=== PATIENT | female | born 1950 | race Caucasian/White ===

== ENCOUNTER 2020-02-09 16:15 | Emergency (ER) | payer MEDICARE, SELFPAY ==
[2020-02-09 16:19] VITALS: BP 150/73; PULSE 96; RESP 17; TEMP 36.5; O2SAT 96
--- NOTE | 2020-02-09 16:24 | ED.ABDPAIN ---
HPI - Abdominal Pain General Chief Complaint: Abdominal Pain Stated Complaint: lower abd pain Time Seen by Provider: 02/09/20 16:21 History of Present Illness HPI narrative: Suprapubic pain radiating into the vagina and down the front of her thighs for the pas 2 weeks. No nausea, vomiting, diarrhea, constipation, dysuria, hematuria, vaginal dyscharge/bleeding. She has had similar pain multiple times in the past without a cause identified. She gets some relief from ibuprofen. Related Data Allergies Allergy/AdvReac Type Severity Reaction Status Date / Time No Known Allergies Allergy Unverified 06/26/18 10:41 Review of Systems Review of Systems: All systems reviewed & are unremarkable except as noted in HPI and below Constitutional: Constitutional: Denies fever(s) and Denies weakness Cardiovascular: Cardiovascular: Denies chest pain Respiratory: Respiratory: Denies dyspnea Gastrointestinal: Gastrointestinal: Reports abdominal pain, Denies constipation, Denies diarrhea, Denies nausea and Denies vomiting Genitourinary: Genitourinary: Denies abnormal vaginal bleeding, Denies hematuria, Denies dysuria, Denies flank pain and Denies vaginal discharge Musculoskeletal: Musculoskeletal: Denies back pain Neurologic: Denies dizziness and Denies weakness PMFSH Social History Social History Gender identity (if verbalized by the patient): Female Exam Const: General: healthy appearing, no acute distress and alert Nutritional Appearance: well nourished Orientation/consciousness: patient oriented x3 HENMT: Head: normal to inspection Neck: Neck: normal visual inspection and no lymphadenopathy Chest: Chest palpation & inspection: no tenderness Resp: Effort & Inspection: normal respiratory effort Auscultation: clear to auscultation bilaterally, no rales, no rhonchi and no wheezes Cardio: Jugular venous distension: no JVD Rate: regular rate Rhythm: regular rhythm Heart sounds: no murmurs GI: Inspection: non-distended GI Palp: Yes Soft to palpation and No Tenderness to palpation present (GI) : Other: Grossly normal speculum exam. Mildy tender diffusely with expected atrophy. Skin: General skin exam: normal color Neuro: General: patient oriented x3, moves all extremities and CN's II-XI intact bilaterally Speech: normal speech Extrem: General: no edema Psych: Appearance: well kempt Affect: normal affect Course Vital Signs Vital signs: Vital Signs Temperature 36.5 C 02/09/20 16:19 Pulse Rate 96 02/09/20 16:19 Respiratory Rate 17 02/09/20 16:19 Blood Pressure 150/73 H 02/09/20 16:19 Pulse Oximetry 96 02/09/20 16:19 Temperature 36.5 C 02/09/20 16:19 Pulse Rate 96 02/09/20 16:19 Respiratory Rate 17 02/09/20 16:19 Blood Pressure 150/73 H 02/09/20 16:19 Pulse Oximetry 96 02/09/20 16:19 MDM - Abdominal Pain MDM Narrative Medical decision making narrative: She has a benign physical exam and reassuring labs. I suspect her pain is from age related changes. Given the chronicity and reccurent nature of it I do not feel she needs emergent imaging at this time. Case discussed with Dr. Christine. The patient can schedule outpatient follow-up. UA is indeterminant for infection. Given her nonspecific pelvic pain it is possible that these are just atypical UTI symptoms. I will provide short course of macrobid. Medical Records Attestation: I reviewed the patient's medical records. Lab Data Attestation: I reviewed the patient's lab results. Result diagrams: 02/09/20 16:35 02/09/20 16:35 Labs: Lab Results 02/09/20 02/09/20 02/09/20 Range/Units 16:35 16:35 16:35 WBC 6.2 (4.5-10.0) K/mm3 RBC 4.49 (4.2-5.4) M/mm3 Hgb 13.1 (12.0-15.0) g/dL Hct 38.5 (37.0-47.0) % MCV 85.7 (80-100) fl MCH 29.2 (26-34) pg MCHC 34.0 (32-36) g/dl RDW 12.7 (11.5-14.5) % Plt Count 222
[2020-02-09 16:41] LABS: Basophils Absolute Auto 0.1 K/mm3 (0.0-0.1); Basophils Percent Auto 0.8 % (0.2-1.2); Eosinophils Absolute Auto 0.3 K/mm3 (0-0.3); Eosinophils Percent Auto 4.4 % (0-4.4); Hematocrit 38.5 % (37.0-47.0); Hemoglobin 13.1 g/dL (12.0-15.0); Immature Granulocyte Absolute 0.02 K/mm3 (0.00-0.031); Immature Granulocyte Percent A 0.3 % (0-0.5); Lymphocytes Absolute Auto 2.21 K/mm3 (0.9-3.2); Lymphocytes Percent Auto 35.8 % (18.3-44.2); Mean Corpuscular Hemoglobin 29.2 pg (26-34); Mean Corpuscular Volume 85.7 fl (80-100); Mean Platelet Volume 10.5 fl (7.4-10.4); Monocytes Absolute Auto 0.5 K/mm3 (0.1-0.6); Monocytes Percent Auto 8.6 % (2.6-8.5); Neutrophils Absolute Auto 3.1 K/mm3 (1.3-6.7); Neutrophils Percent Auto 50.1 % (45.5-73.1); Platelet Count Result 222 k/mm3 (150-375); Red Blood Count 4.49 M/mm3 (4.2-5.4); Red Cell Distribution Width 12.7 % (11.5-14.5); White Blood Count 6.2 K/mm3 (4.5-10.0)
[2020-02-09 16:52] LABS: Alanine Aminotransferase 27 U/L (4-35); Albumin Level 4.6 g/dL (3.5-5.1); Alkaline Phosphatase 60 U/L (38-126); Aspartate Amino Transferase 28 U/L (14-36); Bilirubin,Total 0.3 mg/dL (0.2-1.3); Blood Urea Nitrogen 14 mg/dL (7-17); Calcium 9.5 mg/dL (8.4-10.2); Carbon Dioxide 24 mmol/L (22-30); Chloride 99 mmol/L (98-107); Estimated CRCL calculation 64 ml/min; Estimated Glomerular Filt Rate > 60; Glucose 157 mg/dL (65-105); Lipase 212 U/L (23-300); Potassium 3.6 mmol/L (3.4-5.0); Sodium 134 mmol/L (137-145)
[2020-02-09 16:57] LABS: Add Urine Microscopic? YES; Appearance Urine Clear (Clear); Bilirubin Urine Negative (Negative); Blood Urine Negative (Negative); Color Urine Yellow (Yellow); Glucose Urine UA Negative (Negative); Ketones Urine Negative (Negative); Leukocyte Esterase Ur Trace LEU/UL (Negative); Mucus Urine Few /lpf; Nitrate Urine Negative (Negative); Protein Urine Negative (Negative); RBC Urine 0-2 /hpf (0-2); Specific Grav Ur 1.014 (1.001-1.035); Squamous Epithelial Cell Urine Occasional /hpf (Few); Urobilinogen Urine Negative mg/dL (<2.0)
[2020-02-09] MEDS: KETOROLAC 30 MG/ML VIAL (*BKC) IV PUSH (17:34)
[2020-02-09] MEDS: NITROFURANTOIN MONOHYD MACROCR 100 MG CAP PO (18:12)
== END 2020-02-09 18:16 | disposition home or self-care (01) ==
PROVIDERS: Emergency Provider Emergency Medicine; PCP Emergency Medicine
DX: N39.0 Urinary tract infection, site not specified (principal)
CPT/HCPCS: 36415; 80053; 81001; 83690; 85025; 96374; 99284; A9270; J1885

== ENCOUNTER 2020-04-02 08:57 | Outpatient (CLI) | payer MEDICARE, SELFPAY ==
--- NOTE | ~2020-04-02 | MM_ITS ---
EXAMINATION: MM screening [facility] BI w beth HISTORY: Screening mammogram TECHNIQUE: Craniocaudal and mediolateral oblique 3-D tomosynthesis images were obtained and synthetic 2-D images were generated. CAD analysis was submitted and interpreted. COMPARISON: 02/21/2019 bilateral diagnostic digital mammogram 09/16/2016 bilateral digital screening mammogram BREAST PARENCHYMAL COMPOSITION: There are scattered areas of fibroglandular density. FINDINGS: Status post right partial mastectomy, with surgical clips and stable asymmetric density, ar chitectural distortion and overlying retraction in the upper outer quadrant of the left breast. Several biopsy markers are noted on the left; one is associated with a stable approximately 9 mm circ umscribed opacity in the lower outer quadrant of the left breast, with minimal benign appearing calci fication. Another biopsy marker is noted anteriorly in the outer mid left breast, near a stable small er opacity of approximately 4 mm dimension.. There is no evidence of any interval suspicious mass, calcification, or architectural distortion to suggest malignancy in either breast. There has been no suspicious interval change. IMPRESSION: 1. Status post right partial mastectomy for breast cancer. No mammographic evidence of malignancy. 2. Recommend routine screening mammography in one year. BI-RADS Category 2: Benign finding(s). Reviewed, dictated and finalized at location A. IMPRESSION: 1. Status post right partial mastectomy for breast cancer. No mammographic evid ence of malignancy. 2. Recommend routine screening mammography in one year. BI-RADS Category 2: Benign finding(s).
== END 2020-04-02 08:58 | disposition home or self-care (01) ==
LOC: ANHIMG 09:00
PROVIDERS: PCP Emergency Medicine; Visit Provider Emergency Medicine
DX: Z12.31 Encounter for screening mammogram for malignant neoplasm of breast (principal)
CPT/HCPCS: 77063; 77067

== ENCOUNTER 2021-04-04 09:00 | Outpatient (CLI) | payer MEDICARE, SELFPAY ==
--- NOTE | ~2021-04-04 | MM_ITS ---
EXAMINATION: MM screening [facility] BI w beth HISTORY: Screening mammogram TECHNIQUE: Craniocaudal and mediolateral oblique 3-D tomosynthesis images were obtained and synthetic 2-D images were generated. CAD analysis was submitted and interpreted. COMPARISON: 04/02/2020, 02/21/2019, 09/16/2016 bilateral digital screening mammogram examinations BREAST PARENCHYMAL COMPOSITION: There are scattered areas of fibroglandular density. FINDINGS: Status post right partial mastectomy in 2006 breast cancer. There is volume loss of the rig ht breast and surgical clips in the posterior upper outer quadrant, with adjacent stable scarring. There are 2 biopsy markers associated with circumscribed stable opacities in the outer mid left breas t. Another biopsy marker is noted posteriorly in the upper outer quadrant left breast. Scattered bilateral benign calcifications. An approximately 3.5 mm opacity is noted in the very posterior lower aspect of the left breast on MLO view, in the lateral most MLO Tomosynthesis lysis. Diagnostic left mammogram is recommended, with sk in markers or any possible skin lesion in this area. Recommend ultrasound if required. Development of a group of clustered microcalcifications in the mid inner left breast. Recommend diagn ostic mammogram with magnification views. There is no evidence of suspicious mass, calcification, or architectural distortion to suggest malign yesenia in the right breast. There has been no suspicious interval change on the right. IMPRESSION: 1. 3.5 mm mass in the posterior lower outer left breast; recommend diagnostic mammogram with attentio n this area, with skin marker over any lesions in this region; recommendation for left breast ultraso und if required. 2. Recommend magnification views of developing grouped microcalcifications in the inner mid left [address]. BI-RADS Category 0: Incomplete: Needs additional imaging evaluation. Reviewed, dictated and finalized at location A. IMPRESSION: 1. 3.5 mm mass in the posterior lower outer left breast; recommend diagnostic m ammogram with attention this area, with skin marker over any lesions in this re gion; recommendation for left breast ultrasound if required. 2. Recommend magnification views of developing grouped microcalcifications in t he inner mid left breast. BI-RADS Category 0: Incomplete: Needs additional imaging evaluation.
== END 2021-04-04 09:01 | disposition home or self-care (01) ==
PROVIDERS: PCP Emergency Medicine; Visit Provider Emergency Medicine
DX: Z12.31 Encounter for screening mammogram for malignant neoplasm of breast (principal); R92.8 Other abnormal and inconclusive findings on diagnostic imaging of breast
CPT/HCPCS: 77063; 77067

== ENCOUNTER 2021-05-10 11:44 | Outpatient (CLI) | payer MEDICARE, SELFPAY ==
--- NOTE | ~2021-05-10 | MM_ITS ---
EXAMINATION: MM diagnostic [facility] LT w beth HISTORY: Follow-up left breast mass and calcifications TECHNIQUE: Additional 3-D tomosynthesis images of the left breast were performed and synthetic 2-D im ages were generated. CAD analysis was submitted and interpreted. COMPARISON: Comparison to multiple prior studies sequentially, with oldest reviewed study dated 09/16. BREAST PARENCHYMAL COMPOSITION: Breast composed of scattered areas of fibroglandular density. FINDINGS: The 3 mm nodule in the lower aspect of the left breast corresponds to a mole visualized aleah ng the undersurface of the left breast with spot compression views. No suspicious masses or rfid systems architect ural distortion in the left breast. The calcifications in the upper inner quadrant of the left breast have a pleomorphic appearance. IMPRESSION: 1. Pleomorphic clustered left breast calcifications, upper inner quadrant, middle third. 2. Stereotactic left breast biopsy recommended. BI-RADS category 4, suspicious findings. Reviewed, dictated and finalized at location A. IMPRESSION: 1. Pleomorphic clustered left breast calcifications, upper inner quadrant, midd le third. 2. Stereotactic left breast biopsy recommended. BI-RADS category 4, suspicious findings.
== END 2021-05-10 11:45 | disposition home or self-care (01) ==
PROVIDERS: PCP Emergency Medicine; Visit Provider Emergency Medicine
DX: R92.1 Mammographic calcification found on diagnostic imaging of breast (principal)
CPT/HCPCS: 77061; 77065; G0279

== ENCOUNTER 2021-05-22 09:03 | Outpatient (CLI) | payer MEDICARE, SELFPAY ==
--- NOTE | ~2021-05-22 | DEXA_ITS ---
Bone Density Report Name: Melva Amezcua Age: 70 Sex: Female Ethnicity: White Date of : 1950 Indication: osteopenia; height loss; prior fracture; cancer; hysterectomy; Referring Provider: Todd Gasca Study: Bone densitometry was performed. Exam Date: May 22, 2021 Accession number: [id number] Bone Density: Region BMD T-score Z-score Classification AP Spine (L3, L4) 0.993 -1.0 1.2 Normal Femoral Neck (Left) 0.616 -2.1 -0.3 Osteopenia Total Hip (Left) 0.776 -1.4 0.1 Osteopenia Total Hip Bilateral Avg 0.743 -1.7 -0.2 Osteopenia Femoral Neck (Right) 0.641 -1.9 -0.1 Osteopenia Total Hip (Right) 0.709 -1.9 -0.4 Osteopenia World Health Organization criteria for BMD impression classify patients as: Normal (T-score at or above -1.0), Osteopenia (T-score between -1.0 and -2.5), or Osteoporosis (T-score at or below -2.5). 10-year Fracture Risk(1): Major Osteoporotic Fracture 18% Hip Fracture 3.3% Reported Risk Factors: [place] (), Neck BMD=0.616, BMI=32.1, previous fracture (1) FRAX(R) Version 3.08. Fracture probability calculated for an untreated patient. Fracture probability may be lower if the patient has received treatment. Previous Exams: Region Exam Age BMD T-score BMD Change BMD Change Date g/cm2 vs Baseline vs Previous AP Spine(L3, L4) 05/22/2021 70 0.993 -1.0 0.009(0.9%) 0.009(0.9%) 02/21/2019 68 0.983 -1.1 Total Hip(Left) 05/22/2021 70 0.776 -1.4 0.033(4.5%)* 0.033(4.5%)* 02/21/2019 68 0.743 -1.6 Total Hip(Right) 05/22/2021 70 0.709 -1.9 0.023(3.4%) 0.023(3.4%) 02/21/2019 68 0.686 -2.1 *Denotes significance at 95% confidence level, LSC for AP Spine = 0.022 g/cm2, LSC for Total Hip = 0.027 g/cm2 Clinical Information Provided by Patient: Has had a low trauma fracture Has used the following medications: Vitamin D, Calcium Has the following medical conditions: Cancer, Hysterectomy Patient maximum height was 65 Menopause Age: 51 Drinks caffeinated beverages Onset of menses at age 14 Number of children 3 Impression: The patient has low bone mass, based on the Left Femoral Neck T-score. The patient has an estimated ten-year risk of hip fracture of 3.3% and an estimated ten-year risk of major fracture of 18%, based on the WHO FRAX algorithm. The patient has risk factors, including: previous fracture. No significant bone loss was observed. Discussion: BONE DENSITY IS LOW AT ONE OR MORE
== END 2021-05-22 09:04 | disposition home or self-care (01) ==
PROVIDERS: PCP Emergency Medicine; Visit Provider Emergency Medicine
DX: M85.88 Other specified disorders of bone density and structure, other site (principal); M85.852 Other specified disorders of bone density and structure, left thigh; M85.851 Other specified disorders of bone density and structure, right thigh
CPT/HCPCS: 77080

== ENCOUNTER 2021-05-28 09:57 | Outpatient (CLI) | payer MEDICARE, SELFPAY ==
--- NOTE | ~2021-05-28 | MM_ITS ---
MM stereotactic bx LT, MM post biopsy diagnostic LT, MM stereotactic specimen LT EXAMINATION: MM ster eotactic bx LT, MM post biopsy diagnostic LT, MM stereotactic specimen LT DATE: Filipe Lanza M.D. INDICATION: Abnormal calcifications in the left breast. Stereotactic core biopsy is requested evalua te for malignancy.] TECHNIQUE AND FINDINGS: The risks and potential benefits of the procedure were discussed with the patient and written informe d consent was obtained. The patient was placed in the prone position clustered at the table with the left breast in mediolateral compression, and the area of interest was localized and targeted utilizi ng digital imaging with stereotaxis. After sterile preparation of the skin, 1% lidocaine was utilized for local anesthesia at the skin pun cture site and 1% lidocaine with epinephrine was utilized for deeper local anesthesia/is about the bi opsy site. A 9G [employer] vacuum assisted biopsy needle was advanced to the level of the calcification o f interest from a medial approach utilizing stereotactic guidance and a total of 6 tissue core biopsi es were obtained. A specimen radiograph demonstrates that the calcifications of interest are included within the tissue cores. A tissue marker clip was then placed at the biopsy site. The needle was removed and hemosta sis was achieved. The patient tolerated the procedure well and there is no evidence of significant i mmediate complication. The patient was given verbal as well as written postprocedural instructions p rior to discharge from the department. Tissue cores were submitted to surgical pathology for histolo gic analysis. A 2-view left unilateral digital mammogram was obtained post procedure and this demonstrates that the tissue marker clip is in expected position.] IMPRESSION: 1. Successful stereotactic biopsy of calcifications in the upper inner quadrant of the left breast, followed by tissue marker clip placement. Please refer to pathology report for histologic analysis. Reviewed, dictated and finalized at location A. IMPRESSION: 1. Successful stereotactic biopsy of calcifications in the upper inner quadran t of the left breast, followed by tissue marker clip placement. Please refer t o pathology report for histologic analysis. IMPRESSION: 1. Successful stereotactic biopsy of calcifications in the upper inner quadran t of the left breast, followed by tissue marker clip placement. Please refer t o pathology report for histologic analysis.
== END 2021-05-28 09:58 | disposition home or self-care (01) ==
PROVIDERS: PCP Emergency Medicine; Visit Provider Emergency Medicine
DX: R92.1 Mammographic calcification found on diagnostic imaging of breast (principal); D05.92 Unspecified type of carcinoma in situ of left breast
CPT/HCPCS: 19081; 77065; 88305; 88342; A4648

== ENCOUNTER → 2021-08-19 15:37 | Outpatient (CLI) | payer MEDICARE, SELFPAY ==
--- NOTE | ~2021-08-19 | XR_ITS ---
EXAMINATION: XR chest 2V 08/19/2021 15:54 INDICATION: Cough and congestion PROCEDURE: 2 view chest COMPARISON: Comparison to multiple prior studies sequentially, with oldest reviewed study dated 10/2016. FINDINGS: The lungs are clear. The cardiomediastinal silhouette is within normal limits. There are no pleural effusions. There is no pneumothorax suspected. IMPRESSION: 1: NO ACUTE CARDIOPULMONARY DISEASE. Reviewed, dictated and finalized at location A. 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
== END ==
PROVIDERS: PCP Emergency Medicine; Visit Provider Emergency Medicine
DX: R05.9 Cough, unspecified (principal)
CPT/HCPCS: 71046

== ENCOUNTER → 2021-08-20 01:08 | Outpatient (CLI) | payer MEDICARE, SELFPAY ==
[2021-08-21 14:30] LABS: SARS-CoV-2 RNA PCR Negative
== END ==
PROVIDERS: PCP Emergency Medicine; Visit Provider Emergency Medicine
DX: J06.9 Acute upper respiratory infection, unspecified (principal); Z20.822 Contact with and (suspected) exposure to COVID-19
CPT/HCPCS: C9803; U0003; U0005

== ENCOUNTER → 2021-08-30 00:32 | Outpatient (CLI) | payer MEDICARE, SELFPAY ==
[2021-08-30 19:19] LABS: SARS-CoV-2 RNA PCR Negative
== END ==
PROVIDERS: PCP Emergency Medicine; Visit Provider Emergency Medicine
DX: Z20.822 Contact with and (suspected) exposure to COVID-19 (principal)
CPT/HCPCS: C9803; U0003; U0005

== ENCOUNTER → 2021-11-04 02:05 | Outpatient (CLI) | payer MEDICARE, SELFPAY ==
[2021-11-04 12:55] LABS: SARS-CoV-2 RNA PCR Negative
== END ==
PROVIDERS: PCP Emergency Medicine; Visit Provider Surgery
DX: Z01.812 Encounter for preprocedural laboratory examination (principal); Z20.822 Contact with and (suspected) exposure to COVID-19
CPT/HCPCS: C9803; U0003; U0005

== ENCOUNTER 2021-11-04 08:59 | Outpatient (CLI) | payer MEDICARE, SELFPAY ==
[2021-11-04 09:44] LABS: Anion Gap 9 mmol/L (8-16); Blood Urea Nitrogen 17 mg/dL (7-17); Calcium 9.4 mg/dL (8.4-10.2); Carbon Dioxide 26 mmol/L (22-30); Chloride 104 mmol/L (98-107); Estimated Glomerular Filt Rate > 60; Glucose 161 mg/dL (65-110); Sodium 139 mmol/L (137-145)
== END 2021-11-04 09:00 | disposition home or self-care (01) ==
LOC: ANHSURGERY 09:03
PROVIDERS: Anesthesiology; PCP Emergency Medicine; Visit Provider Surgery
DX: E11.9 Type 2 diabetes mellitus without complications (principal); Z01.818 Encounter for other preprocedural examination
CPT/HCPCS: 36415; 80048

== ENCOUNTER 2021-11-07 01:35 | Day surgery (SDC) | payer MEDICARE, SELFPAY ==
--- NOTE | 2021-10-30 10:49 | PC.NURSE ---
Report to the Outpatient Waiting Room, entrance under the green pavilion located off [facility], at time __0830 on date _11/07/21 . OR Time: __1200 . NEEDLE LOC AT 0930 - You and your visitor will be asked a series of questions to screen for COVID 19 for your protection. - A mask is required within the hospital. Preoperative COVID Testing Requirements: No COVID Test needed if: (proof is required; if not received patient will have Rapid Test prior to entry) - Patient has received COVID Vaccine at least 14 days prior to procedure date or - Patient has positive COVID test result within last 90 days of surgery date. COVID TESTING 11/04/21 @0900 COVID Test needed if above criteria is not met If not COVID vaccinated a COVID test must be conducted within 72 hours of surgery and patient is asked to isolate self from time of testing until procedure. You will go to the [facility] for your COVID testing. The [facility] site is located at the corner of [address] [facility]. You will only be called if COVID results are positive and your surgeon may reschedule your elective surgery date. Patients may have clear liquids (water, carbonated beverages, clear teas, apple juice) until 3 hours prior to surgery with a maximum of 20 ounces. - No food from midnight until time of surgery - Infants may have breast milk until 4 hours before surgery, formula 6 hours prior to surgery. - Children will be allowed to drink immediately following surgery. If applicable, please bring a bottle or sippy cup to assist with drinking. Juice, water, soda, and popsicles are readily available. For infants on formula, please bring formula the day of surgery. Pacifiers are allowed. Take the following medications with a SIP of water the morning of surgery: ____NONE Medications to discontinue per physician ___ALL VITAMINS AND SUPPLEMENTS 3 DAYS PRE OP Date to take last dose__11/03/21 Please no make-up, nail albanian, hairspray, perfume, deodorant, or body powder the day of surgery. No jewelry (including any body piercings) or valuables the day of surgery, leave them at home. Please take a shower or bath the night before, or the morning of, surgery with an antibacterial soap. Wear comfortable, loose fitting clothing. Children are encouraged to wear pajamas. - Jewelry must be removed prior to entering the operating room. Rings and piercings that are not removed may be cut off. - The hospital will not accept responsibility for valuables. - Please leave all valuables, including medications, at home the day of surgery. HIBICLENS SHOWER MORNING OF SURGERY If you are going home after surgery, a licensed regional driver must drive you home. - NO public transportation without another adult. - We recommend that an adult stay with you for 24 hours following discharge. - We also recommend that you do not drive, make important decision, drink alcoholic beverages, or take any drugs that were not prescribed by your health care provider for at least 24 hours after your discharge time. One visitor will be allowed to accompany the patient into the hospital. Patients visitor will be instructed to remain with patient at all times or leave the building. We will allow the visitor to come back to the postoperative area when patient is ready. Follow any additional instructions given to you from your surgeon. Telephone instructions given to __PATIENT and asked if any additional questions and then verbalized understanding. Patient advised to call surgeon office or pre surgery nurse liaison [phone] if any additional questions.
[2021-10-30 10:53] VITALS: BMI 30.8
--- NOTE | 2021-11-05 17:29 | PM.SD2 ---
Same Day Admit/Disch: HPI History of Present Illness Chief complaint: dcis of left breast Narrative: Melva Amezcua is a 71 year old female Who has a remote history of right breast cancer. She was noted on mammography last fall to have pleomorphic calcifications in the upper inner quadrant of the left breast. 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 After discussion in the office, patient is now taken to surgery for wire localization left breast lumpectomy. [facility] Past Medical History Medical History Breast cancer RIGHT BREAST Diabetes Hypertension Thyroid condition Surgical History Surgical History H/O parathyroidectomy H/O: hysterectomy 1989 History of lumpectomy 2017 Hx of tonsillectomy Family History Family History Father Heart attack Mother ALS (amyotrophic lateral sclerosis) Other Cerebrovascular accident Hypertension Social History Social History Smoking status: Never smoker Alcohol intake: current Alcohol use details: RARELY Substance use: never Living arrangements: other Gender identity (if verbalized by the patient): Female Spiritual care concerns: No Same Day Admit/Disch: Med Pre-admit Medications Home Medications Medication Instructions Recorded Confirmed Type blood sugar diagnostic 08/28/21 11/07/21 History hydrochlorothiazide 12.5 mg tablet 12.5 mg PO DAILY 08/28/21 11/07/21 History lisinopril 40 mg tablet 40 mg PO DAILY 08/28/21 11/07/21 History metformin 500 mg tablet 500 mg PO DAILY 08/28/21 11/07/21 History simvastatin 10 mg tablet 10 mg PO DAILY 08/28/21 11/07/21 History simvastatin 20 mg tablet 20 mg PO DAILY 08/28/21 11/07/21 History cholecalciferol (vitamin D3) 1,250 mcg PO WEEKLY 10/30/21 11/07/21 History glucosamine-chondroitin 2 tablet PO DAILY 10/30/21 11/07/21 History multivitamin 1 tablet PO DAILY 10/30/21 11/07/21 History hydrocodone-acetaminophen 1 - 2 tablet PO Q6H PRN #7 tablet 11/07/21 Rx ibuprofen 600 mg PO Q6H PRN #14 tablet 11/07/21 Rx Exam Const: General: comfortable, no acute distress, alert and awake HENMT: Head: normocephalic and atraumatic Mouth: Yes Normal oral and palatal mucosa present Eyes: Conjunctivae: conjunctivae normal Pupils: Equal, round and reactive pupils present EOM: EOMs intact bilaterally Neck: Neck: normal visual inspection, no lymphadenopathy and nontender Chest: Breast/axilla inspection: normal inspection of the breasts ( Left inverted nipple, scars right breast from previous surgery) and normal inspection of the axillae Breast/axilla palpation: normal palpation of the breasts, normal palpation of the axillae and no axillary lymphadenopathy Resp: Effort & Inspection: normal respiratory effort Auscultation: clear to auscultation bilaterally Cardio: Rate: regular rate Rhythm: regular rhythm Heart sounds: no gallops, no murmurs and no rubs GI: Inspection: non-distended GI Palp: Yes Soft to palpation, No Tenderness to palpation present (GI), No Hepatomegaly present and No Splenomegaly present Skin: Lesions: no lesions Rashes: no rashes Neuro: General: no focal motor deficits and CN's II-XI intact bilaterally Cranial nerves: Yes Equal, round and reactive pupils present, Yes Bilaterally intact EOM present, Yes facial symmetry and Yes Midline tongue present Speech: normal speech Motor exam (neuro): 5/5 motor strength present throughout and Motor abnormalities not present Extrem: General: no clubbing, cyanosis or edema and edema Psych: Affect: normal affect Thought process: Normal thought process present Insight: Good insight present (Psych) DS: Summary Time Spe
--- NOTE | ~2021-11-07 | MM_ITS ---
EXAMINATION: MM needle loc LT, MM surgical specimen LT DATE: 11/07/2021 10:34 (accession [id number]), 11/07/2021 12:53 (accession [id number]) INDICATION: Ductal carcinoma in situ of the left breast TECHNIQUE: The procedure for a mammography-guided needle localization was discussed with the patient. Risks and benefits were detailed including risks of bleeding and infection. The patient verbalized u nderstanding and agreed to proceed. A time out was performed to verify the patient's name, date of , and site of procedure. The kayce ent was placed in craniocaudal compression, and the skin overlying the left breast was prepared in u sual fashion. The skin and subcutaneous soft tissues were infiltrated with 1% lidocaine for local ane sthesia. Utilizing mammography guidance, a needle was advanced into the left breast. Two confirmatory films were obtained. The patient tolerated procedure without immediate complication. A specimen radiograph was performed. FINDINGS: Two view confirmatory films of the left breast demonstrate a needle with tip adjacent to bi opsy marker. The wire and biopsy marker are contained within the surgical specimen. IMPRESSION: 1. Successful mammography-guided left breast needle localization. Reviewed, dictated and finalized at location A. PROTECTION SPECIALIST IMPRESSION: 1. Successful mammography-guided left breast needle localization.
[2021-11-07] MEDS: LACTATED RINGERS 1,000 ML 30 ML IV CONT (09:10)
[2021-11-07 09:48] LABS: Glucose Point of Care 132 mg/dl (65-105)
[2021-11-07 09:50] VITALS: BP 161/73; PULSE 59; RESP 16; TEMP 36.8; O2SAT 100
[2021-11-07] MEDS: ACETAMINOPHEN 500 MG TABLET 1000 MG PO (10:18)
[2021-11-07] MEDS: KETOROLAC 15 MG/ML VIAL (*BKC) IV PUSH (10:18)
--- NOTE | 2021-11-07 11:20 | WPDHPUPDATE1 ---
History and Physical Update Update Date/Time: 11/07/21 11:20 History and Physical has been reviewed, including an updated exam of the patient. There are NO changes in the patient's condition. Risks, benefits, and alternatives have been discussed and questions answered. Patient agrees to proceed with procedure.
--- NOTE | 2021-11-07 12:01 | WPDANESEPPF ---
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 Patient Data Age: 71 Gender: F Height: 1.65 m Weight: 83.6 kg Last Vital Signs Temp 36.8 C 11/07/21 09:50 Pulse 59 L 11/07/21 09:50 Resp 16 11/07/21 09:50 BP 161/73 H 11/07/21 09:50 Pulse Ox 100 11/07/21 09:50 Allergies Allergy/AdvReac Type Severity Reaction Status Date / Time No Known Allergies Allergy Verified 11/07/21 10:12 Home Medications Medication Instructions Recorded Confirmed Type blood sugar diagnostic 08/28/21 11/07/21 History hydrochlorothiazide 12.5 mg tablet 12.5 mg PO DAILY 08/28/21 11/07/21 History lisinopril 40 mg tablet 40 mg PO DAILY 08/28/21 11/07/21 History metformin 500 mg tablet 500 mg PO DAILY 08/28/21 11/07/21 History simvastatin 10 mg tablet 10 mg PO DAILY 08/28/21 11/07/21 History simvastatin 20 mg tablet 20 mg PO DAILY 08/28/21 11/07/21 History cholecalciferol (vitamin D3) 1,250 mcg PO WEEKLY 10/30/21 11/07/21 History glucosamine-chondroitin 2 tablet PO DAILY 10/30/21 11/07/21 History multivitamin 1 tablet PO DAILY 10/30/21 11/07/21 History hydrocodone-acetaminophen 1 - 2 tablet PO Q6H PRN #7 tablet 11/07/21 Rx ibuprofen 600 mg PO Q6H PRN #14 tablet 11/07/21 Rx Laboratory Tests 11/07/21 09:42 POC Capillary Glucose 132 mg/dl H mg/dl (65-105) Patient hx anesthesia problems: post op nausea/vomiting Family hx anesthesia problems: none Results Review: All pre-operative results and documents have been reviewed as part of the pre-operative evaluation. [facility] Past Medical History Medical History Breast cancer RIGHT BREAST Diabetes Hypertension Thyroid condition Surgical History Surgical History H/O parathyroidectomy H/O: hysterectomy 1989 History of lumpectomy 2018 Hx of tonsillectomy Family History Family History Father Heart attack Mother ALS (amyotrophic lateral sclerosis) Other Cerebrovascular accident Hypertension Social History Social History Smoking status: Never smoker Alcohol intake: current Alcohol use details: RARELY Substance use: never Living arrangements: other Gender identity (if verbalized by the patient): Female Spiritual care concerns: No Anes - Eval Final PreProcedure Day of Procedure 11/07/21 12:01 Patient weight: overweight Heart: regular rate and rhythm Lungs: clear to auscultation Airway: Mallampati scale class II Neurological: alert and oriented Last oral intake: >/= 8 hours ASA classification: III Emergent: no Anesthetic plan: proceed Anesthesia type and monitoring: general GIVS and standard monitoring Results Review: All pre-operative results and documents have been reviewed as part of the pre-operative evaluation. Informed Consent: The patient's anesthetic plan and its attendant risks and benefits were discussed with the patient/family/POA. Questions were solicited and answers provided to the satisfaction of the patient/family/POA.
[2021-11-07] MEDS: SCOPOLAMINE 1.5 MG PATCH TRANSDERM (12:07)
[2021-11-07] MEDS: ceFAZolin 2 GM/D5W 50 ML 2 GM/50 ML BAG IVPB (12:07)
[2021-11-07] MEDS: BUPIVACAINE/EPINEPHRINE 0.25% 10 ML VIAL 30 ML INFILTRATE (12:30)
[2021-11-07 13:20] VITALS: BP 121/69; PULSE 58; RESP 12; O2SAT 99
--- NOTE | 2021-11-07 13:21 | W.PM.PROC2 ---
Procedure Note - Detailed Date of Procedure 11/07/21 Pre-op Diagnosis dcis of left breast Post-op Diagnosis Same Procedure Performed Image guided wire localization, left breast lumpectomy Surgeon Andres Grubbs MD [employer] Stanislaw HORNE Anesthesia General (G IV SS) and Local (0.25% Marcaine with epinephrine) Indications Patient is a 71-year-old woman who 4 years ago had a right breast cancer treated with lumpectomy radiation therapy and chemotherapy. She was found to have pleomorphic calcifications in the upper inner quadrant of the left breast. 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 Grade was 2 and there was no comedonecrosis. She is taken to surgery now for wire localization left breast lumpectomy. Findings No gross evidence of malignancy. No palpable mass. Specimen mammogram confirmed the marker lesion to be in the center of the specimen. Description of Procedure The patient was checked in the preoperative holding area. The wire localization imaging was reviewed. Patient was taken to surgery and induced into anesthesia. The left breast was prepped and draped taking care not to disturb the localizing wire. The proposed incision was marked on the left breast in the upper midline. The incision was about half way between the exit site of the wire and the edge of the areola. Local was infiltrated and then incision was made. We deepened the incision 1-2 cm and then dissected over to the wire. Once the wire was found, it was pulled through the skin and out the wound. We were fairly close to the specimen at this point. I then excised the breast tissue including the wire down to and beyond the hook of the wire. A the breast tissue was taken to remove the lesion entirely. Once the lumpectomy specimen was removed, I used different colored suture to sunny the very reassess margins on the specimen for pathology. These were labeled appropriately so they would go with the specimen to pathology. The specimen was then placed on a grid and sent tomography he. Mammogram showed lesion marker to be in the center of the specimen. I then excised 6 different margins of the biopsy cavity. This included all the sides of the specimen. Each of these margin re-excision is a was labeled appropriately. Each was marked with a suture on its inner aspect. Each of these were sent to pathology as well. The wound was then made hemostatic with the cautery. The wound was closed in layers using 3-0 Monocryl. The skin was loosely approximated with interrupted 3-0 Monocryl subcuticular suture. The wound was finally closed with a running 4-0 Monocryl skin suture. The wound was dressed with Exofin surgical adhesive. The patient was awakened and taken to outpatient surgery in good condition. Sponge and needle counts were correct x2. Estimated Blood Loss -5 Drains No Packing No Pathology Yes (Lumpectomy specimen, 6 margin re-excision specimens.) Complications No immediate complications Condition Stable Disposition Same day
[2021-11-07 13:50] VITALS: BP 135/76; PULSE 55; RESP 12; O2SAT 98
[2021-11-07 14:00] LABS: Glucose Point of Care 93 mg/dl (65-105)
[2021-11-07 14:20] VITALS: BP 141/81; PULSE 53; RESP 12
== END 2021-11-07 14:40 | disposition home or self-care (01) ==
PROVIDERS: PCP Emergency Medicine; Visit Provider Surgery
PROC: (CPT 19303; principal; 2021-11-07 12:00)
DX: D05.12 Intraductal carcinoma in situ of left breast (principal); Z79.84 Long term (current) use of oral hypoglycemic drugs; E11.9 Type 2 diabetes mellitus without complications; I10 Essential (primary) hypertension; E07.9 Disorder of thyroid, unspecified
CPT/HCPCS: 19301; 19281; 36415; 76098; 80048; 82948; 88307; A9270; C1769; C9803; J0690; J1885; J2405; J2704; J3010; J7120; U0003; U0005

== ENCOUNTER 2021-11-21 12:40 | Emergency (ER) | payer MEDICARE, SELFPAY ==
--- NOTE | ~2021-11-21 | XR_ITS ---
EXAMINATION: XR lumbar spine 2-3V DATE: 11/21/2021 13:18 INDICATION: Chronic low back pain. TECHNIQUE: 3 views of lumbar spine were obtained. COMPARISON: Chest 2 views 08/19/2021, CT abdomen and pelvis 06/26/2018 FINDINGS: There is 14 degrees levoscoliosis of lumbar spine. There is a chronic compression fracture of L1 with 2/5 loss of height anteriorly. There is severe lower thoracic spondylosis. There is severe ly decreased disc height at T12-L1 and moderately decreased disc height from L2-L3 through L5-S1. The re are endplate osteophytes at all levels. There is severe facet joint osteoarthritis in lower lumbar spine. IMPRESSION: 1. Severe lumbar spondylosis. 2. Lumbar levoscoliosis. Reviewed, dictated and finalized at location A.
--- NOTE | ~2021-11-21 | US_ITS ---
EXAMINATION: US venous doppler [facility] DATE: 11/21/2021 13:27 INDICATION: Left calf pain. TECHNIQUE: Grayscale ultrasound images without and with compression and Doppler ultrasound images of the left lower extremity veins were obtained. COMPARISON: None. FINDINGS: The visualized portions of left common femoral vein, profunda (deep) femoral vein, femoral vein, popl iteal vein, peroneal veins, posterior tibial veins, and greater saphenous vein outflow are patent. IMPRESSION: 1. No deep venous thrombosis. Reviewed, dictated and finalized at location A.
--- NOTE | ~2021-11-21 | XR_ITS ---
EXAMINATION: XR hip LT min 3V w AP pelvis DATE: 11/21/2021 13:18 INDICATION: Low back pain radiating to the left hip and leg. TECHNIQUE: Anteroposterior view of the pelvis and anteroposterior, frog leg and cross-table lateral v iews of the left hip were obtained. COMPARISON: None. FINDINGS: 12 degrees lumbar levoscoliosis. Moderate to severe lower lumbar spondylosis. Normal alignment and julia int space at the bilateral hips. Mild bilateral sacroiliac osteoarthritis. No suspected avascular nec rosis. Soft tissues are unremarkable.. IMPRESSION: 1. Mild lumbar levoscoliosis with moderate to severe lower lumbar spondylosis. Reviewed, dictated and finalized at location A.
[2021-11-21 12:53] VITALS: BP 145/92; PULSE 81; RESP 18; TEMP 36.6; O2SAT 94
--- NOTE | 2021-11-21 12:57 | PC.NURSE ---
EDP at beside to assess pt.
--- NOTE | 2021-11-21 13:17 | PC.NURSE ---
Patient off unit to Radiology.
--- NOTE | 2021-11-21 13:26 | ED.EXTPRO ---
HPI - Extremity Problem General Chief complaint: Extremity Problem,Nontraumatic Stated complaint: left leg pain Time Seen by Provider: 11/21/21 12:54 Source: patient Mode of arrival: ambulatory Limitations: no limitations History of Present Illness HPI Narrative: This is a 71 year old male that presents to the ER for left leg pain present over the last couple of weeks. Reports the pain starts in her left hip/low back and radiates down the leg. Pain is worse with weight bearing and relieved with rest. Her PCP sent her in for evaluation to r/o DVT due to recent surgery. Denies fever, saddle anesthesia or bowel/bladder incontinence. Related Data Home Medications Medication Instructions Recorded Confirmed blood sugar diagnostic 08/28/21 11/18/21 hydrochlorothiazide 12.5 mg tablet 12.5 mg PO QAM 08/28/21 11/20/21 lisinopril 40 mg tablet 40 mg PO QAM 08/28/21 11/20/21 metformin 500 mg tablet 500 mg PO QAM 08/28/21 11/20/21 simvastatin 10 mg tablet 10 mg PO HS 08/28/21 11/20/21 cholecalciferol (vitamin D3) 1,250 mcg PO WEEKLY 10/30/21 11/20/21 glucosamine-chondroitin 2 tablet PO DAILY 10/30/21 11/20/21 multivitamin 1 tablet PO DAILY 10/30/21 11/20/21 kmoicyl-zuag-tylcv-oreg-capryl 1 cap PO DAILY 11/20/21 11/20/21 Allergies Allergy/AdvReac Type Severity Reaction Status Date / Time No Known Allergies Allergy Verified 11/20/21 10:17 Review of Systems Review of Systems: CONSTITUTIONAL: Denies fever CARDIOVASCULAR: Denies chest pain, or edema. RESPIRATORY: Denies dyspnea. SKIN: Denies rash MUSCULOSKELETAL: Reports back pain, joint pain, and myalgia. NEUROLOGIC: Denies numbness, or weakness. All systems reviewed & are unremarkable except as noted in HPI and below PMFSH Past Medical History Medical History (Updated 11/21/21 @ 14:21 by Eva Ortiz PA-C) Breast cancer RIGHT BREAST Diabetes Hypertension Thyroid condition Surgical History Surgical History (Updated 11/18/21 @ 13:03 by Therese Cartwright) H/O parathyroidectomy H/O: hysterectomy 1989 History of lumpectomy 2018 Hx of tonsillectomy S/P lumpectomy, left breast image guided wire localization; left breast lumpectomy 11/07/21 Family History Family History Father Heart attack Mother ALS (amyotrophic lateral sclerosis) Other Cerebrovascular accident Hypertension Social History Social History Smoking status: Never smoker Alcohol intake: current Alcohol use details: RARELY Substance use: never Additional living arrangements comments: SIGNIFICANT OTHER Gender identity (if verbalized by the patient): Female Spiritual care concerns: No Exam Narrative: GENERAL: Well-appearing, well-nourished, and in no acute distress. HEAD: Normocephalic, atraumatic. EYES: EOMI. CHEST: Clear to auscultation. No respiratory distress. No wheezes rales or rhonchi HEART: Regular rate and rhythm. No murmur heard. Normal peripheral pulses. BACK: No midline spinal tenderness EXTREMITIES: Normal range of motion. No edema. Normal DP pulses. Normal sensation SKIN: Warm, dry, no rash. NEURO: No focal deficits. Alert and oriented x3. Normal gait PSYCH: Normal mood and affect Course Vital Signs Vital signs: Vital Signs Temperature 98 F 11/21/21 12:53 Pulse Rate 81 11/21/21 12:53 Respiratory Rate 18 11/21/21 12:53 Blood Pressure 145/92 H 11/21/21 12:53 Pulse Oximetry 94 11/21/21 12:53 Temperature 98 F 11/21/21 12:53 Pulse Rate 81 11/21/21 12:53 Respiratory Rate 18 11/21/21 12:53 Blood Pressure 145/92 H 11/21/21 12:53 Pulse Oximetry 94 11/21/21 12:53 MDM - Extremity (Nontraumatic) MDM Narrative Medical decision making narrative: Patient presents to the emergency department for left-sided low back/hip pain radiating down the leg. She is afebrile and nontoxic-appearing. She is neurovasc
[2021-11-21] MEDS: ACETAMINOPHEN 500 MG TABLET 1000 MG PO (13:35)
[2021-11-21] MEDS: KETOROLAC 30 MG/ML VIAL (*BKC) IM (13:35)
[2021-11-21 13:56] LABS: Basophils Percent Auto 0.8 % (0.2-1.2); Eosinophils Absolute Auto 0.2 K/mm3 (0-0.3); Hematocrit 37.1 % (37.0-47.0); Hemoglobin 12.5 g/dL (12.0-15.0); Immature Granulocyte Absolute 0.02 K/mm3 (0.00-0.031); Immature Granulocyte Percent A 0.4 % (0-0.5); Lymphocytes Absolute Auto 1.49 K/mm3 (0.9-3.2); Lymphocytes Percent Auto 28.2 % (18.3-44.2); Mean Corpuscular HGB Conc 33.7 g/dl (32-36); Mean Corpuscular Hemoglobin 29.8 pg (26-34); Mean Corpuscular Volume 88.3 fl (80-100); Mean Platelet Volume 10.6 fl (7.4-10.4); Monocytes Absolute Auto 0.5 K/mm3 (0.1-0.6); Monocytes Percent Auto 9.3 % (2.6-8.5); Neutrophils Absolute Auto 3.1 K/mm3 (1.3-6.7); Neutrophils Percent Auto 58.3 % (45.5-73.1); Platelet Count Result 242 k/mm3 (150-375); Red Cell Distribution Width 12.6 % (11.5-14.5); White Blood Count 5.3 K/mm3 (4.5-10.0)
[2021-11-21 14:04] LABS: Prothrombin Time 12.7 Seconds (11.1-14.7)
[2021-11-21 14:05] LABS: Partial Thromboplastin Time 25.5 SECONDS (22.3-36.8)
[2021-11-21 14:06] LABS: Anion Gap 8 mmol/L (8-16); Blood Urea Nitrogen 19 mg/dL (7-17); Calcium 10.1 mg/dL (8.4-10.2); Carbon Dioxide 27 mmol/L (22-30); Chloride 103 mmol/L (98-107); Estimated CRCL calculation 69 ml/min; Estimated Glomerular Filt Rate > 60; Glucose 118 mg/dL (65-110); Potassium 3.6 mmol/L (3.4-5.0); Sodium 138 mmol/L (137-145)
== END 2021-11-21 14:35 | disposition home or self-care (01) ==
PROVIDERS: Physician Assistant; Emergency Provider Emergency Medicine; PCP Emergency Medicine
DX: M54.42 Lumbago with sciatica, left side (principal); E11.9 Type 2 diabetes mellitus without complications; I10 Essential (primary) hypertension; E89.2 Postprocedural hypoparathyroidism; Z85.3 Personal history of malignant neoplasm of breast; Z79.84 Long term (current) use of oral hypoglycemic drugs; M47.816 Spondylosis without myelopathy or radiculopathy, lumbar region
CPT/HCPCS: 36415; 72100; 73502; 80048; 85025; 85610; 85730; 93971; 96372; 99284; A9270; J1885

== ENCOUNTER → 2021-11-26 00:25 | Outpatient (CLI) | payer MEDICARE, SELFPAY ==
[2021-11-26 11:08] LABS: SARS-CoV-2 RNA PCR Negative
== END ==
PROVIDERS: PCP Emergency Medicine; Visit Provider Surgery
DX: Z01.812 Encounter for preprocedural laboratory examination (principal); Z20.822 Contact with and (suspected) exposure to COVID-19
CPT/HCPCS: C9803; U0003; U0005

== ENCOUNTER 2021-11-29 01:54 | Day surgery (SDC) | payer MEDICARE, SELFPAY ==
[2021-11-20 10:22] VITALS: BMI 30.4
--- NOTE | 2021-11-20 10:41 | PC.NURSE ---
Report to the Outpatient Waiting Room, entrance under the green pavilion located off [facility], at time _8:30AM on date __11/29/21 . OR Time: ___10:30 AM . - You and your visitor will be asked a series of questions to screen for COVID 19 for your protection. - A mask is required within the hospital. Preoperative COVID Testing Requirements: COVID TESTING 11/26/21 @ 8:45 AM No COVID Test needed if: (proof is required; if not received patient will have Rapid Test prior to entry) - Patient has received COVID Vaccine at least 14 days prior to procedure date or - Patient has positive COVID test result within last 90 days of surgery date. COVID Test needed if above criteria is not met If not COVID vaccinated a COVID test must be conducted within 72 hours of surgery and patient is asked to isolate self from time of testing until procedure. You will go to the [facility] for your COVID testing. The [facility] site is located at the corner of [address] [facility]. You will only be called if COVID results are positive and your surgeon may reschedule your elective surgery date. Patients may have clear liquids (water, carbonated beverages, clear teas, apple juice) until 3 hours prior to surgery with a maximum of 20 ounces. - No food from midnight until time of surgery - Infants may have breast milk until 4 hours before surgery, formula 6 hours prior to surgery. - Children will be allowed to drink immediately following surgery. If applicable, please bring a bottle or sippy cup to assist with drinking. Juice, water, soda, and popsicles are readily available. For infants on formula, please bring formula the day of surgery. Pacifiers are allowed. Take the following medications with a SIP of water the morning of surgery: __NONE Medications to discontinue per physician _ALL VITAMINS/SUPPLEMENTS 3 DAYS PRE-OP Date to take last dose 11/25/21 Please no make-up, nail yemeni, hairspray, perfume, deodorant, or body powder the day of surgery. No jewelry (including any body piercings) or valuables the day of surgery, leave them at home. Please take a shower or bath the night before, or the morning of, surgery with an antibacterial soap. Wear comfortable, loose fitting clothing. Children are encouraged to wear pajamas. - Jewelry must be removed prior to entering the operating room. Rings and piercings that are not removed may be cut off. - The hospital will not accept responsibility for valuables. - Please leave all valuables, including medications, at home the day of surgery. If you are going home after surgery, a licensed jinriksha driver must drive you home. - NO public transportation without another adult. - We recommend that an adult stay with you for 24 hours following discharge. - We also recommend that you do not drive, make important decision, drink alcoholic beverages, or take any drugs that were not prescribed by your health care provider for at least 24 hours after your discharge time. For Pediatric surgeries, we recommend two adults accompany the child home (only one inside the building at this time). One visitor will be allowed to accompany the patient into the hospital. Patients visitor will be instructed to remain with patient at all times or leave the building. We will allow the visitor to come back to the postoperative area when patient is ready. Follow any additional instructions given to you from your surgeon. Telephone instructions given to ___PATIENT and asked if any additional questions and then verbalized understanding. Patient advised to call surgeon office or pre surgery nurse liaison [phone] if any additional questions.
--- NOTE | 2021-11-29 08:07 | WPDHPUPDATE1 ---
History and Physical Update Update Date/Time: 11/29/21 08:07 History and Physical has been reviewed, including an updated exam of the patient. There are NO changes in the patient's condition. Risks, benefits, and alternatives have been discussed and questions answered. Patient agrees to proceed with procedure.
--- NOTE | 2021-11-29 08:58 | P.PNAN_ITS ---
Anes - Initial Pre Proc Eval Procedure: Operation Date: 11/29/21 10:30 Proposed Procedures p Margin Re-Excision Left Breast Lumpectomy - Andres Grubbs MD Date/Time: 11/29/21 08:58 Surgeon: Andres Grubbs MD Pre Op Diagnosis: DCIS left Patient Data Age: 71 Gender: F Height: 1.65 m Weight: 83 kg Allergies Allergy/AdvReac Type Severity Reaction Status Date / Time No Known Allergies Allergy Verified 11/20/21 10:17 Home Medications Medication Instructions Recorded Confirmed Type blood sugar diagnostic 08/28/21 11/18/21 History hydrochlorothiazide 12.5 mg tablet 12.5 mg PO QAM 08/28/21 11/20/21 History lisinopril 40 mg tablet 40 mg PO QAM 08/28/21 11/20/21 History metformin 500 mg tablet 500 mg PO QAM 08/28/21 11/20/21 History simvastatin 10 mg tablet 10 mg PO HS 08/28/21 11/20/21 History cholecalciferol (vitamin D3) 1,250 mcg PO WEEKLY 10/30/21 11/20/21 History glucosamine-chondroitin 2 tablet PO DAILY 10/30/21 11/20/21 History multivitamin 1 tablet PO DAILY 10/30/21 11/20/21 History ibuprofen 600 mg PO Q6H PRN #14 tablet 11/07/21 11/20/21 Rx tbyyjap-lslt-tuhbt-oreg-capryl 1 cap PO DAILY 11/20/21 11/20/21 History Patient hx anesthesia problems: post op nausea/vomiting Family hx anesthesia problems: none Results Review: All pre-operative results and documents have been reviewed as part of the pre-operative evaluation. [facility] Past Medical History Medical History Breast cancer RIGHT BREAST Diabetes Hypertension Thyroid condition Surgical History Surgical History H/O parathyroidectomy H/O: hysterectomy 1989 History of lumpectomy 2018 Hx of tonsillectomy S/P lumpectomy, left breast image guided wire localization; left breast lumpectomy 11/07/21 Family History Family History Father Heart attack Mother ALS (amyotrophic lateral sclerosis) Other Cerebrovascular accident Hypertension Social History Social History Smoking status: Never smoker Alcohol intake: current Alcohol use details: RARELY Substance use: never Living arrangements: other Additional living arrangements comments: SIGNIFICANT OTHER Gender identity (if verbalized by the patient): Female Spiritual care concerns: No Anes - Eval Final PreProcedure Day of Procedure 11/29/21 08:58 Patient weight: overweight Heart: regular rate and rhythm Lungs: clear to auscultation Airway: Mallampati scale class II Neurological: alert and oriented Last oral intake: >/= 8 hours ASA classification: III Emergent: no Anesthetic plan: proceed Anesthesia type and monitoring: general LMA and standard monitoring Results Review: All pre-operative results and documents have been reviewed as part of the pre-operative evaluation. Informed Consent: The patient's anesthetic plan and its attendant risks and benefits were discussed with the patient/family/POA. Questions were solicited and answers provided to the satisfaction of the patient/family/POA.
[2021-11-29 09:03] VITALS: BP 135/97; PULSE 78; RESP 18; TEMP 36.7; O2SAT 97
[2021-11-29] MEDS: LACTATED RINGERS 1,000 ML 30 ML IV CONT (09:11)
[2021-11-29] MEDS: SCOPOLAMINE 1.5 MG PATCH TRANSDERM (09:13)
[2021-11-29] MEDS: KETOROLAC 15 MG/ML VIAL (*BKC) IV PUSH (09:13)
[2021-11-29] MEDS: ACETAMINOPHEN 500 MG TABLET 1000 MG PO (09:13)
[2021-11-29 09:52] LABS: Glucose Point of Care 120 mg/dl (65-105)
[2021-11-29] MEDS: ceFAZolin 2 GM/D5W 50 ML 2 GM/50 ML BAG IVPB (10:43)
[2021-11-29 11:55] VITALS: BP 111/68; PULSE 67; RESP 14; O2SAT 97
--- NOTE | 2021-11-29 11:56 | W.PM.PROC2 ---
Procedure Note - Detailed Date of Procedure 11/29/21 Pre-op Diagnosis DCIS left breast Post-op Diagnosis Same Procedure Performed Margin re-excision lumpectomy DCIS left breast Surgeon Andres Grubbs MD [employer] Tod HORNE Anesthesia General (G IV S) and Local (0.25% Marcaine with epinephrine) Indications Patient underwent wire localization left breast lumpectomy for DCIS left breast on November 07, 2021. The deep margin was positive. The cephalad and caudad margins were both 0.1 cm. The superficial margin was 0.2 cm. Patient is taken back to surgery for margin re-excision left breast lumpectomy. Findings There was a well defined lumpectomy cavity noted. No gross evidence of malignancy. Description of Procedure The patient was taken to surgery and GI VS anesthesia was introduced. The left breast was prepped and draped. An ellipse was drawn around the previous lumpectomy incision scar. Local anesthetic was infiltrated into the anticipated incision. Incision was made excising the old scar and removing that skin entirely. This scar was discarded. We used the cautery for hemostasis. We dissected down about a cm and encountered the previous lumpectomy cavity. The associated tissue fluid was suctioned away. The lumpectomy cavity was inspected. I exposed 1st the deep margin. At least a 5 mm if not 10 mm section of the deep margin was reexcised. A suture was placed on the inner aspect of the specimen. It was sent to pathology labeled appropriately. In similar fashion, the cephalad margin was reexcised. Silk suture was again placed on the inner aspect. The caudal margin was reexcised as well. Suture was also placed on the inner aspect of the caudal margin. Cautery was used for hemostasis throughout. The superficial margin was exposed. A 5 mm re-excision of the superficial margin was then carried out, again marking the inner aspect with a silk suture. The lumpectomy cavity was inspected. It was made meticulously hemostatic with the cautery. The wound was closed with a deeper layer of interrupted 3-0 Monocryl suture. Interrupted subcuticular 3-0 Monocryl sutures were placed to loosely approximate the skin. Finally the skin was closed with a running 4-0 Monocryl skin suture. The wound was dressed with Exofin surgical adhesive. The patient was awakened and taken to recovery in good condition. Sponge and needle counts were correct x2. Estimated Blood Loss -5 Drains No Packing No Pathology Yes (Reexcised margins-deep, cephalad, caudad, superficial. Four specimens.) Complications None Condition Stable Disposition Same day
[2021-11-29 12:12] LABS: Glucose Point of Care 106 mg/dl (65-105)
[2021-11-29 12:25] VITALS: BP 114/65; PULSE 67; RESP 14
[2021-11-29 12:45] VITALS: BP 130/69; PULSE 59; RESP 14
== END 2021-11-29 12:55 | disposition home or self-care (01) ==
PROVIDERS: PCP Emergency Medicine; Visit Provider Surgery
PROC: (CPT 19303; principal; 2021-11-29 10:30)
DX: D05.12 Intraductal carcinoma in situ of left breast (principal); I10 Essential (primary) hypertension; E11.9 Type 2 diabetes mellitus without complications; E07.9 Disorder of thyroid, unspecified; Z79.84 Long term (current) use of oral hypoglycemic drugs
CPT/HCPCS: 19301; 82948; 88307; A9270; C9803; J0690; J1100; J1885; J2250; J2405; J2704; J3010; J7120; U0003; U0005

== ENCOUNTER 2021-12-26 11:01 | Outpatient (CLI) | payer MEDICARE, SELFPAY ==
--- NOTE | ~2021-12-26 | MMUS_ITS ---
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 CAD analysis was submitted and interpreted. High resolution complete left br east ultrasound including all 4 quadrants and subareolar areas was performed. COMPARISON: 06/06/2021 diagnostic left mammogram 03/26/2021, 04/02/2020 bilateral screening mammogram examinations BREAST PARENCHYMAL COMPOSITION: There are scattered areas of fibroglandular density. FINDINGS: MAMMOGRAPHIC FINDINGS: PA and up to 7.6 cm partially circumscribed oval fluid density is noted in the posterior aspect of th e inner aspect of the upper inner and lower inner quadrants primarily. This is likely a postoperative seroma. There is a very occasional punctate microcalcifications. 3. Biopsy markers are noted, one in the upper outer quadrant and 2 in the lower outer quadrant of the left breast. ULTRASOUND: Large complicated fluid collection is noted in the medial and mid central left breast. No suspicious mass or shadowing is evident. IMPRESSION: 1. Benign finding; postoperative seroma 2. Further management based upon clinical assessment. MR breast examination may be of additional bene fit as clinically appropriate. BI-RADS Category 6: Known DCIS Reviewed, dictated and finalized at location A. IMPRESSION: 1. Benign finding; postoperative seroma 2. Further management based upon clinical assessment. MR breast examination may be of additional benefit as clinically appropriate. BI-RADS Category 6: Known DCIS
== END 2021-12-26 11:02 | disposition home or self-care (01) ==
PROVIDERS: PCP Emergency Medicine; Visit Provider Radiology Radiation Oncology
DX: D05.12 Intraductal carcinoma in situ of left breast (principal); M96.843 Postprocedural seroma of a musculoskeletal structure following other procedure
CPT/HCPCS: 76641; 77061; 77065; G0279

== ENCOUNTER 2022-01-28 13:33 | Outpatient (CLI) | payer MEDICARE, SELFPAY ==
[2022-01-28 14:16] LABS: Anion Gap 0 mmol/L (8-16); Blood Urea Nitrogen 25 mg/dL (7-17); Calcium 9.7 mg/dL (8.4-10.2); Carbon Dioxide 36 mmol/L (22-30); Chloride 98 mmol/L (98-107); Estimated Glomerular Filt Rate > 60; Glucose 145 mg/dL (65-110); Sodium 134 mmol/L (137-145)
== END 2022-01-28 13:34 | disposition home or self-care (01) ==
LOC: ANHSURGERY 13:37
PROVIDERS: Anesthesiology; PCP Emergency Medicine; Visit Provider Surgery
DX: E11.9 Type 2 diabetes mellitus without complications (principal); Z01.818 Encounter for other preprocedural examination
CPT/HCPCS: 36415; 80048

== ENCOUNTER 2022-01-30 00:59 | Day surgery (SDC) | payer MEDICARE, SELFPAY ==
--- NOTE | 2022-01-27 09:05 | PC.NURSE ---
Report to the Outpatient Waiting Room, entrance under the green pavilion located off [facility], at [id number] on date _01/30/22 . OR Time: __1200 . - You and your visitor will be asked a series of questions to screen for COVID 19 for your protection. - Only one visitor is allowed at this time. - The patient visitor is requested to leave or wait in car when not with patient. - A mask is required within the hospital. Patients may have clear liquids (water, carbonated beverages, clear teas, apple juice) until 3 hours prior to surgery with a maximum of 20 ounces. - No food from midnight until time of surgery - Infants may have breast milk until 4 hours before surgery, formula 6 hours prior to surgery. - Children will be allowed to drink immediately following surgery. If applicable, please bring a bottle or sippy cup to assist with drinking. Juice, water, soda, and popsicles are readily available. For infants on formula, please bring formula the day of surgery. Pacifiers are allowed. Take the following medications with a SIP of water the morning of surgery: __NONE Medications to discontinue per physician ___ALL VITAMINS AND SUPPLEMENTS 3 DAYS PRE OP Date to take last dose___01/26/22 Please no make-up, nail divehi, hairspray, perfume, deodorant, or body powder the day of surgery. No jewelry (including any body piercings) or valuables the day of surgery, leave them at home. Please take a shower or bath the night before, or the morning of, surgery with an antibacterial soap. Wear comfortable, loose fitting clothing. Children are encouraged to wear pajamas. - Jewelry must be removed prior to entering the operating room. Rings and piercings that are not removed may be cut off. - The hospital will not accept responsibility for valuables. - Please leave all valuables, including medications, at home the day of surgery. HIBICLENS SHOWER MORNING OF SURGERY If you are going home after surgery, a licensed regional dedicated truck driver must drive you home. - NO public transportation without another adult. - We recommend that an adult stay with you for 24 hours following discharge. - We also recommend that you do not drive, make important decision, drink alcoholic beverages, or take any drugs that were not prescribed by your health care provider for at least 24 hours after your discharge time. For Pediatric surgeries, we recommend two adults accompany the child home (only one inside the building at this time). Follow any additional instructions given to you from your surgeon. If you or anyone in your household have experienced Covid symptoms in the past week, please notify your surgeon or the nurse liaison at the phone number below for possible testing. Telephone instructions given to ___PATIENT and asked if any additional questions and then verbalized understanding. Patient advised to call surgeon office or pre surgery nurse liaison [phone] if any additional questions.
[2022-01-27 09:12] VITALS: BMI 30.8
[2022-01-30 10:08] VITALS: BP 143/71; PULSE 64; RESP 18; TEMP 36.1; O2SAT 98
[2022-01-30] MEDS: ACETAMINOPHEN 500 MG TABLET 1000 MG PO (10:28)
[2022-01-30] MEDS: LACTATED RINGERS 1,000 ML 30 ML IV CONT (10:36)
[2022-01-30] MEDS: KETOROLAC 15 MG/ML VIAL (*BKC) IV PUSH (10:36)
[2022-01-30 10:43] LABS: Glucose Point of Care 124 mg/dl (65-105)
--- NOTE | 2022-01-30 10:51 | WPDANESEPPF ---
Anes - Initial Pre Proc Eval Procedure: Operation Date: 01/30/22 12:00 Proposed Procedures p Re-Excision of Lumpectomy Left Breast - Andres Grubbs MD Date/Time: 01/30/22 10:51 Surgeon: Andres Grubbs MD Pre Op Diagnosis: dcis of left breast Patient Data Age: 71 Gender: F Height: 1.65 m Weight: 83.2 kg Last Vital Signs Temp 36.1 C L 01/30/22 10:08 Pulse 64 01/30/22 10:08 Resp 18 01/30/22 10:08 BP 143/71 H 01/30/22 10:08 Pulse Ox 98 01/30/22 10:08 O2 Del Method Room Air 01/30/22 10:08 Allergies Allergy/AdvReac Type Severity Reaction Status Date / Time No Known Allergies Allergy Verified 01/30/22 10:20 Home Medications Medication Instructions Recorded Confirmed Type blood sugar diagnostic (OneTouch 08/28/21 01/09/22 History Ultra Test) hydrochlorothiazide 12.5 mg tablet 12.5 mg PO QAM 08/28/21 01/30/22 History lisinopril 40 mg tablet 40 mg PO QAM 08/28/21 01/30/22 History metformin 500 mg tablet 500 mg PO QAM 08/28/21 01/30/22 History simvastatin 10 mg tablet 10 mg PO HS 08/28/21 01/30/22 History cholecalciferol (vitamin D3) 1,250 1,250 mcg PO WEEKLY 10/30/21 01/30/22 History mcg (50,000 unit) tablet glucosamine-chondroitin 250 mg-200 2 tablet PO DAILY 10/30/21 01/30/22 History mg tablet multivitamin 1 tablet PO DAILY 10/30/21 01/30/22 History tumeric 100 mg-juan 150 mg-olive 1 cap PO DAILY 11/20/21 01/30/22 History 50 mg-oreg 150 mg-caprylate capsule Laboratory Tests 01/30/22 10:39 POC Capillary Glucose 124 mg/dl H mg/dl (65-105) Patient hx anesthesia problems: none Family hx anesthesia problems: none Results Review: All pre-operative results and documents have been reviewed as part of the pre-operative evaluation. [facility] Past Medical History Medical History Breast cancer RIGHT BREAST Diabetes Hypertension Thyroid condition Surgical History Surgical History H/O parathyroidectomy H/O: hysterectomy 1989 History of lumpectomy 2017 History of lumpectomy of left breast 11/29/21 Hx of tonsillectomy S/P lumpectomy, left breast image guided wire localization; left breast lumpectomy 11/07/21 Family History Family History Father Heart attack Mother ALS (amyotrophic lateral sclerosis) Other Cerebrovascular accident Hypertension Social History Social History Smoking status: Never smoker Alcohol intake: current Alcohol use details: RARELY Substance use: never Living arrangements: with family Additional living arrangements comments: SIGNIFICANT OTHER Gender identity (if verbalized by the patient): Female Spiritual care concerns: No Anes - Eval Final PreProcedure Day of Procedure 01/30/22 10:51 Patient weight: obese Heart: regular rate and rhythm Lungs: clear to auscultation Airway: Mallampati scale class II Neurological: alert and oriented ASA classification: III Emergent: no Anesthetic plan: proceed Anesthesia type and monitoring: general GIVS and standard monitoring Results Review: All pre-operative results and documents have been reviewed as part of the pre-operative evaluation. Informed Consent: The patient's anesthetic plan and its attendant risks and benefits were discussed with the patient/family/POA. Questions were solicited and answers provided to the satisfaction of the patient/family/POA.
[2022-01-30] MEDS: SCOPOLAMINE 1.5 MG PATCH TRANSDERM (10:59)
--- NOTE | 2022-01-30 12:12 | SUR.PREOP ---
pt in formed delay in procedure
--- NOTE | 2022-01-30 12:19 | WPDHPUPDATE1 ---
History and Physical Update Update Date/Time: 01/30/22 12:19 History and Physical has been reviewed, including an updated exam of the patient. There are NO changes in the patient's condition. Risks, benefits, and alternatives have been discussed and questions answered. Patient agrees to proceed with procedure.
[2022-01-30] MEDS: ceFAZolin 2 GM/D5W 50 ML 2 GM/50 ML BAG IVPB (12:25)
[2022-01-30] MEDS: LIDO 1%/EPINEPHRINE/PF 1:200,000 30 ML VIAL XX (12:56)
[2022-01-30 13:20] VITALS: BP 116/66; PULSE 67; RESP 14; O2SAT 96
--- NOTE | 2022-01-30 13:26 | W.PM.PROC2 ---
Procedure Note - Detailed Date of Procedure 01/30/22 Pre-op Diagnosis dcis of left breast Post-op Diagnosis Same Procedure Performed Margin re-excision left breast lumpectomy Surgeon Andres Grubbs MD Retaining Room Cutter Feli HORNE Anesthesia General (G IV S) and Local (1% lidocaine with epinephrine) Indications Patient underwent wire localization, left breast lumpectomy for DCIS. She had some margins positive after the initial lumpectomy. She went for a 2nd margin re-excision lumpectomy. Following that procedure, she had a skip lesion and a positive margin at the caudal aspect of the biopsy cavity. She is taken back to surgery now for margin re-excision lumpectomy of the caudal margin. Findings Lumpectomy cavity was found easily. It appeared to be healing well. No gross evidence of malignancy was noted. Description of Procedure Patient was taken to surgery and induced into anesthesia. The left breast was prepped and draped. Local anesthetic was infiltrated in the area of the old incision as well as in the deeper subcutaneous tissues of the left breast. Incision was made dissection was carried down through the subcutaneous and the superficial breast tissue. I was able to palpate and find the general direction to the lumpectomy cavity. The cavity was then entered. I opened the wound the length of the skin incision. A few adhesions in the lumpectomy cavity were taken down. I then exposed the caudal aspect of the cavity. I infiltrated additional local into this aspect where we planned to take the margin re-excision. I then used the cautery and excised approximately a 1 cm thick slice of the entire caudal aspect of the lumpectomy cavity. I placed a suture on the inner aspect of the lumpectomy cavity. The specimen was passed to pathology labeled caudal margin re-excision lumpectomy with suture on inner aspect. The wound was then made hemostatic with the cautery. I closed the wound in layers using 3-0 Monocryl subcutaneous and subcuticular interrupted suture. The skin was closed with a running 4-0 Monocryl subcuticular suture. The wound was dressed with Exofin surgical adhesive. The patient was awakened and taken to recovery in good condition. Sponge and needle counts were correct x2. Estimated Blood Loss -5 Drains No Packing No Pathology Yes (Caudal margin re-excision lumpectomy) Complications No immediate complications Condition Stable Disposition Same day [facility] Billing Surgery - Charge Forward: Surgery Billing (Margin re-excision lumpectomy left breast)
[2022-01-30 13:37] LABS: Glucose Point of Care 109 mg/dl (65-105)
[2022-01-30 13:50] VITALS: BP 128/67; PULSE 64; RESP 16; O2SAT 96
[2022-01-30 14:10] VITALS: BP 126/63; PULSE 61; RESP 16
== END 2022-01-30 14:17 | disposition home or self-care (01) ==
PROVIDERS: PCP Emergency Medicine; Visit Provider Surgery
PROC: (CPT 19301; principal; 2022-01-30 12:00)
DX: D05.12 Intraductal carcinoma in situ of left breast (principal); E11.9 Type 2 diabetes mellitus without complications; I10 Essential (primary) hypertension; E07.9 Disorder of thyroid, unspecified; Z79.84 Long term (current) use of oral hypoglycemic drugs; E66.9 Obesity, unspecified; Z68.30 Body mass index [BMI] 30.0-30.9, adult
CPT/HCPCS: 19301; 36415; 80048; 82948; 88307; A9270; J0690; J1100; J1885; J2250; J2405; J2704; J3010; J7120

== ENCOUNTER 2022-03-27 17:55 | Emergency (ER) | payer MEDICARE, SELFPAY ==
[2022-03-27 17:58] VITALS: BP 150/71; PULSE 86; RESP 18; TEMP 36.3; O2SAT 99
--- NOTE | 2022-03-27 18:40 | PC.NURSE ---
Patient walked out of ED without difficulty and in no distress.
[2022-03-27 18:44] LABS: Appearance Urine Clear (Clear); Bilirubin Urine Negative (Negative); Blood Urine Negative (Negative); Glucose Urine UA Negative (Negative); Ketones Urine Negative (Negative); Leukocyte Esterase Ur 1+ LEU/UL (Negative); Nitrate Urine Negative (Negative); Protein Urine Negative (Negative); Specific Grav Ur 1.015 (1.001-1.035); Urobilinogen Urine 0.2 mg/dL (<2.0)
[2022-03-27 18:46] LABS: Add Urine Microscopic? YES; Color Urine Light Yellow (Yellow)
[2022-03-27 18:51] LABS: Bacteria Urine Trace /hpf; Mucus Urine Rare /lpf; Squamous Epithelial Cell Urine Rare /hpf (Few)
== END 2022-03-27 18:40 | disposition left against medical advice (07) ==
PROVIDERS: Emergency Provider Emergency Medicine; PCP Emergency Medicine
DX: R10.2 Pelvic and perineal pain (principal)
CPT/HCPCS: 81001; 99199

== ENCOUNTER → 2022-07-25 11:05 | Outpatient (CLI) | payer MEDICARE, SELFPAY ==
--- NOTE | ~2022-07-25 | XR_ITS ---
EXAMINATION: XR chest 2V 07/25/2022 11:21 INDICATION: Cough for 4 days. History of breast cancer. PROCEDURE: 2 view chest COMPARISON: 08/19/2021 FINDINGS: The lungs are clear. The cardiomediastinal silhouette is within normal limits. There are no pleural effusions. There is no pneumothorax suspected. There are surgical clips in the right lissett ast. IMPRESSION: 1: NO ACUTE CARDIOPULMONARY DISEASE. Reviewed, dictated and finalized at location A. GAGE COORDINATOR
== END ==
PROVIDERS: PCP Emergency Medicine; Visit Provider Emergency Medicine
DX: R05.9 Cough, unspecified (principal)
CPT/HCPCS: 71046

== ENCOUNTER 2022-08-25 14:17 | Outpatient (CLI) | payer MEDICARE, SELFPAY ==
[2022-08-25 14:38] LABS: Basophils Percent Auto 0.8 % (0.2-1.2); Eosinophils Absolute Auto 0.2 K/mm3 (0-0.3); Eosinophils Percent Auto 3.9 % (0-4.4); Hematocrit 36.7 % (37.0-47.0); Hemoglobin 12.3 g/dL (12.0-15.0); Immature Granulocyte Absolute 0.01 K/mm3 (0.00-0.031); Immature Granulocyte Percent A 0.2 % (0-0.5); Lymphocytes Absolute Auto 1.64 K/mm3 (0.9-3.2); Lymphocytes Percent Auto 33.8 % (18.3-44.2); Mean Corpuscular HGB Conc 33.5 g/dl (32-36); Mean Corpuscular Hemoglobin 29.5 pg (26-34); Mean Platelet Volume 9.7 fl (7.4-10.4); Monocytes Absolute Auto 0.6 K/mm3 (0.1-0.6); Monocytes Percent Auto 12.2 % (2.6-8.5); Neutrophils Absolute Auto 2.4 K/mm3 (1.3-6.7); Neutrophils Percent Auto 49.1 % (45.5-73.1); Platelet Count Result 219 k/mm3 (150-375); Red Blood Count 4.17 M/mm3 (4.2-5.4); Red Cell Distribution Width 12.5 % (11.5-14.5); White Blood Count 4.9 K/mm3 (4.5-10.0)
[2022-08-25 14:44] LABS: Blood Urea Nitrogen 19 mg/dL (8-26); Carbon Dioxide 28 mmol/L (22-30); Chloride 102 mmol/L (98-109); Estimated Glomerular Filt Rate 55; Glucose 101 mg/dL (70-105); Potassium 3.9 mmol/L (3.5-4.9); Sodium 140 mmol/L (138-146)
[2022-08-25 16:22] LABS: Alanine Aminotransferase 23 U/L (6-35); Albumin Level 4.8 g/dL (3.5-5.1); Alkaline Phosphatase 43 U/L (38-126); Anion Gap 7 mmol/L (8-16); Aspartate Amino Transferase 25 U/L (14-36); Bilirubin,Total 0.3 mg/dL (0.2-1.3); Blood Urea Nitrogen 19 mg/dL (7-17); Calcium 9.9 mg/dL (8.4-10.2); Carbon Dioxide 30 mmol/L (22-30); Chloride 100 mmol/L (98-107); Estimated Glomerular Filt Rate > 60; Glucose 100 mg/dL (65-110); Potassium 3.9 mmol/L (3.4-5.0); Sodium 137 mmol/L (137-145)
== END 2022-08-25 14:18 | disposition home or self-care (01) ==
LOC: ANHLAB 14:18
PROVIDERS: PCP Emergency Medicine; Visit Provider Internal Medicine Hematology & Oncology
DX: D05.12 Intraductal carcinoma in situ of left breast (principal)
CPT/HCPCS: 36415; 80047; 80053; 85025

== ENCOUNTER 2022-12-30 13:48 | Outpatient (CLI) | payer MEDICARE, SELFPAY ==
--- NOTE | ~2022-12-30 | MM_ITS ---
EXAMINATION: MM diagnostic skylar BI w beth HISTORY: History of bilateral DCIS TECHNIQUE: ML, MLO and CC 3-D tomosynthesis images of both breasts were performed and synthetic 2-D i mages were generated. CAD analysis was submitted and interpreted. COMPARISON: December 26, 2021 diagnostic left mammogram and complete left breast ultrasound May 10, 2021 left diagnostic mammogram April 04, 2021 bilateral screening mammogram BREAST PARENCHYMAL COMPOSITION: There are scattered areas of fibroglandular density. FINDINGS: There are bilateral postoperative changes; history of bilateral DCIS. There are two biopsy markers on the left; history of 3 prior benign left breast biopsies. There is interval considerably diminished size of probable seroma of left breast.. No interval suspicious mass lesion or new architectural distortion, malignant calcification or signif icant new or developing density is detected. IMPRESSION: 1. Benign findings; no current mammographic evidence of malignancy 2. Routine annual mammographic screening is recommended. BI-RADS Category 2: Benign finding(s). Reviewed, dictated and finalized at location A.
== END 2022-12-30 13:49 | disposition home or self-care (01) ==
PROVIDERS: PCP Emergency Medicine; Visit Provider Internal Medicine Hematology & Oncology
DX: D05.12 Intraductal carcinoma in situ of left breast (principal); Z85.3 Personal history of malignant neoplasm of breast
CPT/HCPCS: 77062; 77066; G0279

== ENCOUNTER 2023-01-06 13:06 | Outpatient (CLI) | payer MEDICARE, SELFPAY ==
[2023-01-06 13:18] LABS: Basophils Absolute Auto 0.1 K/mm3 (0.0-0.1); Basophils Percent Auto 0.7 % (0.2-1.2); Eosinophils Absolute Auto 0.2 K/mm3 (0-0.3); Eosinophils Percent Auto 2.2 % (0-4.4); Hematocrit 39.8 % (37.0-47.0); Hemoglobin 13.5 g/dL (12.0-15.0); Immature Granulocyte Absolute 0.03 K/mm3 (0.00-0.031); Immature Granulocyte Percent A 0.4 % (0-0.5); Lymphocytes Absolute Auto 2.14 K/mm3 (0.9-3.2); Lymphocytes Percent Auto 29.2 % (18.3-44.2); Mean Corpuscular HGB Conc 33.9 g/dl (32-36); Mean Corpuscular Hemoglobin 29.2 pg (26-34); Mean Platelet Volume 10.1 fl (7.4-10.4); Monocytes Absolute Auto 0.6 K/mm3 (0.1-0.6); Monocytes Percent Auto 8.4 % (2.6-8.5); Neutrophils Absolute Auto 4.3 K/mm3 (1.3-6.7); Neutrophils Percent Auto 59.1 % (45.5-73.1); Platelet Count Result 236 k/mm3 (150-375); Red Blood Count 4.63 M/mm3 (4.2-5.4); Red Cell Distribution Width 12.4 % (11.5-14.5); White Blood Count 7.3 K/mm3 (4.5-10.0)
[2023-01-06 13:23] LABS: Blood Urea Nitrogen 18 mg/dL (8-26); Carbon Dioxide 29 mmol/L (22-30); Chloride 100 mmol/L (98-109); Estimated Glomerular Filt Rate > 60; Glucose 105 mg/dL (70-105); Ionized Calcium (POC) 1.28 mmol/L (1.11-1.31); Potassium 3.5 mmol/L (3.5-4.9); Sodium 140 mmol/L (138-146)
[2023-01-06 16:58] LABS: Alanine Aminotransferase 32 U/L (6-35); Albumin Level 4.8 g/dL (3.5-5.1); Alkaline Phosphatase 65 U/L (38-126); Anion Gap 9 mmol/L (8-16); Aspartate Amino Transferase 29 U/L (14-36); Bilirubin,Total 0.6 mg/dL (0.2-1.3); Blood Urea Nitrogen 18 mg/dL (7-17); Calcium 10.5 mg/dL (8.4-10.2); Carbon Dioxide 31 mmol/L (22-30); Chloride 99 mmol/L (98-107); Estimated Glomerular Filt Rate > 60; Glucose 104 mg/dL (65-110); Potassium 3.7 mmol/L (3.4-5.0); Sodium 139 mmol/L (137-145)
== END 2023-01-06 13:07 | disposition home or self-care (01) ==
LOC: ANHLAB 13:08
PROVIDERS: PCP Emergency Medicine; Visit Provider Internal Medicine Hematology & Oncology
DX: D05.12 Intraductal carcinoma in situ of left breast (principal)
CPT/HCPCS: 36415; 80047; 80053; 85025

== ENCOUNTER 2023-04-10 12:53 | Outpatient (CLI) | payer MEDICARE, SELFPAY ==
[2023-04-10 13:02] LABS: Basophils Percent Auto 0.4 % (0.2-1.2); Eosinophils Absolute Auto 0.2 K/mm3 (0-0.3); Eosinophils Percent Auto 3.2 % (0-4.4); Hematocrit 37.4 % (37.0-47.0); Hemoglobin 12.7 g/dL (12.0-15.0); Immature Granulocyte Absolute 0.02 K/mm3 (0.00-0.031); Immature Granulocyte Percent A 0.4 % (0-0.5); Lymphocytes Absolute Auto 1.63 K/mm3 (0.9-3.2); Lymphocytes Percent Auto 30.4 % (18.3-44.2); Mean Corpuscular Hemoglobin 29.2 pg (26-34); Mean Platelet Volume 9.5 fl (7.4-10.4); Monocytes Absolute Auto 0.5 K/mm3 (0.1-0.6); Monocytes Percent Auto 9.5 % (2.6-8.5); Neutrophils Percent Auto 56.1 % (45.5-73.1); Platelet Count Result 212 k/mm3 (150-375); Red Blood Count 4.35 M/mm3 (4.2-5.4); Red Cell Distribution Width 12.8 % (11.5-14.5); White Blood Count 5.4 K/mm3 (4.5-10.0)
[2023-04-10 13:07] LABS: Blood Urea Nitrogen 16 mg/dL (8-26); Carbon Dioxide 28 mmol/L (22-30); Chloride 99 mmol/L (98-109); Estimated Glomerular Filt Rate > 60; Glucose 140 mg/dL (70-105); Ionized Calcium (POC) 1.33 mmol/L (1.11-1.31); Potassium 3.3 mmol/L (3.5-4.9); Sodium 141 mmol/L (138-146)
[2023-04-10 14:49] LABS: Alanine Aminotransferase 35 U/L (6-35); Albumin Level 4.6 g/dL (3.5-5.1); Alkaline Phosphatase 65 U/L (38-126); Anion Gap 8 mmol/L (8-16); Aspartate Amino Transferase 31 U/L (14-36); Bilirubin,Total 0.4 mg/dL (0.2-1.3); Blood Urea Nitrogen 17 mg/dL (7-17); Calcium 10.4 mg/dL (8.4-10.2); Carbon Dioxide 31 mmol/L (22-30); Chloride 100 mmol/L (98-107); Estimated Glomerular Filt Rate > 60; Glucose 131 mg/dL (65-110); Potassium 3.3 mmol/L (3.4-5.0); Sodium 139 mmol/L (137-145)
== END 2023-04-10 12:54 | disposition home or self-care (01) ==
LOC: ANHLAB 12:54
PROVIDERS: PCP Emergency Medicine; Visit Provider Internal Medicine Hematology & Oncology
DX: D05.12 Intraductal carcinoma in situ of left breast (principal)
CPT/HCPCS: 36415; 80047; 80053; 85025

== ENCOUNTER 2023-09-03 16:23 | Emergency (ER) | payer MEDICARE, SELFPAY ==
--- NOTE | ~2023-09-03 | XR_ITS ---
EXAMINATION: XR abdomen/kub 1V DATE: 09/04/2023 06:03 INDICATION: Left ureteral stone. TECHNIQUE: A supine view of the abdomen was obtained. COMPARISON: CT abdomen and pelvis 09/03/2023 FINDINGS: There are no dilated loops of bowel. There is contrast in the renal collecting system. Ther e is mild left hydronephrosis. IMPRESSION: 1. Mild left hydronephrosis. Reviewed, dictated and finalized at location A. CHANGE CREW MEMBER
--- NOTE | ~2023-09-03 | CT_ITS ---
EXAMINATION: CT abdomen pelvis w con DATE: 09/03/2023 23:54 INDICATION: LLQ /L flank pain, N/V TECHNIQUE: Computed tomography (CT) of the abdomen and pelvis was performed with 100 mL Omnipaque-350 intravenous contrast. Automated exposure control and iterative reconstruction technique were employe d. The dose-length product was 758.24 mGy-cm. COMPARISON: 06/26/2018. FINDINGS: Lower thorax: Linear scar in the lateral right lower lobe. Minimal bibasilar scar/atelectasis. Mild c oronary artery calcification. Liver: Enlarged. Diffuse fatty infiltration. Biliary/Gallbladder: Gallbladder is normal. No bile duct dilation. Pancreas: No mass or duct dilation. Spleen: Normal. Adrenals:No mass. Kidneys: Mild cortical thinning bilaterally. Multiple nonobstructing calculi. Bilateral renal cysts a nd lesions that are too small to characterize but also likely represent cysts. Mild right pelviectasi s without ureterectasis. Moderate left pelviectasis and caliectasis with urothelial hyperemia. Mild l eft perinephric stranding. 7 mm left UPJ stone GI tract: Moderate distal esophageal and gastric wall edema. No small or large bowel dilation. Uncomp licated small bowel and rectosigmoid anastomoses. There is short segment dilation of a small bowel an astomosis up to 6.7 cm, no wall thickening, no significant proximal bowel dilation to suggest obstruc tion or ileus. Normal appendix. Diverticulosis without diverticulitis. Mesentery/Peritoneum: No ascites, mass, or free air. Retroperitoneum: No mass. Atherosclerotic abdominal aortic and/or arterial calcifications. Pelvis: Absent uterus. Normal urinary bladder. Soft Tissues: Soft tissues and body wall unremarkable. Bones: No acute osseous finding. IMPRESSION: Moderate esophagitis/gastritis. Hepatomegaly and steatosis. 7 mm left UPJ stone causing moderate obstructive uropathy. Increased short segment small bowel dilation at the mid abdominal anastomosis, likely chronic. Reviewed, dictated and finalized at location K. EATIONAL VEHICLE RESORT MANAGER
[2023-09-03 16:25] VITALS: BP 136/68; PULSE 78; RESP 16; TEMP 36.2; O2SAT 99
--- NOTE | 2023-09-03 17:42 | PC.NURSE ---
Patient laying on the floor yelling. This RN went to check on patient and she states she layed herself down on the floor due to the pain.
--- NOTE | 2023-09-03 19:47 | PC.NURSE ---
Patient continues to lay on the floor on her cell phone at this time
[2023-09-03 20:44] VITALS: BP 144/86; PULSE 87; TEMP 37; O2SAT 100
[2023-09-03 21:48] VITALS: BP 120/75; PULSE 93; RESP 12; O2SAT 100
[2023-09-03 21:50] VITALS: BP 120/75; PULSE 87; RESP 25; O2SAT 96
[2023-09-03 22:10] VITALS: BP 116/68; PULSE 83; RESP 12; O2SAT 97
[2023-09-03 22:30] VITALS: BP 126/70; PULSE 84; RESP 23; O2SAT 100
[2023-09-03] MEDS: MORPHINE SULFATE (*CRX) 4 MG/ML INJ IV PUSH (23:15)
[2023-09-03] MEDS: SODIUM CHLORIDE 0.9% IV 1,000 ML 999 ML IV CONT (23:15)
[2023-09-03] MEDS: ONDANSETRON INJ 4 MG/2 ML VIAL IV PUSH (23:15)
[2023-09-03 23:18] LABS: Appearance Urine Clear (Clear); Bacteria Urine None Seen /hpf; Bilirubin Urine Negative (Negative); Blood Urine 1+ (Negative); Color Urine Yellow (Yellow); Glucose Urine UA Negative (Negative); Ketones Urine Negative (Negative); Leukocyte Esterase Ur Negative LEU/UL (Negative); Nitrate Urine Negative (Negative); Non Pathogenic Casts 0-2; Protein Urine Negative (Negative); RBC Urine 0-2 /hpf (0-2); Specific Grav Ur 1.009 (1.001-1.035); Squamous Epithelial Cell Urine None seen /hpf (Few); Urobilinogen Urine 0.2 mg/dL (<2.0); WBC Urine 0-5 /hpf
[2023-09-03 23:19] LABS: Alanine Aminotransferase 28 U/L (6-35); Albumin Level 4.6 g/dL (3.5-5.1); Alkaline Phosphatase 71 U/L (38-126); Anion Gap 13 mmol/L (8-16); Aspartate Amino Transferase 28 U/L (14-36); Bilirubin,Total 0.6 mg/dL (0.2-1.3); Blood Urea Nitrogen 18 mg/dL (7-17); Calcium 10.2 mg/dL (8.4-10.2); Carbon Dioxide 25 mmol/L (22-30); Chloride 99 mmol/L (98-107); Estimated CRCL calculation 75 ml/min; Estimated Glomerular Filt Rate > 60; Glucose 156 mg/dL (65-110); Lipase 97 U/L (23-300); Sodium 137 mmol/L (137-145)
[2023-09-03 23:22] LABS: Add Urine Microscopic? YES
[2023-09-03 23:40] LABS: Basophils Percent Auto 0.4 % (0.2-1.2); Eosinophils Percent Auto 0.1 % (0-4.4); Hematocrit 38.7 % (37.0-47.0); Hemoglobin 12.9 g/dL (12.0-15.0); Immature Granulocyte Absolute 0.03 K/mm3 (0.00-0.031); Immature Granulocyte Percent A 0.3 % (0-0.5); Lymphocytes Absolute Auto 1.72 K/mm3 (0.9-3.2); Lymphocytes Percent Auto 18.4 % (18.3-44.2); Mean Corpuscular HGB Conc 33.3 g/dl (32-36); Mean Corpuscular Hemoglobin 27.7 pg (26-34); Mean Corpuscular Volume 83.2 fl (80-100); Mean Platelet Volume 10.4 fl (7.4-10.4); Monocytes Absolute Auto 0.7 K/mm3 (0.1-0.6); Monocytes Percent Auto 7.8 % (2.6-8.5); Neutrophils Absolute Auto 6.8 K/mm3 (1.3-6.7); Platelet Count Result 259 k/mm3 (150-375); Red Blood Count 4.65 M/mm3 (4.2-5.4); White Blood Count 9.3 K/mm3 (4.5-10.0)
--- NOTE | 2023-09-04 00:11 | ED.ABDPAIN ---
HPI - Abdominal Pain General Chief Complaint: Abdominal Pain Stated Complaint: LLQ pain, +N/V Time Seen by Provider: 09/03/23 22:12 Source: patient Mode of arrival: EMS Limitations: no limitations History of Present Illness HPI narrative: Patient is a 73-year-old female who presents the ED via EMS with report of left-sided abdominal pain. Patient reports pain began suddenly this afternoon. radiated around to left mid back. Pain was severe for several hours. She did report nausea and vomiting associated with the pain. Patient states since being in the ED, her pain has improved slightly. She denies ever having pain like this before. Does report History of diverticulitis, history of kidney stone 30 years ago. Patient denies any fevers, dysuria, hematuria, diarrhea, constipation. She has not taken anything for pain. Related Data Home Medications Medication Instructions Recorded Confirmed blood sugar diagnostic (OneTouch 08/28/21 12/25/22 Ultra Test strips) hydrochlorothiazide 12.5 mg tablet 12.5 mg PO QAM 08/28/21 12/25/22 lisinopril 40 mg tablet 40 mg PO QAM 08/28/21 12/25/22 metformin 500 mg tablet 500 mg PO QAM 08/28/21 12/25/22 simvastatin 10 mg tablet 10 mg PO HS 08/28/21 12/25/22 cholecalciferol (vitamin D3) 1,250 1,250 mcg PO WEEKLY 10/30/21 12/25/22 mcg (50,000 unit) tablet glucosamine-chondroitin 250 mg-200 2 tablet PO DAILY 10/30/21 12/25/22 mg tablet multivitamin 1 tablet PO DAILY 10/30/21 12/25/22 tumeric 100 mg-juan 150 mg-olive 1 cap PO DAILY 11/20/21 12/25/22 50 mg-oreg 150 mg-caprylate capsule Allergies Allergy/AdvReac Type Severity Reaction Status Date / Time No Known Allergies Allergy Verified 09/03/23 21:54 Review of Systems Review of Systems: CONSTITUTIONAL: Denies fever, chills, or sweats. GASTROINTESTINAL: See HPI. GENITOURINARY: Denies dysuria or hematuria. MUSCULOSKELETAL: See HPI. NEUROLOGIC: Denies headache, dizziness, numbness, or weakness. All systems reviewed & are unremarkable except as noted in HPI and below PMFSH Past Medical History Medical History Breast cancer RIGHT BREAST Diabetes Hypertension Thyroid condition Surgical History Surgical History H/O parathyroidectomy H/O: hysterectomy 1989 History of lumpectomy 2018 History of lumpectomy of left breast 11/29/21 Hx of tonsillectomy S/P lumpectomy, left breast image guided wire localization; left breast lumpectomy 11/07/21 Family History Family History Father Heart attack Mother ALS (amyotrophic lateral sclerosis) Other Cerebrovascular accident Hypertension Social History Social History Smoking status: Never smoker Alcohol intake: current Alcohol use details: RARELY Substance use: never Living arrangements: with family Additional living arrangements comments: SIGNIFICANT OTHER Gender identity (if verbalized by the patient): Female Spiritual care concerns: No Exam Narrative: GENERAL: Well appearing, well-nourished, non-toxic, in no acute distress. HEAD: Normocephalic, atraumatic. RESPIRATORY: Airway patent, respirations nonlabored. Clear to auscultation bilaterally, no rales, rhonchi, wheezing. CARDIOVASCULAR: Regular rate and rhythm. ABDOMINAL: Soft, mild tenderness in left lower quadrant, nondistended. Normoactive BS. Positive CVA tenderness on left. MUSCULOSKELETAL: Moves all extremities. No gross deformities. mild tenderness throughout left lumbosacral region. SKIN: Warm, dry, normal color. NEURO: A&O X3. Speech clear. Cranial nerves II-XII grossly intact. Steady gait. No ataxic movements. PSYCHIATRIC: Appropriate mood and affect. Normal interaction. Course Vital Signs Vital signs:
[2023-09-04 01:02] VITALS: PULSE 77; RESP 16; O2SAT 95
[2023-09-04 01:15] VITALS: PULSE 72; RESP 15; O2SAT 95
[2023-09-04] MEDS: POTASSIUM CHLORIDE 20 MEQ ER TABLET 40 MEQ PO (01:53)
[2023-09-04 01:59] VITALS: BP 128/87; PULSE 78; RESP 21; O2SAT 98
== END 2023-09-04 02:01 | disposition home or self-care (01) ==
PROVIDERS: Emergency Provider Physician Assistant; PCP Emergency Medicine
DX: N13.9 Obstructive and reflux uropathy, unspecified (principal); N20.1 Calculus of ureter; E87.6 Hypokalemia; E11.9 Type 2 diabetes mellitus without complications; I10 Essential (primary) hypertension; Z85.3 Personal history of malignant neoplasm of breast; Z90.710 Acquired absence of both cervix and uterus; Z90.89 Acquired absence of other organs; Z79.84 Long term (current) use of oral hypoglycemic drugs; K20.90 Esophagitis, unspecified without bleeding; K29.70 Gastritis, unspecified, without bleeding; K76.0 Fatty (change of) liver, not elsewhere classified
CPT/HCPCS: 36415; 74018; 74177; 80053; 81001; 83690; 85025; 96361; 96374; 96375; 99284; A9270; J2270; J2405; J7030; Q9967

== ENCOUNTER 2023-09-04 23:12 | Observation (INO) | payer MEDICARE, SELFPAY ==
--- NOTE | ~2023-09-04 | XR_ITS ---
EXAMINATION: XR retrograde pyelo w/stent LT DATE: 09/05/2023 10:45 KNOT TYING OPERATOR INDICATION: LEFT STENT . TECHNIQUE: 3 fluoroscopic images including a cine clip of 43 images of the left abdomen and pelvis we re obtained during left retrograde pyelography with stent placement performed by the surgeon. I was n ot present in the operating room. Fluoroscopy exposure time was 15.2 seconds. Air Kerma 5.44 mGy. DAP [id number] mGym2. COMPARISON: CT abdomen pelvis 09/04/2023 FINDINGS: Left UPJ stone. Left pelviectasis. Post stent deployment, the proximal coil projects over the renal p dawson and the distal coil projects over the urinary bladder. IMPRESSION: Fluoroscopic documentation of left retrograde pyelography with stent placement. Please refer to the o perative note for complete procedural details. Reviewed, dictated and finalized at location K. TYING OPERATOR IMPRESSION: Fluoroscopic documentation of left retrograde pyelography with stent placement. Please refer to the operative note for complete procedural details.
--- NOTE | ~2023-09-04 | CT_ITS ---
EXAMINATION: CT abdomen pelvis wo con DATE: 09/04/2023 23:51 INDICATION: Left ureteral stone. TECHNIQUE: Computed tomography (CT) of the abdomen and pelvis was performed without intravenous contr ast. Automated exposure control and iterative reconstruction technique were employed. The dose-length product was 294.91 mGy-cm. COMPARISON: CT abdomen and pelvis 09/03/2023 FINDINGS: The visualized portions of the lung bases demonstrate mild atelectasis. Calcified right nehemiah g nodules and calcified right hilar and mediastinal lymph nodes are consistent with old granulomatous disease. There is a 5 mm nodule in the lingula, likely benign. No pleural effusion. There are surgic al changes in right breast. The heart size is normal. No pericardial effusion. There are coronary art munir calcifications. Calcifications in the liver and spleen are consistent with old granulomatous dise ase. The gallbladder, pancreas, and adrenal glands are normal. There are cysts in the kidneys measuri ng up to 1.7 cm on the right. There are 6 stones in left kidney measuring up to 6 mm. There is modera te left hydronephrosis. There is a 6 mm stone in proximal left ureter. There is contrast in the bladd er and left ureter. There is diverticulosis of the colon without evidence of diverticulitis. The appe ndix is normal. There are no dilated loops of bowel. There are no pathologically enlarged lymph nodes . There is no free intraperitoneal fluid. There is severe thoracic and lumbar spondylosis. There is a chronic compression fracture of L1. IMPRESSION: 1. 6 mm stone in proximal left ureter with moderate left hydronephrosis. 2. Nonobstructing left kidney stones. Reviewed, dictated and finalized at location A. HERSTRIP MACHINE OPERATOR
[2023-09-04 23:14] VITALS: TEMP 36.6
[2023-09-04 23:18] VITALS: BP 144/74; PULSE 76; RESP 16; O2SAT 100
[2023-09-04 23:21] VITALS: RESP 16
[2023-09-04 23:30] VITALS: PULSE 71; RESP 14
[2023-09-04 23:31] LABS: Basophils Percent Auto 0.6 % (0.2-1.2); Eosinophils Absolute Auto 0.2 K/mm3 (0-0.3); Eosinophils Percent Auto 2.2 % (0-4.4); Hematocrit 37.9 % (37.0-47.0); Hemoglobin 12.1 g/dL (12.0-15.0); Immature Granulocyte Absolute 0.02 K/mm3 (0.00-0.031); Immature Granulocyte Percent A 0.3 % (0-0.5); Lymphocytes Absolute Auto 1.73 K/mm3 (0.9-3.2); Lymphocytes Percent Auto 23.9 % (18.3-44.2); Mean Corpuscular HGB Conc 31.9 g/dl (32-36); Mean Corpuscular Hemoglobin 27.4 pg (26-34); Mean Corpuscular Volume 85.9 fl (80-100); Mean Platelet Volume 10.5 fl (7.4-10.4); Monocytes Absolute Auto 0.6 K/mm3 (0.1-0.6); Monocytes Percent Auto 8.1 % (2.6-8.5); Neutrophils Absolute Auto 4.7 K/mm3 (1.3-6.7); Neutrophils Percent Auto 64.9 % (45.5-73.1); Platelet Count Result 237 k/mm3 (150-375); Red Blood Count 4.41 M/mm3 (4.2-5.4); Red Cell Distribution Width 14.3 % (11.5-14.5); White Blood Count 7.3 K/mm3 (4.5-10.0)
[2023-09-04 23:45] VITALS: PULSE 73; RESP 23; O2SAT 92
[2023-09-04 23:47] LABS: Alanine Aminotransferase 26 U/L (6-35); Albumin Level 4.5 g/dL (3.5-5.1); Alkaline Phosphatase 74 U/L (38-126); Anion Gap 10 mmol/L (8-16); Aspartate Amino Transferase 27 U/L (14-36); Bilirubin,Total 0.4 mg/dL (0.2-1.3); Blood Urea Nitrogen 18 mg/dL (7-17); Carbon Dioxide 27 mmol/L (22-30); Chloride 102 mmol/L (98-107); Estimated CRCL calculation 69 ml/min; Estimated Glomerular Filt Rate > 60; Glucose 153 mg/dL (65-110); Potassium 3.4 mmol/L (3.4-5.0); Sodium 139 mmol/L (137-145)
[2023-09-05] VITALS (25 sets, daily range): BP systolic 105–132; BP diastolic 60–72; PULSE 55–73; RESP 10–20; TEMP 35.8–36.5; O2SAT 91–98
--- NOTE | 2023-09-05 00:04 | ED.FEMALEGU ---
HPI - Female Genitourinary General Chief complaint: Urogenital-Female Stated complaint: LEFT FLANK PAIN Time Seen by Provider: 09/04/23 23:21 Source: patient Mode of arrival: EMS Limitations: no limitations History of Present Illness HPI Narrative: This is a 73-year-old female who presents to the ED with chief complaint of left flank pain beginning around 6:00 p.m. this evening. Reports that she was diagnosed with left ureteral stone yesterday in this department. She had been taking her Flomax, pain medication as prescribed but felt pain was worsening enough to come back to the ER tonight. Reports she has been able to urinate but has not had any evidence of passing the stone. Reports a little bit of nausea earlier but that has since resolved. she received 4 mg of morphine EN route from EMS and states she is feeling improved with this. Denies fevers, chills, vomiting, diarrhea or any further complaint. Reports history of kidney stones over 30 years ago and they removed her parathyroid gland because they thought it was elevating her calcium too much. Related Data Home Medications Medication Instructions Recorded Confirmed blood sugar diagnostic (OneTouch 08/28/21 12/25/22 Ultra Test strips) hydrochlorothiazide 12.5 mg tablet 12.5 mg PO QAM 08/28/21 12/25/22 lisinopril 40 mg tablet 40 mg PO QAM 08/28/21 12/25/22 metformin 500 mg tablet 500 mg PO QAM 08/28/21 12/25/22 simvastatin 10 mg tablet 10 mg PO HS 08/28/21 12/25/22 cholecalciferol (vitamin D3) 1,250 1,250 mcg PO WEEKLY 10/30/21 12/25/22 mcg (50,000 unit) tablet glucosamine-chondroitin 250 mg-200 2 tablet PO DAILY 10/30/21 12/25/22 mg tablet multivitamin 1 tablet PO DAILY 10/30/21 12/25/22 tumeric 100 mg-juan 150 mg-olive 1 cap PO DAILY 11/20/21 12/25/22 50 mg-oreg 150 mg-caprylate capsule Allergies Allergy/AdvReac Type Severity Reaction Status Date / Time No Known Allergies Allergy Verified 09/04/23 23:19 Review of Systems Review of Systems: All systems as dictated in HPI [facility] Past Medical History Medical History Breast cancer RIGHT BREAST Diabetes Hypertension Thyroid condition Surgical History Surgical History H/O parathyroidectomy H/O: hysterectomy 1989 History of lumpectomy 2017 History of lumpectomy of left breast 11/29/21 Hx of tonsillectomy S/P lumpectomy, left breast image guided wire localization; left breast lumpectomy 11/07/21 Family History Family History Father Heart attack Mother ALS (amyotrophic lateral sclerosis) Other Cerebrovascular accident Hypertension Social History Social History Smoking status: Never smoker Alcohol intake: current Alcohol use details: RARELY Substance use: never Living arrangements: with family Additional living arrangements comments: SIGNIFICANT OTHER Gender identity (if verbalized by the patient): Female Spiritual care concerns: No Exam Narrative: GENERAL: Well-appearing, well-nourished, and in no acute distress. HEAD: Normocephalic, atraumatic. EYES: PERRLA and EOMI. ENT: Nares clear, no rhinorrhea or epistaxis. Mucous membranes moist. Oropharynx without tonsillar hypertrophy exudate or other lesions. NECK: Supple. No adenopathy or masses. CHEST: No respiratory distress. Clear to auscultation. No wheezes rales or rhonchi HEART: Regular rate and rhythm. No murmur heard. Normal peripheral pulses. ABDOMEN: Left flank tenderness present. Negative right flank tenderness. Soft, otherwise nontender, nondistended, normal active bowel sounds. MSK: Normal range of motion. No edema. SKIN: Warm, dry, no rash. NEURO: Alert and oriented x3. No focal deficits. PSYCH: Normal mood and aff
[2023-09-05 01:46] LABS: Appearance Urine Clear (Clear); Bacteria Urine None Seen /hpf; Bilirubin Urine Negative (Negative); Blood Urine 2+ (Negative); Color Urine Yellow (Yellow); Glucose Urine UA Negative (Negative); Ketones Urine Negative (Negative); Leukocyte Esterase Ur Negative LEU/UL (Negative); Nitrate Urine Negative (Negative); Non Pathogenic Casts 0-2; Protein Urine Negative (Negative); Specific Grav Ur 1.014 (1.001-1.035); Squamous Epithelial Cell Urine None seen /hpf (Few); Urobilinogen Urine 0.2 mg/dL (<2.0); WBC Urine 0-5 /hpf; pH Urine 6.5 (5.0-9.0)
[2023-09-05 02:02] LABS: Add Urine Microscopic? YES
[2023-09-05] MEDS: SODIUM CHLORIDE 0.9% IV 1,000 ML 75 ML IV CONT (03:42)
--- NOTE | 2023-09-05 04:27 | ADMGEN ---
This patient, Melva Amezcua, was admitted to Medical Room 254-01. Patient/family oriented to hospital policies and general routines including ID bracelet, bed and alarms, visiting hours, pain management, procedures, bathroom and other care routines, personal items, smoking policy, room service/diet, and visiting hours. Information on how to activate the Rapid Response Team has been discussed. Patient/Family are encouraged to report perceived risks to care and to ask questions if they do not understand what they are told or what they should do.
[2023-09-05] MEDS: HYDROmorphone HCL INJ (*CRX) 1 MG/ML SYR 0.5 MG IV PUSH ×3 (04:43→14:26)
[2023-09-05] MEDS: ONDANSETRON INJ 4 MG/2 ML VIAL IV PUSH ×2 (05:36→14:26)
--- NOTE | 2023-09-05 09:23 | WPDURCON ---
Assessment and Plan Assessment and plan (1) Calculus of left ureter: Code(s): N20.1 - Calculus of ureter Status: Acute Assessment and Plan: Plan for cystoscopy and left ureteral stent placement. Discussed risks, benefits, alternatives. Understands I will not be removing the stone. If all goes well she can be discharged home afterwards. If stone is visible on a plain radiograph lithotripsy would be an option. He understands the risks of bleeding, infection, damage to the urinary tract, inability to place the stent. She agrees to proceed. (2) Calculus, kidney: Code(s): N20.0 - Calculus of kidney Status: Acute Urology Consult Note HPI Date Seen: 09/05/23 Requesting Physician: Kathleen Pratt APRN Primary Care Provider: Todd Gasca MD Consult Narrative Narrative: Melva Amezcua is a 73 year old female with prior history of stone disease several years ago. This was secondary to hyperparathyroidism. She states she had a procedure for that. She has not had a kidney stone until now. She had acute onset of left flank pain yesterday associated with nausea without vomiting. This prompted a visit to the emergency room. She was diagnosed with a left 6-7 mm proximal ureteral stone. She was sent home with pain medication. She returned several hours later with recurrent pain. She denied any fevers or chills. She denied any blood in the urine. She denies any symptoms of urinary tract infection. Review of Systems Review of Systems: All systems reviewed & are unremarkable except as noted in HPI and below PMFSH Past Medical History Medical History Breast cancer RIGHT BREAST Diabetes Hypertension Thyroid condition Surgical History Surgical History H/O parathyroidectomy H/O: hysterectomy 1989 History of lumpectomy 2018 History of lumpectomy of left breast 11/29/21 Hx of tonsillectomy S/P lumpectomy, left breast image guided wire localization; left breast lumpectomy 11/07/21 Family History Family History Father Heart attack Mother ALS (amyotrophic lateral sclerosis) Other Cerebrovascular accident Hypertension Social History Social History Smoking status: Never smoker Alcohol intake: never Alcohol use details: RARELY Substance use: never Do You Feel Safe in your Home?: Yes Lack of Transportation: No Lack of Food: Never True Current Housing: I Have Housing Concerned About Future Housing: No Difficulty Paying Gas/Electric Bills: No Difficulty Paying for Meds: No Currently Unemployed: No Education: High School Diploma/GED Difficulty w/ Childcare or Family Care: No Living arrangements: with family Additional living arrangements comments: SIGNIFICANT OTHER Gender identity (if verbalized by the patient): Female Spiritual care concerns: No Meds Home Medications and Allergies Home Medications Medication Instructions Recorded Confirmed Type blood sugar diagnostic (OneTouch 08/28/21 09/05/23 History Ultra Test strips) hydrochlorothiazide 12.5 mg tablet 12.5 mg PO QAM 08/28/21 09/05/23 History metformin 500 mg tablet 500 mg PO QAM 08/28/21 09/05/23 History simvastatin 10 mg tablet 10 mg PO HS 08/28/21 09/05/23 History cholecalciferol (vitamin D3) 1,250 1,250 mcg PO WEEKLY 10/30/21 09/05/23 History mcg (50,000 unit) tablet glucosamine-chondroitin 250 mg-200 2 tablet PO DAILY 10/30/21 09/05/23 History mg tablet multivitamin 1 tablet PO DAILY 10/30/21 09/05/23 History tumeric 100 mg-juan 150 mg-olive 1 cap PO DAILY 11/20/21 09/05/23 History 50 mg-oreg 150 mg-caprylate capsule ondansetron 4 mg disintegrating 4 mg PO Q8H PRN nausea and 09/04/23 09/05/23 Rx tablet vomiting #10 tabs
--- NOTE | 2023-09-05 09:43 | PM.IMHP ---
H&P: HPI History of Present Illness Date/Time: 09/05/23 09:43 Chief Complaint: Abdominal Pain Narrative: Mrs. Amezcua is 73-year old female with a PMHx of HTN, diabetes, (not on home insulin), remote hx of kidney stones, and hysterectomy, who presented to the emergency room for ongoing left flank pain. Pt reports her flank pain started around 6:00 p.m. prior to her ER arrival. She states she had recently been seen and dx with left 6mm ureteral stone, pt was given Flomax, and discharged home. She reports taking her medication at home along with frequent urination, but unable to pass stone. Mrs. Amezcua endorsed that her pain returned at home and was 9/10, sharp, stabbing, started from her left flank and radiating to her left lower quadrant. She reports nausea, without vomiting, she denies any fever, chills or dysuria. Pt states she has had her parathyroid gland removed in the past. Review of Systems Review of Systems: All systems reviewed & are unremarkable except as noted in HPI and below PMFSH Past Medical History Medical History Breast cancer RIGHT BREAST Diabetes Hypertension Thyroid condition Surgical History Surgical History H/O parathyroidectomy H/O: hysterectomy 1989 History of lumpectomy 2017 History of lumpectomy of left breast 11/29/21 Hx of tonsillectomy S/P lumpectomy, left breast image guided wire localization; left breast lumpectomy 11/07/21 Family History Family History Father Heart attack Mother ALS (amyotrophic lateral sclerosis) Other Cerebrovascular accident Hypertension Social History Social History Smoking status: Never smoker Alcohol intake: never Alcohol use details: RARELY Substance use: never Do You Feel Safe in your Home?: Yes Lack of Transportation: No Lack of Food: Never True Current Housing: I Have Housing Concerned About Future Housing: No Difficulty Paying Gas/Electric Bills: No Difficulty Paying for Meds: No Currently Unemployed: No Education: High School Diploma/GED Difficulty w/ Childcare or Family Care: No Living arrangements: with family Additional living arrangements comments: SIGNIFICANT OTHER Gender identity (if verbalized by the patient): Female Spiritual care concerns: No Meds Home Medications and Allergies Home Medications Medication Instructions Recorded Confirmed Type blood sugar diagnostic (OneTouch 08/28/21 09/05/23 History Ultra Test strips) hydrochlorothiazide 12.5 mg tablet 12.5 mg PO QAM 08/28/21 09/05/23 History metformin 500 mg tablet 500 mg PO QAM 08/28/21 09/05/23 History simvastatin 10 mg tablet 10 mg PO HS 08/28/21 09/05/23 History cholecalciferol (vitamin D3) 1,250 1,250 mcg PO WEEKLY 10/30/21 09/05/23 History mcg (50,000 unit) tablet glucosamine-chondroitin 250 mg-200 2 tablet PO DAILY 10/30/21 09/05/23 History mg tablet multivitamin 1 tablet PO DAILY 10/30/21 09/05/23 History tumeric 100 mg-juan 150 mg-olive 1 cap PO DAILY 11/20/21 09/05/23 History 50 mg-oreg 150 mg-caprylate capsule ondansetron 4 mg disintegrating 4 mg PO Q8H PRN nausea and 09/04/23 09/05/23 Rx tablet vomiting #10 tabs tamsulosin 0.4 mg capsule (Flomax) 0.4 mg PO DAILY #7 caps 09/04/23 09/05/23 Rx amlodipine 5 mg tablet 10 mg PO DAILY 09/05/23 09/05/23 History hydrocodone 5 mg-acetaminophen 325 1 tablet PO Q6H PRN Pain (Scale 09/05/23 09/05/23 History mg tablet Score 4-6) hydrocodone 5 mg-acetaminophen 325 1 tablet PO Q6H PRN pain #20 tabs 09/05/23 Rx mg tablet ibuprofen 600 mg tablet 600 mg PO Q6H PRN Pain (Scale 09/05/23 09/05/23 History Score 1-3) Allergies Allergy/AdvReac Type Severity Reaction Status Date / Time No Known Allergies Allergy Verified 1
[2023-09-05] MEDS: ceFAZolin 2 GM/D5W 50 ML 2 GM/50 ML BAG IVPB (10:46)
--- NOTE | 2023-09-05 10:46 | WPDANESEPPF ---
Anes - Initial Pre Proc Eval Procedure: Operation Date: 09/05/23 09:30 Proposed Procedures p Cysto, RPG, Stone Ext, Stent Placement(Left) - Nikolai Bui MD Date/Time: 09/05/23 10:46 Surgeon: Ramya Pre Op Diagnosis: L ureteral stone Patient Data Age: 73 Gender: F Height: 1.65 m Weight: 89.3 kg Last Vital Signs Temp 35.8 C L 09/05/23 04:22 Pulse 62 09/05/23 04:22 Resp 20 09/05/23 04:22 BP 130/66 09/05/23 04:22 Pulse Ox 97 09/05/23 04:22 O2 Del Method Room Air 09/05/23 08:55 Allergies Allergy/AdvReac Type Severity Reaction Status Date / Time No Known Allergies Allergy Verified 09/04/23 23:19 Home Medications Medication Instructions Recorded Confirmed Type blood sugar diagnostic (OneTouch 08/28/21 09/05/23 History Ultra Test strips) hydrochlorothiazide 12.5 mg tablet 12.5 mg PO QAM 08/28/21 09/05/23 History metformin 500 mg tablet 500 mg PO QAM 08/28/21 09/05/23 History simvastatin 10 mg tablet 10 mg PO HS 08/28/21 09/05/23 History cholecalciferol (vitamin D3) 1,250 1,250 mcg PO WEEKLY 10/30/21 09/05/23 History mcg (50,000 unit) tablet glucosamine-chondroitin 250 mg-200 2 tablet PO DAILY 10/30/21 09/05/23 History mg tablet multivitamin 1 tablet PO DAILY 10/30/21 09/05/23 History tumeric 100 mg-juan 150 mg-olive 1 cap PO DAILY 11/20/21 09/05/23 History 50 mg-oreg 150 mg-caprylate capsule ondansetron 4 mg disintegrating 4 mg PO Q8H PRN nausea and 09/04/23 09/05/23 Rx tablet vomiting #10 tabs tamsulosin 0.4 mg capsule (Flomax) 0.4 mg PO DAILY #7 caps 09/04/23 09/05/23 Rx amlodipine 5 mg tablet 10 mg PO DAILY 09/05/23 09/05/23 History hydrocodone 5 mg-acetaminophen 325 1 tablet PO Q6H PRN Pain (Scale 09/05/23 09/05/23 History mg tablet Score 4-6) ibuprofen 600 mg tablet 600 mg PO Q6H PRN Pain (Scale 09/05/23 09/05/23 History Score 1-3) Laboratory Tests 09/04/23 09/05/23 23:26 01:37 WBC 7.3 K/mm3 (4.5-10.0) RBC 4.41 M/mm3 (4.2-5.4) Hgb 12.1 g/dL (12.0-15.0) Hct 37.9 % (37.0-47.0) MCV 85.9 fl (80-100) MCH 27.4 pg (26-34) MCHC 31.9 L g/dl (32-36) RDW 14.3 % (11.5-14.5) Plt Count 237 k/mm3 (150-375) MPV 10.5 H fl (7.4-10.4) Immature Gran % (Auto) 0.3 % (0-0.5) Neut % (Auto) 64.9 % (45.5-73.1) Lymph % (Auto) 23.9 % (18.3-44.2) Gillespie % (Auto) 8.1 % (2.6-8.5) Eos % (Auto) 2.2 % (0-4.4) Baso % (Auto) 0.6 % (0.2-1.2) Lymph # (Auto) 1.73 K/mm3 (0.9-3.2) Gillespie # (Auto) 0.6 K/mm3 (0.1-0.6) Eos # (Auto) 0.2 K/mm3 (0-0.3) Baso # (Auto) 0.0 K/mm3 (0.0-0.1) Abs Immat Gran (auto) 0.02 K/mm3 (0.00-0.031) Absolute Neuts (auto) 4.7 K/mm3 (1.3-6.7) Absolute Nucleated RBC 0.0 K/mm3 (0.0-0.012) Nucleated RBC % 0.0 % (0.0-0.2) Sodium 139 mmol/L (137-145) Potassium 3.4 mmol/L (3.4-5.0) Chloride 102 mmol/L (98-107) Carbon Dioxide 27 mmol/L (22-30) Anion Gap 10 mmol/L (8-16) BUN 18 H mg/dL (7-17) Creatinine 0.70 mg/dL (0.7-1.0) Estim Creat Clear Calc 69 ml/min Estimated GFR > 60 (59 - ) Glucose 153 H mg/dL (65-110) Calcium 10.0 mg/dL (8.4-10.2) Total Bilirubin 0.4 mg/dL (0.2-1.3) AST 27 U/L (14-36) ALT 26 U/L (6-35) Alkaline Phosphatase 74 U/L (38-126) Total Protein 7.0 g/dL (6.3-8.2) Albumin 4.5 g/dL (3.5-5.1) Urine Color Yellow (Yellow) Urine Appearance Clear (Clear) Urine pH 6.5 (5.0-9.0) Ur Specific [place] 1.014 (1.001-1.035) Urine Protein Negative mg/dL (Negative) Urine Glucose (UA) Negative mg/dL (Negative) Urine Ketones Negative mg/dL (Negative) Ur Blood (Man) 2+ H (Negative) Urine Nitrate Negative (Negative)
--- NOTE | 2023-09-05 11:02 | P.OP_ITS ---
Procedure Note - Detailed Date of Procedure 09/05/23 Pre-op Diagnosis L ureteral stone Post-op Diagnosis Same Procedure Performed Cystoscopy, left retrograde pyelogram, left ureteral stent Surgeon Nikolai Bui MD Anesthesia MAC and Local (Uro jet) Indications This is a with a proximal left ureteral stone. She is here today for a stent. Findings Left proximal ureteral stone. Visible on dry sand molder radiograph Description of Procedure She was correctly identified. Informed consent obtained. She from the operating room. She was given general anesthesia. She was prepped and draped in a sterile fashion. She was given appropriate perioperative antibiotics. A time-out performed. Watch Inspector Final Movement radiograph revealed the proximal left ureteral stone. Cystoscopy was performed. Her bladder was normal without abnormalities. No tumors or stones. I did a gentle retrograde pyelogram on the left. There was a delicate distal ureter. Hydronephrosis proximal to the stone. A guidewire was placed to the kidney. 4.8 variable length stent was placed. Proximal cord the renal pelvis. Distal coil the bladder. The bladder was drained. She was awakened transferred to PACU in stable condition Implants Ureteral stent Estimated Blood Loss 0 Pathology None sent Complications No immediate complications Condition Stable
[2023-09-05] MEDS: LACTATED RINGERS 1,000 ML 30 ML IV CONT (11:06)
--- NOTE | 2023-09-05 14:55 | PM.DS ---
DS: Admitting Diagnosis Discharge Date 09/06/2023 Admitting Diagnosis LEFT FLANK PAIN DS: Discharge Diagnosis Discharge Diagnosis (1) Calculus of left ureter: Code(s): N20.1 - Calculus of ureter Status: Acute Assessment and Plan: -Follow up with Urology for scheduling of Procedure for next week as planned by urologist -continue your home medication Flomax as prescribed (2) Calculus, kidney: Code(s): N20.0 - Calculus of kidney Status: Acute (3) Back pain: Code(s): M54.9 - Dorsalgia, unspecified Status: Acute (4) Diabetes: Code(s): E11.9 - Type 2 diabetes mellitus without complications Status: Acute (5) Vaginal lesion: Code(s): N89.8 - Other specified noninflammatory disorders of vagina Status: Acute Assessment and Plan: Follow up with [facility]IREMENT [facility]ER -start acyclovir as discussed (6) Dysuria: Code(s): R30.0 - Dysuria Status: Acute (7) Pelvic pain: Code(s): R10.2 - Pelvic and perineal pain Status: Acute DS: Summary Hospital Course Reason for hospitalization: Calculus of the left ureter Back pain Hospital Course: [facility] [address] [place] [id number] History & Physical Report Lizzette H&P: History of Present Illness Date/Time: 09/05/23? 09:43 Chief Complaint: Abdominal Pain Narrative: Mrs. Amezcua is 73-year old female with a PMHx of HTN, diabetes, (not on home insulin), remote hx of kidney stones, and hysterectomy, who presented to the emergency room for ongoing left flank pain. Pt reports her flank pain started around 6:00 p.m. prior to her ER arrival. She states she had recently been seen and dx with left 6mm ureteral stone, pt was given Flomax,? and discharged home. She reports taking her medication at home along with frequent urination, but unable to pass stone. Mrs. Amezcua endorsed that her pain returned at home and was 9/10, sharp, stabbing, started from her left flank and radiating to her left lower quadrant. She reports nausea, without vomiting, she denies any fever, chills or dysuria.? Pt states she has had her parathyroid gland removed in the past. 09/05/2023, pt was seen and treated by urology, note listed below: Urology Consult Note: Consult Narrative Narrative: Melva Amezcua is a 73 year old female with prior history of stone disease several years ago.? This was secondary to hyperparathyroidism.? She states she had a procedure for that.? She has not had a kidney stone until now.? She had acute onset of left flank pain yesterday associated with nausea without vomiting.? This prompted a visit to the emergency room.? She was diagnosed with a left 6-7 mm proximal ureteral stone.? She was sent home with pain medication.? She returned several hours later with recurrent pain.? She denied any fevers or chills.? She denied any blood in the urine.? She denies any symptoms of urinary tract infection. operative note listed below: Description of Procedure She was correctly identified.? Informed consent obtained.? She from the operating room.? She was given general anesthesia.? She was prepped and draped in a sterile fashion.? She was given appropriate perioperative antibiotics.? A time-out performed.? Calibration Checker radiograph revealed the proximal left ureteral stone.? Cystoscopy was performed.? Her bladder was normal without abnormalities.? No tumors or stones.? I did a gentle retrograde pyelogram on the left.? There was a delicate distal ureter.? Hydronephrosis proximal to the stone.? A guidewire was placed to the kidney.? 4.8 variable length stent was placed.? Proximal cord the renal pelvis.? Distal coil the bladder.? The bladder was drained.? She was awakened transferred to PACU in stable condition Implants Ureteral stent Interval Hx: Pt was seen on 09/05/2023 POD: 0 she c/o ongoing pain s/p stent placement, pt request to stay in-pt, for further evaluation and pain medication management, she reported ongoing
[2023-09-05] MEDS: HYDROcodone/acetaminophen (*CRX) 5-325 MG TABLET 1 TAB PO (16:53)
[2023-09-05 17:05] LABS: Glucose Point of Care 136 mg/dl (65-105)
[2023-09-05] MEDS: SIMVASTATIN 10 MG TABLET PO (20:12)
[2023-09-05 20:54] LABS: Glucose Point of Care 142 mg/dl (65-105)
[2023-09-06] VITALS: BP 130/65; PULSE 62; RESP 15; TEMP 36.7; O2SAT 96
[2023-09-06 08:34] LABS: Glucose Point of Care 130 mg/dl (65-105)
[2023-09-06] MEDS: ERGOCALCIFEROL 50,000 UNITS CAPSULE 50000 UNITS PO (09:07)
[2023-09-06] MEDS: amLODIPine BESYLATE 5 MG TABLET 10 MG PO (09:07)
[2023-09-06] MEDS: metFORMIN HCL 500 MG TABLET PO (09:07)
[2023-09-06] MEDS: hydroCHLOROthiazide 12.5 MG CAPSULE PO (09:07)
[2023-09-06] MEDS: HYDROcodone/acetaminophen (*CRX) 5-325 MG TABLET 1 TAB PO (09:07)
[2023-09-06] MEDS: MULTIVITAMINS THERAPEUTIC TAB (*BKC) 1 TABLET PO (09:08)
== END 2023-09-06 13:06 | disposition home or self-care (01) ==
LOC: ANHED 09-05 03:12 → ANH2MED 09-05 03:54
PROVIDERS: Urology; Admitting Provider General Practice; Emergency Provider Physician Assistant; PCP Emergency Medicine; Visit Provider Nurse Practitioner
PROC: (CPT 52352; principal; 2023-09-05 09:30)
DX: N13.2 Hydronephrosis with renal and ureteral calculous obstruction (principal); I10 Essential (primary) hypertension; E11.9 Type 2 diabetes mellitus without complications; N89.8 Other specified noninflammatory disorders of vagina; E78.5 Hyperlipidemia, unspecified; E07.9 Disorder of thyroid, unspecified; Z98.890 Other specified postprocedural states; Z90.89 Acquired absence of other organs; Z79.84 Long term (current) use of oral hypoglycemic drugs; Z79.891 Long term (current) use of opiate analgesic; Z79.899 Other long term (current) drug therapy; Z82.49 Family history of ischemic heart disease and other diseases of the circulatory system
CPT/HCPCS: 52332; 36415; 74018; 74176; 74420; 80053; 81001; 82948; 85025; 96361; 96374; 96376; 99285; A9270; C1758; C1769; C2617; G0378; J0690; J1170; J2250; J2405; J2704; J3010; J7030; J7120; Q9966

== ENCOUNTER 2023-09-11 13:43 | Emergency (ER) | payer MEDICARE, SELFPAY ==
--- NOTE | ~2023-09-11 | XR_ITS ---
EXAMINATION: XR abdomen/kub 1V DATE: 09/11/2023 17:23 INDICATION: Kidney stone. TECHNIQUE: A supine view of the abdomen on 2 radiographs was obtained. COMPARISON: CT abdomen and pelvis 09/11/2023 FINDINGS: There are no dilated loops of bowel. There is a left internal ureteral stent in expected po sition. The kidneys are obscured by bowel. There is a 4 mm stone in proximal left ureter. IMPRESSION: 1. 4 mm stone in proximal left ureter. Left internal ureteral stent in expected position. Reviewed, dictated and finalized at location E. ODIAGNOSTIC TECHNOLOGIST
--- NOTE | ~2023-09-11 | CT_ITS ---
EXAMINATION: CT abdomen pelvis wo con DATE: 09/11/2023 16:01 INDICATION: Left flank pain. Kidney stone diagnosed one week ago with stent placement 6 days ago TECHNIQUE: Computed tomography (CT) of the abdomen and pelvis was performed without intravenous contr ast. Automated exposure control and iterative reconstruction technique were employed. Exam dose: 651 .67 mGy-cm total exam DLP. COMPARISON: 09/05/2023 left retrograde pyelogram 09/04/2023 CT abdomen pelvis FINDINGS: Postsurgical change of right breast again noted. There is mild discoid atelectasis and/or s carring at the lung bases. There is cardiomegaly. No pericardial or pleural effusion. Calcified right hilar and subcarinal lymph nodes and multiple calcified hepatic and splenic granuloma s consistent with old granulomatous disease. The liver, gallbladder, bile ducts, pancreas, pancreatic duct and spleen as well as adrenal glands ar e otherwise unremarkable. Approximately 1.8 cm probable right renal cyst. Medial upper pole left renal probable exophytic cyst measuring 9 mm. No right urinary tract calculus or hydroureteronephrosis. There are approximate 6 nonobstructing left renal calculi measuring up to approximately 6.5 mm. There is an approximately 5 mm calculus in the left renal pelvis. Left internal urinary stent, proximal pigtail in the left renal pelvis, distal pigtail in the left ur inary bladder at the left trigone. There is mild to moderate left hydronephrosis and left pelviectasis. There is pyelosinus extravasatio n along the left ureter. There is atherosclerotic calcification but normal caliber of the abdominal aorta. No intraperitoneal or retroperitoneal or pelvic mass lesion or adenopathy or ascites is noted. Status post hysterectomy. Small bowel anastomosis is noted. Normal appendix. Minimal left colon diverticulosis; no CT evidence of diverticulitis No bowel obstruction. IMPRESSION: Interval left internal urinary stent placement since 09/04/2023; residual approximately 5 mm calculus in left renal pelvis, moderate left pelviectasis hydronephrosis Left nephrolithiasis Probable 1.8 cm right renal cyst, 9 mm exophytic upper pole left renal probable cyst Mild left colonic diverticulosis; no CT evidence of diverticulitis Reviewed, dictated and finalized at Location A. Reviewed, dictated and finalized at location B. ERTY ANALYST IMPRESSION: Interval left internal urinary stent placement since 09/04/2023; r esidual approximately 5 mm calculus in left renal pelvis, moderate left pelviec tasis hydronephrosis Left nephrolithiasis Probable 1.8 cm right renal cyst, 9 mm exophytic upper pole left renal probable cyst Mild left colonic diverticulosis; no CT evidence of diverticulitis
[2023-09-11 14:57] VITALS: BP 165/76; PULSE 83; RESP 16; TEMP 36.4; O2SAT 99
[2023-09-11 15:33] LABS: Basophils Percent Auto 0.5 % (0.2-1.2); Eosinophils Absolute Auto 0.2 K/mm3 (0-0.3); Eosinophils Percent Auto 2.6 % (0-4.4); Hematocrit 39.4 % (37.0-47.0); Hemoglobin 12.8 g/dL (12.0-15.0); Immature Granulocyte Absolute 0.02 K/mm3 (0.00-0.031); Immature Granulocyte Percent A 0.3 % (0-0.5); Lymphocytes Absolute Auto 1.46 K/mm3 (0.9-3.2); Lymphocytes Percent Auto 18.8 % (18.3-44.2); Mean Corpuscular HGB Conc 32.5 g/dl (32-36); Mean Corpuscular Hemoglobin 27.9 pg (26-34); Mean Corpuscular Volume 85.8 fl (80-100); Mean Platelet Volume 10.2 fl (7.4-10.4); Monocytes Absolute Auto 0.5 K/mm3 (0.1-0.6); Monocytes Percent Auto 6.9 % (2.6-8.5); Neutrophils Absolute Auto 5.5 K/mm3 (1.3-6.7); Neutrophils Percent Auto 70.9 % (45.5-73.1); Platelet Count Result 267 k/mm3 (150-375); Red Blood Count 4.59 M/mm3 (4.2-5.4); Red Cell Distribution Width 14.2 % (11.5-14.5); White Blood Count 7.8 K/mm3 (4.5-10.0)
[2023-09-11 15:39] LABS: Appearance Urine Cloudy (Clear); Bacteria Urine None Seen /hpf; Bilirubin Urine Negative (Negative); Blood Urine 3+ (Negative); Color Urine Yellow (Yellow); Glucose Urine UA Negative (Negative); Ketones Urine Negative (Negative); Leukocyte Esterase Ur 1+ LEU/UL (Negative); Nitrate Urine Negative (Negative); Protein Urine 2+ mg/dL (Negative); RBC Urine >100 /hpf (0-2); Specific Grav Ur 1.012 (1.001-1.035); Squamous Epithelial Cell Urine None seen /hpf (Few); Urobilinogen Urine 0.2 mg/dL (<2.0); pH Urine 7.5 (5.0-9.0)
[2023-09-11 15:42] LABS: Alanine Aminotransferase 25 U/L (6-35); Albumin Level 4.6 g/dL (3.5-5.1); Alkaline Phosphatase 71 U/L (38-126); Anion Gap 12 mmol/L (8-16); Aspartate Amino Transferase 26 U/L (14-36); Bilirubin,Total 0.5 mg/dL (0.2-1.3); Blood Urea Nitrogen 14 mg/dL (7-17); Calcium 10.2 mg/dL (8.4-10.2); Carbon Dioxide 29 mmol/L (22-30); Chloride 98 mmol/L (98-107); Estimated Glomerular Filt Rate > 60; Glucose 153 mg/dL (65-110); Potassium 3.2 mmol/L (3.4-5.0); Sodium 139 mmol/L (137-145)
[2023-09-11 15:54] LABS: Add Urine Microscopic? YES
--- NOTE | 2023-09-11 15:54 | ED.FEMALEGU ---
HPI - Female Genitourinary General Chief complaint: Urogenital-Female Stated complaint: flank pain/hematuria Time Seen by Provider: 09/11/23 15:06 Source: patient Mode of arrival: ambulatory Limitations: no limitations History of Present Illness HPI Narrative: This is a 73 year old female that presents to the ER for left flank pain. Reports a current kidney stone. Reports she was admitted for this and had a stent placed. Since she has had worsening left flank pain and hematuria. Also reports dysuria and nausea. She has been taking her prescribed pain medication with little relief. Denies fever or vomiting. Related Data Home Medications Medication Instructions Recorded Confirmed blood sugar diagnostic (OneTouch 08/28/21 09/05/23 Ultra Test strips) hydrochlorothiazide 12.5 mg tablet 12.5 mg PO QAM 08/28/21 09/05/23 metformin 500 mg tablet 500 mg PO QAM 08/28/21 09/05/23 simvastatin 10 mg tablet 10 mg PO HS 08/28/21 09/05/23 cholecalciferol (vitamin D3) 1,250 1,250 mcg PO WEEKLY 10/30/21 09/05/23 mcg (50,000 unit) tablet glucosamine-chondroitin 250 mg-200 2 tablet PO DAILY 10/30/21 09/05/23 mg tablet multivitamin 1 tablet PO DAILY 10/30/21 09/05/23 turmeric 100 mg-juan 150 1 cap PO DAILY 11/20/21 09/05/23 mg-olive 50 mg-oreg 150 mg-capryl capsule amlodipine 5 mg tablet 10 mg PO DAILY 09/05/23 09/05/23 hydrocodone 5 mg-acetaminophen 325 1 tablet PO Q6H PRN Pain (Scale 09/05/23 09/05/23 mg tablet Score 4-6) ibuprofen 600 mg tablet 600 mg PO Q6H PRN Pain (Scale 09/05/23 09/05/23 Score 1-3) Allergies Allergy/AdvReac Type Severity Reaction Status Date / Time No Known Allergies Allergy Verified 09/04/23 23:19 Review of Systems Review of Systems: CONSTITUTIONAL: Denies fever GASTROINTESTINAL: Reports abdominal pain, nausea. Denies vomiting GENITOURINARY: Reports dysuria and hematuria. All systems reviewed & are unremarkable except as noted in HPI and below PMFSH Past Medical History Medical History (Updated 09/11/23 @ 19:21 by Eva Ortiz PA-C) Breast cancer RIGHT BREAST Diabetes Hypertension Thyroid condition Surgical History Surgical History (Updated 09/11/23 @ 18:37 by Eva Ortiz PA-C) H/O parathyroidectomy H/O: hysterectomy 1989 History of lumpectomy 2017 History of lumpectomy of left breast 11/29/21 Hx of tonsillectomy S/P lumpectomy, left breast image guided wire localization; left breast lumpectomy 11/07/21 Family History Family History Father Heart attack Mother ALS (amyotrophic lateral sclerosis) Other Cerebrovascular accident Hypertension Social History Social History Smoking status: Never smoker Alcohol intake: never Alcohol use details: RARELY Substance use: never Do You Feel Safe in your Home?: Yes Lack of Transportation: No Lack of Food: Never True Current Housing: I Have Housing Concerned About Future Housing: No Difficulty Paying Gas/Electric Bills: No Difficulty Paying for Meds: No Currently Unemployed: No Education: High School Diploma/GED Difficulty w/ Childcare or Family Care: No Living arrangements: with family Additional living arrangements comments: SIGNIFICANT OTHER Gender identity (if verbalized by the patient): Female Spiritual care concerns: No Exam Narrative: GENERAL: Well-appearing, well-nourished, and in no acute distress. HEAD: Normocephalic, atraumatic. EYES: EOMI. CHEST: Clear to auscultation. No respiratory distress. No wheezes rales or rhonchi HEART: Regular rate and rhythm. No murmur heard. Normal peripheral pulses. ABDOMEN: Soft, nontender, nondistended, normal active bowel sounds. EXTREMITIES: Normal range of motion. No edema. SKIN: Warm, dry, no rash. NEURO: No focal deficits. Alert and oriented x3. PSYCH: Normal mood and affect Co
[2023-09-11] MEDS: ONDANSETRON INJ 4 MG/2 ML VIAL IV PUSH (16:15)
[2023-09-11] MEDS: MORPHINE SULFATE (*CRX) 4 MG/ML INJ IV PUSH (16:15)
[2023-09-11 16:28] VITALS: PULSE 66; RESP 18; O2SAT 96
[2023-09-11 18:04] VITALS: BP 129/71; PULSE 68; RESP 20; O2SAT 98
[2023-09-11] MEDS: ACETAMINOPHEN 500 MG TABLET 1000 MG PO (18:30)
[2023-09-11 18:31] VITALS: PULSE 67; RESP 20; O2SAT 99
[2023-09-11] MEDS: POTASSIUM CHLORIDE 20 MEQ ER TABLET 40 MEQ PO (19:21)
== END 2023-09-11 19:25 | disposition home or self-care (01) ==
PROVIDERS: Emergency Provider Physician Assistant; PCP Emergency Medicine
DX: N13.2 Hydronephrosis with renal and ureteral calculous obstruction (principal); I10 Essential (primary) hypertension; E11.9 Type 2 diabetes mellitus without complications; Z96.0 Presence of urogenital implants; Z85.3 Personal history of malignant neoplasm of breast; Z90.710 Acquired absence of both cervix and uterus; Z90.89 Acquired absence of other organs; Z79.84 Long term (current) use of oral hypoglycemic drugs
CPT/HCPCS: 36415; 74018; 74176; 80053; 81001; 85025; 87086; 96374; 96375; 99284; A9270; J2270; J2405

== ENCOUNTER 2023-09-17 08:19 | Outpatient (CLI) | payer MEDICARE, SELFPAY ==
--- NOTE | 2023-09-17 08:25 | ECG_ITS ---
Measurements Intervals [place] Rate: 76 P: 29 WI: 266 QRS: -20 QRSD: 85 T: 72 QT: 382 QTc: 432 Interpretive Statements SINUS RHYTHM WITH FIRST DEGREE AV BLOCK BORDERLINE R WAVE PROGRESSION, ANTERIOR LEADS INFERIOR INFARCT, AGE INDETERMINATE BORDERLINE ST-T WAVE ABNORMALITY- HIGH LATERAL LEADS BASELINE ARTIFACT- I, II, III, AVR, AVL, AVF, V1-V6 ABNORMAL ECG NO PREVIOUS ECG AVAILABLE FOR COMPARISON Electronically Signed On 09-17-2023 9:09:46 KITCHEN HAND by Narciso Gonzales D.O.
[2023-09-17 09:18] LABS: Partial Thromboplastin Time 25.1 SECONDS (22.3-36.8); Prothrombin Time 13.6 Seconds (11.1-14.7)
== END 2023-09-17 08:20 | disposition home or self-care (01) ==
LOC: ANHSURGERY 08:24
PROVIDERS: PCP Emergency Medicine; Visit Provider Urology
DX: N20.1 Calculus of ureter (principal); E11.9 Type 2 diabetes mellitus without complications; Z01.818 Encounter for other preprocedural examination; I44.0 Atrioventricular block, first degree
CPT/HCPCS: 36415; 85610; 85730; 93005

== ENCOUNTER 2023-09-18 00:37 | Day surgery (SDC) | payer MEDICARE, SELFPAY ==
[2023-09-15 09:26] VITALS: BMI 29.9
--- NOTE | 2023-09-15 09:32 | PC.NURSE ---
Report to the Outpatient Waiting Room, entrance under the green pavilion located off [facility], at time 11:00 on date 09/18/23. Planned Procedure Time: 1:00. Time changes happen often and if your time is changed the preop area will call you the afternoon before. - You and your visitor will be asked to self-screen and do not enter if you have any COVID symptoms. - A mask is optional within the hospital at this time. Patients may have clear liquids (water, carbonated beverages, clear teas, apple juice) until 3 hours prior to surgery (10:00) with a maximum of 20 ounces. - No food from midnight until time of surgery Take the following medications with a SIP of water the morning of surgery: AMLODIPINE, PAIN PILL IF NEEDED DO NOT STOP ANY OF YOUR OTHER PRESCRIPTION MEDICATIONS PRIOR TO SURGERY ?EXCEPT THE FOLLOWING Medications to discontinue per physician: VITAMINS/SUPPLEMENTS Date to take last dose: 09/14/23 Please no make-up, nail cayman islander, hairspray, perfume, deodorant, or body powder the day of surgery. No jewelry (including any body piercings) or valuables the day of surgery, leave them at home. Please take a shower or bath the night before, or the morning of, surgery with an antibacterial soap. Wear comfortable, loose fitting clothing. - Jewelry must be removed prior to entering the operating room. Rings and piercings that are not removed may be cut off. - The hospital will not accept responsibility for valuables. - Please leave all valuables, including medications, at home the day of surgery. If you are going home after surgery, a licensed hook up driver must drive you home. - NO public transportation without another adult if you receive anesthesia. - We recommend that an adult stay with you for 24 hours following discharge. - We also recommend that you do not drive, make important decision, drink alcoholic beverages, or take any drugs that were not prescribed by your health care provider for at least 24 hours after your discharge time. Follow any additional instructions given to you from your surgeon. If you or anyone in your household have experienced Covid symptoms in the past week, please notify your surgeon or the nurse liaison at the phone number below for possible testing. Telephone instructions given to PT - KEVIN PALOMO and asked if any additional questions and then verbalized understanding. Patient advised to call surgeon office or pre surgery nurse liaison [phone] if any additional questions.
--- NOTE | 2023-09-16 07:59 | PM.HPGS ---
History of Present Illness History of Present Illness Consent: Risks, benefits, and alternatives have been discussed and questions answered. Patient agrees to proceed with procedure. Chief complaint: left ureteral stone Narrative: Melva Amezcua is a 73 year old female Who is previously unknown to our practice until September 05 when she presented with a painful obstructing 4 mm left proximal ureteral stone. She underwent ureteral stent placement and, after discussion of options, now elects for left ESWL. The stone is calcified and visible on KUB. She is aware of the risks including, not limited to, adverse cardiopulmonary events, need for additional procedures hematuria and perinephric hematoma Review of Systems Cardiovascular: Cardiovascular: Denies chest pain, Denies lightheadedness, Denies palpitations and Denies dyspnea Respiratory: Respiratory: Denies dyspnea Gastrointestinal: Gastrointestinal: Denies diarrhea, Denies nausea and Denies vomiting Genitourinary: Genitourinary: Denies hematuria and Denies dysuria Endocrine: Endocrine: Denies palpitations PMFSH Past Medical History Medical History (Updated 09/12/23 @ 00:00 by Background Daemon) Breast cancer RIGHT BREAST Diabetes Hypertension Thyroid condition Surgical History Surgical History (Updated 09/12/23 @ 00:00 by Background Daemon) H/O parathyroidectomy H/O: hysterectomy 1989 History of lumpectomy 2018 History of lumpectomy of left breast 11/29/21 Hx of tonsillectomy S/P lumpectomy, left breast image guided wire localization; left breast lumpectomy 11/07/21 Family History Family History Father Heart attack Mother ALS (amyotrophic lateral sclerosis) Other Cerebrovascular accident Hypertension Social History Social History Smoking status: Never smoker Alcohol intake: never Alcohol use details: RARELY Substance use: never Substance use type: does not use Do You Feel Safe in your Home?: Yes Lack of Transportation: No Lack of Food: Never True Current Housing: I Have Housing Concerned About Future Housing: No Difficulty Paying Gas/Electric Bills: No Difficulty Paying for Meds: No Currently Unemployed: No Education: High School Diploma/GED Difficulty w/ Childcare or Family Care: No Living arrangements: with family Additional living arrangements comments: SIGNIFICANT OTHER Gender identity (if verbalized by the patient): Female Spiritual care concerns: No Meds Home Medications and Allergies Home Medications Medication Instructions Recorded Confirmed Type blood sugar diagnostic (OneTouch 08/28/21 09/05/23 History Ultra Test strips) hydrochlorothiazide 12.5 mg tablet 12.5 mg PO QAM 08/28/21 09/15/23 History metformin 500 mg tablet 500 mg PO QAM 08/28/21 09/15/23 History simvastatin 10 mg tablet 10 mg PO HS 08/28/21 09/15/23 History cholecalciferol (vitamin D3) 1,250 1,250 mcg PO WEEKLY 10/30/21 09/15/23 History mcg (50,000 unit) tablet glucosamine-chondroitin 250 mg-200 2 tablet PO DAILY 10/30/21 09/15/23 History mg tablet multivitamin 1 tablet PO DAILY 10/30/21 09/15/23 History turmeric 100 mg-juan 150 1 cap PO DAILY 11/20/21 09/15/23 History mg-olive 50 mg-oreg 150 mg-capryl capsule ondansetron 4 mg disintegrating 4 mg PO Q8H PRN nausea and 09/04/23 09/15/23 Rx tablet vomiting #10 tabs amlodipine 5 mg tablet 10 mg PO DAILY 09/05/23 09/15/23 History hydrocodone 5 mg-acetaminophen 325 1 tablet PO Q6H PRN pain #20 tabs 09/05/23 09/15/23 Rx mg tablet oxybutynin chloride 5 mg 5 mg PO DAILY 1 week #7 tabs 09/11/23 09/15/23 Rx tablet,extended release 24 hr tamsulosin 0.4 mg capsule 0.4 mg PO DAILY 1 week #7 caps 09/11/23 09/15/23 Rx Allergies Allergy/AdvReac Type Severity Reaction Status Date / Time No Known Allergies Allergy
[2023-09-18] VITALS (8 sets, daily range): BP systolic 118–133; BP diastolic 66–74; PULSE 56–70; RESP 9–18; TEMP 36.1–36.5; O2SAT 95–100
--- NOTE | ~2023-09-18 | XR_ITS ---
Supine and upright views of the abdomen Clinical history: Lithotripsy COMPARISON: 524 Findings: Bowel gas pattern is nonspecific. No evidence for obstruction or free air. Left ureteral st ent in place. 6 mm proximal left ureteral stone present adjacent to the stent. Osseous structures are intact. Impression: 6 mm stone adjacent to the proximal portion of left ureteral stent. Reviewed, dictated and finalized at [facility]. OMER CARE AGENT Impression: 6 mm stone adjacent to the proximal portion of left ureteral stent.
--- NOTE | 2023-09-18 06:11 | WPDHPUPDATE1 ---
History and Physical Update Update Date/Time: 09/18/23 06:11 History and Physical has been reviewed, including an updated exam of the patient. There are NO changes in the patient's condition. Risks, benefits, and alternatives have been discussed and questions answered. Patient agrees to proceed with procedure.
[2023-09-18 11:37] LABS: Glucose Point of Care 139 mg/dl (65-105)
[2023-09-18] MEDS: LACTATED RINGERS 1,000 ML 30 ML IV CONT (11:40)
--- NOTE | 2023-09-18 11:47 | WPDANESEPPF ---
Anes - Initial Pre Proc Eval Procedure: Operation Date: 09/18/23 13:00 Proposed Procedures p Left Ureteral Extracorporeal Shock Wave Lithotripsy - Fady Brown MD Date/Time: 09/18/23 11:47 Surgeon: Fady Brown MD Pre Op Diagnosis: left ureteral stone Patient Data Age: 73 Gender: F Height: 1.65 m Weight: 79.55 kg Last Vital Signs Temp 36.5 C 09/18/23 11:33 Pulse 70 09/18/23 11:33 Resp 18 09/18/23 11:33 BP 133/66 09/18/23 11:33 Pulse Ox 99 09/18/23 11:33 O2 Del Method Room Air 09/18/23 11:33 Allergies Allergy/AdvReac Type Severity Reaction Status Date / Time No Known Allergies Allergy Verified 09/18/23 11:14 Home Medications Medication Instructions Recorded Confirmed Type blood sugar diagnostic (OneTouch 08/28/21 09/05/23 History Ultra Test strips) hydrochlorothiazide 12.5 mg tablet 12.5 mg PO QAM 08/28/21 09/15/23 History metformin 500 mg tablet 500 mg PO QAM 08/28/21 09/15/23 History simvastatin 10 mg tablet 10 mg PO HS 08/28/21 09/15/23 History cholecalciferol (vitamin D3) 1,250 1,250 mcg PO WEEKLY 10/30/21 09/15/23 History mcg (50,000 unit) tablet glucosamine-chondroitin 250 mg-200 2 tablet PO DAILY 10/30/21 09/15/23 History mg tablet multivitamin 1 tablet PO DAILY 10/30/21 09/15/23 History turmeric 100 mg-juan 150 1 cap PO DAILY 11/20/21 09/15/23 History mg-olive 50 mg-oreg 150 mg-capryl capsule ondansetron 4 mg disintegrating 4 mg PO Q8H PRN nausea and 09/04/23 09/15/23 Rx tablet vomiting #10 tabs amlodipine 5 mg tablet 10 mg PO DAILY 09/05/23 09/15/23 History hydrocodone 5 mg-acetaminophen 325 1 tablet PO Q6H PRN pain #20 tabs 09/05/23 09/15/23 Rx mg tablet oxybutynin chloride 5 mg 5 mg PO DAILY 1 week #7 tabs 09/11/23 09/15/23 Rx tablet,extended release 24 hr tamsulosin 0.4 mg capsule 0.4 mg PO DAILY 1 week #7 caps 09/11/23 09/15/23 Rx Laboratory Tests 09/18/23 11:32 POC Capillary Glucose 139 H mg/dl (65-105) Patient hx anesthesia problems: none Family hx anesthesia problems: none Results Review: All pre-operative results and documents have been reviewed as part of the pre-operative evaluation. [facility] Past Medical History Medical History Breast cancer RIGHT BREAST Diabetes Hypertension Thyroid condition Surgical History Surgical History H/O parathyroidectomy H/O: hysterectomy 1989 History of lumpectomy 2017 History of lumpectomy of left breast 11/29/21 Hx of tonsillectomy S/P lumpectomy, left breast image guided wire localization; left breast lumpectomy 11/07/21 Family History Family History Father Heart attack Mother ALS (amyotrophic lateral sclerosis) Other Cerebrovascular accident Hypertension Social History Social History Smoking status: Never smoker Alcohol intake: never Alcohol use details: RARELY Substance use: never Substance use type: does not use Do You Feel Safe in your Home?: Yes Lack of Transportation: No Lack of Food: Never True Current Housing: I Have Housing Concerned About Future Housing: No Difficulty Paying Gas/Electric Bills: No Difficulty Paying for Meds: No Currently Unemployed: No Education: High School Diploma/GED Difficulty w/ Childcare or Family Care: No Living arrangements: with family Additional living arrangements comments: SIGNIFICANT OTHER Gender identity (if verbalized by the patient): Female Spiritual care concerns: No Anes - Eval Final PreProcedure Day of Procedure 09/18/23 11:47 Patient weight: overweight Heart: regular rate and rhythm Lungs: clear to auscultation Airway: Mallampati scale class II Neurological: alert and oriented Last oral i
[2023-09-18] MEDS: fentaNYL CITRATE INJ (*CRX) 100 MCG/2 ML VIAL 50 MCG IV PUSH (12:20)
[2023-09-18] MEDS: ceFAZolin 2 GM/D5W 50 ML 2 GM/50 ML BAG IVPB (12:43)
--- NOTE | 2023-09-18 13:07 | P.OP_ITS ---
Procedure Note - Detailed Date of Procedure 09/18/23 Pre-op Diagnosis Left ureteral stone Post-op Diagnosis Same Procedure Performed Cystoscopy, left ureteral stent removal, left ESWL Surgeon Fady Brown MD Anesthesia General Description of Procedure The patient was brought to the operative suite where she was placed in the frog- legged position on the Dornier lithotripter table. Flexible cystoscopy was undertaken with a 16F flexible cystoscopy. Her urethra and bladder neck were endoscopically normal. The bladder mucosa was normal and there was a single, orthotopic ureteral orifice bilaterally. The tip of the indwelling ureteral stent was grasped and the stent was removed with ease. The patient was then repositioned in the supine position and the focal point of the lithotriptor was placed at a 6mm left proximal-ureteral calculus. A total of 2000 shocks were delivered at a power setting of 4. There appeared to be excellent fragmentation of the stone early in the procedure. The patient tolerated the procedure well and was taken to the recovery room in good condition. Drains No Packing No Pathology None sent Complications No immediate complications Condition Stable Disposition PACU
[2023-09-18 13:28] LABS: Glucose Point of Care 123 mg/dl (65-105)
[2023-09-18] MEDS: oxyCODONE HCL (*CRX) 5 MG TAB IR PO (14:35)
== END 2023-09-18 15:10 | disposition home or self-care (01) ==
PROVIDERS: PCP Emergency Medicine; Visit Provider Urology
PROC: (CPT 50590; principal; 2023-09-18 13:00)
PROC: (CPT 52310; 2023-09-18 13:00)
DX: N20.1 Calculus of ureter (principal); I10 Essential (primary) hypertension; E11.9 Type 2 diabetes mellitus without complications; E07.9 Disorder of thyroid, unspecified; Z85.3 Personal history of malignant neoplasm of breast; Z79.84 Long term (current) use of oral hypoglycemic drugs
CPT/HCPCS: 52310; 50590; 36415; 74018; 82948; 85610; 85730; 93005; A9270; J0690; J1100; J2405; J2704; J3010; J7030; J7120

== ENCOUNTER → 2023-09-30 08:57 | Outpatient (CLI) | payer MEDICARE, SELFPAY ==
--- NOTE | ~2023-09-30 | XR_ITS ---
XR abdomen/kub 1V 09/30/2023 09:13 Indication: Ureteral stone Procedure: KUB Comparison: 09/18/2023 Findings: Bowel gas pattern nonobstructive. There are calcified granulomas of the spleen. There are l eft renal stones. There are pelvic phleboliths. Interval removal of left ureteral stent. Severe lower thoracic and lumbar spondylosis with levoscoliosis. Pelvic rings are intact. Impression: 1: Left nephrolithiasis. Reviewed, dictated and finalized at location B. ORATE REAL ESTATE MANAGER Impression: 1: Left nephrolithiasis.
== END ==
PROVIDERS: PCP Urology; Visit Provider Urology
DX: N20.1 Calculus of ureter (principal)
CPT/HCPCS: 74018

== ENCOUNTER 2023-10-05 09:44 | Outpatient (CLI) | payer MEDICARE, SELFPAY ==
--- NOTE | ~2023-10-05 | DEXA_ITS ---
Bone Density Report Name: KEVIN PALOMO Age: 73 Sex: Female Ethnicity: White Date of : 1950 Indication: osteopenia; hyperparathyroidism; height loss; cancer; hysterectomy; Referring Provider: MARION SCHRADER Study: Bone densitometry was performed. Exam Date: October 05, 2023 Accession number: [id number] Bone Density: Region BMD T-score Z-score Classification AP Spine(L1-L4) 1.019 -0.3 2.0 Normal Femoral Neck (Left) 0.567 -2.5 -0.6 Osteoporosis Total Hip (Left) 0.762 -1.5 0.2 Osteopenia Femoral Neck (Right) 0.596 -2.3 -0.4 Osteopenia Total Hip (Right) 0.720 -1.8 -0.2 Osteopenia Total Hip Mean 0.741 -1.7 0.0 Osteopenia World Health Organization criteria for BMD impression classify patients as: Normal (T-score at or above -1.0), Osteopenia (T-score between -1.0 and -2.5), or Osteoporosis (T-score at or below -2.5). 10-year Fracture Risk: FRAX not reported because: Some T-score for Spine Total or Hip Total or Femoral Neck at or below -2.5 Previous Exams: Region Exam Age BMD T-score BMD Change BMD Change Date g/cm2 vs Baseline vs Previous Total Hip(Left) 10/05/2023 73 0.762 -1.5 0.020 (2.7%) -0.014 (-1.8%) 05/22/2021 70 0.776 -1.4 0.033 (4.5%)* 0.033 (4.5%)* 02/21/2019 68 0.743 -1.6 Total Hip(Right) 10/05/2023 73 0.720 -1.8 0.035 (5.0%)* 0.011 (1.6%) 05/22/2021 70 0.709 -1.9 0.023 (3.4%) 0.023 (3.4%) 02/21/2019 68 0.686 -2.1 *Denotes significance at 95% confidence level, LSC for Total Hip = 0.027 g/cm2 Clinical Information Provided by Patient: Has used the following medications: Vitamin D, Calcium Has the following medical conditions: Cancer, Hyperparathyroidism, Hysterectomy Patient maximum height was 65 Menopause Age: 51 Drinks caffeinated beverages Onset of menses at age 13 Number of children 3 Impression: The patient has osteoporosis, based on the Left Femoral Neck T-score. No significant bone loss was observed. Discussion: INCREASED RISK OF FRACTURE. BONE DENSITY IS UNDESIRABLY LOW AT ONE OR MORE SKELETAL SITES, CONSISTENT WITH POSTMENOPAUSAL OSTEOPOROSIS. This patient's lowest T-score meets the World Health Organization's (WHO) criteria for osteoporosis at one or more sites (T-score -2.5 or below). In untreated patients, the risk of osteoporotic fracture increases approximately two-fold for each 1.0 SD decrease in T-score. Low bone density is not the only risk factor for fracture; also consider factors such as patient'
== END 2023-10-05 09:45 | disposition home or self-care (01) ==
PROVIDERS: PCP Urology; Visit Provider Emergency Medicine
DX: M85.89 Other specified disorders of bone density and structure, multiple sites (principal); M81.0 Age-related osteoporosis without current pathological fracture; M85.852 Other specified disorders of bone density and structure, left thigh; M85.851 Other specified disorders of bone density and structure, right thigh
CPT/HCPCS: 77080

== ENCOUNTER 2023-10-12 13:41 | Outpatient (CLI) | payer MEDICARE, SELFPAY ==
[2023-10-12 13:52] LABS: Basophils Percent Auto 0.8 % (0.2-1.2); Eosinophils Absolute Auto 0.2 K/mm3 (0-0.3); Eosinophils Percent Auto 3.7 % (0-4.4); Hematocrit 38.3 % (37.0-47.0); Hemoglobin 12.9 g/dL (12.0-15.0); Immature Granulocyte Absolute 0.01 K/mm3 (0.00-0.031); Immature Granulocyte Percent A 0.2 % (0-0.5); Lymphocytes Absolute Auto 1.82 K/mm3 (0.9-3.2); Lymphocytes Percent Auto 35.8 % (18.3-44.2); Mean Corpuscular HGB Conc 33.7 g/dl (32-36); Mean Corpuscular Hemoglobin 28.7 pg (26-34); Mean Corpuscular Volume 85.1 fl (80-100); Mean Platelet Volume 9.7 fl (7.4-10.4); Monocytes Absolute Auto 0.4 K/mm3 (0.1-0.6); Monocytes Percent Auto 8.7 % (2.6-8.5); Neutrophils Absolute Auto 2.6 K/mm3 (1.3-6.7); Neutrophils Percent Auto 50.8 % (45.5-73.1); Platelet Count Result 225 k/mm3 (150-375); Red Cell Distribution Width 13.4 % (11.5-14.5); White Blood Count 5.1 K/mm3 (4.5-10.0)
[2023-10-12 13:58] LABS: Blood Urea Nitrogen 12 mg/dL (8-26); Carbon Dioxide 29 mmol/L (22-30); Chloride 99 mmol/L (98-109); Estimated Glomerular Filt Rate > 60; Glucose 146 mg/dL (70-105); Ionized Calcium (POC) 1.29 mmol/L (1.11-1.31); Potassium 3.5 mmol/L (3.5-4.9); Sodium 141 mmol/L (138-146)
[2023-10-12 16:32] LABS: Alanine Aminotransferase 24 U/L (6-35); Albumin Level 4.6 g/dL (3.5-5.1); Alkaline Phosphatase 64 U/L (38-126); Anion Gap 8 mmol/L (8-16); Aspartate Amino Transferase 24 U/L (14-36); Bilirubin,Total 0.4 mg/dL (0.2-1.3); Blood Urea Nitrogen 13 mg/dL (7-17); Calcium 10.3 mg/dL (8.4-10.2); Carbon Dioxide 32 mmol/L (22-30); Chloride 100 mmol/L (98-107); Estimated Glomerular Filt Rate > 60; Glucose 144 mg/dL (65-110); Potassium 3.6 mmol/L (3.4-5.0); Sodium 140 mmol/L (137-145)
== END 2023-10-12 13:42 | disposition home or self-care (01) ==
LOC: ANHLAB 13:43
PROVIDERS: PCP Urology; Visit Provider Internal Medicine Hematology & Oncology
DX: D05.12 Intraductal carcinoma in situ of left breast (principal)
CPT/HCPCS: 36415; 80047; 80053; 85025

== ENCOUNTER 2023-10-13 01:14 | Emergency (ER) | payer MEDICARE, SELFPAY ==
--- NOTE | ~2023-10-13 | CT_ITS ---
EXAMINATION: CT abdomen pelvis wo con DATE: 10/13/2023 04:00 INDICATION: Left lower quadrant abdominal pain. TECHNIQUE: Computed tomography (CT) of the abdomen and pelvis was performed without intravenous contr ast. Automated exposure control and iterative reconstruction technique were employed. The dose-length product was 935.58 mGy-cm. COMPARISON: CT abdomen and pelvis 09/11/2023 FINDINGS: The visualized portions of the lung bases demonstrate mild atelectasis. Calcified right hil ar lymph nodes are consistent with old granulomatous disease. No pleural effusion. The heart size is normal. No pericardial effusion. There are surgical changes in right breast. Calcifications in the li gus and spleen are consistent with old granulomatous disease. There is diffuse hepatic steatosis. The gallbladder is distended, likely secondary to fasting. The pancreas and adrenal glands are normal. T here is cortical thinning of the kidneys. There are cysts in the kidneys measuring up to 16 mm on the right. There are approximately five 1 mm stones in right kidney. There are approximately six stones in left kidney measuring up to 5 mm. There is diverticulosis of the colon without evidence of diverti culitis. The appendix is normal. There is an anastomosis in the sigmoid colon. There is a small bowel anastomosis. There are no pathologically enlarged lymph nodes. There is no free intraperitoneal flui d. There is mild aortic atherosclerosis. There is severe thoracic and lumbar spondylosis. There are c hronic compression fractures of L1 and T6. IMPRESSION: 1. Bilateral nonobstructing kidney stones. Reviewed, dictated and finalized at location A. NURSE
[2023-10-13 01:15] VITALS: PULSE 72; RESP 16; TEMP 36.4; O2SAT 97
[2023-10-13 01:29] LABS: Basophils Percent Auto 0.8 % (0.2-1.2); Eosinophils Absolute Auto 0.2 K/mm3 (0-0.3); Eosinophils Percent Auto 3.7 % (0-4.4); Hematocrit 37.1 % (37.0-47.0); Immature Granulocyte Absolute 0.01 K/mm3 (0.00-0.031); Immature Granulocyte Percent A 0.2 % (0-0.5); Lymphocytes Absolute Auto 1.59 K/mm3 (0.9-3.2); Lymphocytes Percent Auto 32.6 % (18.3-44.2); Mean Corpuscular HGB Conc 32.3 g/dl (32-36); Mean Corpuscular Hemoglobin 27.8 pg (26-34); Mean Corpuscular Volume 85.9 fl (80-100); Mean Platelet Volume 10.3 fl (7.4-10.4); Monocytes Absolute Auto 0.4 K/mm3 (0.1-0.6); Neutrophils Absolute Auto 2.6 K/mm3 (1.3-6.7); Neutrophils Percent Auto 53.7 % (45.5-73.1); Platelet Count Result 222 k/mm3 (150-375); Red Blood Count 4.32 M/mm3 (4.2-5.4); Red Cell Distribution Width 13.5 % (11.5-14.5); White Blood Count 4.9 K/mm3 (4.5-10.0)
[2023-10-13 01:49] LABS: Alanine Aminotransferase 25 U/L (6-35); Albumin Level 4.8 g/dL (3.5-5.1); Alkaline Phosphatase 66 U/L (38-126); Anion Gap 6 mmol/L (8-16); Aspartate Amino Transferase 31 U/L (14-36); Bilirubin,Total 0.7 mg/dL (0.2-1.3); Blood Urea Nitrogen 15 mg/dL (7-17); Calcium 10.1 mg/dL (8.4-10.2); Carbon Dioxide 33 mmol/L (22-30); Chloride 101 mmol/L (98-107); Estimated CRCL calculation 76 ml/min; Estimated Glomerular Filt Rate > 60; Glucose 132 mg/dL (65-110); Sodium 140 mmol/L (137-145)
[2023-10-13 02:00] LABS: Appearance Urine Clear (Clear); Bilirubin Urine Negative (Negative); Blood Urine Negative (Negative); Color Urine Yellow (Yellow); Glucose Urine UA Negative (Negative); Ketones Urine Negative (Negative); Leukocyte Esterase Ur Negative LEU/UL (Negative); Nitrate Urine Negative (Negative); Protein Urine Negative (Negative); Specific Grav Ur 1.007 (1.001-1.035); Urobilinogen Urine 0.2 mg/dL (<2.0); pH Urine 6.5 (5.0-9.0)
[2023-10-13 02:01] LABS: Potassium 3.4 mmol/L (3.4-5.0)
[2023-10-13 02:03] LABS: Add Urine Microscopic? NO
[2023-10-13 02:23] VITALS: BP 156/86; PULSE 87; RESP 16; O2SAT 100
[2023-10-13] MEDS: SODIUM CHLORIDE 0.9% IV 1,000 ML 999 ML IV CONT (02:44)
[2023-10-13] MEDS: ONDANSETRON INJ 4 MG/2 ML VIAL IV PUSH ×2 (02:44→06:21)
[2023-10-13] MEDS: MORPHINE SULFATE (*CRX) 4 MG/ML INJ IV PUSH ×2 (02:45→03:39)
--- NOTE | 2023-10-13 04:34 | ED.GENADULT ---
HPI - General Adult General Chief complaint: Abdominal Pain Stated complaint: abdominal pain, LLQ, since Thursday, hx kidney sto Time Seen by Provider: 10/13/23 02:29 History of Present Illness HPI narrative: patient 73-year-old female who presents emerged from with chief complaint of left lower quadrant abdominal pain. Patient reports started Thursday patient reports that she has prior history of kidney stones and actually had procedures for them in the past patient states that she also has had episodes of diverticulitis. Patient denies blood in her urine denies fever Related Data Home Medications Medication Instructions Recorded Confirmed blood sugar diagnostic (OneTouch 08/28/21 09/05/23 Ultra Test strips) hydrochlorothiazide 12.5 mg tablet 12.5 mg PO QAM 08/28/21 09/15/23 metformin 500 mg tablet 500 mg PO QAM 08/28/21 09/15/23 simvastatin 10 mg tablet 10 mg PO HS 08/28/21 09/15/23 cholecalciferol (vitamin D3) 1,250 1,250 mcg PO WEEKLY 10/30/21 09/15/23 mcg (50,000 unit) tablet glucosamine-chondroitin 250 mg-200 2 tablet PO DAILY 10/30/21 09/15/23 mg tablet multivitamin 1 tablet PO DAILY 10/30/21 09/15/23 turmeric 100 mg-juan 150 1 cap PO DAILY 11/20/21 09/15/23 mg-olive 50 mg-oreg 150 mg-capryl capsule amlodipine 5 mg tablet 10 mg PO DAILY 09/05/23 09/15/23 Allergies Allergy/AdvReac Type Severity Reaction Status Date / Time No Known Allergies Allergy Verified 09/18/23 11:14 Review of Systems Review of Systems: A 10 system review of systems was completed on the patient and is negative except for what is stated in the HPI. Nursing and ancillary documentation was reviewed. ON LICENSE OF [facility] Past Medical History Medical History Breast cancer RIGHT BREAST Diabetes Hypertension Thyroid condition Surgical History Surgical History H/O parathyroidectomy H/O: hysterectomy 1989 History of lumpectomy 2017 History of lumpectomy of left breast 11/29/21 Hx of tonsillectomy S/P lumpectomy, left breast image guided wire localization; left breast lumpectomy 11/07/21 Family History Family History Father Heart attack Mother ALS (amyotrophic lateral sclerosis) Other Cerebrovascular accident Hypertension Social History Social History Smoking status: Never smoker Alcohol intake: never Alcohol use details: RARELY Substance use: never Substance use type: does not use Do You Feel Safe in your Home?: Yes Lack of Transportation: No Lack of Food: Never True Current Housing: I Have Housing Concerned About Future Housing: No Difficulty Paying Gas/Electric Bills: No Difficulty Paying for Meds: No Currently Unemployed: No Education: High School Diploma/GED Difficulty w/ Childcare or Family Care: No Living arrangements: with family Additional living arrangements comments: SIGNIFICANT OTHER Gender identity (if verbalized by the patient): Female Spiritual care concerns: No Exam Narrative: GENERAL: Well-appearing, well-nourished, and in no acute distress. HEAD: Normocephalic, atraumatic. EYES: PERRLA and EOMI. ENT: Nares clear, no rhinorrhea or epistaxis. Mucous membranes moist. NECK: Supple. CHEST: Clear to auscultation. No respiratory distress. HEART: Regular rate and rhythm. No murmur heard. Normal peripheral pulses. ABDOMEN: Soft, nontender, nondistended, normal active bowel sounds. EXTREMITIES: Normal range of motion. No edema. SKIN: Warm, dry, no rash. NEURO: No focal deficits. Alert and oriented x3. PSYCH: Normal mood and affect. Course Vital Signs Vital signs: Vital Signs Temperature 36.4 C 10/13/23 01:15 Pulse Rate 72 10/13/23 01:15 Respiratory Rate 16
[2023-10-13] MEDS: HYDROmorphone HCL INJ (*CRX) 1 MG/ML SYR IV PUSH (05:44)
[2023-10-13 06:24] VITALS: BP 131/60; PULSE 71; RESP 16; O2SAT 100
== END 2023-10-13 06:49 | disposition home or self-care (01) ==
PROVIDERS: Emergency Provider Emergency Medicine; PCP Emergency Medicine
DX: R10.32 Left lower quadrant pain (principal); Z87.442 Personal history of urinary calculi; E11.9 Type 2 diabetes mellitus without complications; Z79.84 Long term (current) use of oral hypoglycemic drugs; I10 Essential (primary) hypertension
CPT/HCPCS: 36415; 74176; 80053; 81003; 85025; 96361; 96374; 96375; 96376; 99284; J1170; J2270; J2405; J7030

== ENCOUNTER 2024-02-10 13:48 | Outpatient (CLI) | payer MEDICARE, SELFPAY ==
[2024-02-10 14:00] LABS: Basophils Absolute Auto 0.1 K/mm3 (0.0-0.1); Basophils Percent Auto 0.8 % (0.2-1.2); Eosinophils Absolute Auto 0.2 K/mm3 (0-0.3); Eosinophils Percent Auto 2.6 % (0-4.4); Hemoglobin 12.7 g/dL (12.0-15.0); Immature Granulocyte Absolute 0.01 K/mm3 (0.00-0.031); Immature Granulocyte Percent A 0.2 % (0-0.5); Lymphocytes Percent Auto 31.4 % (18.3-44.2); Mean Corpuscular HGB Conc 33.4 g/dl (32-36); Mean Corpuscular Hemoglobin 28.9 pg (26-34); Mean Corpuscular Volume 86.4 fl (80-100); Monocytes Absolute Auto 0.6 K/mm3 (0.1-0.6); Monocytes Percent Auto 9.6 % (2.6-8.5); Neutrophils Absolute Auto 3.4 K/mm3 (1.3-6.7); Neutrophils Percent Auto 55.4 % (45.5-73.1); Platelet Count Result 223 k/mm3 (150-375); Red Cell Distribution Width 13.2 % (11.5-14.5); White Blood Count 6.1 K/mm3 (4.5-10.0)
[2024-02-10 14:06] LABS: Blood Urea Nitrogen 11 mg/dL (8-26); Carbon Dioxide 31 mmol/L (22-30); Chloride 100 mmol/L (98-109); Estimated Glomerular Filt Rate > 60; Glucose 115 mg/dL (70-105); Ionized Calcium (POC) 1.22 mmol/L (1.11-1.31); Potassium 3.2 mmol/L (3.5-4.9); Sodium 141 mmol/L (138-146)
[2024-02-10 17:29] LABS: Alanine Aminotransferase 28 U/L (6-35); Albumin Level 4.8 g/dL (3.5-5.1); Alkaline Phosphatase 68 U/L (38-126); Anion Gap 9 mmol/L (4-12); Aspartate Amino Transferase 29 U/L (14-36); Bilirubin,Total 0.6 mg/dL (0.2-1.3); Blood Urea Nitrogen 13 mg/dL (7-17); Calcium 9.7 mg/dL (8.4-10.2); Carbon Dioxide 27 mmol/L (22-30); Chloride 103 mmol/L (98-107); Estimated Glomerular Filt Rate > 60; Glucose 113 mg/dL (65-110); Potassium 3.2 mmol/L (3.4-5.0); Sodium 139 mmol/L (137-145)
== END 2024-02-10 13:49 | disposition home or self-care (01) ==
LOC: ANHLAB 13:50
PROVIDERS: PCP Emergency Medicine; Visit Provider Internal Medicine Hematology & Oncology
DX: D05.12 Intraductal carcinoma in situ of left breast (principal)
CPT/HCPCS: 36415; 80047; 80053; 85025

== ENCOUNTER 2024-03-14 13:11 | Outpatient (CLI) | payer MEDICARE, SELFPAY ==
--- NOTE | ~2024-03-14 | MM_ITS ---
EXAMINATION: MM screening skylar BI w beth HISTORY: Screening TECHNIQUE: Craniocaudal and mediolateral oblique 3-D tomosynthesis images were obtained and synthetic 2-D images were generated. CAD analysis was submitted and interpreted. COMPARISON: Comparison to multiple prior studies sequentially, with oldest reviewed study dated 04/04. BREAST PARENCHYMAL COMPOSITION: Not dense: There are scattered areas of fibroglandular density. FINDINGS: Stable post surgical distortion of both breasts. There is no evidence of suspicious mass, c alcification, or architectural distortion to suggest malignancy in either breast. There has been no s uspicious interval change. IMPRESSION: 1. No mammographic evidence of malignancy. 2. Recommend routine screening mammography in one year. BI-RADS Category 2: Benign finding(s). Reviewed, dictated and finalized at location B.
== END 2024-03-14 13:12 | disposition home or self-care (01) ==
LOC: ANHIMG 13:13
PROVIDERS: PCP Emergency Medicine; Visit Provider Internal Medicine Hematology & Oncology
DX: Z12.31 Encounter for screening mammogram for malignant neoplasm of breast (principal)
CPT/HCPCS: 77063; 77067

== ENCOUNTER 2024-06-08 09:40 | Observation (INO) | payer MEDICARE, SELFPAY ==
[2024-06-08] VITALS (16 sets, daily range): BP systolic 119–146; BP diastolic 51–80; PULSE 65–84; RESP 14–20; TEMP 36.4–36.5; O2SAT 95–100; BMI 31.1
--- NOTE | ~2024-06-08 | XR_ITS ---
XR chest 2V Ordering provider: Elizabeth Cr MD History: 73 years Female with . cough, eval for PNA X 2 WKS PAST LUMPECTOMY LT BREAST . Comparison: July 25, 2022 FINDINGS: MEDIASTINUM: The cardiac silhouette is not enlarged. LUNGS: No infiltrates, effusions or pneumothorax. Small opacity seen in the left mid zone which may be a atelectatic area or a nodule measuring 2 cm. 3 months follow-up advised. OTHER: No free air under the diaphragm. Degenerative the spine. IMPRESSION: Small opacity in the left mid zone which may be atelectatic area or a nodule. 3 months follow-up advi sed. Otherwise, No acute cardiopulmonary pathology. Reviewed, dictated and finalized at location A. IMPRESSION: Small opacity in the left mid zone which may be atelectatic area or a nodule. 3 months follow-up advised. Otherwise, No acute cardiopulmonary pathology.
--- NOTE | ~2024-06-08 | CT_ITS ---
CTA chest PE protocol Ordering provider: Elizabeth Cr MD History: 73 years Female with . SOB, COVID+ . Comparison: None. Technique: CT angiogram chest was performed following timed intravenous injection of contrast. Thin s lice axial images and reformatted coronal images were obtained. Three dimensional reformatted images of the chest were also obtained using a [place] workstation. . Automated exposure control and iterati ve reconstruction technique were employed. The dose-length product was 389.70 mGy-cm. 100 mL Omnipaqu e 350 was given IV. Findings: PULMONARY ARTERIES: No pulmonary embolus. VISUALIZED THORACIC INLET: Normal enlarged right lobe of the thyroid with multiple nodules. MEDIASTINUM: Aorta/coronary arteries: Mild atheromatous disease. Heart/other: The heart is not enlarged. Lymph nodes: No mediastinal adenopathy. Left hilar lymph node is seen which measures 1.8 cm. LUNGS: Groundglass nodule is seen in the right upper lobe measuring 7 mm. Groundglass nodule in the left upp er bilateral multiple groundglass appearing patchy areas are noted in the right, and left upper lobes . Similar areas are also seen the left lower lobe. This may represent atypical or viral infection. Fo llow-up advised. No pulmonary masses. No effusions. No pneumothorax. VISUALIZED UPPER ABDOMEN: Fat infiltration of the liver. Small sliding hiatus hernia. Residual food i s seen in the mid esophagus which may indicate reflux. Small left and Right renal cysts. Otherwise, t he visualized upper abdomen is normal. MUSCULOSKELETAL: Soft tissues: The superficial soft tissues are normal. Bones: Age appropriate degenerative changes of the spine. IMPRESSION: 1. No pulmonary embolism. 2. Multiple patchy ground glass opacities in both lungs suggestive of atypical or viral pneumonia. F ollow-up advised. 3. Right lobe of the thyroid with multiple nodules ultrasound evaluation advised. 4. Fat infiltration of the liver. Reviewed, dictated and finalized at location A. IMPRESSION: 1. No pulmonary embolism. 2. Multiple patchy ground glass opacities in both lungs suggestive of atypical or viral pneumonia. Follow-up advised. 3. Right lobe of the thyroid with multiple nodules ultrasound evaluation advis ed. 4. Fat infiltration of the liver.
--- NOTE | 2024-06-08 13:00 | ECG_ITS ---
Test Date: 2024-06-08 13:32:59 Measurements Intervals [place] Rate: 72 P: 24 DE: 273 QRS: -28 QRSD: 93 T: 67 QT: 398 QTc: 436 Interpretive Statements SINUS RHYTHM WITH FIRST DEGREE AV BLOCK INFERIOR MYOCARDIAL INFARCTION , PROBABLY OLD [40+ ms Q WAVE AND/OR ST/T ABNORMALITY IN II/aVF] ABNORMAL ECG No previous ECG available for comparison Electronically Signed On 06-08-2024 14:07:45 CDT by Eric Bailey M.D.
[2024-06-08 13:22] LABS: Basophils Percent Auto 0.2 % (0.2-1.2); Eosinophils Percent Auto 0.2 % (0-4.4); Hematocrit 39.5 % (37.0-47.0); Hemoglobin 13.6 g/dL (12.0-15.0); Lymphocytes Absolute Auto 1.42 K/mm3 (0.9-3.2); Lymphocytes Percent Auto 34.7 % (18.3-44.2); Mean Corpuscular HGB Conc 34.4 g/dl (32-36); Mean Corpuscular Hemoglobin 29.5 pg (26-34); Mean Corpuscular Volume 85.7 fl (80-100); Mean Platelet Volume 10.6 fl (7.4-10.4); Monocytes Absolute Auto 0.4 K/mm3 (0.1-0.6); Monocytes Percent Auto 10.8 % (2.6-8.5); Neutrophils Absolute Auto 2.2 K/mm3 (1.3-6.7); Neutrophils Percent Auto 54.1 % (45.5-73.1); Platelet Count Result 151 k/mm3 (150-375); Red Blood Count 4.61 M/mm3 (4.2-5.4); Red Cell Distribution Width 13.3 % (11.5-14.5); White Blood Count 4.1 K/mm3 (4.5-10.0)
[2024-06-08 13:28] LABS: Add Urine Microscopic? YES; Appearance Urine Clear (Clear); Bacteria Urine None Seen /hpf; Bilirubin Urine Negative (Negative); Blood Urine Negative (Negative); Color Urine Yellow (Yellow); Glucose Urine UA Negative (Negative); Ketones Urine 1+ mg/dL (Negative); Leukocyte Esterase Ur Negative LEU/UL (Negative); Nitrate Urine Negative (Negative); Non Pathogenic Casts 0-2; Protein Urine Trace mg/dL (Negative); RBC Urine 0-2 /hpf (0-2); Specific Grav Ur 1.014 (1.001-1.035); Squamous Epithelial Cell Urine Occasional /hpf (Few); Urobilinogen Urine 0.2 mg/dL (<2.0); WBC Urine 0-5 /hpf (0-3); pH Urine 6.5 (5.0-9.0)
--- NOTE | 2024-06-08 13:34 | ED.ABDPAIN ---
HPI - Abdominal Pain General Chief Complaint: Abdominal Pain Stated Complaint: sick for a week Time Seen by Provider: 06/08/24 13:00 History of Present Illness HPI narrative: 73-year-old female with a history of hypertension, diabetes, hyperlipidemia presenting with cough. States that she developed a sore throat, nasal congestion, cough about a week ago. She was seen by her PCP who started her on doxycycline but unfortunately her symptoms continued. She went in for follow-up today and he recommended she come to the ER as he was concerned for pneumonia. States that she has also been having a lot of diarrhea that is black. She denies shortness of breath or chest pain. States that she feels very weak and she has been having a lot of muscle aches. No headache, fevers, abdominal pain, dysuria, leg swelling. Related Data Home Medications Medication Instructions Recorded Confirmed hydrochlorothiazide 12.5 mg tablet 12.5 mg PO QAM 08/28/21 06/08/24 metformin 500 mg tablet 500 mg PO QAM 08/28/21 06/08/24 cholecalciferol (vitamin D3) 1,250 1,250 mcg PO WEEKLY 10/30/21 06/08/24 mcg (50,000 unit) tablet glucosamine-chondroitin 250 mg-200 1 tablet PO DAILY 10/30/21 06/08/24 mg tablet multivitamin 1 tablet PO DAILY 10/30/21 06/08/24 amlodipine 5 mg tablet 10 mg PO DAILY 09/05/23 06/08/24 anastrozole 1 mg tablet 1 mg PO DAILY 06/08/24 06/08/24 potassium chloride 10 mEq 10 meq PO DAILY 06/08/24 06/08/24 capsule,extended release Allergies Allergy/AdvReac Type Severity Reaction Status Date / Time No Known Allergies Allergy Verified 06/08/24 09:40 Review of Systems Review of Systems: All systems reviewed & are unremarkable except as noted in HPI and below PMFSH Past Medical History Medical History BMI 30.0-30.9,adult Breast cancer bilateral, s/p lumpectomy x5 and chemo/radiation Calculus, kidney Diabetes HLD (hyperlipidemia) Hypertension Motion sickness Osteoporosis Thyroid condition Surgical History Surgical History H/O parathyroidectomy H/O: hysterectomy 1989 History of bladder surgery History of colon resection r/t diverticulitis History of lumpectomy x1 left, x4 right Hx of tonsillectomy Family History Family History Father Heart attack Mother ALS (amyotrophic lateral sclerosis) Other Cerebrovascular accident Hypertension Social History Social History Smoking status: Never smoker Alcohol intake: never Alcohol use details: RARELY Substance use: never Substance use type: does not use Do You Feel Safe in your Home?: Yes Lack of Transportation: No Lack of Food: Never True Current Housing: I Have Housing Concerned About Future Housing: No Difficulty Paying Gas/Electric Bills: No Difficulty Paying for Meds: No Currently Unemployed: No Education: High School Diploma/GED Difficulty w/ Childcare or Family Care: No Living arrangements: with family Additional living arrangements comments: SIGNIFICANT OTHER Gender identity (if verbalized by the patient): Female Spiritual care concerns: No Exam Narrative: GENERAL: Ill-appearing but nontoxic, no acute distress, pleasant cooperative HEAD: Normocephalic, atraumatic. EYES: PERRLA and EOMI. ENT: Mucous membranes dry NECK: Supple. CHEST: No respiratory distress. HEART: Regular rate and rhythm ABDOMEN: Soft, nontender, nondistended EXTREMITIES: Normal range of motion. No edema. SKIN: Warm, dry, no rash. NEURO: No focal deficits. Alert and oriented x3. PSYCH: Normal mood and affect. Course Vital Signs Vital signs: Vital Signs Temperature 97.5 F L 06/08/24 09:42 Pulse Rate 72 06/08/24 09:42 Respiratory Rate 15 06/08/24 09:42 Blood Pressure
[2024-06-08 13:38] LABS: Alanine Aminotransferase 61 U/L (6-35); Albumin Level 4.6 g/dL (3.5-5.1); Alkaline Phosphatase 59 U/L (38-126); Anion Gap 12 mmol/L (4-12); Aspartate Amino Transferase 63 U/L (14-36); Bilirubin,Total 0.5 mg/dL (0.2-1.3); Blood Urea Nitrogen 16 mg/dL (7-17); Calcium 9.2 mg/dL (8.4-10.2); Carbon Dioxide 29 mmol/L (22-30); Chloride 97 mmol/L (98-107); Estimated CRCL calculation 66 ml/min; Estimated Glomerular Filt Rate > 60; Glucose 133 mg/dL (65-110); Lipase 139 U/L (23-300); Potassium 2.8 mmol/L (3.4-5.0); Sodium 138 mmol/L (137-145)
[2024-06-08] MEDS: SODIUM CHLORIDE 0.9% IV 1,000 ML 999 ML IV CONT (13:48)
[2024-06-08] MEDS: ONDANSETRON INJ 4 MG/2 ML VIAL IV PUSH (13:49)
[2024-06-08] MEDS: KETOROLAC 15 MG/ML VIAL (*BKC) IV PUSH (13:49)
[2024-06-08 14:11] LABS: Prothrombin Time 13.4 Seconds (11.1-14.7)
[2024-06-08 14:13] LABS: Partial Thromboplastin Time 27.5 Seconds (22.3-36.8)
[2024-06-08 14:32] LABS: Influenza A QL RT-PCR Negative (Negative); Influenza B QL RT-PCR Negative (Negative); RSV RNA, RT-PCR Negative (Negative); SARS-CoV-2 RNA PCR Positive (Negative)
[2024-06-08] MEDS: POTASSIUM CHLORIDE 20 MEQ PACKET (FOR LIQUID) 40 MEQ PO (14:43)
[2024-06-08] MEDS: POTASSIUM CHLORIDE INJ 40 MEQ in SODIUM CHLORIDE 0.9% IV 500 ML 130 MEQ IVPB (14:44)
[2024-06-08] MEDS: SODIUM CHLORIDE 0.9% IV 500 ML 100 ML (15:41)
[2024-06-08 17:46] LABS: Anion Gap 7 mmol/L (4-12); Blood Urea Nitrogen 14 mg/dL (7-17); Calcium 8.4 mg/dL (8.4-10.2); Carbon Dioxide 28 mmol/L (22-30); Chloride 104 mmol/L (98-107); Estimated CRCL calculation 90 ml/min; Estimated Glomerular Filt Rate > 60; Glucose 120 mg/dL (65-110); Potassium 3.7 mmol/L (3.4-5.0); Sodium 139 mmol/L (137-145)
--- NOTE | 2024-06-08 18:23 | PM.IMHP ---
H&P: HPI History of Present Illness Date/Time: 06/08/24 18:23 Chief Complaint: Sore Throat, Dark/Tarry Stools Narrative: 73 y/o F presents here with sore throat, body aches, and dark tarry stools with PMH of breast cancer (bilateral) s/p lumpectomy (1 on the left and 4 on the right), DM, and HTN. The patient presents here from her PCP office for further evaluation of ongoing sore throat and body aches. Patient reports onset of symptoms approximately 1 week ago (06/01). She initially sought care with her PCP who prescribed her doxycycline on 06/02. Patient has taken a total of 3-4 doses, stopped taking it because of side effects (headache and diarrhea). Patient had scheduled follow-up today with her PCP who directed her to the emergency department due to concerns for pneumonia given symptoms have not improved with outpatient antibiotics. Patient endorses weakness and muscle aches accompanying the sore throat. No accompanying shortness of breath, chest pain, abdominal pain, urinary symptoms, lower extremity swelling, fever, chills. Patient additionally endorsing diarrhea that started shortly after she started the antibiotics. Estimates she has had 1 episode of diarrhea in the last 24 hours. She reports her stool has been dark/black for the past week. Patient has been taking Pepto-Bismol once daily for the past week due to the diarrhea. Denies any bright red blood in her stool and minor abdominal discomfort prior to passing BMs and resolves post-BM. Initial VS at presentation: 97.5? F, HR 72, RR 18, 129/68, and 100% on RA. ED workup showed: WBC 4.1, no anemia, normal coags, initial potassium 2.8 (now corrected to 3.7), creatinine 0.7 and GFR >60, AST 63, ALT 61. UA showed 1+ ketones otherwise unremarkable. Patient tested positive for COVID. CXR showed a small opacity in the left mid lung zone which may be atelectatic area or a nodule, no other acute cardiopulmonary pathology. Chest CTA showed no PE, multiple patchy ground-glass opacities in both lungs suggestive of atypical or viral pneumonia, right lobe of the thyroid with multiple nodules, and fatty infiltration of the liver. Review of Systems Review of Systems: All systems reviewed & are unremarkable except as noted in HPI and below PMFSH Past Medical History Medical History BMI 30.0-30.9,adult Breast cancer bilateral, s/p lumpectomy x5 and chemo/radiation Calculus, kidney Diabetes HLD (hyperlipidemia) Hypertension Motion sickness Osteoporosis Thyroid condition Surgical History Surgical History H/O parathyroidectomy H/O: hysterectomy 1989 History of bladder surgery History of colon resection r/t diverticulitis History of lumpectomy x1 left, x4 right Hx of tonsillectomy Family History Family History Father Heart attack Mother ALS (amyotrophic lateral sclerosis) Other Cerebrovascular accident Hypertension Social History Social History Smoking status: Never smoker Alcohol intake: never Alcohol use details: RARELY Substance use: never Substance use type: does not use Do You Feel Safe in your Home?: Yes Lack of Transportation: No Lack of Food: Never True Current Housing: I Have Housing Concerned About Future Housing: No Difficulty Paying Gas/Electric Bills: No Difficulty Paying for Meds: No Currently Unemployed: No Education: High School Diploma/GED Difficulty w/ Childcare or Family Care: No Living arrangements: with family Additional living arrangements comments: SIGNIFICANT OTHER Gender identity (if verbalized by the patient): Female Spiritual care concerns: No Meds Home Medications and Allergies Home Medications Medication Instructions Recorded Confirmed T
[2024-06-08] MEDS: AZITHROMYCIN 500 MG/NS 250 ML 500 MG/250 ML BAG 250 MG IVPB (19:30)
--- NOTE | 2024-06-08 19:40 | ADMGEN ---
This patient, Melva Amezcua, was admitted to Medical Room 343-01. Patient/family oriented to hospital policies and general routines including ID bracelet, bed and alarms, visiting hours, pain management, procedures, bathroom and other care routines, personal items, smoking policy, room service/diet, and visiting hours. Information on how to activate the Rapid Response Team has been discussed. Patient/Family are encouraged to report perceived risks to care and to ask questions if they do not understand what they are told or what they should do.
[2024-06-08] MEDS: ACETAMINOPHEN 325 MG TABLET 650 MG PO (19:57)
[2024-06-08] MEDS: REMDESIVIR 200 MG/NS 250 ML 200 MG/250 ML BAG 250 MG IVPB (21:02)
[2024-06-08 22:39] LABS: Glucose Point of Care 117 mg/dl (65-105)
[2024-06-09] MEDS: ACETAMINOPHEN 325 MG TABLET 650 MG PO ×2 (03:10→15:52)
[2024-06-09 04:33] VITALS: BP 116/62; PULSE 71; RESP 16; TEMP 36.8; O2SAT 98
[2024-06-09 06:48] LABS: Eosinophils Percent Auto 0.3 % (0-4.4); Hematocrit 34.1 % (37.0-47.0); Hemoglobin 11.5 g/dL (12.0-15.0); Immature Granulocyte Absolute 0.01 K/mm3 (0.00-0.031); Immature Granulocyte Percent A 0.3 % (0-0.5); Immature Platelet Fraction Pct 5.1 % (0.9-11.2); Lymphocytes Percent Auto 34.9 % (18.3-44.2); Mean Corpuscular HGB Conc 33.7 g/dl (32-36); Mean Corpuscular Hemoglobin 29.3 pg (26-34); Mean Platelet Volume 10.9 fl (7.4-10.4); Monocytes Absolute Auto 0.4 K/mm3 (0.1-0.6); Monocytes Percent Auto 10.5 % (2.6-8.5); Neutrophils Absolute Auto 1.9 K/mm3 (1.3-6.7); Platelet Count Result 135 k/mm3 (150-375); Red Blood Count 3.92 M/mm3 (4.2-5.4); Red Cell Distribution Width 13.8 % (11.5-14.5); White Blood Count 3.4 K/mm3 (4.5-10.0)
[2024-06-09 06:59] LABS: Alanine Aminotransferase 46 U/L (6-35); Albumin Level 3.6 g/dL (3.5-5.1); Alkaline Phosphatase 53 U/L (38-126); Anion Gap 8 mmol/L (4-12); Aspartate Amino Transferase 50 U/L (14-36); Bilirubin,Total 0.3 mg/dL (0.2-1.3); Blood Urea Nitrogen 15 mg/dL (7-17); Calcium 8.4 mg/dL (8.4-10.2); Carbon Dioxide 26 mmol/L (22-30); Chloride 106 mmol/L (98-107); Estimated CRCL calculation 78 ml/min; Estimated Glomerular Filt Rate > 60; Glucose 134 mg/dL (65-110); Potassium 3.4 mmol/L (3.4-5.0); Sodium 140 mmol/L (137-145)
[2024-06-09 07:29] LABS: Hemoglobin A1C 7.6 % (<5.7)
[2024-06-09 08:34] LABS: Glucose Point of Care 121 mg/dl (65-105)
[2024-06-09] MEDS: hydroCHLOROthiazide 12.5 MG CAPSULE PO (09:02)
[2024-06-09] MEDS: ANASTROZOLE (*CHEMO) 1 MG TABLET PO (09:03)
[2024-06-09] MEDS: PANTOPRAZOLE 40 MG TABLET PO (09:03)
[2024-06-09] MEDS: POTASSIUM CHLORIDE 10 MEQ ER TABLET PO (09:03)
[2024-06-09] MEDS: MULTIVITAMINS THERAPEUTIC TAB (*BKC) 1 TABLET PO (09:04)
[2024-06-09] MEDS: amLODIPine BESYLATE 10 MG TABLET PO (09:04)
[2024-06-09 10:48] LABS: Procalcitonin 0.1 ng/mL
[2024-06-09 12:01] LABS: Glucose Point of Care 125 mg/dl (65-105)
[2024-06-09 14:35] VITALS: BP 123/60; PULSE 77; RESP 16; TEMP 36.3; O2SAT 99
--- NOTE | 2024-06-09 16:15 | PM.DS ---
DS: Admitting Diagnosis Discharge Date 06/09/24 Admitting Diagnosis weakness DS: Discharge Diagnosis Discharge Diagnosis (1) COVID: Code(s): U07.1 - COVID-19 Status: Acute Assessment and Plan: - symptom onset: 06/01/24 - tested positive for COVID on: 06/08/24 - complicating factors/comorbidities: Pneumonia - CXR: Small opacity in the left mid zone which may be atelectatic area or a nodule. 3 months follow-up advised. Otherwise, No acute cardiopulmonary pathology - Remdesivir 200 mg IVPB x1 then 100 mg x4 for 5 total doses. - no hypoxia - supportive care nebs - albuterol/atrovent Q6H TYL prn for fever/pain zofran prn lozenge prn tessalon perles prn - monitor VS/O2 - monitor daily labs (2) Pneumonia: Qualifiers: Pneumonia type: due to COVID-19 virus Qualified Code(s): U07.1 - COVID-19; J12.82 - Pneumonia due to coronavirus disease 2018 Code(s): J18.9 - Pneumonia, unspecified organism Status: Acute Assessment and Plan: - CTA Chest: 1. No pulmonary embolism. 2. Multiple patchy ground glass opacities in both lungs suggestive of atypical or viral pneumonia. Follow-up advised. 3. Right lobe of the thyroid with multiple nodules ultrasound evaluation advised. 4. Fat infiltration of the liver. - complicating/risk factors: COVID - started on CAP tx: ceftriaxone and azithromycin on 06/08 - sputum culture if obtainable - no supplemental O2 requirement - supportive care (3) Dark stools: Code(s): R19.5 - Other fecal abnormalities Status: Acute Assessment and Plan: - Hgb 13.6 - stool occult ordered - suspect change in color secondary to Pepto Bismol use, monitor H&H and start pantoprazole p.o. in interim (4) Diabetes: Qualifiers: Diabetes mellitus type: type 2 Diabetes mellitus joint terminal attack controller insulin use: without joint terminal attack controller use Diabetes mellitus complication status: without complication Qualified Code(s): E11.9 - Type 2 diabetes mellitus without complications Code(s): E11.9 - Type 2 diabetes mellitus without complications Status: Chronic Assessment and Plan: - hypoglycemia protocol - POC blood glucose ACHS - home medication: hold metformin - correct regimen ordered - moderate dose TIDWM, based off BMI - A1C ordered, none on file (5) Hypertension: Qualifiers: Hypertension type: primary hypertension Qualified Code(s): I10 - Essential (primary) hypertension Code(s): I10 - Essential (primary) hypertension Status: Chronic Assessment and Plan: - chronic, currently 119/63 - continue home medications: amlodipine, hydrochlorothiazide - monitor Plan CTA showed right lobe of the thyroid with multiple nodules, ultrasound evaluation advised. Will need follow-up on finding outpatient. Additionally had hypokalemia upon arrival, corrected with 40 IV and 40 p.o. of KCl. Diet: Diabetic GI Prophylaxis: Pantoprazole p.o. DVT Prophylaxis: SCDs Lines: Peripheral Code Status: Full code DS: Summary Hospital Course Reason for hospitalization: [facility] Hospital Course: 73 y/o F presents here with sore throat, body aches, and dark tarry stools with PMH of breast cancer (bilateral) s/p lumpectomy (1 on the left and 4 on the right), DM, and HTN. The patient presents here from her PCP office for further evaluation of ongoing sore throat and body aches. Patient reports onset of symptoms approximately 1 week ago (06/01). She initially sought care with her PCP who prescribed her doxycycline on 06/02. Patient has taken a total of 3-4 doses, stopped taking it because of side effects (headache and diarrhea). Patient had scheduled follow-up today with her PCP who directed her to the emergency department due to concerns for pneumonia given symptoms have not improved with outpatient antibiotics. Patient endorses weakness and muscle aches accompanying the sore throat. No accompanying
== END 2024-06-09 15:55 | disposition home or self-care (01) ==
LOC: ANHED 14:24 → ANH3MED 18:46
PROVIDERS: Nurse Practitioner Acute Care; Student in an Organized Health Care Education/Training Program; Admitting Provider Internal Medicine; Emergency Provider Emergency Medicine; PCP Emergency Medicine; Visit Provider Family Medicine
DX: U07.1 COVID-19 (principal); J12.82 Pneumonia due to coronavirus disease 2019; E87.6 Hypokalemia; E11.9 Type 2 diabetes mellitus without complications; E07.9 Disorder of thyroid, unspecified; I10 Essential (primary) hypertension; E78.5 Hyperlipidemia, unspecified; M81.0 Age-related osteoporosis without current pathological fracture; R19.5 Other fecal abnormalities; Z79.84 Long term (current) use of oral hypoglycemic drugs; Z79.899 Other long term (current) drug therapy; Z85.3 Personal history of malignant neoplasm of breast; Z90.710 Acquired absence of both cervix and uterus
CPT/HCPCS: 36415; 71046; 71275; 80048; 80053; 81001; 82948; 83036; 83690; 84145; 85025; 85055; 85610; 85730; 87637; 93005; 96365; 96366; 96367; 96375; 99285; A9270; G0378; J0248; J0456; J0696; J1885; J2405; J3480; J7030; J7040; Q9967

== ENCOUNTER 2024-09-20 00:35 | Emergency (ER) | payer MEDICARE, SELFPAY ==
[2024-09-20] VITALS (17 sets, daily range): BP systolic 142–156; BP diastolic 79–104; PULSE 73–85; RESP 10–19; TEMP 36.7; O2SAT 91–97
--- NOTE | ~2024-09-20 | CT_ITS ---
CT of the Abdomen and Pelvis: Indication: Abdominal pain Technique: 2.5 mm axial scans were obtained through the abdomen and pelvis following intravenous adm inistration of 100 cc of Omnipaque 350. Dose reduction technique was used on this scan by utilizing a utomated exposure control and iterative reconstruction technique. The dose-length product (DLP) was 7 33.22 mGy-cm. COMPARISON: 10/13/2023 Findings: Scans through the lung bases are unremarkable. There is diffuse hepatic steatosis. Calcified splenic granulomas are present. The pancreas, gallbladd er, adrenal glands are within normal limits. Probable minimal bilateral hydronephrosis. There are non obstructing left renal stones, largest measuring 7 mm. No evidence of aortic aneurysm. No lymphadeno chelsea. No bowel obstruction or bowel wall thickening. Prior partial right colectomy noted. Images through the pelvis were performed. Urinary bladder unremarkable. Status post hysterectomy. No pelvic mass seen. No ascites. Chronic compression deformity of L1 noted. Impression: Diffuse hepatic steatosis. Suspected minimal bilateral hydronephrosis with nonobstructing left renal stones present. Chronic L1 compression deformity. Reviewed, dictated and finalized at location . STRATEGIC PLANNING Impression: Diffuse hepatic steatosis. Suspected minimal bilateral hydronephrosis with nonobstructing left renal stone s present. Chronic L1 compression deformity.
--- NOTE | 2024-09-20 01:02 | ED_ITS ---
HPI - Nausea/Vomiting/Diarrhea General Chief complaint: Nausea/Vomiting/Diarrhea <Elzbieta Schmitt PA-C - Last Filed: 09/20/24 02:50> Stated complaint: abd pain and diarrhea <Elzbieta Schmitt PA-C - Last Filed: 09/20/24 02:50> Time Seen by Provider: 09/20/24 00:37 <Elzbieta Schmitt PA-C - Last Filed: 09/20/24 02:50> History of Present Illness HPI Narrative: 74-year-old female with history of hyperlipidemia, hypertension, diabetes, breast cancer in remission, hysterectomy, partial colectomy due to diverticulitis several years ago presents to the emergency department for diarrhea and left-sided abdominal pain for 4 days. Patient states the pain got so bad this evening that she contacted EMS was transported to the ED. She states the pain is in the left upper and left lower quadrants of her abdomen and radiates to the left back. She describes it as waxing and waning and aching in nature. She denies dysuria, hematuria, nausea vomiting. She is reporting few episodes of green diarrhea. <Elzbieta Schmitt PA-C - Last Filed: 09/20/24 02:50> Related Data Home medications: Home Medications ?Medication ?Instructions ?Recorded ?Confirmed ?Last Taken ?Type hydrochlorothiazide 12.5 mg tablet 12.5 mg PO QAM 08/28/21 06/08/24 06/05/24 History metformin 500 mg tablet 500 mg PO QAM 08/28/21 06/08/24 06/05/24 History cholecalciferol (vitamin D3) 1,250 1,250 mcg PO WEEKLY 10/30/21 06/08/24 06/05/24 History mcg (50,000 unit) tablet glucosamine-chondroitin 250 mg-200 1 tablet PO DAILY 10/30/21 06/08/24 06/05/24 History mg tablet multivitamin 1 tablet PO DAILY 10/30/21 06/08/24 06/05/24 History amlodipine 5 mg tablet 10 mg PO DAILY 09/05/23 06/08/24 06/05/24 History anastrozole 1 mg tablet 1 mg PO DAILY 06/08/24 06/08/24 06/05/24 History potassium chloride 10 mEq 10 meq PO DAILY 06/08/24 06/08/24 06/05/24 History capsule,extended release <Elzbieta Schmitt PA-C - Last Filed: 09/20/24 02:50> Allergies/Adverse reactions: Allergies Allergy/AdvReac Type Severity Reaction Status Date / Time No Known Allergies Allergy Verified 09/20/24 02:49 <Elzbieta Schmitt PA-C - Last Filed: 09/20/24 02:50> Review of Systems 2 Review of Systems: All systems reviewed & are unremarkable except as noted in HPI and below <Elzbieta Schmitt PA-C - Last Filed: 09/20/24 02:50> [facility] Past Medical History Medical History: Medical History Motion sickness HLD (hyperlipidemia) Breast cancer bilateral, s/p lumpectomy x5 and chemo/radiation Osteoporosis Calculus, kidney BMI 30.0-30.9,adult Thyroid condition Diabetes Hypertension <Elzbieta Schmitt PA-C - Last Filed: 09/20/24 02:50> Surgical History Surgical History: Surgical History History of bladder surgery History of colon resection r/t diverticulitis H/O parathyroidectomy H/O: hysterectomy 1989 Hx of tonsillectomy History of lumpectomy x1 left, x4 right <Elzbieta Schmitt PA-C - Last Filed: 09/20/24 02:50> Family History Family History: Family History Father Heart attack Mother ALS (amyotrophic lateral sclerosis) Other Cerebrovascular accident Hypertension <Elzbieta Schmitt PA-C - Last Filed: 09/20/24 02:50> Social History Social History: Social History Smoking status: Never smoker Alcohol intake: never Alcohol use details: RARELY Substance use: never Substance use type: does not use Do You Feel Safe in your Home?: Yes Lack of Transportation: No Lack of Food: Never True Current Housing: I Have Housing Concerned About Future Housing: No Difficulty Paying Gas/Electric Bills: No Difficulty Paying for Meds: No Currently Unemployed: No Education: High School Diploma/GED Difficulty w/ Childcare or Family Care: No Living arrangements: with family Additional living arrangements comments: SIGNIFICANT OTHER Gender identity (if verbalized by the patient): Female Spiritual care concerns: No <Elzbieta Schmitt PA-C - Last Filed: 09/20/24 02:50> Exam 2 Narrative: GENERAL: Well-appearing, well-nourished, and in no acute distress. HEAD: Normocephalic, atraumatic. EYES: EOMI. ENT: Nares clear, no rhinorrhea or epistaxis. Mucous membranes moist. NECK: Supple. CHEST: Clear to auscultation. No respiratory distress. HEART: Regular rate and rhythm. No murmur heard. Normal peripheral pulses. ABDOMEN: Normoactive bowel sounds. Abdomen soft with tenderness in the left upper quadrant and left lower quadrant. No rebound, guarding or rigidity. Left-sided CVA tenderness EXTREMITIES: Normal range of motion. No edema. SKIN: Warm, dry, no rash. NEURO: No focal deficits. Alert and oriented x3 <Elzbieta Schmitt PA-C - Last Filed: 09/20/24 02:50> Course KILN OPERATOR/PA Physician Supervision For this patient encounter, I reviewed the KILN OPERATOR or PA documentation, treatment plan, and medical decision making and had [id number] time with this patient. I performed all aspects of the MDM as documented. <Nena Clancy MD - Last Filed: 09/20/24 05:14> Vital Signs Vital signs: Vital Signs Temperature 98.0 F 09/20/24 00:33 Pulse Rate 85 09/20/24 00:33 Respiratory Rate 16 09/20/24 00:33 Blood Pressure 156/84 H 09/20/24 00:33 Pulse Oximetry 97 09/20/24 00:33 Oxygen Delivery Room Air 09/20/24 00:33 Temperature 98.0 F 09/20/24 00:33 Pulse Rate 80 09/20/24 03:30 Respiratory Rate 14 09/20/24 03:30 Blood Pressure 144/79 H 09/20/24 02:46 Pulse Oximetry 97 09/20/24 03:30 Oxygen Delivery Room Air 09/20/24 00:33 <Elzbieta Schmitt PA-C - Last Filed: 09/20/24 02:50> Vital Signs Temperature 98.0 F 09/20/24 00:33 Pulse Rate 85 09/20/24 00:33 Respiratory Rate 16 09/20/24 00:33 Blood Pressure 156/84 H 09/20/24 00:33 Pulse Oximetry 97 09/20/24 00:33 Oxygen Delivery Room Air 09/20/24 00:33 Temperature 98.0 F 09/20/24 00:33 Pulse Rate 80 09/20/24 03:30 Respiratory Rate 14 09/20/24 03:30 Blood Pressure 144/79 H 09/20/24 02:46 Pulse Oximetry 97 09/20/24 03:30 Oxygen Delivery Room Air 09/20/24 00:33 <Nena Clancy MD - Last Filed: 09/20/24 05:14> MDM - Nausea/Vomiting/Diarrhea MDM Narrative Medical decision making narrative: 74-year-old female presents to the emergency department for 4 days of left-sided abdominal pain and diarrhea. See HPI for further history. Vitals with elevated blood pressure, otherwise unremarkable. She is afebrile and nontoxic appearing. Exam is significant for the above. Lab work shows no leukocytosis or anemia. Chemistries with mild hypokalemia of 3.2. Mag is normal 1.8. Potassium orally repleted. Chemistries are otherwise unremarkable. Lactic acid is slightly elevated 2 point, fluids provided. Urinalysis with 1+ leuk esterase, no wbc's or rbc's. Viral swabs are negative. Lipase normal. Pt given IV fluids and morphine. Pending CT abdomen pelvis at time of sign-out to Dr. Clancy. <Elzbieta Schmitt PA-C - Last Filed: 09/20/24 02:50> 74-year-old female presents to the emergency department for 4 days of left-sided abdominal pain and diarrhea. See HPI for further history. Vitals with elevated blood pressure, otherwise unremarkable. She is afebrile and nontoxic appearing. Exam is significant for the above. Lab work shows no leukocytosis or anemia. Chemistries with mild hypokalemia of 3.2. Mag is normal 1.8. Potassium orally repleted. Chemistries are otherwise unremarkable. Lactic acid is slightly elevated 2 point, fluids provided. Urinalysis with 1+ leuk esterase, no wbc's or rbc's. Viral swabs are negative. Lipase normal. Pt given IV fluids and morphine. Pending CT abdomen pelvis at time of sign-out to Dr. Clancy. Patient was signed out to me pending CT abdomen and pelvis with IV contrast. CT was obtained read feeling mild annular thickening of the colon/rectum which could relate to colitis, otherwise no acute process. Patient was informed of these findings at bedside. She was informed that she will need to follow-up with her primary care physician within the next 3-5 days and return to the ED if any new or worsening symptoms develop and patient is agreeable with this plan. She was sent home with scripts for Zofran and Protonix use as prescribed. She was discharged in stable condition. <Nena Clancy MD - Last Filed: 09/20/24 05:14> Lab Data Result diagrams: 09/20/24 00:50 09/20/24 00:50 <Elzbieta Schmitt PA-C - Last Filed: 09/20/24 02:50> Labs: Lab Results 09/20/24 09/20/24 09/20/24 Range/Units 00:50 01:06 04:26 WBC 7.2 (4.5-10.0) K/mm3 RBC 4.78 (4.2-5.4) M/mm3 Hgb 12.8 (12.0-15.0) g/dL Hct 39.0 (37.0-47.0) % MCV 81.6 (80-100) fl MCH 26.8 (26-34) pg MCHC 32.8 (32-36) g/dl RDW 14.4 (11.5-14.5) % Plt Count 223 D (150-375) k/mm3 MPV 10.1 (7.4-10.4) fl Immature Gran % (Auto) 0.3 (0-0.5) % Neut % (Auto) 63.9 (45.5-73.1) % Lymph % (Auto) 24.1 (18.3-44.2) % Phillips % (Auto) 8.6 H (2.6-8.5) % Eos % (Auto) 2.4 (0-4.4) % Baso % (Auto) 0.7 (0.2-1.2) % Lymph # (Auto) 1.74 (0.9-3.2) K/mm3 Phillips # (Auto) 0.6 (0.1-0.6) K/mm3 Eos # (Auto) 0.2 (0-0.3) K/mm3 Baso # (Auto) 0.1 (0.0-0.1) K/mm3 Abs Immat Gran (auto) 0.02 (0.00-0.031) K/mm3 Absolute Neuts (auto) 4.6 (1.3-6.7) K/mm3 Absolute Nucleated RBC 0.000 (0.0-0.012) K/mm3 Nucleated RBC % 0.0 (0.0-0.2) % Sodium 139 (137-145) mmol/L Potassium 3.2 L (3.4-5.0) mmol/L Chloride 105 (98-107) mmol/L Carbon Dioxide 23 (22-30) mmol/L Anion Gap 11 (4-12) mmol/L BUN 14 (7-17) mg/dL Creatinine 0.52 L (0.7-1.0) mg/dL Estim Creat Clear Calc 89 ml/min Estimated GFR > 60 (59 - ) Glucose 171 H (65-110) mg/dL Lactic Acid 2.9 H Pending (0.7-2.0) mmol/L Calcium 9.7 (8.4-10.2) mg/dL Magnesium 1.8 (1.6-2.3) mg/dL Total Bilirubin 0.5 (0.2-1.3) mg/dL AST 32 (14-36) U/L ALT 37 H (6-35) U/L Alkaline Phosphatase 72 (38-126) U/L Total Protein 8.0 (6.3-8.2) g/dL Albumin 4.6 (3.5-5.1) g/dL Lipase 163 (23-300) U/L Urine Color Yellow (Yellow) Urine Appearance Clear (Clear) Urine pH 7.0 (5.0-9.0) Ur Specific [place] 1.009 (1.001-1.035) Urine Protein Negative (Negative) mg/dL Urine Glucose (UA) Negative (Negative) mg/dL Urine Ketones Negative (Negative) mg/dL Ur Blood (Man) Negative (Negative) Urine Nitrate Negative (Negative) Urine Bilirubin Negative (Negative) Urine Urobilinogen 0.2 (<2.0) mg/dL Add Ur Microanalysis Reviewed Leukocyte Esterase Rfl 1+ H (Negative) DOUG/UL Urine RBC 0-2 (0-2) /hpf Urine WBC 0-5 (0-3) /hpf Ur Squamous Epith Cells None seen (Few) /hpf Urine Bacteria None seen /hpf Urine Casts 0-2 Influenza A (RT-PCR) Negative (Negative) Influenza B (RT-PCR) Negative (Negative) RSV (RT-PCR) Negative (Negative) SARS-CoV-2 RNA (RT-PCR) Negative (Negative) <Elzbieta Schmitt PA-C - Last Filed: 09/20/24 02:50> Lab Results 09/20/24 09/20/24 09/20/24 Range/Units 00:50 01:06 04:26 WBC 7.2 (4.5-10.0) K/mm3 RBC 4.78 (4.2-5.4) M/mm3 Hgb 12.8 (12.0-15.0) g/dL Hct 39.0 (37.0-47.0) % MCV 81.6 (80-100) fl MCH 26.8 (26-34) pg MCHC 32.8 (32-36) g/dl RDW 14.4 (11.5-14.5) % Plt Count 223 D (150-375) k/mm3 MPV 10.1 (7.4-10.4) fl Immature Gran % (Auto) 0.3 (0-0.5) % Neut % (Auto) 63.9 (45.5-73.1) % Lymph % (Auto) 24.1 (18.3-44.2) % Phillips % (Auto) 8.6 H (2.6-8.5) % Eos % (Auto) 2.4 (0-4.4) % Baso % (Auto) 0.7 (0.2-1.2) % Lymph # (Auto) 1.74 (0.9-3.2) K/mm3 Phillips # (Auto) 0.6 (0.1-0.6) K/mm3 Eos # (Auto) 0.2 (0-0.3) K/mm3 Baso # (Auto) 0.1 (0.0-0.1) K/mm3 Abs Immat Gran (auto) 0.02 (0.00-0.031) K/mm3 Absolute Neuts (auto) 4.6 (1.3-6.7) K/mm3 Absolute Nucleated RBC 0.000 (0.0-0.012) K/mm3 Nucleated RBC % 0.0 (0.0-0.2) % Sodium 139 (137-145) mmol/L Potassium 3.2 L (3.4-5.0) mmol/L Chloride 105 (98-107) mmol/L Carbon Dioxide 23 (22-30) mmol/L Anion Gap 11 (4-12) mmol/L BUN 14 (7-17) mg/dL Creatinine 0.52 L (0.7-1.0) mg/dL Estim Creat Clear Calc 89 ml/min Estimated GFR > 60 (59 - ) Glucose 171 H (65-110) mg/dL Lactic Acid 2.9 H Pending (0.7-2.0) mmol/L Calcium 9.7 (8.4-10.2) mg/dL Magnesium 1.8 (1.6-2.3) mg/dL Total Bilirubin 0.5 (0.2-1.3) mg/dL AST 32 (14-36) U/L ALT 37 H (6-35) U/L Alkaline Phosphatase 72 (38-126) U/L Total Protein 8.0 (6.3-8.2) g/dL Albumin 4.6 (3.5-5.1) g/dL Lipase 163 (23-300) U/L Urine Color Yellow (Yellow) Urine Appearance Clear (Clear) Urine pH 7.0 (5.0-9.0) Ur Specific [place] 1.009 (1.001-1.035) Urine Protein Negative (Negative) mg/dL Urine Glucose (UA) Negative (Negative) mg/dL Urine Ketones Negative (Negative) mg/dL Ur Blood (Man) Negative (Negative) Urine Nitrate Negative (Negative) Urine Bilirubin Negative (Negative) Urine Urobilinogen 0.2 (<2.0) mg/dL Add Ur Microanalysis Reviewed Leukocyte Esterase Rfl 1+ H (Negative) DOUG/UL Urine RBC 0-2 (0-2) /hpf Urine WBC 0-5 (0-3) /hpf Ur Squamous Epith Cells None seen (Few) /hpf Urine Bacteria None seen /hpf Urine Casts 0-2 Influenza A (RT-PCR) Negative (Negative) Influenza B (RT-PCR) Negative (Negative) RSV (RT-PCR) Negative (Negative) SARS-CoV-2 RNA (RT-PCR) Negative (Negative) <Nena Clancy MD - Last Filed: 09/20/24 05:14> Discharge Plan Discharge Clinical Impression: Acute hypokalemia, Colitis <Elzbieta Schmitt PA-C - Last Filed: 09/20/24 02:50> Patient Disposition: Home, Self-Care <Elzbieta Schmitt PA-C - Last Filed: 09/20/24 02:50> Condition: Improved <Elzbieta Schmitt PA-C - Last Filed: 09/20/24 02:50> Instructions: Antibiotic Form, Gastroenteritis (ED) <Elzbieta Schmitt PA-C - Last Filed: 09/20/24 02:50> Additional Instructions: Please follow-up with your family doctor within the next 3-5 days. Return to the emergency department if any new or worsening symptoms develop. Maintain your oral hydration by drinking lots of fluids. Use the prescribed Pepcid and Zofran as needed for nausea/vomiting. <Elzbieta Schmitt PA-C - Last Filed: 09/20/24 02:50> Patient Language: Albanian <PASCALE Queen Last Filed: 09/20/24 02:50> Prescriptions: New pantoprazole [Protonix] 20 mg tablet,delayed release (DR/EC) 20 mg PO QAM Qty: 20 0RF ondansetron 4 mg tablet,disintegrating 4 mg PO Q8H PRN (Reason: nausea and vomiting) Qty: 10 0RF No Action hydrochlorothiazide 12.5 mg tablet 12.5 mg PO QAM metformin 500 mg tablet 500 mg PO QAM amlodipine 5 mg tablet 10 mg PO DAILY anastrozole 1 mg tablet 1 mg PO DAILY potassium chloride 10 mEq Capsule, Extended Release 10 meq PO DAILY amoxicillin-pot clavulanate 875-125 mg tablet 1 tablet PO Q12H Qty: 8 0RF azithromycin 250 mg tablet 250 mg PO DAILY 4 Days Qty: 4 0RF Rx Instructions: start 06/09 at 8 pm albuterol sulfate 90 mcg/actuation HFA aerosol inhaler 1 inh inhalation QID PRN (Reason: shortness of breath or wheezing) Qty: 8.5 0RF cholecalciferol (vitamin D3) 1,250 mcg (50,000 unit) Tablet 1,250 mcg PO WEEKLY Patient Comments: TAKES ON SUNDAYS Rx Instructions: TAKES ON SUNDAYS multivitamin Tablet 1 tablet PO DAILY glucosamine-chondroitin 250-200 mg Tablet 1 tablet PO DAILY <Elzbieta Schmitt PA-C - Last Filed: 09/20/24 02:50> Follow-up/Referrals: Todd Gasca MD [Primary Care Provider] - 3 Days <Elzbieta Schmitt PA-C - Last Filed: 09/20/24 02:50> Time of Disposition: 05:12 <Elzbieta Schmitt PA-C - Last Filed: 09/20/24 02:50> 05:12 <Nena Clancy MD - Last Filed: 09/20/24 05:14>
[2024-09-20] MEDS: MORPHINE SULFATE (*CRX) 4 MG/ML INJ IV PUSH (01:05)
[2024-09-20 01:08] LABS: Lactic Acid Reflex 2.9 mmol/L (0.7-2.0)
[2024-09-20 01:09] LABS: Alanine Aminotransferase 37 U/L (6-35); Albumin Level 4.6 g/dL (3.5-5.1); Alkaline Phosphatase 72 U/L (38-126); Anion Gap 11 mmol/L (4-12); Aspartate Amino Transferase 32 U/L (14-36); Basophils Absolute Auto 0.1 K/mm3 (0.0-0.1); Basophils Percent Auto 0.7 % (0.2-1.2); Bilirubin,Total 0.5 mg/dL (0.2-1.3); Blood Urea Nitrogen 14 mg/dL (7-17); Calcium 9.7 mg/dL (8.4-10.2); Carbon Dioxide 23 mmol/L (22-30); Chloride 105 mmol/L (98-107); Eosinophils Absolute Auto 0.2 K/mm3 (0-0.3); Eosinophils Percent Auto 2.4 % (0-4.4); Estimated CRCL calculation 89 ml/min; Estimated Glomerular Filt Rate > 60; Glucose 171 mg/dL (65-110); Hemoglobin 12.8 g/dL (12.0-15.0); Immature Granulocyte Absolute 0.02 K/mm3 (0.00-0.031); Immature Granulocyte Percent A 0.3 % (0-0.5); Lipase 163 U/L (23-300); Lymphocytes Absolute Auto 1.74 K/mm3 (0.9-3.2); Lymphocytes Percent Auto 24.1 % (18.3-44.2); Mean Corpuscular HGB Conc 32.8 g/dl (32-36); Mean Corpuscular Hemoglobin 26.8 pg (26-34); Mean Corpuscular Volume 81.6 fl (80-100); Mean Platelet Volume 10.1 fl (7.4-10.4); Monocytes Absolute Auto 0.6 K/mm3 (0.1-0.6); Monocytes Percent Auto 8.6 % (2.6-8.5); Neutrophils Absolute Auto 4.6 K/mm3 (1.3-6.7); Neutrophils Percent Auto 63.9 % (45.5-73.1); Platelet Count Result 223 k/mm3 (150-375); Potassium 3.2 mmol/L (3.4-5.0); Red Blood Count 4.78 M/mm3 (4.2-5.4); Red Cell Distribution Width 14.4 % (11.5-14.5); Sodium 139 mmol/L (137-145); White Blood Count 7.2 K/mm3 (4.5-10.0)
[2024-09-20 01:48] LABS: Add Urine Microscopic? YES; Appearance Urine Clear (Clear); Bacteria Urine None Seen /hpf; Bilirubin Urine Negative (Negative); Blood Urine Negative (Negative); Color Urine Yellow (Yellow); Glucose Urine UA Negative (Negative); Ketones Urine Negative (Negative); Leukocyte Esterase Ur 1+ LEU/UL (Negative); Need Manual Microscopic Reviewed; Nitrate Urine Negative (Negative); Non Pathogenic Casts 0-2; Protein Urine Negative (Negative); RBC Urine 0-2 /hpf (0-2); Specific Grav Ur 1.009 (1.001-1.035); Squamous Epithelial Cell Urine None Seen /hpf (Few); Urobilinogen Urine 0.2 mg/dL (<2.0); WBC Urine 0-5 /hpf (0-3)
[2024-09-20 01:54] LABS: Influenza A QL RT-PCR Negative (Negative); Influenza B QL RT-PCR Negative (Negative); RSV RNA, RT-PCR Negative (Negative); SARS-CoV-2 RNA PCR Negative (Negative)
[2024-09-20] MEDS: SODIUM CHLORIDE 0.9% IV 1,000 ML 999 ML IV CONT (01:54)
[2024-09-20 02:08] LABS: Magnesium 1.8 mg/dL (1.6-2.3)
[2024-09-20] MEDS: POTASSIUM CHLORIDE 20 MEQ PACKET (FOR LIQUID) 40 MEQ PO (02:49)
[2024-09-20 03:54] LABS: Reflex Lactic Acid Yes or No Add Lactic
[2024-09-20] MEDS: MORPHINE SULFATE (*CRX) 2 MG/ML INJ IV PUSH (04:09)
[2024-09-20 05:42] LABS: Lactic Acid 2.5 mmol/L (0.7-2.0)
== END 2024-09-20 05:35 | disposition home or self-care (01) ==
PROVIDERS: Physician Assistant; Emergency Provider Emergency Medicine; PCP Emergency Medicine
DX: E87.6 Hypokalemia (principal); K52.9 Noninfective gastroenteritis and colitis, unspecified; Z20.822 Contact with and (suspected) exposure to COVID-19; E78.5 Hyperlipidemia, unspecified; Z85.3 Personal history of malignant neoplasm of breast; Z87.442 Personal history of urinary calculi; E11.9 Type 2 diabetes mellitus without complications; I10 Essential (primary) hypertension; Z79.84 Long term (current) use of oral hypoglycemic drugs
CPT/HCPCS: 36415; 74177; 80053; 81001; 83605; 83690; 83735; 85025; 87086; 87186; 87637; 96361; 96374; 96376; 99284; A9270; J2270; J7030; Q9967

== ENCOUNTER 2024-11-12 20:08 | Observation (INO) | payer MEDICARE, SELFPAY ==
--- NOTE | ~2024-11-12 | XR_ITS ---
EXAMINATION: XR retrograde pyelo w/stent LT DATE: 11/13/2024 8:15 CDT INDICATION: Stone . TECHNIQUE: 4 fluoroscopic images of the left upper and lower quadrants were obtained during left retr ograde pyelography with stent placement, performed by Dr. Lamonte Medina. I was not present during t he procedure. Fluoroscopy exposure time was 15.7 seconds. Air Kerma 6.85 mGy. DAP [id number] mGym2. COMPARISON: CT abdomen pelvis 11/12/2024 FINDINGS/IMPRESSION: Fluoroscopic documentation of left retrograde pyelography with stent placement. Please refer to the o perative note for complete procedural details . Reviewed, dictated and finalized at location K.
--- NOTE | ~2024-11-12 | XR_ITS ---
Portable chest x-ray Comparison: 06/08/2024 Clinical History: Hypoxia Findings: Lungs are clear, without focal consolidation or pleural effusion. Stable elevation right h emidiaphragm. Cardiomediastinal silhouette is stable. Bones and soft tissues are unremarkable. Impression: Clear lungs. Reviewed, dictated and finalized at location . Impression: Clear lungs.
--- NOTE | ~2024-11-12 | CT_ITS ---
CT abdomen pelvis w con Ordering provider: Lamonte Medina MD History: 74 years Female with . LLQ abdominal pain . Comparison: September 20, 2024 Technique: CT abdomen and pelvis with IV and without oral contrast. Automated exposure control and it erative reconstruction technique were employed. The dose-length product was 680.93 mGy-cm. 100 mL Omn ipaque 350 was given IV. Findings: VISUALIZED LOWER CHEST: Dependent atelectatic changes. UPPER ABDOMINAL ORGANS: Liver: Fat infiltration. Hepatomegaly. Gallbladder: Normal. Spleen: Normal. Benign calcifications. Stomach/duodenum: Normal. Pancreas: Normal. Adrenals: Normal. Kidneys: 2 Stones in the upper pole of the left kidney measuring 5 mm. Tiny stones in the left kidney mid and lower pole. Stone in the left upper ureter measuring 6 mm. Left hydronephrotic changes are n oted. Tiny cyst in the left kidney lower pole. Small cyst in the right kidney upper pole measuring 1.9 CNM. PELVIC ORGANS: The bladder is underfilled. BOWEL AND MESENTERY: Colon: No evidence of diverticulitis.. Normal appendix. Small Bowel: Normal. No obstruction. Peritoneum/mesentery: No free air or free fluid. No mesenteric lymphadenopathy. Small mesenteric lymp h nodes are seen. RETROPERITONEUM: Mild atheromatous disease of the abdominal aorta. No retroperitoneal lymphadenopat hy. MUSCULOSKELETAL: Superficial soft tissues: The superficial soft tissues are normal. Bones: Age appropriate degenerative changes of the spine. Compression fracture of L1 most likely chronic. Pubic symphysitis. IMPRESSION: 1. Stone in the left upper ureter with left hydronephrotic changes. Multiple left kidney stones. 2. No evidence of appendicitis, diverticulitis or intestinal obstruction. 3. Fat infiltration of the liver. Hepatomegaly. Reviewed, dictated and finalized at location A. ICAL NURSE EDUCATOR IMPRESSION: 1. Stone in the left upper ureter with left hydronephrotic changes. Multiple l eft kidney stones. 2. No evidence of appendicitis, diverticulitis or intestinal obstruction. 3. Fat infiltration of the liver. Hepatomegaly.
[2024-11-12 20:11] VITALS: BP 145/73; PULSE 87; RESP 17; TEMP 36.7; O2SAT 98
--- OUTSIDE RECORDS SUMMARY | 2024-11-12 20:39 | XMS_ITS | Clinical Summary ---
Author Organization [facility] Address [address] [place] [address] Care Team Providers Care Medication Technician Name Role Phone Todd Gasca MD Primary Care Provider [phone] Source Comments [facility],non-owned Affiliates and Associated Physician Practices is amultiple site organization consisting of ambulatory clinics and hospital sitesin [place], [place], [place] and [place]. This disclosure is being madepursuant to the Care Everywhere program and may not contain all information available regarding this patient. Last updated 18.[facility] Allergies No known active allergies Medications * Be aware that medications may not be up to date on this document. Alwaysverify current medications with the patient. Medication Sig Dispensed Refills Start Date End Date Status ondansetron, disintegrating, (Zofran ODT) 4 MG tablet Take 1 (one) tablet by mouth every 6 hours as needed for Nausea/Vomiting Allow tablet to dissolve on the tongue 12 tablet 06/16/2024 Active ibuprofen (Motrin) 600 MG tablet Take 1 (one) tablet by mouth every 6 hours as needed for Pain 30 tablet 06/16/2024 Active Social History Tobacco Use Types Packs/Day Years Used Date Smoking Tobacco: Never Assessed Sex and Gender Information Value Date Recorded Sex Assigned at Not on file Gender Identity Not on file Sexual Orientation Not on file Last Filed Vital Signs Vital Sign Reading Time Taken Comments Blood Pressure 118/59 06/16/2024 6:18 AM CDT Pulse 81 06/16/2024 6:18 AM CDT Temperature 36.2 C (97.2 F) 06/16/2024 1:21 AM CDT Respiratory Rate 18 06/16/2024 6:18 AM CDT Oxygen Saturation 97% 06/16/2024 6:18 AM CDT Inhaled Oxygen Concentration - - Weight 82.6 kg (182 lb) 06/15/2024 9:52 AM CDT Height 165.1 cm (5' 5 ) 06/15/2024 9:52 AM CDT Body Mass Index 30.29 06/15/2024 9:52 AM CDT Plan of Treatment Health Maintenance Due Date Last Done Comments BONE DENSITY TESTING 1950 COLOGUARD (AGES 45-75) - COL ON CA SCREENING 1950 COLON MONITORING 1950 COLONOSCOPY - COLON CA SCREENING 1951 CT COLONOGRAPHY - COLON CA SCREENING 1950 Colorectal Cancer Screening 1950 FIT - COLON CA SCREENING 1950 FLEX SIG - COLON CA SCREENING 1950 LIPID TESTING 1950 HEPATITIS C SCREENING 06/22/1969 DTAP/TDAP/TD VACCINES (1 - Tdap) 1970 PNEUMOCOCCAL VACCINE 50+ (1 of 1 - PCV) 2001 ZOSTER VACCINE (1 of 2) 2001 Respiratory Syncytial Virus (RSV) Vaccine Pt: or over 60 yrs (1 - Risk 60-74 years 1-dose series) 2011 MAMMOGRAM 09/20/2015 09/20/2013 COVID-19 VACCINE (1 - 2023-2 5 season) 2024 INFLUENZA VACCINE (#1) 2024 09/16/2012 DEPRESSION SCREENING 09/07/2024 MEDICARE AWV CALENDAR YEAR 2024 HEPATITIS B VACCINE Aged Out No longe r eligible based on patient's age to complete this topic HIB VACCINE Aged Out No longer eligi ble based on patient's age to complete this topic HPV VACCINE Aged Out No longer eligi ble based on patient's age to complete this topic MENINGOCOCCAL (Group B) VACCINE Aged Out No longer eligible based on patient's age to complete this topic MENINGOCOCCAL VACCINE Aged Out No sarkis bob eligible based on patient's age to complete this topic Care Teams Medication Technician Relationship Specialty Start Date End Date oTdd Gasca MD [address] [place] [id number] PCP - General Family Medicine 06/15/24
--- OUTSIDE RECORDS SUMMARY | 2024-11-12 20:39 | XMS_ITS | Referral Summary ---
Author Organization [facility] Address [address] [place] [address] Care Team Providers Care Coating Engineer Name Role Phone Todd Gasca MD Primary Care Provider [phone] Source Comments [facility],non-owned Affiliates and Associated Physician Practices is amultiple site organization consisting of ambulatory clinics and hospital sitesin [place], [place], [place] and [place]. This disclosure is being madepursuant to the Care Everywhere program and may not contain all information available regarding this patient. Last updated 18.[facility] Allergies No known active allergies Medications * [...] 06/15/2024 9:52 AM CDT Plan of Treatment Not on file Care Teams Coating Engineer Relationship Specialty Start Date End Date Todd Gasca MD [address] [place] [address] PCP - General Family Medicine 06/15/24
--- OUTSIDE RECORDS SUMMARY | 2024-11-12 20:39 | XMS_ITS | Encounter Summary ---
Author Organization [facility] Address [address] [place] [address] Care Team Providers Care Blower And Compressor Assembler Name Role Phone Todd Gasca MD Primary Care Provider [phone] Reason for Visit * Reason Comments Med Refill Encounter Details Date Type Department Care Team (Late st Contact Info) Description 11/06/2024 Refill [facility] Oncology and Hematology - [place] [address] [place] [address] [address] [place] [address] Ollie Clarke MD [address] [place] [address] Social History Tobacco Use Types Packs/Day Years Used Date Smoking Tobacco: Never Smokeless Tobacco: Never Alcohol Use Standard Drinks/Week Comments Not Currently 0 (1 standard drink = 0.6 oz pur e alcohol) Comments No Sex and Gender Information Value Date Recorded Sex Assigned at Not on file Legal Sex Female 12:01 PM CDT Gender Identity Not on file Sexual Orientation Not on file 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 End Date retired [employer] Not on file Not on file Not o n file documented as of this encounter Plan of Treatment Not on file documented as of this encounter Visit Diagnoses Not on filedocumented in this encounter Care Teams Blower And Compressor Assembler Relationship Specialty Start Date End Date Todd Gasca MD [address] [facility] [address] [place] [address] PCP - General Emergency Medicine 9/23/21 documented as of this encounter
--- OUTSIDE RECORDS SUMMARY | 2024-11-12 20:39 | XMS_ITS | CONTINUITY OF CARE DOCUMENT ---
Author Name andie chaves Address Unknown Organization [facility] Address [address] [place] [address] Phone [phone] Care Team Providers Care Ekg Technician Name Role Phone Sheela Childers MD Unavailable MARION SCHRADER MD Unavailable [phone] MARION SCHRADER MD Unavailable [phone] PROBLEMS Condition Status Date Provider Notes Cardiovascular screening active Sheela benitez MD Diabetes mellitus, Type II active Sheela Childers MD HYPERTENSION active Sheela Childers MD Hyperlipidemia active Sheela Childers MD ENCOUNTERS Date Type Provider Location Encounter Diag nosis - In-person encounter Office Visit Sheela Childers MD [place] [facility] Cardiovascular screeningDiabetes mellitus, Type IIHYPERTENSIONHyperlipidemia VITAL SIGNS Date Observation Value Provider Body Mass Index (Ratio) 31.45 kg/m2 Bryan Childers MD blood pressure, diastolic 78 mm[Hg] Elizabeth nkLogky blood pressure, systolic 145 mm[Hg] Nadia kLogky blood pressure, cuff size regular Kr fernando Wasco blood pressure, diastolic 78 mm[Hg] Kr issalas Valdez blood pressure, systolic 145 mm[Hg] Emory Valdez pulse rate 65 /min Cara Valdez oxygen saturation, oximetry 98 % Cara Valdez blood pressure, resting Yes Alex Valdez respiratory rate E&M 18 /min Cara Valdez height E&M 65 [in_i] Cara Valdez weight E&M 189 [lb_av] Cara Valdez ALLERGIES No Known Drug Allergies HISTORY OF MEDICATION USE Medication Status Instructions Dates Provider Indications Com ments ezetimibe 10 mg tablet active Take 1 ta blet by mouth once a day Sheela Childers MD hydrochlorothiazide 12.5 mg tablet active TAKE 1 TABLET BY MOUTH EVERY DAY Cara Galindoby Accu-Chek Fastclix Lancet Drum active Cara José Miguel Vitamin D3 25 mcg (1,000 unit) tablet active TAKE 1 TABLET BY MOUTH EVERY DAY Cara Galindoby OneTouch Ultra Test strip active TESTS TWICE A DAY Cara José Miguel simvastatin 10 mg tablet active TAKE 1 TABLET BY MOUTH EVERY DAY IN THE EVENING Caralondon Valdez metformin 500 mg tablet active [facility] José Miguel SOCIAL HISTORY Date Observation Value Provider number of grandchildren Sheela Childers MD social history reviewed E&M revi ewed - no changes required Sheela Childers MD smoking status Never smoker Cara Wasco INSURANCE PROVIDERS Payer name Policy type / Coverage type [employer] [facility] [employer] [facility] [id number] TREATMENT PLAN Date Name Performer [id number],C, lipid panel showed triglycerides 238, LDL 136. On Simvastatin 10 mg PO once daily. Start on ezetimibe 10 mg once daily. Sheela Childers MD [id number],C, hemoglobin A1C was 6.8%. Continues on Metformin. Reduced intake of sugars and carbohydrates including sodas was advised. Sheela Childers MD [id number],C,B P is 145/78 today. Continues on HCTZ. Sheela Childers MD Cardiology:09/2020 li pid panel showed triglycerides 238, LDL 136. On Simvastatin 10 mg PO once daily. Start on ezetimibe 10 mg once daily. Sheela Childers MD Cardiology:09/2020 he inessalobin A1C was 6.8%. Continues on Metformin. Reduced intake of sugars and carbohydrates including sodas was advised. Sheela Childers MD Cardiology:BP is 145 /78 today. Continues on HCTZ. Sheela Childers MD HISTORY OF PROCEDURES Procedure Date Procedure Name Provider Procedure Notes S tatus EKG Sheela Childers MD complet ed
--- OUTSIDE RECORDS SUMMARY | 2024-11-12 20:39 | XMS_ITS | Patient Health Summary ---
Author Organization [facility] Address [address] [place] [address] Care Team Providers Care Behavioral Geneticist Name Role Phone Todd Gasca MD Primary Care Provider Note from [facility],non-owned Affiliates and Associated Physician Practices is amultiple site organization consisting of ambulatory clinics and hospital sitesin [place], [place], [place] and [place]. This disclosure is being madepursuant to the Care Everywhere program and may not contain all information available regarding this patient. Last updated 18.[facility] Allergies No known active allergies Medications * Be aware that medications may not be up to date on this document. Alwaysverify current medications with the patient. * ondansetron, disintegrating, (Zofran ODT) 4 MG tablet(Started 06/16/2024) Take 1 (one) tablet by mouth every 6 hours as needed for Nausea/Vomiting Allow tablet to dissolve on the tongue * ibuprofen (Motrin) 600 MG tablet(Started 06/16/2024) Take 1 (one) tablet by mouth every 6 hours as needed for Pain Social History Tobacco Use Types Packs/Day Years [...] Mass Index 30.29 06/15/2024 9:52 AM CDT Procedures * CARDIAC EKG ORDER(Performed 06/17/2024) * TROPONIN-I HIGH SENSITIVE REFLEX 1HOUR(Performed 06/15/2024) * CT HEAD WO CONTRAST(Performed 06/15/2024) Performed for Acute intractable headache, unspecified headache type, Weakness * XR CHEST 2VW(Performed 06/15/2024) Performed for SOB (shortness of breath) * B-TYPE NATRIURETIC PEPTIDE(Performed 06/15/2024) * TROPONIN-I HIGH SENSITIVE BASELINE + 1HR(Performed 06/15/2024) * COMPREHENSIVE METABOLIC PANEL(Performed 06/15/2024) * CBC W AUTO DIFFERENTIAL(Performed 06/15/2024) * URINE MICROSCOPIC ONLY REFLEX TO CULTURE(Performed 06/15/2024) * URINALYSIS REFLEX MICROSCOPIC REFLEX CULTURE(Performed 06/15/2024) * CULTURE URINE(Performed 06/15/2024) * EKG 12-LEAD(Performed 06/15/2024) Performed for SOB (shortness of breath) Results * CARDIAC EKG ORDER (06/17/2024 12:57 PM CDT) Narrative 06/17/2024 12:57 PM CDT Ordered by an unspecified provider. Scanned Document CARDIAC SERVICES ORD ERABLES * TROPONIN-I HIGH SENSITIVE REFLEX 1HOUR (06/15/2024 10:43 PM CDT) Troponin I High Sensitive <3 <=14 ng/L 06/15/2024 11:47 PM CDT [facility] Delta Troponin I HS 06/15/2024 11:47 PM CDT [facility] Comment:Delta value intentio jennifer not calculated. Baseline to 1 hour specimen collection interval exceeded. Blood BLOOD SPECIMEN / Unknown Venipuncture / Unknown 06/15/2024 10:43 PM CDT 06/15/2024 11:15 PM CDT Vicky Antoine PA-C LAB - CHEMISTRY OR DERABLES Performing Organization Address City/State/[facility] Co de Phone Number [facility] [place] [address], [facility] [phone] * CT Head Wo Contrast (06/15/2024 2:05 PM CDT) Anatomical Region Laterality Modality Head Computed Tomogra phy 06/15/2024 1:36 PM CDT Impressions 06/15/2024 1:39 PM CDT IMPRESSION: 1. No acute intracranial process. 2. Near complete opacification of the left sphenoid sinus with a large air-fluid level, indicative of acute sinusitis, which could be the cause of headache. Please correlate clinically. > Interpreting Provider: Shonda Kendall MD on 06/15/2024 1:39 PM Narrative 06/15/2024 1:39 PM CDT PROCEDURE: CT HEAD WO CONTRAST, DATE/TIME OF EXAM: 06/15/2024 1:11 PM, LOCATION [facility] INDICATION: R51.9: Acute intractable headache, unspecified headache type R53.1: Weakness ADDITIONAL CLINICAL INFORMATION: Ordering Provider Reason For Exam: r/o ICH Technologist Note: Additional: TECHNIQUE: CT of the head was performed without contrast according to standard protocol. CONTRAST: COMPARISON: No prior study is available for comparison at the time of this dictation. FINDINGS: No acute intracranial hemorrhage or intra- or extra-axial fluid collections are identified. There is mild cerebral volume loss with associated ex vacuo ventricular dilatation. The basal cisterns are patent. No mass effect or midline shift is seen. The mcrae-white matter differentiation is normal. There is vascular calcification of the carotid siphons. Other than near complete opacification of the left sphenoid sinus with a large air-fluid level suggesting severe acute sinusitis, the visualized portions of the orbits, paranasal sinuses, and mastoids appear normal. No acute calvarial fracture is identified. Procedure Note Shonda Kendall MD - 06/15/2024 PROCEDURE: CT HEAD WO CONTRAST, DATE/TIME OF EXAM: 06/15/2024 1:11 PM, LOCATION [facility] INDICATION: R51.9: Acute intractable headache, unspecified headache type R53.1: Weakness ADDITIONAL CLINICAL INFORMATION: Ordering Provider Reason For Exam: r/o ICH Technologist Note: Additional: TECHNIQUE: CT of the head was performed without contrast according to standard protocol. CONTRAST: COMPARISON: No prior study is available for comparison at the time ofthis dictation. FINDINGS: No acute intracranial hemorrhage or intra- or extra-axial fluidcollections are identified. There is mild cerebral volume loss with associated exvacuo ventricular dilatation. The basal cisterns are patent. No mass effect or midline shift is seen. The mcrae-white matter differentiation is normal. There is vascular calcification of the carotid siphons. Other than near complete opacification of the left sphenoid sinus with a large air-fluid level suggesting severe acute sinusitis, the visualized portions of the orbits, paranasal sinuses, and mastoids appear normal. No acute calvarial fracture is identified. IMPRESSION: 1. No acute intracranial process. 2. Near complete opacification of the left sphenoid sinus with a large air-fluid level, indicative of acute sinusitis, which could be the causeof headache. Please correlate clinically. > Interpreting Provider: Shonda Kendall MD on 06/15/2024 1:39 PM Vicky Antoine PA-C CT ORDERABLES * XR Chest 2Vw (06/15/2024 10:25 AM CDT) Anatomical Region Laterality Modality Chest Digital Radiogra phy 06/15/2024 10:4 0 AM CDT Impressions 06/15/2024 11:09 AM CDT IMPRESSION: Minimal basilar atelectasis, otherwise no acute pulmonary process. Report dictated by Arash Soto MD, (president and ceo). I, Starr Price MD have personally reviewed and interpreted this examination/study. > Interpreting Provider: Starr Price MD on 06/15/2024 11:09 AM Narrative 06/15/2024 11:09 AM CDT PROCEDURE: XR CHEST 2VW, DATE/TIME OF EXAM: 06/15/2024 10:25 AM, LOCATION [facility] INDICATION: R06.02: SOB (shortness of breath) ADDITIONAL CLINICAL INFORMATION: Ordering Provider Reason For Exam: r/o acute process COMPARISON: None. FINDINGS/IMPRESSION: *Surgical clips within the right anterior chest wall. Asymmetry of the breasts, right smaller than left. Minimal subsegmental atelectasis at the bilateral lung bases. There is no focal consolidation, pleural effusion, or pneumothorax. There is mild tracheal deviation to the left at the thoracic inlet which may be due to right thyroid enlargement. The cardiomediastinal silhouette is otherwise normal. Calcified subcarinal lymph nodes are seen. Degenerative changes are noted in the thoracic spine. Procedure Note Starr Price MD - 06/15/2024 PROCEDURE: XR CHEST 2VW, DATE/TIME OF EXAM: 06/15/2024 10:25 AM, LOCATION [facility] INDICATION: R06.02: SOB (shortness of breath) ADDITIONAL CLINICAL INFORMATION: Ordering Provider Reason For Exam: r/o acute process COMPARISON: None. FINDINGS/IMPRESSION: *Surgical clips within the right anterior chest wall. Asymmetry of the breasts, right smaller than left. Minimal subsegmental atelectasis at the bilateral lung bases. There isno focal consolidation, pleural effusion, or pneumothorax. There is mild tracheal deviation to the left at the thoracic inlet which may be due to right thyroid enlargement. The cardiomediastinalsilhouette is otherwise normal. Calcified subcarinal lymph nodes are seen. Degenerative changes are noted in the thoracic spine. IMPRESSION: Minimal basilar atelectasis, otherwise no acute pulmonary process. Report dictated by Arash Soto MD, (president and ceo). I, Starr Price MD have personally reviewed and interpreted this examination/study. > Interpreting Provider: Starr Price MD on 06/15/2024 11:09 AM Vicky Antoine PA-C DIAGNOSTIC IMAGING ORDERABLES * TROPONIN-I HIGH SENSITIVE BASELINE + 1HR (06/15/2024 10:19 AM CDT) Troponin I High Sensitive <3 <=14 ng/L 06/15/2024 11:02 AM [facility] Blood BLOOD SPECIMEN / Unknown Venipuncture / Unknown 06/15/2024 10:19 AM CDT 06/15/2024 10:27 AM CDT Vicky Antoine PA-C LAB - CHEMISTRY OR DERABLES Performing Organization Address [facility] Co de Phone Number [facility] [address] [place] [address], [facility] [phone] * (ABNORMAL) CBC W AUTO DIFFERENTIAL (06/15/2024 10:19 AM T) WBC 5.4 4.0 - 10.7 x10E9/L 06/15/2024 10:34 AM [facility] RBC Count 3.66(L) 3.90 - 5.20 x10E12/L 06/15/2024 10:34 AM [facility] Hemoglobin 10.5(L) 11.9 - 15.8 g/dL 06/15/2024 10:34 AM [facility] Hematocrit 30.9(L) 34.8 - 46.1 % 06/15/2024 10:34 AM [facility] MCV 84.4 80.0 - 98.0 fL 06/15/2024 10:34 AM [facility] MCH 28.7 26.7 - 33.6 pg 06/15/2024 10:34 AM [facility] MCHC 34.0 31.7 - 36.3 g/dL 06/15/2024 10:34 AM [facility] RDW-CV 13.4 11.3 - 14.8 % 06/15/2024 10:34 AM [facility] Platelet Count 256 150 - 420 x10E9/L 06/15/2024 10:34 AM [facility] MPV 10.5 7.8 - 11.4 fL 06/15/2024 10:34 AM [facility] Neutrophil % 66.3 41.0 - 74.0 % 06/15/2024 10:34 AM [facility] Lymphocyte % 22.0 17.0 - 47.0 % 06/15/2024 10:34 AM [facility] Monocyte % 9.3 3.0 - 11.0 % 06/15/2024 10:34 AM [facility] Eosinophil % 1.3 0.0 - 7.0 % 06/15/2024 10:34 AM [facility] Basophil % 0.4 0.0 - 1.6 % 06/15/2024 10:34 AM [facility] Immature Granulocytes % 0.7 0.0 - 1.0 % 06/15/2024 10:34 AM [facility] Neutrophil Absolute 3.58 1.60 - 7.50 x10E9/L 06/15/2024 10:34 AM [facility] Lymphocyte Absolute 1.19 1.00 - 4.40 x10E9/L 06/15/2024 10:34 AM [facility] Monocyte Absolute 0.50 0.15 - 1.00 x10E9/L 06/15/2024 10:34 AM [facility] Eosinophil Absolute 0.07 0.00 - 0.60 x10E9/L 06/15/2024 10:34 AM [facility] Basophil Absolute 0.02 0.00 - 0.13 x10E9/L 06/15/2024 10:34 AM [facility] Blood BLOOD SPECIMEN / Unknown Venipuncture / Unknown 06/15/2024 10:19 AM CDT 06/15/2024 10:26 AM T Vicky Antoine PA-C LAB - HEMATOLOGY O RDERABLES [facility] [address] [place] [address], [facility] [phone] * B-TYPE NATRIURETIC PEPTIDE (06/15/2024 10:19 AM CDT) BNP 12 <100 pg/mL 06/15/2024 11:01 AM [facility] Comment: A decision threshold of 100 pg/mL has been demonstrated to provide the maximal combination of sensitivity, specificity and predictive value for the diagnosis of congestive heart failure (CHF). Virtually all patients with no evidence of CHF have BNP values less than 100 pg/mL. A BNP value greater than 100 pg/mL is consistent with the diagnosis of CHF in the appropriate clinical setting. In a study of 693 patients (male and female) with diagnosed CHF, the following values were determined based on the NYHA functional classification system: NYHA Functional Class Mean Valule (pg/mL) % >100 pg/mL I 320 58.1 II 432 73.0 III 656 79.0 IV 1635 98.3 Blood BLOOD SPECIMEN / Unknown Venipuncture / Unknown 06/15/2024 10:19 AM CDT 06/15/2024 10:26 AM CDT Vicky Antoine PA-C LAB - CHEMISTRY OR DERABLES [facility] [address] [place] [address], [facility] [phone] * (ABNORMAL) COMPREHENSIVE METABOLIC PANEL (06/15/2024 10:19 AM CDT) BUN 12 7 - 26 mg/dL 06/15/2024 11:02 AM [facility] Creatinine 0.59 0.56 - 0.96 mg/dL 06/15/2024 11:02 AM [facility] Sodium 140 136 - 145 mmol/L 06/15/2024 11:02 AM [facility] Potassium 3.3(L) 3.5 - 4.5 mmol/L 06/15/2024 11:02 AM [facility] Chloride 105 98 - 107 mmol/L 06/15/2024 11:02 AM [facility] CO2 26 22 - 29 mmol/L 06/15/2024 11:02 AM [facility] Glucose 184(H) 70 - 115 mg/dL 06/15/2024 11:02 AM [facility] Calcium 9.8 8.4 - 10.2 mg/dL 06/15/2024 11:02 AM [facility] Protein Total 7.1 6.0 - 8.3 g/dL 06/15/2024 11:02 AM [facility] Albumin 4.2 3.4 - 5.0 g/dL 06/15/2024 11:02 AM [facility] Bilirubin Total 0.5 0.2 - 1.2 mg/dL 06/15/2024 11:02 AM [facility] Alkaline Phosphatase 58 40 - 150 U/L 06/15/2024 11:02 AM [facility] ALT 58(H) 5 - 55 U/L 06/15/2024 11:02 AM [facility] AST 51(H) 5 - 34 U/L 06/15/2024 11:02 AM [facility] Anion Gap 9 6 - 16 06/15/2024 11:02 AM [facility] BUN/Creatinine Ratio 20 7 - 23 06/15/2024 11:02 AM [facility] Osmolality Calculated 295 275 - 295 mOsm/kg 06/15/2024 11:02 AM [facility] Albumin/Globulin Ratio 1.4 1.1 - 2.3 06/15/2024 11:02 AM [facility] eGFR by CKD-EPI >90 >=90 mL/min/1.7 3 m2 06/15/2024 11:02 AM [facility] Blood BLOOD SPECIMEN / Unknown Venipuncture / Unknown 06/15/2024 10:19 AM CDT 06/15/2024 10:27 AM [facility] Vicky Antoine PA-C LAB - CHEMISTRY OR DERABLES Performing Organization Address [facility] Co de Phone Number [facility] [address] [place] [address], [facility] [phone] * URINE MICROSCOPIC ONLY REFLEX TO CULTURE (06/15/2024 10:16 AM [facility]) Reflex Status Culture to follow 06/15/2024 10:33 AM [facility] WBC UA 0-5 None Seen, 0-5 /HPF 06/15/2024 10:33 AM [facility] Squamous Epithelial Cells UA 0-2 None Seen, 0-2, 3-5 /HPF 06/15/2024 10:33 AM [facility] Urine URINE SPECIMEN OBTAINED BY CLEAN CATCH PROCEDURE / Unknown Collection / Unknown 06/15/2024 10:16 AM CDT 06/15/2024 10:24 AM CDT Narrative [facility] - 06/15/2024 10:33 AM CDT Vicky Antoine PA-C LAB - URINALYSIS O RDERABLES [facility] [address] [place] [address], [facility] [phone] * (ABNORMAL) URINALYSIS REFLEX MICROSCOPIC REFLEX CULTURE (06/15/2024 10:16 AM CDT) Color UA Straw Straw, Yellow 06/15/2024 10:30 AM [facility] Clarity UA Clear Clear 06/15/2024 10:30 AM [facility] Specific Fossil UA 1.003(L) 1.005 - 1.030 06/15/2024 10:30 AM [facility] pH UA 7.0 5.0 - 8.0 pH 06/15/2024 10:30 AM [facility] Protein UA Negative Negative 06/15/2024 10:30 AM [facility] Glucose UA Negative Negative 06/15/2024 10:30 AM [facility] Ketone UA Negative Negative 06/15/2024 10:30 AM [facility] Bilirubin UA Negative Negative 06/15/2024 10:30 AM [facility] Blood UA Negative Negative 06/15/2024 10:30 AM [facility] Nitrite UA Negative Negative 06/15/2024 10:30 AM [facility] Leukocyte Esterase Trace(A) Negative 06/15/2024 10:30 AM [facility] Urobilinogen UA Negative Negative mg/dL 06/15/2024 10:30 AM [facility] Urine URINE SPECIMEN OBTAINED BY CLEAN CATCH PROCEDURE / Unknown Collection / Unknown 06/15/2024 10:16 AM CDT 06/15/2024 10:24 AM T Narrative [facility] - 06/15/2024 10:30 AM CDT Vicky Antoine PA-C LAB - URINALYSIS O RDERABLES Performing Organization Address City/[facility]/ZIP Co de Phone Number [facility] [address] [place] [address], [facility] [phone] * CULTURE URINE (06/15/2024 10:16 AM CDT) Culture Urine <10,000 CFU/mL urogenital rhonda STONEY 06/16/2024 3:24 PM CDT [facility] Urine URINE SPECIMEN OBTAINED BY CLEAN CATCH PROCEDURE / Unknown Collection / Unknown 06/15/2024 10:16 AM CDT 06/15/2024 10:33 AM CDT Vicky Antoine PA-C LAB - MICROBIOLOGY ORDERABLES Performing Organization Address [facility] Co de Phone Number [facility] [address] [place] [address], [facility] [phone] * EKG 12-LEAD (06/15/2024 9:50 AM CDT) Ventricular Rate 73 BPM SL MUSE Atrial Rate 73 BPM [facility] P-R Interval 236 ms [facility] QRS Duration ms 82 ms [facility] Q-T Interval ms 412 ms [facility] QTC Calculation (Bezet) 453 ms [facility] Calculated P [place] 27 degrees [facility] Calculated R [place] -19 degrees [facility] Calculated T [place] 104 degrees [facility] Interpretation EKG SINUS RHYTHM WITH 1ST DEGREE A-V BLOCK CANNOT RULE OUT ANTERIOR INFARCT , AGE UNDETERMINED ABNORMAL ECG NO PREVIOUS ECGS AVAILABLE Confirmed by FIONA GUERRA, CORKY ([id number]) on 06/15/2024 4:59:31 PM [facility] 06/15/2024 9:50 AM CDT 06/15/2024 4:59 PM CDT Vicky Antoine PA-C ECG ORDERABLES Performing Organization Address [facility] Co de Phone Number [facility] Care Teams Behavioral Geneticist Relationship Specialty Start Date End Date Todd Gasca MD [address] [place] [id number] PCP - General Family Medicine 06/15/24
--- OUTSIDE RECORDS SUMMARY | 2024-11-12 20:40 | XMS_ITS | Clinical Summary ---
Author Organization [facility] Address [address] [place] [address] Care Team Providers [employer] Name Role Phone Todd Gasca MD Primary Care Provider [phone] Allergies No known active allergies Medications lisinopriL (PRINIVIL) 40 mg tablet Take 40 mg by mouth daily. Active hydroCHLOROthiazi de (HYDRODIURIL) 12.5 mg tablet Take 12.5 mg by mouth daily. Active mv-mn/folic ac/calcium/vit K1 (WOMEN'S 50 PLUS MULTIVITAMIN ORAL) Take by mouth. Active simvastatin (ZOCOR) 20 mg tablet TAKE 1 TABLET BY MOUTH EVERY DAY IN THE EVENING 2 Active metFORMIN (GLUCOPHAGE) 500 mg tablet TAKE 1 TABLET BY MOUTH DAILY WITH A MEAL 2 Active ibuprofen (MOTRIN) 600 mg tablet Take 600 mg by mouth every 6 hours as needed. 2 Active HYDROcodone-aceta minophen (NORCO) 5-325 mg tablet TAKE 1 TO 2 TABLETS BY MOUTH EVERY 6 HOURS NEEDED FOR PAIN 2 Active ezetimibe (ZETIA) 10 mg tablet Take by mouth. 1 Active OneTouch Ultra Test Strip TESTS TWICE A DAY 2 Active amLODIPine (NORVASC) 5 mg tablet Take 5 mg by mouth daily. 2 Active ergocalciferol (VITAMIN D2) 50,000 unit capsule Take 50,000 Units by mouth every 7 days. 2 Active anastrozole (ARIMIDEX) 1 mg tablet take 1 tablet by mouth every day 90 Tablet 4 3 Active potassium chloride (Klor-Con M10) 10 mEq Extended Release tablet Take 1 tablet by mouth daily. 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 Encounters Date Type Department Care Team Description 11/06/2024 Refill [facility] - [place] [address] [place] [address] [place] [phone] Ollie Clarke MD 10/26/2024 External Device Data [facility] ABSTRACTION Provider, Abstract 10/25/2024 External Device Data [facility]STRACTION Provider, Abstract 10/18/2024 External Device Data [facility]STRACTION Provider, Abstract 09/29/2024 External Device Data [facility]STRACTION Provider, Abstract from Last 3 Months Family History Medical History Relation Name Comments Thyroid Disease Daughter Heart Disease Father Other Mother ALS Other Paternal Grandfather d when she was born Other Paternal Grandmother d when she was born Stroke Paternal Grandmother Breast Cancer Neg Hx Colon Cancer Neg Hx Ovarian Cancer Neg Hx Relation Name Status Comments Daughter Alive Father (Age 69) Maternal Grandfather (Age 69) Maternal Grandmother (Age 69) Mother (Age 71) Paternal Grandfather Paternal Grandmother Son 1 Alive Son 2 Alive Social History Tobacco Use Types Packs/Day Years Used Date Smoking Tobacco: Never Smokeless Tobacco: Never Tobacco Cessation:Counseling Given: Not Answered Alcohol Use Standard Drinks/Week Comments Not Currently [...] Not on file Not o n file Last Filed Vital Signs Vital Sign Reading Time Taken Comments Blood Pressure 154/81 02/10/2024 2:15 PM CDT Pulse 73 02/10/2024 2:13 PM CDT Temperature 36.2 C (97.1 F) 02/10/2024 2:13 PM CDT Respiratory Rate 14 02/10/2024 2:13 PM CDT Oxygen Saturation 96% 02/10/2024 2:13 PM CDT Inhaled Oxygen Concentration - - Weight 84.4 kg (186 lb) 02/10/2024 2:13 PM CDT Height 165.1 cm (5' 5 ) 05/14/2022 2:42 PM CDT Body Mass Index 30.95 05/14/2022 2:42 PM CDT Plan of Treatment Health Maintenance Due Date Last Done Comments DIABETES ANNUAL FOOT EXAM 1969 DIABETES ANNUAL RETINAL EXAM 1969 DIABETES MICROALBUMIN ANNUAL SCREEN 1969 LDL CHOLESTEROL ANNUAL 1969 DTAP/TDAP/TD VACCINES (1 - Tdap) 1970 PNEUMOCOCCAL VACCINE 50+ YEARS (1 of 2 - PCV) 06/27/19 70 COLORECTAL SCREENING 1996 Colorectal Cancer Screening 1996 FIT-DNA Q 3 years 1996 FIT/FOBT Q 1 year 1996 Flex Sig/CT Colonography Q 5 years 1996 ZOSTER VACCINE (1 of 2) 2001 OSTEOPOROSIS SCREENING 2016 DIABETES HBA1C Q 6 MONTHS 03/15/2017 09/15/2016 INFLUENZA VACCINE (#1) 2024 Medicare Advantage (PR) Prev entative Visit/Annual Wellness Visit 09/07/2024 BREAST CANCER SCREENING 03/14/2025 03/14/2024 RSV VACCINE (60+ or ) (1 - 1-dose 75+ series) 2026 Procedures Procedure Name Priority Date/Time Associated Diagnosis Comments MAMMO SCREENING BILAT Routine 03/14/2024 4:17 PM CDT from Last 3 Months or Most Recently Relevant to Health Maintenance Results * MAMMO SCREENING BILAT (03/14/2024 4:17 PM CDT) Anatomical Region Laterality Modality Breast Bilateral Other Ollie Clarke MD MAMMO ORDERABLES Final Result from Last 3 Months or Most Recently Relevant to Health Maintenance Insurance [employer] Relationship Specialty Start Date End Date Todd Gasca MD [address] [place] [phone] PCP - General Emergency Medicine 05/30/21
--- OUTSIDE RECORDS SUMMARY | 2024-11-12 20:40 | XMS_ITS | Data Portability ---
Author Organization [facility] [place] Address [address] [place] [address] [place] [address] Care Team Providers Care Real Time Analyst Name Role Phone MARION SCHRADER Primary Care Provider [phone] Assessment No assessment recorded. Plan of Treatment Reminders Order Date Submit Date Provider Last Modified By Organization Details Last Modified Time Details Appointments None recorded. Lab None recorded. Referral None recorded. Procedures None recorded. Surgeries None recorded. Imaging US, pelvis 2019 020 [email or web address] [place], [address], [address], [place], [address], 0 19:02:43 US, transvagina l 2019 020 JHONY [place], [address], [address], [place], [address], 0 05:01:43 Medication Orders None recorded. Patient TargetsNo targets recorded. Patient InstructionsNo instructions recorded. Reason for Referral None Reported. Results Created Date Observation Date Name Description Value Unit Range Abnormal Flag Note LastModifiedBy Organization Detail LastModifiedTime 02/15/20 20 02/16/2020 bacte rial vagin osis + vagin itis panel , vagin al susana sp. Not Detect ed normal Trich omona s vagin avis: DNA testi ng perfo rmed by Trans c[employer] ion [employer] karyn Ampli ficat ion (TMA) These resul ts shoul d be inter prete d in light of all clini rudy and labor atory findi ngs. This assay is highl y accur ate, but rare false posit mellisa and negat mellisa resul ts may occur . Posit mellisa resul ts in low preva lence popul ation s may requi re re-ev aluat ion. A negat mellisa resul t does not precl ude a possi ble infec tion due to a speci men inade quacy or sampl ing error . Test perfo rmed by [facility], d/b/a [facility], [address], [place] [address] , Aaron Jauregui ra, DO, Labor atory Direc tor. Gardn erell a vagin avis, Tayla da speci es: Genom ic DNA is isola karyn from patie nt speci mens by stand moo labor atory techn iques and leny zed using custo m OpenA rray plate s, perfo rmed on the Quant Studi o 12K Flex Real Time PCR syste m. A posit mellisa resul t is provi ded for patho genic bacte adeola, virus and/o r funga l speci es based on detec tion of ampli ficat ion produ cts. Alondra l vagin al rhonda resul ts of Alondra l or [place] karyn are deter mined by calcu latin g the ratio of the organ ism to the total bacte adeola prese nt in the speci men, and liv ring that ratio to a PathG roup patie nt popul ation . Overa ll resul ts of Alondra l, Borde rline and Abnor mal are deter mined using a proba bilit y model which was devel oped by an exten sive leny sis and integ ratio n of clini rudy thres holds for marke r organ isms on a large set of sympt omati c & asymp tomat ic speci mens. Patie nt popul ation s with diffe rent demog raphi cs from the PathG roup model popul ation may have diffe rent indic ator organ isms with diffe rent relat mellisa ratio s, which would influ ence the final resul ts. Resul ts shoul d be inter prete d in the sayda xt of all clini rudy and labor atory findi ngs. The test was devel oped and its perfo rmanc e qing cteri stics deter mined by [employer] d/b/a [facility] rou. It has not been clear ed or appro andres by the U.S. Food and Drug Admin istra tion. The FDA has deter mined that such clear ance or appro elisa is not neces fifi. Perti nent refer ence inter vals are avail able from the labor atory on reque st. Test( s) perfo rmed by [employer], [employer], d/b/a [employer] roup, [address], [place] [address] , Aaron Jauregui ra, , Labor atory Direc tor. Not Available [facility]) [address], [place], [address], 02/16/2020 17:49:44 02/15/20 20 02/16/2020 bacte rial vagin osis + vagin itis panel , vagin al gardnerella vaginalis Not Detect ed normal Trich omona s vagin avis: DNA testi ng perfo rmed by Trans cript ion Media karyn Ampli ficat ion (TMA) These resul ts shoul d be inter prete d in light of all clini rudy and labor atory findi ngs. This assay is highl y accur ate, but rare false posit mellisa and negat mellisa resul ts may occur . Posit mellisa resul ts in low preva lence popul ation s may requi re re-ev aluat ion. A negat mellisa resul t does not precl ude a possi ble infec tion due to a speci men inade quacy or sampl ing error . Test perfo rmed by [employer], d/b/a [employer] roup, [address], [place] [address] , Aaron Jauregui ra, , Labor atory Direc tor. Gardn erell a vagin avis, Tayla da speci es: Genom ic DNA is isola karyn from patie nt speci mens by stand moo labor atory techn iques and leny zed using custo m OpenA rray plate s, perfo rmed on the Quant Studi o 12K Flex Real Time PCR syste m. A posit mellisa resul t is provi ded for patho genic bacte adeola, virus and/o r funga l speci es based on detec tion of ampli ficat ion produ cts. Alondra l vagin al rhonda resul ts of Alondra l or [place] karyn are deter mined by calcu latin g the ratio of the organ ism to the total bacte adeola prese nt in the speci men, and liv ring that ratio to a PathG roup patie nt popul ation . Overa ll resul ts of Alondra l, Borde rline and Abnor mal are deter mined using a proba bilit y model which was devel oped by an exten sive leny sis and integ ratio n of clini rudy thres holds for marke r organ isms on a large set of sympt omati c & asymp tomat ic speci mens. Patie nt popul ation s with diffe rent demog raphi cs from the PathG roup model popul ation may have diffe rent indic ator organ isms with diffe rent relat mellisa ratio s, which would influ ence the final resul ts. Resul ts shoul d be inter prete d in the sayda xt of all clini rudy and labor atory findi ngs. The test was devel oped and its perfo rmanc e qing cteri stics deter mined by [employer], [employer] d/b/a [facility] franco. It has not been clear ed or appro andres by the U.S. Food and Drug Admin istra tion. The FDA has deter mined that such clear ance or appro elisa is not neces fifi. Perti nent refer ence inter vals are avail able from the labor atory on reque st. Test( s) perfo rmed by [employer] [facility], [employer], d/b/a [employer] fr[employer], [address] [facility] [place] [address] , Aaron Jauregui ra, DO, Labor atory Direc tor. Not Available [facility] ([facility]) [address], [place], [address], 02/16/2020 17:49:44 02/15/20 20 02/16/2020 bacte rial vagin osis + vagin itis panel , vagin al trichomonas vaginalis, aptima (panther) NOT DETECT ED normal Trich omona s vagin avis: DNA testi ng perfo rmed by Trans c[employer] ion [employer] karyn Ampli ficat ion (TMA) These resul ts shoul d be inter prete d in light of all clini rudy and labor atory findi ngs. This assay is highl y accur ate, but rare false posit mellisa and negat mellisa resul ts may occur . Posit mellisa resul ts in low preva lence popul ation s may requi re re-ev aluat ion. A negat mellisa resul t does not precl ude a possi ble infec tion due to a speci men inade quacy or sampl ing error . Test perfo rmed by [facility], [facility], d/b/a [facility], [place] [address] , Aaron Jauregui ra, DO, Labor atory Direc tor. Gardn erell a vagin avis, Tayla da speci es: Genom ic DNA is isola karyn from patie nt speci mens by stand moo labor atory techn iques and leny zed using custo m OpenA rray plate s, perfo rmed on the Quant Studi o 12K Flex Real Time PCR syste m. A posit mellisa resul t is provi ded for patho genic bacte adeola, virus and/o r funga l speci es based on detec tion of ampli ficat ion produ cts. Alondra l vagin al rhonda resul ts of Alondra l or [place] karyn are deter mined by calcu latin g the ratio of the organ ism to the total bacte adeola prese nt in the speci men, and liv ring that ratio to a PathG roup patie nt popul ation . Overa ll resul ts of Alondra l, Borde rline and Abnor mal are deter mined using a proba bilit y model which was devel oped by an exten sive leny sis and integ ratio n of clini rudy thres holds for marke r organ isms on a large set of sympt omati c & asymp tomat ic speci mens. Patie nt popul ation s with diffe rent demog raphi cs from the PathG roup model popul ation may have diffe rent indic ator organ isms with diffe rent relat mellisa ratio s, which would influ ence the final resul ts. Resul ts shoul d be inter prete d in the sayda xt of all clini rudy and labor atory findi ngs. The test was devel oped and its perfo rmanc e qing cteri stics deter mined by [employer] [facility] d/b/a [facility] roup. It has not been clear ed or appro andres by the U.S. Food and Drug Admin istra tion. The FDA has deter mined that such clear ance or appro elisa is not neces fifi. Perti nent refer ence inter vals are avail able from the labor atorlondon on reque st. Test( s) perfo rmed by [employer] [facility], d/b/a [facility] roup, [address] [place] [address] , Aaron Jauregui ra, DO, Labor atory Direc tor. Not Available [facility] ([facility]) [address], [place], [address], 02/16/2020 17:49:44 10/22/19 21 10/22/2020 , preston uriostegui md interpretati on Not Available Nicholas lauren [address], [place], [address], 03/05/2020 15:02:53 09/09/19 24 09/09/2023 VAGIN ITIS/ VAGIN OSIS, DNA PROBE susana sp. detection, direct probe Negati ve negati ve Not Available [facility] (Lab) [address], [place], [address], 09/15/2023 00:03:33 09/09/19 24 09/09/2023 VAGIN ITIS/ VAGIN OSIS, DNA PROBE gardnerella vag. detection, direct probe Negati ve negati ve Not Available [facility] (Lab) [address], [place], [address], 09/15/2023 00:03:33 09/09/19 24 09/09/2023 VAGIN ITIS/ VAGIN OSIS, DNA PROBE trichomonas vag. detection, direct probe Negati ve negati ve Not Available [facility] (Lab) [address], [place], [address], 09/15/2023 00:03:33 09/09/19 24 09/09/2023 HERPE S SUBTY PE(HS V1/HS V2) RT-PC R, ONESW AB herpes subtype (hsv-1, hsv-2) PCR Negati ve (HSV-1 ,HSV-2 ) Swab- 1 Vag Cerv HSV-1 :Nega tive HSV-2 :Nega tive. Not Available [facility] (Lab) [address], [place], [address], 09/15/2023 00:03:33 03/05/20 20 US, pelvi s No observ ation record ed. deann Baer [address] [facility], [place], [address], 03/06/2020 15:06:01 Result Notes None recorded. Procedures Surgical History Date Name Laterality Status Provider Name and Address Organization Details Recorded Time 09/13/19 19 Date of Last Pap Smear completed Meron Joy [facility] 09/09/2023 13:38:07 lumpectomy of breast completed Camilla Guerra [facility] 02/15/2020 10:17:40 Total Hysterectomy completed Camilla [facility] 02/15/2020 10:17:45 Tonsillectomy completed [facility] 02/15/2020 10:17:59 lumpectomy of breast completed Meron Joy [facility] 09/09/2023 14:24:48 Imaging Results Imaging Date Name Status LastModified by Organiz ation Details LastModified Time 03/05/2020 US, pelvis completed layran Buffy [address], [place], [address], 03/06/2020 15:06:01 Procedure Notes None recorded. Medical Equipment None Reported. Allergies No known drug allergies Medications Name Sig Start Date Stop Date Status Note LastModified by Organization Details LastModified Time metformin 500 mg tablet 02/14 completed Not Available Not Available Not Available anastrozo le 1 mg tablet TAKE 1 TABLET BY MOUTH EVERY DAY active Not Available Not Available No t Available hydrocodo ne 5 mg-acetam inophen 325 mg tablet TAKE 1 TABLET BY MOUTH EVERY 6 HOURS NEEDED FOR PAIN active Not Available Not Available No t Available amlodipin e 5 mg tablet TAKE 1 TABLET BY MOUTH EVERY DAY 09/09 completed Not Available Not Available Not Available acyclovir 400 mg tablet 400 MG ORALLY FOUR TIMES DAILY FOR 5 DAYS active Not Available Not Available No t Available amoxicill in 500 mg tablet TAKE 1 TABLET BY MOUTH EVERY 8 HOURS FOR 7 DAYS 09/09 completed Not Available Not Available Not Available tamsulosi n 0.4 mg capsule 0.4 MG ORALLY DAILY active Not Available Not Available No t Available DriftrockTouch Ultra Test strips TESTS TWICE A DAY 09/09 completed Not Available Not Available Not Available amlodipin e 10 mg tablet TAKE 1 TABLET (10 MG) BY MOUTH DAILY. active Not Available Not Available No t Available hydrochlo rothiazid e 12.5 mg capsule take 2 capsule by oral route every day 09/09 completed Prescrib ed Elsew e: Yes Loca tion: [facility] M odify By: alyse escalante DateTime : 09/13/19 19 02:45:00 PM Not Available Not Available Not Available ergocalci ferol (vitamin D2) 1,250 mcg (50,000 unit) capsule TAKE 1 CAPSULE BY MOUTH ONE TIME PER WEEK active Not Available Not Available No t Available methylpre dnisolone 4 mg tablets in a dose pack TAPER DOSE OVER 1 WEEK. 09/09 completed Not Available Not Available Not Available oxybutyni n chloride 5 mg tablet 5 MG ORALLY THREE TIMES A DAY active Not Available Not Available No t Available lisinopri l 40 mg tablet 09/09 completed Not Available Not Available Not Available ondansetr on 4 mg disintegr ating tablet 4 MG ORALLY EVERY 8 HOURS NEEDED FOR NAUSEA AND VOMITING active Not Available Not Available No t Available cefdinir 300 mg capsule 02/14 completed Not Available Not Available Not Available hydrocort isone 1 % topical cream with perineal applicato r APPLY TO AFFECTED AREA TWICE A DAY active Not Available Not Available No t Available nitrofura ntoin monohydra te/macroc rystals 100 mg capsule 02/14 completed Not Available Not Available Not Available Vitamin D active Not Available Not Fabiana ilable Not Available hydrochlo rothiazid e 12.5 mg tablet TAKE 1 TABLET BY MOUTH EVERY DAY active Not Available Not Available No t Available Prevnar 13 (PF) 0.5 mL intramusc ular syringe 02/14 completed Not Available Not Available Not Available Qbrelis 1 mg/mL oral solution take 10 millilit er by oral route every day 09/09 completed Prescrib ed Elsewher e: Yes Loca tion: [facility] M odify By: alyse escalante DateTime : 09/13/19 19 02:45:00 PM Not Available Not Available Not Available OneTouch Ultra Blue Test Strip 02/14 completed Not Available Not Available Not Available Vitals Date Recorded Body height Body mass index (BMI) Body weight Systolic blood pressure Diastolic blood pressure Provider Name and Address Organization Details Last Updated DateTime 02/15/2020 1981.2 cm 0.2 kg/m2 97730.55 g 135 mm[Hg] 79 mm[Hg] Camilla [facility] 0 10:16:32 Date Recorded Body height Body mass index (BMI) Body weight Systolic blood pressure Diastolic blood pressure Provider Name and Address Organization Details Last Updated DateTime 03/05/2020 1981.2 cm 0.2 kg/m2 09829.96 g 148 mm[Hg] 87 mm[Hg] Camilla Guerra [facility] 0 15:03:32 Date Recorded Body weight Body mass index (BMI) Body height Systolic blood pressure Diastolic blood pressure Provider Name and Address Organization Details Last Updated DateTime 09/09/2023 35295.87 g 30.8 kg/m2 165.1 cm 133 mm[Hg] 81 mm[Hg] Meron Joy [facility] 4 14:19:19 Social History Question Answer Notes LastModified by Organizat ion Details LastModified Time Tobacco Smoking Status Never Smoker Meron Joy [facility] 09/09/2023 14:13:41 What Is Your Level Of Alcohol Consumption? None Information not available 09/09/2023 Are You Blind Or Do You Have Difficulty Seeing? No Information n ot available 09/09/2023 What Is Your Level Of Caffeine Consumption? Moderate Information not available 09/09/2023 In The 14 Days Before Symptom Onset, Have You Had Close Contact With A Laboratory-confirm ed COVID-19 While That Case Was Ill? No Information n ot available 09/09/2023 In The 14 Days Before Symptom Onset, Have You Had Close Contact With A Person Who Is Under Investigation For COVID-19 While That Person Was Ill? No Information not available 09/09/2023 Have You Been To An Area Known To Be High Risk For COVID-19? No Information not available 09/09/2023 Are You Deaf Or Do You Have Serious Difficulty Hearing? No Information not available 09/09/2023 What Type Of Diet Are You Following? REGULAR Information n ot available 09/09/2023 What Is The Highest Grade Or Level Of School You Have Completed Or The Highest Degree You Have Received? [id number] Information not available 09/09/2023 Are There Any Guns Present In Your Home? No Information not available 09/09/2023 Do You Use Protection During Sex? No Information not available 09/09/2023 Do You Use Your Seat Belt Or Car Seat Routinely? Yes Information not available 09/09/2023 Do You Have Smoke And Carbon Monoxide Detectors In Your Home? Yes Information not available 09/09/2023 How Much Tobacco Do You Smoke? No Information not available 09/09/2023 Do You Feel Stressed (tense, Restless, Nervous, Or Anxious, Or Unable To Sleep At Night)? [id number] Information not available 09/09/2023 Do You Use Any Illicit Or Recreational Drugs? No Information not available 09/09/2023 Do You Use Sunscreen Routinely? Yes Information not available 09/09/2023 Have You Used IV Drugs? No Information not available 09/09/2023 Sex: Unknown Functional Status Question Answer Note LastModified by Organizat ion Details LastModified Time Do you have difficulty walking or climbing stairs? No Information not available 09/09/2023 Are you able to walk? YESWOREST Information not available 09/09/2023 Are you able to care for yourself? Yes Information not available 09/09/2023 Do you have difficulty dressing or bathing? No Information not available 09/09/2023 What is your exercise level? Occasional Information not available 09/09/2023 Mental Status None recorded. Family History Relationship Description Onset Age of this Age Resolved Age Notes LastModified by Organization Details LastModified Time Father Heart disease [email or web address] Not available 2019 10:17:31 Medical History Condition Response Diabetes Y Cancer Y Thyroid Problems Y Hypertension Y Gynecological History Statement/Question Response On BCP's at Conception? N N Was last menstrual period normal N STIs/STDs N HPV Vaccine N Duration of Flow (days) 5 Current Control Method Hysterectom y Age at First Child 19 Frequency of Cycle (Q days) 30 Sexually Active? N Menses Monthly N Age of first menstrual cycle 13 Date of Last Pap Smear 09/13/2018 Sexual Problems? N LMP Unknown N Obstetrics History GPAL:G 3 P 3 0 0 3 Type Value Full Term 3 Living 3 Total 3 Past Encounters Encounter ID Performer Location Encounter Start Date Encounter Closed Date Diagnosis/Indication Diagnosis SNOMED-CT Code Diagnosis ICD10 Code Diagnosis Note [id number] Qi Morenojovanabill , [facility] [address],[place] [address] 02/15/2020 10:04:08 02/18/2020 11:16:02 Atrophic vaginitis 86315799 N95.2 Exam wnl except very atrophic appearance . We agreed to r/o infection but we also discuss that she might need vaginal estrogen or similar therapy. Due to her history I advised she contact Dr. Mary Azar [facility]; contact informatio n given. She agreed. In addition, we also agreed to r/o other issues with TVUS for c/o pelvic pressure. Time spent in visit is a total of 15 mins with at least 50% of visit consisting of counseling and review of plan of care. [id number] Qi Taqueria , [facility] [address],[place] [address] 03/05/2020 14:13:59 03/05/2020 17:27:00 Pain in pelvis 08052948 R10.2 TVUS is wnl she is feeling well today no issues. We agreed to continue to use vegetable based moisturize r & if this issue flares up encourage her to contact Dr. Mary Crockett for additional assistance /evaluatio n. She agrees. Time spent in visit is a total of 15 mins with at least 50% of visit consisting of counseling and review of plan of care. [id number] [address] [address] 03/05/2020 14:14:28 03/05/2020 17:32:20 Pain in pelvis 80746674 R10.2 [id number] Janet Ignacio [facility] [address],[place] [address] 09/09/2023 14:09:44 09/10/2023 14:42:30 Atrophic vaginitis 41871350 N95.2 Exam wnl except very atrophic appearance .We agreed to r/o infection but we also discuss that she might need vaginal estrogen or similar therapy. Discussed option of vulvar biopsy as well.veg based moisturize r routine discussed, revaree hyaluronic moisturize r suppositor iesAdvised that with her hx of breast cancer recommende d discuss this issue with her oncologist to see if vaginal estrogen would be an option, as well as may need vulvar nurse behavioral health care referral. Time spent in visit is a total of 25 mins with at least 50% of visit consisting of counseling and review of plan of care. Health Concerns Section Related Observation LastModified by Organization Detai ls LastModified Time None Recorded Concern Status LastModified by Organization Details LastModified Time None Recorded Advance Directives Directive None Recorded Payers Encounter Date Sequence Insurance Name Policy Number Policy Doherty Covered Member ID Doherty Member ID Guarantor Name 02/15/2020 1 [employer] (MEDICARE REPLACEMENT HMO) Melva Amezcua [id number] Melva Amezcua 03/05/2020 1 [employer] (MEDICARE REPLACEMENT HMO) Melva Amezcua [id number] Melva Amezcua 03/05/2020 1 [employer] (MEDICARE REPLACEMENT HMO) Melva Amezcua [id number] Melva Amezcua 09/09/2023 1 [facility] (MEDICARE REPLACEMENT/AD VANTAGE - HMO) [id number] Melva Amezcua [id number] Melva Amezcua Notes Date Note Type Note Provider Name and Address Organization Details Recorded Time 02/15/2020 text/html Vaginal/Vulvar ProblemReported bypatient.Notes:Here for evaluation of possible vaginal infection. Feels a burning in pelvic region inside. Neg urinary sx's Neg VB Neg vag d/c, itching, odor. Hx of hysterectomy 1990 Chemo/radiation Breast cancer with lumpectomy 5yrs ago. Qi Meng [facility] [address], [place], [address], [facility] 02/27/2020 12:00:00 03/05/2020 text/html Patient is here today for f/u TVUS for pelvic pressure that has since resolved. Qi Meng [facility] [address], [place], [address], [facility] 03/05/2020 15:24:14 09/09/2023 text/html 73yo with h/o of hystpresents for evaluation of vulvar burningsymptoms present for 8+ yearsopening of vagina and outer vulva irritated and often burnsdoes not use any soaps/wipes/scented productsneg discharge, odors, itchingneg pelvic painNot currently SAhx of breast cancer Janet Ignacio, C[facility]EL[facility] [address], [place], [address], [place] [facility] 09/10/2023 09:31:19 OBGyn Episode Ob Episode Information Episode Created Date Number of Fetuses Patient Bloodtype Patient rh Status Prepregnancy Weight lbs Domestic Partner Domestic Partner Phone Father Name Handle Rounder Operator Status 02/15/20 20 1 CLOSED Fetus Data First Name Last Name Admitted to NICU Weight (g) Sex Living Outcome Pediatric Complications Fetus ID Race Codes Race Delivery Type 2135 Benny Calculation Initial Bneny Date Initial Exam Date Initial Exam Provider Initial Ultrasound Date Last Menstrual Period Date Ultra Sound Weeks Gestation 0 Eighteen To Twenty Week Benny Update Ultra Sound Date Fundal Height At Umbil Quickening Date Ultra Sound Latest Weeks Gestation Final Benny Confirmed By Final Benny Confirmed Date Final Benny Date Ultra Sound Latest Days Gestation 0 0 Menstrual History Last Menstrual Date Menses Monthly On Bcp Conception Prior Menses Frequency Hcg Plus Date Menarche Onset Age Delivery Information Delivery Date Delivery Type Labor Anesthesia Weeks Gestation Incision Type Labor Labor Length Hrs Delivered By Post Complications Tubal Sterilization Discharge Date Comments 9 Discharge Information Feeding Method Contraceptive Method Maternal HG B and HCT Levels Ob Episode Information Episode Created Date Number of Fetuses Patient Bloodtype Patient rh Status Prepregnancy Weight lbs Domestic Partner Domestic Partner Phone Father Name Handle Rounder Operator Status 02/15/20 20 1 CLOSED Fetus Data First Name Last Name Admitted to NICU Weight (g) Sex Living Outcome Pediatric Complications Fetus ID Race Codes Race Delivery Type [id number] Benny Calculation Initial Benny Date Initial Exam Date Initial Exam Provider Initial Ultrasound Date Last Menstrual Period Date Ultra Sound Weeks Gestation 0 Eighteen To Twenty Week Benny Update Ultra Sound Date Fundal Height At Umbil Quickening Date Ultra Sound Latest Weeks Gestation Final Benny Confirmed By Final Benny Confirmed Date Final Benny Date Ultra Sound Latest Days Gestation 0 0 Menstrual History Last Menstrual Date Menses Monthly On Bcp Conception Prior Menses Frequency Hcg Plus Date Menarche Onset Age Delivery Information Delivery Date Delivery Type Labor Anesthesia Weeks Gestation Incision Type Labor Labor Length Hrs Delivered By Post Complications Tubal Sterilization Discharge Date Comments 0 Discharge Information Feeding Method Contraceptive Method Maternal HG B and HCT Levels Ob Episode Information Episode Created Date Number of Fetuses Patient Bloodtype Patient rh Status Prepregnancy Weight lbs Domestic Partner Domestic Partner Phone Father Name Handle Rounder Operator Status 02/15/20 20 1 CLOSED Fetus Data First Name Last Name Admitted to NICU Weight (g) Sex Living Outcome Pediatric Complications Fetus ID Race Codes Race Delivery Type 2136 Benny Calculation Initial Benny Date Initial Exam Date Initial Exam Provider Initial Ultrasound Date Last Menstrual Period Date Ultra Sound Weeks Gestation 0 Eighteen To Twenty Week Benny Update Ultra Sound Date Fundal Height At Umbil Quickening Date Ultra Sound Latest Weeks Gestation Final Benny Confirmed By Final Benny Confirmed Date Final Benny Date Ultra Sound Latest Days Gestation 0 0 Menstrual History Last Menstrual Date Menses Monthly On Bcp Conception Prior Menses Frequency Hcg Plus Date Menarche Onset Age Delivery Information Delivery Date Delivery Type Labor Anesthesia Weeks Gestation Incision Type Labor Labor Length Hrs Delivered By Post Complications Tubal Sterilization Discharge Date Comments 4 Discharge Information Feeding Method Contraceptive Method Maternal HG B and HCT Levels
--- OUTSIDE RECORDS SUMMARY | 2024-11-12 20:40 | XMS_ITS | Encounter Summary ---
Author Organization [facility] Address [address] [place] [id number] Care Team Providers Care Supply Chain Manager Name Role Phone Todd Gasca MD Primary Care Provider [phone] Gt Contreras MD Unavailable Unavailable Md Generic Conversion Primary Care Provider Unavailable Md Generic Conversion Primary Care Provider Unavailable Todd Gasca MD Primary Care Provider [phone] Encounter Details Date Type Department Care Team (Late st Contact Info) Description 11/18/2016 Abstract [facility] AT [address] [address] Siena Ronquillo MA Social History Tobacco Use Types Packs/Day Years Used Date Smoking Tobacco: Never Smokeless Tobacco: Never Alcohol Use Standard Drinks/Week Comments No 0 (1 standard drink = 0.6 oz pur e alcohol) Comments Unknown Sex and Gender Information Value Date Recorded Sex Assigned at Not on file 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 [employer] Gender Identity Not on file Sexual Orientation Not on file 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[employer] Not on file Not on file Not on file documented as of this encounter Plan of Treatment Not on file documented as of this encounter Procedures Procedure Name Priority Date/Time Associated Diagnosis Comments TSH (OUTSIDE LAB) Routine 09/15/2016 LIPID PANEL Routine 09/15/2016 HEPATIC FUNCTION PANEL Routine 09/15/2016 HEMOGLOBIN, GLYCOSYLATED Routine 09/15/2016 THYROXINE, FREE (FT4) Routine 09/15/2016 PROTIME (OUTSIDE LAB) Routine 09/08/2016 CBC (OUTSIDE LAB) Routine 09/08/2016 BASIC METABOLIC PANEL Routine 09/08/2016 documented in this encounter Results * HEPATIC FUNCTION PANEL (09/15/2016) ALBUMIN S/P/B 4.8 3.5 - 5.0 ALKALINE PHOSPHATASE S/P/B 76 ALT 146 AST 133 BILIRUBIN TOTAL S/P/B 0.6 TOTAL PROTEIN S/P/B 7.7 09/15/2016 [facility] Final Result * HEMOGLOBIN, GLYCOSYLATED (09/15/2016) HGB A1C 7.1 09/15/2016 us [facility] Final Result * THYROXINE, FREE (FT4) (09/15/2016) FREE T4 0.96 09/15/2016 [facility] Final Result * TSH (OUTSIDE LAB) (09/15/2016) TSH 2.310 09/15/2016 [facility]-OUTSIDE/ABSTRACTED Final Result * LIPID PANEL (09/15/2016) CHOLESTEROL 240 HDL 48 TRIGLYCERIDES 143 LDL (CALCULATED) 163 09/15/2016 [facility] Final Result * BASIC METABOLIC PANEL (09/08/2016) SODIUM S/P/B 142 POTASSIUM S/P/B 3.2 CO2 27 CHLORIDE S/P/B 101 GLUCOSE 175 CALCIUM S/P/B 9.6 BUN 14 CREATININE S/P/B 0.7 0.5 - 1.0 EGFR NON-AFR. AMER. >60 <=90 09/08/2016 [facility] Final Result * PROTIME (OUTSIDE LAB) (09/08/2016) PROTIME 13.0 INR 1.0 09/08/2016 [facility] LAB-OUTSIDE/ABSTRACTED Final Result * CBC (OUTSIDE LAB) (09/08/2016) WBC 5.9 HGB 13.7 HCT 39.8 PLT 212 09/08/2016 [facility] LAB-OUTSIDE/ABSTRACTED Final Result documented in this encounter Visit Diagnoses Not on filedocumented in this encounter Care Teams Supply Chain Manager Relationship Specialty Start Date End Date Todd Gasca MD [address] [address] PCP - General FAMILY PRACTICE 10/08/16 11/30/16 , Generic ConversionMD PCP - General 12/08/16 04/20/17 Md Generic ConversionMD PCP - General 12/01/16 12/07/16 Todd Gasca MD [address] [address] PCP - General 04/21/17 Gt Contreras MD [address] [address] [place] [facility] Drier CARDIOVASCULAR DISEASE 11/07/16 documented as of this encounter
--- OUTSIDE RECORDS SUMMARY | 2024-11-12 20:40 | XMS_ITS | Clinical Summary ---
Author Organization [facility] Address [address] [place] [address] Care Team Providers Care Hospital Carrier Name Role Phone Crow Contreras MD Unavailable Unavailable Todd Gasca MD Primary Care Provider [phone] Allergies No known active allergies Medications lisinopril 40 MG tablet Take 1 tablet daily 10/23/2016 Active metFORMIN 500 MG tablet Take 1 tablet daily 10/23/2016 Active Active Problems Problem Noted Date Diagnosed Date Abnormal ECG 11/25/2016 Essential hypertension Dyslipidemia Family History Medical History Relation Comments Coronary artery disease Father [place] Father *cause of at age 69 Other Maternal Grandmother at age 69 Diabetes Mother Hyperlipidemia Mother Hypertension Mother als Mother at age 71 [place] Other Paternal side Au nt, Uncle, and cousin in 40's-50's from [place] Stroke Paternal Grandmother in 1950 [place] Sister at age 40 Relation Status Comments Father Maternal Grandmother Mother Other Paternal Grandmother Sister Social History Tobacco Use Types Packs/Day Years Used Date Smoking Tobacco: Never Smokeless Tobacco: Never Alcohol Use Standard Drinks/Week Comments No 0 (1 standard drink = 0.6 oz pur e alcohol) Comments Unknown Sex and Gender Information Value Date Recorded Sex Assigned at Not on file 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 Gender Identity Not on file Sexual Orientation Not on file 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 Not on file Not on file Last Filed Vital Signs Vital Sign Reading Time Taken Comments Blood Pressure 124/82 12/11/2016 12:46 PM CDT Pulse 58 12/11/2016 12:46 PM CDT Temperature - - Respiratory Rate - - Oxygen Saturation 98% 12/11/2016 12:46 PM CDT Inhaled Oxygen Concentration - - Weight 81.6 kg (180 lb) 12/11/2016 12:46 PM CDT Height 165.1 cm (5' 5 ) 12/11/2016 12:46 PM CDT Body Mass Index 29.95 12/11/2016 12:46 PM CDT Plan of Treatment Health Maintenance Due Date Last Done Comments Colorectal Cancer Screening Colonoscopy (10 Years) 1950 Hepatitis C 1969 DTaP, Tdap and Td Vaccines ( 1 - Tdap) 1970 Zoster Vaccines (1 of 2) 2001 Mammogram Screening 09/20/2015 09/20/2013 Annual Medicare Wellness Visit 2016 Dexa Scan (General) 2016 Pneumococcal Vaccine: 65+ Ye ars (1 of 1 - PCV) 2016 COVID-19 Vaccine (2023-2 5 season) 2024 Influenza Adult (#1) 2024 RSV Immunization or 60+ Years (1 - 1-dose 75+ series) 2026 Meningococcal B Vaccine Aged Out No l onger eligible based on patient's age to complete this topic Meningococcal Vaccine Aged Out No sarkis bob eligible based on patient's age to complete this topic RSV Immunizations Under 20 Months Aged Out No longer eligible based on patient's age to complete this topic Procedures Procedure Name Priority Date/Time Associated Diagnosis Comments MAMMOGRAM GENERIC (SCAN ORDER) Routine 09/20/2013 11:09 AM MACHINE TAILER from Last 3 Months or Most Recently Relevant to Health Maintenance Results * MAMMOGRAM GENERIC (09/20/2013 11:09 AM MACHINE TAILER) Anatomical Region Laterality Modality Other 09/20/2013 11:0 9 AM MACHINE TAILER 09/20/2013 11:09 AM MACHINE TAILER Narrative 09/20/2013 11:58 AM MACHINE TAILER MELVA PALOMO ORDERING MD: CROW MAYEN MD ACCT: [id number] ADMIT/SERVICE DATE: 09/20/13 DISCHARGE DATE: : 1950 PT TYPE: REG SDC SEX: F ORD SITE: [facility] STUDY DATE REPORT # PROCEDURE CODE PROCEDURE 09/20/13 [id number] SPECIMEN MG BREAST SPECIMEN EXTORDERID [id number] ACCESSION NUMBER [id number] CHART DOCUMENT IMPRESSION: SURGICAL CLIP AND MASS IDENTIFIED WITHIN THE SURGICAL SPECIMEN FROM THE UPPER OUTER ASPECT OF THE RIGHT BREAST. HISTORY: RIGHT BREAST CANCER. SPECIMEN RADIOGRAPH FROM THE RIGHT BREAST FINDINGS: SPECIMEN RADIOGRAPH FROM THE RIGHT BREAST SHOWS A SURGICAL CLIPS WELL THE SOFT TISSUE MASS AND THE J-WIRE DEVICE WITHIN A SINGLE SURGICAL SPECIMEN. DIGITAL MAMMOGRAPHIC VIEWS REVIEWED BY R2 IMAGE CHECK. ELECTRONICALLY SIGNED BY: OMAR HADDAD M.D. 09/20/2013 11:56 OMAR HADDAD M.D. A #[id number] CC: Lidya YADAV M.D. Procedure Note Dariana Guerra MD - 06/30/2018 MELVA PALOMO ORDERING MD: CROW MAYEN MD ACCT: [id number] ADMIT/SERVICE DATE: 09/20/13 DISCHARGE DATE: : 1950 PT TYPE: REG SDC SEX: F ORD SITE: [facility] STUDY DATE REPORT # PROCEDURE CODE PROCEDURE 09/20/13 [id number] SPECIMEN MG BREAST SPECIMEN EXTORDERID [id number] ACCESSION NUMBER [id number] CHART DOCUMENT IMPRESSION: SURGICAL CLIP AND MASS IDENTIFIED WITHIN THE SURGICAL SPECIMEN FROM THE UPPER OUTER ASPECT OF THE RIGHT BREAST. HISTORY: RIGHT BREAST CANCER. SPECIMEN RADIOGRAPH FROM THE RIGHT BREAST FINDINGS: SPECIMEN RADIOGRAPH FROM THE RIGHT BREAST SHOWS A SURGICALCLIPS WELL THE SOFT TISSUE MASS AND THE J-WIRE DEVICE WITHIN A SINGLE SURGICAL SPECIMEN. DIGITAL MAMMOGRAPHIC VIEWS REVIEWED BY R2 IMAGE CHECK. ELECTRONICALLY SIGNED BY: OMAR HADDAD M.D. 09/20/2013 11:56 OMAR HADDAD M.D. A #[id number] A/MA CC: Lidya YADAV M.D. us Generic Conversion Md GUERRA SCANNING Final R esult from Last 3 Months or Most Recently Relevant to Health Maintenance Insurance [facility] Advance Directives Documents on File Type Date Recorded Patient Community Relations Coordinator Expl anation Advance Directives and Livin g Will 09/20/2013 POWER OF EXTENSION SERVICE SPECIALIST Care Teams Hospital Carrier Relationship Specialty Start Date End Date Todd Gasca MD [address] [place] [id number] PCP - General 04/21/17 Crow Contreras MD [facility] CARDIOVASCULAR DISEASE 11/07/16
--- NOTE | 2024-11-12 20:43 | ED_ITS ---
HPI - Abdominal Pain General Chief Complaint: Abdominal Pain Stated Complaint: LLQ ABD PAIN Source: patient and EMS Mode of arrival: EMS Limitations: no limitations History of Present Illness HPI narrative: This is a 74-year-old female, with history of diverticulitis who presents to the emergency department complaining of left lower quadrant abdominal pain beginning approximately 7 hours prior to arrival. The patient describes the pain as sharp, rated moderate to severe, radiating towards the back without any known aggravating or alleviating factors. She denies associated bleeding, vomiting or dysuria. She complains of mild nausea. She has no other complaints at this time. EMS reports vital signs within normal limits. She was given 4 mg of morphine EN route. Related Data Home Medications ?Medication ?Instructions ?Recorded ?Confirmed ?Last Taken ?Type glucosamine-chondroitin 250 mg-200 1 tablet PO DAILY 10/30/21 11/13/24 11/13/24 History mg tablet multivitamin 1 tablet PO DAILY 10/30/21 11/13/24 11/13/24 History amlodipine 5 mg tablet 10 mg PO DAILY 09/05/23 11/13/24 11/13/24 History potassium chloride 10 mEq 10 meq PO DAILY 06/08/24 11/13/24 11/13/24 History capsule,extended release cholecalciferol (vitamin D3) 25 25 mcg PO DAILY 11/13/24 11/13/24 11/13/24 History mcg (1,000 unit) tablet (Vitamin D3) Allergies Allergy/AdvReac Type Severity Reaction Status Date / Time No Known Allergies Allergy Verified 11/12/24 20:20 Review of Systems 2 Review of Systems: All systems reviewed & are unremarkable except as noted in HPI and below PMFSH Past Medical History Medical History Motion sickness HLD (hyperlipidemia) Breast cancer bilateral, s/p lumpectomy x5 and chemo/radiation Osteoporosis Calculus, kidney BMI 30.0-30.9,adult Thyroid condition Diabetes Hypertension Surgical History Surgical History History of bladder surgery History of colon resection r/t diverticulitis H/O parathyroidectomy H/O: hysterectomy 1989 Hx of tonsillectomy History of lumpectomy x1 left, x4 right Family History Family History Father Heart attack Mother ALS (amyotrophic lateral sclerosis) Other Cerebrovascular accident Hypertension Social History Social History Smoking status: Never smoker Alcohol intake: never Alcohol use details: RARELY Substance use: never Substance use type: does not use Do You Feel Safe in your Home?: Yes Lack of Transportation: No Lack of Food: Never True Current Housing: I Have Housing Concerned About Future Housing: No Difficulty Paying Gas/Electric Bills: No Difficulty Paying for Meds: No Currently Unemployed: No Education: High School Diploma/GED Difficulty w/ Childcare or Family Care: No Living arrangements: with family Additional living arrangements comments: SIGNIFICANT OTHER Gender identity (if verbalized by the patient): Female Spiritual care concerns: No Exam 2 Narrative: GENERAL: Well-developed, well-nourished, appears uncomfortable HEAD: Normocephalic, atraumatic. EYES: PERRLA and EOMI. CHEST: Clear to auscultation. No respiratory distress. No wheezes rales or rhonchi HEART: Regular rate and rhythm. No murmur heard. Normal peripheral pulses. ABDOMEN: Soft, mild suprapubic tenderness to palpation, without rebound or guarding, nondistended, normal active bowel sounds. EXTREMITIES: Normal range of motion. No edema. SKIN: Warm, dry, no rash. NEURO: Alert and oriented x3. No focal deficit. Moving all 4 limbs spontaneously PSYCH: Normal mood and affect. Course Course Emergency Course: 22:35 - CBC unremarkable. Chemistries demonstrate mild hypokalemia with potassium of 3.3 but is otherwise unremarkable. Urinalysis shows 1+ ketones but is not concerning for urinary tract infection. CT scan of the abdomen demonstrates a 6 mm left ureteral stone with hydronephrosis. 5 mm stones are also seen at the kidney. There are no other acute intra-abdominal processes noted. On re-evaluation after multiple rounds of morphine intraorbital, the patient's pain is not controlled. I discussed the patient with urologist, Dr. Sheets who agrees to consult with plan for stent placement tomorrow. 22:47 - The patient has had intermittent episodes of hypoxia down to 70 for that almost immediately corrects to the mid 90s. She was placed on 2 L of O2. She has not been complaining of shortness of breath. Will obtain a chest x-ray. I discussed the patient with hospitalist, ADELA Vera who accepts admission. Vital Signs Vital signs: Vital Signs Temperature 98.1 F 11/12/24 20:11 Pulse Rate 87 11/12/24 20:11 Respiratory Rate 17 11/12/24 20:11 Blood Pressure 145/73 H 11/12/24 20:11 Pulse Oximetry 98 11/12/24 20:11 Oxygen Delivery Room Air 11/12/24 20:11 Temperature 98.1 F 11/12/24 20:11 Pulse Rate 67 11/13/24 01:52 Respiratory Rate 20 11/12/24 23:38 Blood Pressure 145/87 H 11/12/24 23:38 Pulse Oximetry 95 11/13/24 01:52 Oxygen Delivery Nasal Cannula 11/13/24 01:52 Oxygen Flow Rate 2 11/13/24 01:52 MDM - Abdominal Pain MDM Narrative Medical decision making narrative: Plan: Labs, pain control, antiemetics, imaging, reassess Differential Diagnosis Differential diagnosis: Likely abdominal pain, calculus of kidney, constipation, diverticulitis, gastroenteritis, pancreatitis, small bowel obstruction and other (Bowel ischemia, metabolic abnormality, UTI, pyelonephritis, other) Lab Data 11/12/24 20:45 11/12/24 20:45 Labs: Lab Results 11/12/24 11/12/24 Range/Units 20:45 21:40 WBC 7.7 (4.5-10.0) K/mm3 RBC 4.63 (4.2-5.4) M/mm3 Hgb 12.6 (12.0-15.0) g/dL Hct 38.0 (37.0-47.0) % MCV 82.1 (80-100) fl MCH 27.2 (26-34) pg MCHC 33.2 (32-36) g/dl RDW 14.9 H (11.5-14.5) % Plt Count 216 (150-375) k/mm3 MPV 10.3 (7.4-10.4) fl Immature Gran % (Auto) 0.3 (0-0.5) % Neut % (Auto) 80.5 H (45.5-73.1) % Lymph % (Auto) 12.9 L (18.3-44.2) % [place] % (Auto) 5.6 (2.6-8.5) % Eos % (Auto) 0.3 (0-4.4) % Baso % (Auto) 0.4 (0.2-1.2) % Lymph # (Auto) 0.99 (0.9-3.2) K/mm3 [place] # (Auto) 0.4 (0.1-0.6) K/mm3 Eos # (Auto) 0.0 (0-0.3) K/mm3 Baso # (Auto) 0.0 (0.0-0.1) K/mm3 Abs Immat Gran (auto) 0.02 (0.00-0.031) K/mm3 Absolute Neuts (auto) 6.2 (1.3-6.7) K/mm3 Absolute Nucleated RBC 0.000 (0.0-0.012) K/mm3 Nucleated RBC % 0.0 (0.0-0.2) % PT 13.4 (11.1-14.7) Seconds INR 1.0 Sodium 137 (137-145) mmol/L Potassium 3.3 L (3.4-5.0) mmol/L Chloride 102 (98-107) mmol/L Carbon Dioxide 24 (22-30) mmol/L Anion Gap 11 (4-12) mmol/L BUN 16 (7-17) mg/dL Creatinine 0.66 L (0.7-1.0) mg/dL Estim Creat Clear Calc 69 ml/min Estimated GFR > 60 (59 - ) Glucose 186 H (65-110) mg/dL Lactic Acid 2.0 (0.7-2.0) mmol/L Calcium 9.5 (8.4-10.2) mg/dL Total Bilirubin 0.6 (0.2-1.3) mg/dL AST 34 (14-36) U/L ALT 37 H (6-35) U/L Alkaline Phosphatase 74 (38-126) U/L Total Protein 7.0 (6.3-8.2) g/dL Albumin 4.4 (3.5-5.1) g/dL Lipase 119 (23-300) U/L Urine Color Yellow (Yellow) Urine Appearance Cloudy H (Clear) Urine pH 7.0 (5.0-9.0) Ur Specific [place] 1.035 (1.001-1.035) Urine Protein Trace (Negative) mg/dL Urine Glucose (UA) Negative (Negative) mg/dL Urine Ketones 1+ H (Negative) mg/dL Ur Blood (Man) Negative (Negative) Urine Nitrate Negative (Negative) Urine Bilirubin Negative (Negative) Urine Urobilinogen 0.2 (<2.0) mg/dL Leukocyte Esterase Rfl Negative (Negative) DOUG/UL Urine RBC 0-2 (0-2) /hpf Urine WBC 0-5 (0-3) /hpf Ur Squamous Epith Cells None seen (Few) /hpf Urine Bacteria None seen /hpf Urine Casts 0-2 Imaging Data Radiologist's impression: ITS Impressions Abdomen/Pelvis CT 11/12/24 21:52 IMPRESSION: 1. Stone in the left upper ureter with left hydronephrotic changes. Multiple left kidney stones. 2. No evidence of appendicitis, diverticulitis or intestinal obstruction. 3. Fat infiltration of the liver. Hepatomegaly. Discharge Plan Discharge Clinical Impression: Abdominal pain, acute, left lower quadrant, Ureterolithiasis Patient Disposition: Still a Patient Condition: Stable Time of Disposition: 22:48
[2024-11-12 20:54] LABS: Basophils Percent Auto 0.4 % (0.2-1.2); Eosinophils Percent Auto 0.3 % (0-4.4); Hemoglobin 12.6 g/dL (12.0-15.0); Immature Granulocyte Absolute 0.02 K/mm3 (0.00-0.031); Immature Granulocyte Percent A 0.3 % (0-0.5); Lymphocytes Absolute Auto 0.99 K/mm3 (0.9-3.2); Lymphocytes Percent Auto 12.9 % (18.3-44.2); Mean Corpuscular HGB Conc 33.2 g/dl (32-36); Mean Corpuscular Hemoglobin 27.2 pg (26-34); Mean Corpuscular Volume 82.1 fl (80-100); Mean Platelet Volume 10.3 fl (7.4-10.4); Monocytes Absolute Auto 0.4 K/mm3 (0.1-0.6); Monocytes Percent Auto 5.6 % (2.6-8.5); Neutrophils Absolute Auto 6.2 K/mm3 (1.3-6.7); Neutrophils Percent Auto 80.5 % (45.5-73.1); Platelet Count Result 216 k/mm3 (150-375); Red Blood Count 4.63 M/mm3 (4.2-5.4); Red Cell Distribution Width 14.9 % (11.5-14.5); White Blood Count 7.7 K/mm3 (4.5-10.0)
[2024-11-12] MEDS: SODIUM CHLORIDE 0.9% IV 1,000 ML 999 ML IV CONT (21:03)
[2024-11-12] MEDS: ONDANSETRON INJ 4 MG/2 ML VIAL IV PUSH (21:03)
[2024-11-12] MEDS: MORPHINE SULFATE (*CRX) 4 MG/ML INJ IV PUSH ×2 (21:04→22:15)
[2024-11-12 21:05] LABS: Alanine Aminotransferase 37 U/L (6-35); Albumin Level 4.4 g/dL (3.5-5.1); Alkaline Phosphatase 74 U/L (38-126); Anion Gap 11 mmol/L (4-12); Aspartate Amino Transferase 34 U/L (14-36); Bilirubin,Total 0.6 mg/dL (0.2-1.3); Blood Urea Nitrogen 16 mg/dL (7-17); Calcium 9.5 mg/dL (8.4-10.2); Carbon Dioxide 24 mmol/L (22-30); Chloride 102 mmol/L (98-107); Estimated CRCL calculation 69 ml/min; Estimated Glomerular Filt Rate > 60; Glucose 186 mg/dL (65-110); Lipase 119 U/L (23-300); Potassium 3.3 mmol/L (3.4-5.0); Sodium 137 mmol/L (137-145)
[2024-11-12 21:07] LABS: Prothrombin Time 13.4 Seconds (11.1-14.7)
[2024-11-12] MEDS: KETOROLAC 30 MG/ML VIAL (*BKC) IV PUSH (21:43)
[2024-11-12 21:48] LABS: Add Urine Microscopic? YES; Appearance Urine Cloudy (Clear); Bacteria Urine None Seen /hpf; Bilirubin Urine Negative (Negative); Blood Urine Negative (Negative); Color Urine Yellow (Yellow); Glucose Urine UA Negative (Negative); Ketones Urine 1+ mg/dL (Negative); Leukocyte Esterase Ur Negative LEU/UL (Negative); Nitrate Urine Negative (Negative); Non Pathogenic Casts 0-2; Protein Urine Trace mg/dL (Negative); RBC Urine 0-2 /hpf (0-2); Specific Grav Ur 1.035 (1.001-1.035); Squamous Epithelial Cell Urine None Seen /hpf (Few); Urobilinogen Urine 0.2 mg/dL (<2.0); WBC Urine 0-5 /hpf (0-3)
[2024-11-12 22:17] VITALS: BP 145/87; PULSE 95; RESP 20; O2SAT 97
[2024-11-12 22:18] VITALS: O2SAT 97
--- NOTE | 2024-11-12 22:24 | P.CONUR_ITS ---
Assessment and Plan Assessment and plan (1) Calculus of left ureter: Code(s): N20.1 - Calculus of ureter Status: Acute Assessment and Plan: Assessment: - Left ureteral stone with hydronephrosis - Intractable pain Medical Decision Making: Pain control is the primary concern at present. Given the stone size and location, spontaneous passage at home or during hospitalization is unlikely. Due to inadequate pain control for outpatient management, admission is warranted for pain management with planned surgical intervention. Plan: - Admited to hospital service - NPO - Proceed cystoscopy, left retrograde pyelogram, left ureteral stent placement - May potentially discharge home post-operatively if afebrile with stable vitals and adequate pain control - Follow up in office for stone treatment planning within next couple weeks (She has had stones in the past, sees Dr. Brown, and has had stent issues in the past but agrees to having a stent placed today with hopes of an expedited ESWL after) Urology Consult Note HPI Date Seen: 11/13/24 Primary Care Provider: Todd Gasca MD Consult Narrative Narrative: Chief Complaint: - Left sided abdominal pain 11/12/2024 History of Present Illness: Ms. Amezcua presents with sudden onset left sided abdominal pain beginning approximately seven hours prior to emergency department presentation. CT abdomen and pelvis with contrast demonstrates a 6mm proximal left ureteral stone with associated hydronephrosis. Additional non-obstructing stones are noted in the left upper pole, with no stones visualized in the right kidney. A delayed nephrogram is present on the left side without perirenal stranding. Prior history includes diverticulitis. In the ER, her pain was poorly controlled so she is being admitted for pain control and ureteral stent. She has had stones in the past, sees Dr. Brown, and has had stent issues in the past but agrees to having a stent placed today with hopes of an expedited ESWL after -PERTINENT LABS: 11/12/2024 - WBC: 7.7 11/12/2024 - Creatinine: 0.7 -PERTINENT IMAGIN11/12/2024 CT Abdomen/Pelvis with contrast (ED) - 6mm proximal left ureteral stone with hydronephrosis, non-obstructing left upper pole stones, delayed left nephrogram, no perirenal stranding 11/12/2024 UA: Nitrite negative, blood negative, leukocyte esterase negative Review of Systems 2 Review of Systems: All systems reviewed & are unremarkable except as noted in HPI and below [facility] Past Medical History Medical History (Updated 11/13/24 @ 06:15 by Shirley Vera PA-C) Bilateral breast cancer status post lumpectomy and chemoradiation Kidney stones Type 2 diabetes mellitus Hyperlipidemia Motion sickness Osteoporosis Thyroid condition Hypertension Surgical History Surgical History (Updated 11/13/24 @ 04:15 by Shirley Vera PA-C) History of lumpectomy of both breasts History of hysterectomy History of tonsillectomy History of parathyroidectomy History of bladder surgery History of colon resection r/t diverticulitis Family History Family History Father Heart attack Mother ALS (amyotrophic lateral sclerosis) Other Cerebrovascular accident Hypertension Social History Social History (Updated 11/13/24 @ 04:15 by Shirley Vera PA-C) Social History: Surrogate medical decision maker: Dary Barber, daughter. Code status: Full code. Smoking status: Never smoker Alcohol intake: never Alcohol use details: rare alcohol use in moderation Substance use: never Substance use type: does not use Do You Feel Safe in your Home?: Yes Lack of Transportation: No Lack of Food: Never True Current Housing: I Have Housing Concerned About Future Housing: No Difficulty Paying Gas/Electric Bills: No Difficulty Paying for Meds: No Currently Unemployed: No Education: High School Diploma/GED Difficulty w/ Childcare or Family Care: No Living arrangements: with family Additional living arrangements comments: Lives with significant other in [place]. Spiritual care concerns: No Meds Home Medications and Allergies Home Medications ?Medication ?Instructions ?Recorded ?Confirmed ?Type glucosamine-chondroitin 250 mg-200 1 tablet PO DAILY 10/30/21 11/13/24 History mg tablet multivitamin 1 tablet PO DAILY 10/30/21 11/13/24 History amlodipine 5 mg tablet 10 mg PO DAILY 09/05/23 11/13/24 History potassium chloride 10 mEq 10 meq PO DAILY 06/08/24 11/13/24 History capsule,extended release cholecalciferol (vitamin D3) 25 25 mcg PO DAILY 11/13/24 11/13/24 History mcg (1,000 unit) tablet (Vitamin D3) Allergies Allergy/AdvReac Type Severity Reaction Status Date / Time No Known Allergies Allergy Verified 11/12/24 20:20 Vital Signs Vital Signs - 24 hr 11/12/24 20:11 11/12/24 22:17 11/12/24 22:18 Temperature 36.7 C Pulse Rate 87 95 Respiratory Rate 17 20 Blood Pressure 145/73 H 145/87 H Pulse Oximetry 98 97 97 Oxygen Delivery Room Air Nasal Cannula Oxygen Flow Rate 2 Exam 2 Narrative: No acute distress, but does appear to be in discomfort Results Labs 11/12/24 20:45 11/13/24 05:43 Labs: Short CBC 11/12/24 Range/Units 20:45 WBC 7.7 (4.5-10.0) K/mm3 Hgb 12.6 (12.0-15.0) g/dL Hct 38.0 (37.0-47.0) % Plt Count 216 (150-375) k/mm3 BMP 11/12/24 20:45 Sodium 137 Potassium 3.3 L Chloride 102 Carbon Dioxide 24 BUN 16 Creatinine 0.66 L Glucose 186 H Calcium 9.5 Liver Function 11/12/24 Range/Units 20:45 Total Bilirubin 0.6 (0.2-1.3) mg/dL AST 34 (14-36) U/L ALT 37 H (6-35) U/L Alkaline Phosphatase 74 (38-126) U/L Albumin 4.4 (3.5-5.1) g/dL Urine 11/12/24 Range/Units 21:40 Urine Color Yellow (Yellow) Urine Appearance Cloudy H (Clear) Urine pH 7.0 (5.0-9.0) Ur Specific [place] 1.035 (1.001-1.035) Urine Protein Trace (Negative) mg/dL Urine Glucose (UA) Negative (Negative) mg/dL
[2024-11-12] MEDS: INSULIN GLARGINE (*BKC) 100 UNITS/ML 12 UNITS SUB-Q (23:22)
[2024-11-12 23:38] VITALS: BP 145/87; PULSE 95; RESP 20; O2SAT 97
[2024-11-12 23:38] LABS: Glucose Point of Care 190 mg/dl (65-105)
[2024-11-12 23:47] VITALS: O2SAT 97; BMI 32.1
--- NOTE | 2024-11-12 23:47 | ADMGEN ---
This patient, Melva Amezcua, was admitted to 3 [facility] Surg Room 310-01. Patient/family oriented to hospital policies and general routines including ID bracelet, bed and alarms, visiting hours, pain management, procedures, bathroom and other care routines, personal items, smoking policy, room service/diet, and visiting hours. Information on how to activate the Rapid Response Team has been discussed. Patient/Family are encouraged to report perceived risks to care and to ask questions if they do not understand what they are told or what they should do.
[2024-11-13] VITALS (10 sets, daily range): BP systolic 123–151; BP diastolic 54–82; PULSE 67–89; RESP 15–18; TEMP 36.2–36.7; O2SAT 94–99
[2024-11-13 00:29] LABS: Glucose Point of Care 206 mg/dl (65-105)
[2024-11-13] MEDS: MORPHINE SULFATE (*CRX) 4 MG/ML INJ IV PUSH (00:34)
--- NOTE | 2024-11-13 03:02 | PC.NURSE ---
Daylight Savings Time For Daylight Savings Time Ending in the Fall - Clocks are moved back. For Daylight Savings Time Beginning in the Spring - Clocks are moved ahead. For [facility], the time of change occurs at 0200 hrs. Time is taken from the seismic prospecting observer helper. This entry on the patient's chart recognizes the change in time reflected during documentation. Example: 2 entries for vital signs may be charted for 0200 hrs.
--- NOTE | 2024-11-13 04:07 | P.HP_ITS ---
H&P: HPI History of Present Illness Date/Time: 11/13/24 05:15 Chief Complaint: Abdominal pain. Narrative: This is a 74-year-old female with history of kidney stones, colon resection for diverticulitis, hysterectomy, hypertension, hyperlipidemia, type 2 diabetes mellitus, and breast cancer who presented to the emergency department via private vehicle for evaluation of abdominal pain. The patient provides the f ollowing history. Yesterday afternoon she developed moderate to severe, sharp pain in the left lower quadrant radiating towards the back. No significant aggravating or alleviating factors. Associated symptoms include nausea and vomiting. These symptoms are similar to those she experienced with prior episodes of kidney stones. She denies fever, vomiting, diarrhea, dysuria, hematuria, chest pain, and shortness of breath. In the ED: She was afebrile on arrival with stable vital signs. Labs were significant for potassium of 3.3, glucose 26, creatinine 0.66. Urinalysis was positive for 1+ ketones. CT of the abdomen and pelvis showed a stone in the left upper ureter with left hydronephrotic changes and multiple left kidney stones. She was started on IV fluids and is being admitted in this setting for pain control and urology consultation. Of note, a couple of times while she was still in the ED her SpO2 dropped into the low 70s with a good pleth waveform and she was placed on 2 L.. She did receive morphine early in the evening and she was apparently not sleeping at the time. She denies shortness of breath, cough, pleuritic pain, concerns for aspiration, and history of sleep apnea. Review of Systems Review of Systems: 12 systems were reviewed and are negativ e except for as per HPI. [facility] Past Medical History Medical History (Updated 11/13/24 @ 06:15 by Shirley Vera PA-C) Bilateral breast cancer status post lumpectomy and chemoradiation Kidney stones Type 2 diabetes mellitus Hyperlipidemia Motion sickness Osteoporosis Thyroid condition Hypertension Surgical History Surgical History (Updated 11/13/24 @ 04:15 by Shirley Vera PA-C) History of lumpectomy of both breasts History of hysterectomy History of tonsillectomy History of parathyroidectomy History of bladder surgery History of colon resection r/t diverticulitis Family History Family History Father Heart attack Mother ALS (amyotrophic lateral sclerosis) Other Cerebrovascular accident Hypertension Social History Social History (Updated 11/13/24 @ 04:15 by Shirley Vera PA-C) Social History: Surrogate medical decision maker: Dary Barber, daughter. Code status: Full code. Smoking status: Never smoker Alcohol intake: never Alcohol use details: rare alcohol use in moderation Substance use: never Substance use type: does not use Do You Feel Safe in your Home?: Yes Lack of Transportation: No Lack of Food: Never True Current Housing: I Have Housing Concerned About Future Housing: No Difficulty Paying Gas/Electric Bills: No Difficulty Paying for Meds: No Currently Unemployed: No Education: High School Diploma/GED Difficulty w/ Childcare or Family Care: No Living arrangements: with family Additional living arrangements comments: Lives with significant other in [place]. Spiritual care concerns: No Meds Home Medications and Allergies Home Medications ?Medication ?Instructions ?Recorded ?Confirmed ?Type glucosamine-chondroitin 250 mg-200 1 tablet PO DAILY 10/30/21 11/13/24 History mg tablet multivitamin 1 tablet PO DAILY 10/30/21 11/13/24 History amlodipine 5 mg tablet 10 mg PO DAILY 09/05/23 11/13/24 History potassium chloride 10 mEq 10 meq PO DAILY 06/08/24 11/13/24 History capsule,extended release cholecalciferol (vitamin D3) 25 25 mcg PO DAILY 11/13/24 11/13/24 History mcg (1,000 unit) tablet (Vitamin D3) Allergies Allergy/AdvReac Type Severity Reaction Status Date / Time No Known Allergies Allergy Verified 11/12/24 20:20 Vital Signs Vital Signs - 24 hr 11/12/24 20:11 11/12/24 22:17 11/12/24 22:18 Temperature 98.1 F Pulse Rate 87 95 Respiratory Rate 17 20 Blood Pressure 145/73 H 145/87 H Pulse Oximetry 98 97 97 Oxygen Delivery Room Air Nasal Cannula Oxygen Flow Rate 2 11/12/24 23:38 11/12/24 23:47 11/13/24 01:52 Temperature Pulse Rate 95 67 Respiratory Rate 20 Blood Pressure 145/87 H Pulse Oximetry 97 97 95 Oxygen Delivery Nasal Cannula Nasal Cannula Oxygen Flow Rate 2 2 Exam Narrative: General: Mildly ill-appearing female sitting up in bed. She is in moderate distress due to vomiting and pain. Weight: 87.5 kg. BMI: 32.1. HEENT: PERRL, EOMI. Sclera anicteric. Tacky mucous membranes. Neck: Supple. Respiratory: Lungs are clear to auscultation bilaterally. Cardiovascular: Respirations are nonlabored and lungs are clear to auscultation. Gastrointestinal: Abdomen is soft and nondistended with positive bowel sounds. She is tender to palpation over the left flank without CVA tenderness. Skin: Warm and dry. Extremities: No cyanosis, clubbing, or significant edema. Radial and pedal pulses intact. Neurological: Alert. Cranial nerves 2-12 are grossly intact. No gross focal deficits to casual conversation. Psychiatric: Pleasant and cooperative with normal mood and affect. Judgment and insight intact. H&P: Results Labs Labs: Short CBC 11/12/24 Range/Units 20:45 WBC 7.7 (4.5-10.0) K/mm3 Hgb 12.6 (12.0-15.0) g/dL Hct 38.0 (37.0-47.0) % Plt Count 216 (150-375) k/mm3 BMP 11/12/24 20:45 Sodium 137 Potassium 3.3 L Chloride 102 Carbon Dioxide 24 BUN 16 Creatinine 0.66 L Glucose 186 H Calcium 9.5 Liver Function 11/12/24 Range/Units 20:45 Total Bilirubin 0.6 (0.2-1.3) mg/dL AST 34 (14-36) U/L ALT 37 H (6-35) U/L Alkaline Phosphatase 74 (38-126) U/L Albumin 4.4 (3.5-5.1) g/dL Urine 11/12/24 Range/Units 21:40 Urine Color Yellow (Yellow) Urine Appearance Cloudy H (Clear) Urine pH 7.0 (5.0-9.0) Ur Specific [place] 1.035 (1.001-1.035) Urine Protein Trace (Negative) mg/dL Urine Glucose (UA) Negative (Negative) mg/dL Impressions Abdomen/Pelvis CT 11/12/24 21:52 IMPRESSION: 1. Stone in the left upper ureter with left hydronephrotic changes. Multiple left kidney stones. 2. No evidence of appendicitis, diverticulitis or intestinal obstruction. 3. Fat infiltration of the liver. Hepatomegaly. Assessment and Plan Assessment and plan (1) Calculus of left ureter: Code(s): N20.1 - Calculus of ureter Status: Acute (2) Left nephrolithiasis: Code(s): N20.0 - Calculus of kidney Status: Acute (3) Hydronephrosis: Code(s): N13.30 - Unspecified hydronephrosis Status: Acute (4) Hypoxia: Code(s): R09.02 - Hypoxemia Status: Acute (5) Hypokalemia: Code(s): E87.6 - Hypokalemia Status: Acute (6) Type 2 diabetes mellitus: Code(s): E11.9 - Type 2 diabetes mellitus without complications Status: Acute (7) Hypertension: Qualifiers: Hypertension type: primary hypertension Qualified Code(s): I10 - Essential (primary) hypertension Code(s): I10 - Essential (primary) hypertension Status: Chronic Plan The patient presented to the emergency department for evaluation of left lower quadrant pain radiating into the back as detailed in HPI. Labs, imaging, EKG, and all reports were personally reviewed. CT scan showed a stone in left ureter with left hydronephrotic changes in multiple left kidney stones. Urology has been consulted she will be NPO after midnight for probable cystoscopy with stent placement tomorrow. Continue IV fluids overnight. Analgesics and antiemetics are available as needed. She had a very brief episode of hypoxia in the ED, reportedly down into the low 70s with a good pleth waveform. She is currently on 2 L nasal cannula which will be weaned as tolerated. Chest x-ray has been ordered and she has been placed on continuous pulse oximetry. Potassium was replaced and will be monitored. Blood pressures were reviewed and they are stable. Initiate sliding scale insulin, Accu-Cheks, and hypoglycemic protocol. Her home medications will be reviewed and resumed as appropriate. Findings and treatment plan were discussed with the patient. Questions were solicited and answered to satisfaction. The patient's medical management will be taken over by the hospitalist team in a.m. Quality VTE Prophylaxis VTE prophylaxis: mechanical ordered If No VTE Prophylaxis Answer both mechanical and pharmacologic: Reason no pharmacologic proph: medical contraindication (to OR later today) The patient has been admitted under observation status. Hospitalist MIPS Advance Care Plan I have confirmed that the patient's Advanced Care Plan is present, code status is documented, or surrogate decision maker is listed in patient medical record.: Yes Medication Reconciliation I have utilized all available resources to obtain, update and review the patients current medications (includes all prescriptions, OTC, herbals, cannabis, and nutritional supplements).: Yes
[2024-11-13] MEDS: SODIUM CHLORIDE 0.9% IV 1,000 ML 100 ML IV CONT (04:42)
[2024-11-13] MEDS: ONDANSETRON INJ 4 MG/2 ML VIAL IV PUSH (05:06)
[2024-11-13 05:57] LABS: Hemoglobin A1C 7.4 % (<5.7)
[2024-11-13 06:01] LABS: Alanine Aminotransferase 36 U/L (6-35); Albumin Level 4.3 g/dL (3.5-5.1); Alkaline Phosphatase 66 U/L (38-126); Anion Gap 15 mmol/L (4-12); Aspartate Amino Transferase 31 U/L (14-36); Bilirubin,Total 0.6 mg/dL (0.2-1.3); Blood Urea Nitrogen 16 mg/dL (7-17); Calcium 9.1 mg/dL (8.4-10.2); Carbon Dioxide 19 mmol/L (22-30); Chloride 103 mmol/L (98-107); Estimated CRCL calculation 84 ml/min; Estimated Glomerular Filt Rate > 60; Glucose 190 mg/dL (65-110); Magnesium 1.9 mg/dL (1.6-2.3); Potassium 3.5 mmol/L (3.4-5.0); Sodium 137 mmol/L (137-145)
[2024-11-13 07:58] LABS: Glucose Point of Care 177 mg/dl (65-105)
--- NOTE | 2024-11-13 07:59 | P.PNIM_ITS ---
Progress Note: A&P Assessment and Plan (1) Calculus of left ureter: Code(s): N20.1 - Calculus of ureter Status: Acute Assessment and Plan: - BUN/Cr WNL - UA non concerning for infection - CT abdomen/pelvis: Stone in the left upper ureter with left hydronephrotic changes. Multiple left kidney stones - Analgesics and antiemetics - NPO for procedure - Urology consulted, appreciate recommendations S/p cystoscopy, left retrograde pyelogram, left ureteral stent placement Follow up in office for stone treatment planning within next couple weeks (2) Left nephrolithiasis: Code(s): N20.0 - Calculus of kidney Status: Acute Assessment and Plan: See plan above #1 calculus of left ureter (3) Hydronephrosis: Code(s): N13.30 - Unspecified hydronephrosis Status: Acute Assessment and Plan: See plan above #1 calculus of left ureter (4) Hypoxia: Code(s): R09.02 - Hypoxemia Status: Acute Assessment and Plan: Intermittent hypoxia noted in the ED, SpO2 dropped into the low 70s with a good pleth waveform and she was placed on 2 L NC. She received multiple rounds of morphine for poorly controlled pain and she was apparently not sleeping at the time. - Chest XR: Unremarkable - Viral panel: - Possible etiology is drug induced hypoxia secondary to narcotic use (morphine) - She denies shortness of breath, cough, pleuritic pain, concerns for aspiration, and history of sleep apnea. - Wean oxygen supplementation, Keep SpO2 >90 (5) Hypokalemia: Code(s): E87.6 - Hypokalemia Status: Acute Assessment and Plan: K 3.3 on admission, supplemented and WNL at this time. - Continue home potassium supplement (6) Type 2 diabetes mellitus: Code(s): E11.9 - Type 2 diabetes mellitus without complications Status: Acute Assessment and Plan: - hypoglycemia protocol - POC blood glucose ACHS - home medication - none - correct regimen ordered - low dose TIDWM and HS - A1C 7.4 (7) Hypertension: Qualifiers: Hypertension type: primary hypertension Qualified Code(s): I10 - Essential (primary) hypertension Code(s): I10 - Essential (primary) hypertension Status: Chronic Assessment and Plan: Chronic - amlodipine 10 mg daily - blood pressures remain stable, continue to monitor Subjective Date/time seen: 11/13/24 07:59 Interval history: 74-year-old female with history of kidney stones, colon resection for diverticulitis, hysterectomy, hypertension, hyperlipidemia, type 2 diabetes mellitus, and breast cancer who presented to the hospital via private vehicle for evaluation of abdominal pain. Review of Systems Review of Systems: All systems reviewed & are unremarkable except as noted in HPI and below Exam Narrative: AF General: well nourished, well-developed female in no acute respiratory distress who is nontoxic appearing, lying semi recumbent in bed. HEENT: Normocephalic. Atraumatic. Pupils equal round reactive to light. Extraocular movement intact. Sclera clear and anicteric. Nares patent. No oral lesions. Moist mucous membranes. Tongue is midline. Palate odilia symmetrically. No facial asymmetry. Neck: Neck was supple. No dominant adenopathy, thyromegaly or masses. 2+ carotid upstrokes without bruits. Chest: Lungs are clear to auscultation bilaterlly. No wheezes or crackles. CV: Heart was regular rate and rhythm. S1-S2. No murmurs, gallops, or rubs. Abd: Abdomen was soft. Nontender. Nondistended. Postive bowel sounds. No organomegaly or masses. Ext: No clubbing, cyanosis, or edema. 2+ DP pulses bilaterally. Neuro: Patient is alert and oriented x4. Strenth is 5/5 in both upper and lower extremities. Cranial nerves 2-12 are intact. Speech is clear. Psych: Normal nood and affect. Patient is pleasant and cooperative. Skin: Warm and dry. No rashes noted. Objective Data Vital Signs Vital Signs: Vital Signs - 24 hr 11/12/24 20:11 11/12/24 22:17 11/12/24 22:18 Temperature 98.1 F Pulse Rate 87 95 Respiratory Rate 17 20 Blood Pressure 145/73 H 145/87 H Pulse Oximetry 98 97 97 Oxygen Delivery Room Air Nasal Cannula Oxygen Flow Rate 2 11/12/24 23:38 11/12/24 23:47 11/13/24 01:52 Temperature Pulse Rate 95 67 Respiratory Rate 20 Blood Pressure 145/87 H Pulse Oximetry 97 97 95 Oxygen Delivery Nasal Cannula Nasal Cannula Oxygen Flow Rate 2 2 11/13/24 06:00 Temperature 98.0 F Pulse Rate 83 Respiratory Rate 16 Blood Pressure 131/77 Pulse Oximetry 94 Oxygen Delivery Oxygen Flow Rate Intake/Output Intake/Output: Intake & Output 11/10/24 11/11/24 11/12/24 11/14/24 23:59 23:59 23:59 00:59 Intake Total 1000 Balance 1000 Meds/Results Medications: Active Medications Generic Name Dose Route Start Last Admin Trade Name Freq PRN Reason Stop Dose Admin Amlodipine Besylate 10 mg 11/13/24 09:00 Amlodipine Besylate 10 Mg Tablet PO DAILY [facility] Dextrose 12.5 gm 11/13/24 04:18 Dextrose 50% 25 Gm/50 Ml Syringe IV PUSH PRN PRN Hypoglycemia Protocol Glucagon 1 mg 11/13/24 04:18 Glucagon For Inj 1 Mg Vial IM PRN PRN Hypoglycemia Protocol Glucose 15 gm 11/13/24 04:18 Glucose Oral Gel 15 Gm Of Glucse In 37.5 Gm Tube PO PRN PRN Hypoglycemia Protocol Dextrose 1,000 mls @ 100 mls/hr 11/13/24 04:18 Dextrose 5% 1,000 Ml IVPB PRN PRN Hypoglycemia Protocol Sodium Chloride 1,000 mls @ 100 mls/hr 11/13/24 04:20 11/13/24 04:42 Normal Saline Iv IV CONT 11/13/24 14:19 100 mls/hr .Q10H ONE Administration Insulin Aspart 3 - 6 units 11/13/24 08:00 Insulin Aspart (*Bkc) 100 Units/Ml SUB-Q TIDWM [facility] Protocol Insulin Aspart 1 - 3 units 11/13/24 21:00 Insulin Aspart (*Bkc) 100 Units/Ml SUB-Q HS [facility] Protocol Morphine Sulfate 4 mg 11/12/24 22:45 11/13/24 00:34 Morphine Sulfate (*Crx) 4 Mg/Ml Inj IV PUSH 4 mg Q2H PRN Administration Pain Rated 7-10 Morphine Sulfate 2 mg 11/13/24 04:20 Morphine Sulfate (*Crx) 2 Mg/Ml Inj IV PUSH Q4H PRN Pain Rated 4-6 Ondansetron HCl 4 mg 11/13/24 04:55 11/13/24 05:06 Ondansetron Inj 4 Mg/2 Ml Vial IV PUSH 4 mg Q6H PRN Administration Nausea And Vomiting Potassium Chloride 10 meq 11/13/24 08:00 Potassium Chloride 10 Meq Er Tablet PO DAILY@0800 [facility] Radiology Results: ITS Impressions Abdomen/Pelvis CT 11/12/24 21:52 IMPRESSION: 1. Stone in the left upper ureter with left hydronephrotic changes. Multiple left kidney stones. 2. No evidence of appendicitis, diverticulitis or intestinal obstruction. 3. Fat infiltration of the liver. Hepatomegaly. Chest X-Ray 11/13/24 06:20 Impression: Clear lungs. Labs Labs: Laboratory Results - last 24 hr 11/12/24 11/12/24 11/12/24 20:45 21:40 23:33 WBC 7.7 RBC 4.63 Hgb 12.6 Hct 38.0 MCV 82.1 MCH 27.2 MCHC 33.2 RDW 14.9 H Plt Count 216 MPV 10.3 Immature Gran % (Auto) 0.3 Neut % (Auto) 80.5 H Lymph % (Auto) 12.9 L [place] % (Auto) 5.6 Eos % (Auto) 0.3 Baso % (Auto) 0.4 Lymph # (Auto) 0.99 [place] # (Auto) 0.4 Eos # (Auto) 0.0 Baso # (Auto) 0.0 Abs Immat Gran (auto) 0.02 Absolute Neuts (auto) 6.2 Absolute Nucleated RBC 0.000 Nucleated RBC % 0.0 PT 13.4 INR 1.0 Sodium 137 Potassium 3.3 L Chloride 102 Carbon Dioxide 24 Anion Gap 11 BUN 16 Creatinine 0.66 L Estim Creat Clear Calc 69 Estimated GFR > 60 Glucose 186 H POC Capillary Glucose 190 H Hemoglobin A1c Lactic Acid 2.0 Calcium 9.5 Magnesium Total Bilirubin 0.6 AST 34 ALT 37 H Alkaline Phosphatase 74 Total Protein 7.0 Albumin 4.4 Lipase 119 Urine Color Yellow Urine Appearance Cloudy H Urine pH 7.0 Ur Specific [place] 1.035 Urine Protein Trace Urine Glucose (UA) Negative Urine Ketones 1+ H Ur Blood (Man) Negative Urine Nitrate Negative Urine Bilirubin Negative Urine Urobilinogen 0.2 Leukocyte Esterase Rfl Negative Urine RBC 0-2 Urine WBC 0-5 Ur Squamous Epith Cells None seen Urine Bacteria None seen Urine Casts 0-2 11/13/24 11/13/24 11/13/24 00:14 05:43 07:44 WBC RBC Hgb Hct MCV MCH MCHC RDW Plt Count MPV Immature Gran % (Auto) Neut % (Auto) Lymph % (Auto) [place] % (Auto) Eos % (Auto) Baso % (Auto) Lymph # (Auto) [place] # (Auto) Eos # (Auto) Baso # (Auto) Abs Immat Gran (auto) Absolute Neuts (auto) Absolute Nucleated RBC Nucleated RBC % PT INR Sodium 137 Potassium 3.5 Chloride 103 Carbon Dioxide 19 L Anion Gap 15 H BUN 16 Creatinine 0.55 L Estim Creat Clear Calc 84 Estimated GFR > 60 Glucose 190 H POC Capillary Glucose 206 H 177 H Hemoglobin A1c 7.4 H Lactic Acid Calcium 9.1 Magnesium 1.9 Total Bilirubin 0.6 AST 31 ALT 36 H Alkaline Phosphatase 66 Total Protein 7.0 Albumin 4.3 Lipase Urine Color Urine Appearance Urine pH Ur Specific [place] Urine Protein Urine Glucose (UA) Urine Ketones Ur Blood (Man) Urine Nitrate Urine Bilirubin Urine Urobilinogen Leukocyte Esterase Rfl Urine RBC Urine WBC Ur Squamous Epith Cells Urine Bacteria Urine Casts Quality VTE Prophylaxis VTE prophylaxis: mechanical ordered
--- NOTE | 2024-11-13 08:19 | WPDANESEPPF ---
Anes - Initial Pre Proc Eval Procedure: Operation Date: 11/13/24 08:30 Proposed Procedures p Cysto, RPG, Stone Ext, Stent Placement(Left) - Sanjay Sheets MD Date/Time: 11/13/24 08:19 Surgeon: Sudeep Pre Op Diagnosis: Ureterolithiasis, Intractable abdominal pain Patient Data Age: 74 Gender: F Height: 1.65 m Weight: 87.9 kg Last Vital Signs Temp 36.7 C 11/13/24 06:00 Pulse 83 11/13/24 06:00 Resp 16 11/13/24 06:00 BP 131/77 11/13/24 06:00 Pulse Ox 94 11/13/24 06:00 O2 Del Method Nasal Cannula 11/13/24 01:52 O2 Flow Rate 2 11/13/24 01:52 Allergies Allergy/AdvReac Type Severity Reaction Status Date / Time No Known Allergies Allergy Verified 11/12/24 20:20 Home Medications ?Medication ?Instructions ?Recorded ?Confirmed ?Type glucosamine-chondroitin 250 mg-200 1 tablet PO DAILY 10/30/21 11/13/24 History mg tablet multivitamin 1 tablet PO DAILY 10/30/21 11/13/24 History amlodipine 5 mg tablet 10 mg PO DAILY 09/05/23 11/13/24 History potassium chloride 10 mEq 10 meq PO DAILY 06/08/24 11/13/24 History capsule,extended release cholecalciferol (vitamin D3) 25 25 mcg PO DAILY 11/13/24 11/13/24 History mcg (1,000 unit) tablet (Vitamin D3) Laboratory Tests 11/12/24 11/12/24 11/12/24 20:45 21:40 23:33 WBC 7.7 K/mm3 (4.5-10.0) RBC 4.63 M/mm3 (4.2-5.4) Hgb 12.6 g/dL (12.0-15.0) Hct 38.0 % (37.0-47.0) MCV 82.1 fl (80-100) MCH 27.2 pg (26-34) MCHC 33.2 g/dl (32-36) RDW 14.9 H % (11.5-14.5) Plt Count 216 k/mm3 (150-375) MPV 10.3 fl (7.4-10.4) Immature Gran % (Auto) 0.3 % (0-0.5) Neut % (Auto) 80.5 H % (45.5-73.1) Lymph % (Auto) 12.9 L % (18.3-44.2) [place] % (Auto) 5.6 % (2.6-8.5) Eos % (Auto) 0.3 % (0-4.4) Baso % (Auto) 0.4 % (0.2-1.2) Lymph # (Auto) 0.99 K/mm3 (0.9-3.2) [place] # (Auto) 0.4 K/mm3 (0.1-0.6) Eos # (Auto) 0.0 K/mm3 (0-0.3) Baso # (Auto) 0.0 K/mm3 (0.0-0.1) Abs Immat Gran (auto) 0.02 K/mm3 (0.00-0.031) Absolute Neuts (auto) 6.2 K/mm3 (1.3-6.7) Absolute Nucleated RBC 0.000 K/mm3 (0.0-0.012) Nucleated RBC % 0.0 % (0.0-0.2) PT 13.4 Seconds (11.1-14.7) INR 1.0 Sodium 137 mmol/L (137-145) Potassium 3.3 L mmol/L (3.4-5.0) Chloride 102 mmol/L (98-107) Carbon Dioxide 24 mmol/L (22-30) Anion Gap 11 mmol/L (4-12) BUN 16 mg/dL (7-17) Creatinine 0.66 L mg/dL (0.7-1.0) Estim Creat Clear Calc 69 ml/min Estimated GFR > 60 (59 - ) Glucose 186 H mg/dL (65-110) POC Capillary Glucose 190 H mg/dl (65-105) Hemoglobin A1c Lactic Acid 2.0 mmol/L (0.7-2.0) Calcium 9.5 mg/dL (8.4-10.2) Magnesium Total Bilirubin 0.6 mg/dL (0.2-1.3) AST 34 U/L (14-36) ALT 37 H U/L (6-35) Alkaline Phosphatase 74 U/L (38-126) Total Protein 7.0 g/dL (6.3-8.2) Albumin 4.4 g/dL (3.5-5.1) Lipase 119 U/L (23-300) Urine Color Yellow (Yellow) Urine Appearance Cloudy H (Clear) Urine pH 7.0 (5.0-9.0) Ur Specific [place] 1.035 (1.001-1.035) Urine Protein Trace mg/dL (Negative) Urine Glucose (UA) Negative mg/dL (Negative) Urine Ketones 1+ H mg/dL (Negative) Ur Blood (Man) Negative (Negative) Urine Nitrate Negative (Negative) Urine Bilirubin Negative (Negative) Urine Urobilinogen 0.2 mg/dL (<2.0) Leukocyte Esterase Rfl Negative DOUG/UL (Negative) Urine RBC 0-2 /hpf (0-2) Urine WBC 0-5 /hpf (0-3) Ur Squamous Epith Cells None seen /hpf (Few) Urine Bacteria None seen /hpf Urine Casts 0-2 11/13/24 11/13/24 11/13/24 00:14 05:43 07:44 WBC RBC Hgb Hct MCV MCH MCHC RDW Plt Count MPV Immature Gran % (Auto) Neut % (Auto) Lymph % (Auto) [place] % (Auto) Eos % (Auto) Baso % (Auto) Lymph # (Auto) [place] # (Auto) Eos # (Auto) Baso # (Auto) Abs Immat Gran (auto) Absolute Neuts (auto) Absolute Nucleated RBC Nucleated RBC % PT INR Sodium 137 mmol/L (137-145) Potassium 3.5 mmol/L (3.4-5.0) Chloride 103 mmol/L (98-107) Carbon Dioxide 19 L mmol/L (22-30) Anion Gap 15 H mmol/L (4-12) BUN 16 mg/dL (7-17) Creatinine 0.55 L mg/dL (0.7-1.0) Estim Creat Clear Calc 84 ml/min Estimated GFR > 60 (59 - ) Glucose 190 H mg/dL (65-110) POC Capillary Glucose 206 H mg/dl 177 H mg/dl (65-105) (65-105) Hemoglobin A1c 7.4 H % (<5.7) Lactic Acid Calcium 9.1 mg/dL (8.4-10.2) Magnesium 1.9 mg/dL (1.6-2.3) Total Bilirubin 0.6 mg/dL (0.2-1.3) AST 31 U/L (14-36) ALT 36 H U/L (6-35) Alkaline Phosphatase 66 U/L (38-126) Total Protein 7.0 g/dL (6.3-8.2) Albumin 4.3 g/dL (3.5-5.1) Lipase Urine Color Urine Appearance Urine pH Ur Specific [place] Urine Protein Urine Glucose (UA) Urine Ketones Ur Blood (Man) Urine Nitrate Urine Bilirubin Urine Urobilinogen Leukocyte Esterase Rfl Urine RBC Urine WBC Ur Squamous Epith Cells Urine Bacteria Urine Casts Patient hx anesthesia problems: none Family hx anesthesia problems: none Results Review: All pre-operative results and documents have been reviewed as part of the pre-operative evaluation. [facility] Past Medical History Medical History (Updated 11/13/24 @ 06:15 by Shirley Vera PA-C) Bilateral breast cancer status post lumpectomy and chemoradiation Kidney stones Type 2 diabetes mellitus Hyperlipidemia Motion sickness Osteoporosis Thyroid condition Hypertension Surgical History Surgical History (Updated 11/13/24 @ 04:15 by Shirley Vera PA-C) History of lumpectomy of both breasts History of hysterectomy History of tonsillectomy History of parathyroidectomy History of bladder surgery History of colon resection r/t diverticulitis Family History Family History Father Heart attack Mother ALS (amyotrophic lateral sclerosis) Other Cerebrovascular accident Hypertension Social History Social History (Updated 11/13/24 @ 04:15 by Shirley Vera PA-C) Social History: Surrogate medical decision maker: Dary Barber, daughter. Code status: Full code. Smoking status: Never smoker Alcohol intake: never Alcohol use details: rare alcohol use in moderation Substance use: never Substance use type: does not use Do You Feel Safe in your Home?: Yes Lack of Transportation: No Lack of Food: Never True Current Housing: I Have Housing Concerned About Future Housing: No Difficulty Paying Gas/Electric Bills: No Difficulty Paying for Meds: No Currently Unemployed: No Education: High School Diploma/GED Difficulty w/ Childcare or Family Care: No Living arrangements: with family Additional living arrangements comments: Lives with significant other in [place]. Spiritual care concerns: No Anes - Eval Final PreProcedure Day of Procedure 11/13/24 08:19 Patient weight: obese Heart: regular rate and rhythm Lungs: clear to auscultation Airway: Mallampati scale class II Neurological: alert and oriented Last oral intake: >/= 8 hours ASA classification: III Emergent: no Anesthetic plan: proceed Anesthesia type and monitoring: general LMA and standard monitoring Results Review: All pre-operative results and documents have been reviewed as part of the pre-operative evaluation. Informed Consent: The patient's anesthetic plan and its attendant risks and benefits were discussed with the patient/family/POA. Questions were solicited and answers provided to the satisfaction of the patient/family/POA.
--- NOTE | 2024-11-13 08:20 | WPDHPUPDATE1 ---
History and Physical Update Update Date/Time: 11/13/24 08:20 History and Physical has been reviewed, including an updated exam of the patient. There are NO changes in the patient's condition. Risks, benefits, and alternatives have been discussed and questions answered. Patient agrees to proceed with procedure.
--- NOTE | 2024-11-13 08:21 | W.PM.PROC2 ---
Procedure Note - Detailed Date of Procedure 11/13/24 Pre-op Diagnosis Ureterolithiasis, Intractable abdominal pain Post-op Diagnosis Same Procedure Performed Cystoscopy, left retrograde pyelogram, left ureteral stent Surgeon Sanjay Sheets MD Anesthesia General Findings 6mm left proximal ureteral stone Description of Procedure Prior to the operation an informed consent was obtained.? The patient was brought back to the operative suite and a detailed timeout was performed.? General anesthesia was induced without complication.? The patient was administered IV antibiotics in the prophylactic form.? The patient was positioned in the dorsal lithotomy position with close attention to all pressure points and was prepped and draped in sterile fashion. We began the case using a rigid cystoscope to gain access into the bladder under direct visualization per urethra. Cystoscopy was unremarkable. We turned our attention to the left ureteral orifice and cannulated it using a 5 [place] open-ended ureteral catheter and sensor wire.? We radiologically confirmed the wire to pass up into the renal pelvis. I did not perform a retrograde pyelogram to better delineate the renal pelvis, because she had retained contrast from her contrasted CT scan and obstructing stone holding it in there. With our wire in place, we placed a 4.8Fr variable length double-J ureteral stent with no string. We confirmed excellent position fluoroscopically.? The patient's bladder was emptied at the conclusion of the case and the patient tolerated the procedure well. This note was created with the assistance of voice-recognition software and may contain phonetic errors. Estimated Blood Loss 0 Complications No immediate complications Condition Stable Disposition PACU
[2024-11-13] MEDS: ceFAZolin 2 GM/D5W 50 ML 2 GM/50 ML BAG IVPB (08:22)
[2024-11-13] MEDS: SCOPOLAMINE 1 MG PATCH 1 PATCH TRANSDERM (08:30)
[2024-11-13] MEDS: LACTATED RINGERS 1,000 ML 30 ML IV CONT (08:52)
[2024-11-13 09:07] LABS: Glucose Point of Care 158 mg/dl (65-105)
[2024-11-13] MEDS: amLODIPine BESYLATE 10 MG TABLET PO (09:50)
[2024-11-13] MEDS: POTASSIUM CHLORIDE 10 MEQ ER TABLET PO (09:50)
[2024-11-13 11:39] LABS: Glucose Point of Care 176 mg/dl (65-105)
--- NOTE | 2024-11-13 11:51 | PC.NURSE ---
Patient resting in bed. She is able to ambulate to the restroom without assistance. Patient went for stent placement at 0810. Surgery called report at 0915 and patient was back on the floor at 0945. Patient on RA at this time. Medications given. No complaints of pain. Trio rounds with HCP at 1115 patient still staturating well at 95% on RA per HCP. Possible discharged pending urology.
--- NOTE | 2024-11-13 14:56 | P.DS_ITS ---
DS: Admitting Diagnosis Discharge Date 11/13/2024 Admitting Diagnosis Calculus of left ureter Left nephrolithiasis Hydronephrosis Hypoxia Hypokalemia DM Hypertension DS: Discharge Diagnosis Discharge Diagnosis (1) Calculus of left ureter: Code(s): N20.1 - Calculus of ureter Status: Acute (2) Left nephrolithiasis: Code(s): N20.0 - Calculus of kidney Status: Acute (3) Hydronephrosis: Code(s): N13.30 - Unspecified hydronephrosis Status: Acute (4) Hypoxia: Code(s): R09.02 - Hypoxemia Status: Acute (5) Hypokalemia: Code(s): E87.6 - Hypokalemia Status: Acute (6) Type 2 diabetes mellitus: Code(s): E11.9 - Type 2 diabetes mellitus without complications Status: Acute (7) Hypertension: Qualifiers: Hypertension type: primary hypertension Qualified Code(s): I10 - Essential (primary) hypertension Code(s): I10 - Essential (primary) hypertension Status: Chronic DS: Summary Hospital Course Reason for hospitalization: Calculus of left ureter Left nephrolithiasis Hydronephrosis Hypoxia Hypokalemia DM Hypertension Hospital Course: 74-year-old female with history of kidney stones, colon resection for diverticulitis, hysterectomy, hypertension, hyperlipidemia, type 2 diabetes mellitus, and breast cancer who presented to the hospital via private vehicle for evaluation of abdominal pain. While in the ED patient was requiring multiple rounds of morphine for pain control. She then developed intermittent hypoxia and was placed on 2L NC. Chest XR was unremarkable and viral panel negative. Likely etiology was drug induced hypoxia secondary to morphine use. Patient was weaned off of oxygen supplementation prior to discharge and denied any shortness of breath. Patient was hypokalemic which resolved with supplementation. Labs otherwise unremarkable. UA non concerning for infection. CT abdomen/pelvis showed stone in the left upper ureter with left hydronephrotic changes and multiple left kidney stones. Urology consulted. Patient underwent a cystoscopy, left retrograde pyelogram, left ureteral stent placement on 11/[address] Sheets. Discussed discharge instructions with Urology Dr. Sheets and no restrictions needed. Patient will receive a call from the office for follow up. Following stent placement patient has denied all pain. Prior to discharge patient is ambulating throughout her room independently. She has no complaints denying chest pain, shortness of breath, palpitations, nausea/vomiting, abdominal pain, flank pain or pain of any kind. Patient discharged home in a stable condition. She is to follow up with her PCP in 1 week and urology as scheduled. Status at Discharge Functional status at discharge: independent ambulation Time Spent with Patient Time attestation: Total time spent providing and/or coordinating discharge services: Time spent: Greater than 30 minutes Exam Narrative: AF HR 82 RR 16 SpO2 95 BP 129/54 General: female in no acute respiratory distress who is nontoxic appearing, lying semi recumbent in bed. HEENT: Normocephalic. Atraumatic. Extraocular movement intact. Sclera clear and anicteric. No facial asymmetry. Chest: Lungs are clear to auscultation bilaterally. No wheezes or crackles. CV: Heart was regular rate and rhythm. Abd: Abdomen was soft. Nontender. Nondistended. Positive bowel sounds. No organomegaly or masses. No CVA tenderness. Ext: No clubbing, cyanosis, or edema. Neuro: Patient is alert and oriented x4. Speech is clear. DS: Data Data Completed and Pending Completed studies during hospitalization: chest xr ct abdomen/pelvis retropyelogram Labs on day of discharge: Labs from last 24 hours 11/13/24 11/13/24 11/13/24 11:17 09:04 07:44 WBC RBC Hgb Hct MCV MCH MCHC RDW Plt Count MPV Immature Gran % (Auto) Neut % (Auto) Lymph % (Auto) [place] % (Auto) Eos % (Auto) Baso % (Auto) Lymph # (Auto) [place] # (Auto) Eos # (Auto) Baso # (Auto) Abs Immat Gran (auto) Absolute Neuts (auto) Absolute Nucleated RBC Nucleated RBC % PT INR Sodium Potassium Chloride Carbon Dioxide Anion Gap BUN Creatinine Estim Creat Clear Calc Estimated GFR Glucose POC Capillary Glucose 176 H 158 H 177 H Hemoglobin A1c Lactic Acid Calcium Magnesium Total Bilirubin AST ALT Alkaline Phosphatase Total Protein Albumin Lipase Urine Color Urine Appearance Urine pH Ur Specific [place] Urine Protein Urine Glucose (UA) Urine Ketones Ur Blood (Man) Urine Nitrate Urine Bilirubin Urine Urobilinogen Leukocyte Esterase Rfl Urine RBC Urine WBC Ur Squamous Epith Cells Urine Bacteria Urine Casts 11/13/24 11/13/24 11/12/24 05:43 00:14 23:33 WBC RBC Hgb Hct MCV MCH MCHC RDW Plt Count MPV Immature Gran % (Auto) Neut % (Auto) Lymph % (Auto) [place] % (Auto) Eos % (Auto) Baso % (Auto) Lymph # (Auto) [place] # (Auto) Eos # (Auto) Baso # (Auto) Abs Immat Gran (auto) Absolute Neuts (auto) Absolute Nucleated RBC Nucleated RBC % PT INR Sodium 137 Potassium 3.5 Chloride 103 Carbon Dioxide 19 L Anion Gap 15 H BUN 16 Creatinine 0.55 L Estim Creat Clear Calc 84 Estimated GFR > 60 Glucose 190 H POC Capillary Glucose 206 H 190 H Hemoglobin A1c 7.4 H Lactic Acid Calcium 9.1 Magnesium 1.9 Total Bilirubin 0.6 AST 31 ALT 36 H Alkaline Phosphatase 66 Total Protein 7.0 Albumin 4.3 Lipase Urine Color Urine Appearance Urine pH Ur Specific [place] Urine Protein Urine Glucose (UA) Urine Ketones Ur Blood (Man) Urine Nitrate Urine Bilirubin Urine Urobilinogen Leukocyte Esterase Rfl Urine RBC Urine WBC Ur Squamous Epith Cells Urine Bacteria Urine Casts 11/12/24 11/12/24 21:40 20:45 WBC 7.7 RBC 4.63 Hgb 12.6 Hct 38.0 MCV 82.1 MCH 27.2 MCHC 33.2 RDW 14.9 H Plt Count 216 MPV 10.3 Immature Gran % (Auto) 0.3 Neut % (Auto) 80.5 H Lymph % (Auto) 12.9 L [place] % (Auto) 5.6 Eos % (Auto) 0.3 Baso % (Auto) 0.4 Lymph # (Auto) 0.99 [place] # (Auto) 0.4 Eos # (Auto) 0.0 Baso # (Auto) 0.0 Abs Immat Gran (auto) 0.02 Absolute Neuts (auto) 6.2 Absolute Nucleated RBC 0.000 Nucleated RBC % 0.0 PT 13.4 INR 1.0 Sodium 137 Potassium 3.3 L Chloride 102 Carbon Dioxide 24 Anion Gap 11 BUN 16 Creatinine 0.66 L Estim Creat Clear Calc 69 Estimated GFR > 60 Glucose 186 H POC Capillary Glucose Hemoglobin A1c Lactic Acid 2.0 Calcium 9.5 Magnesium Total Bilirubin 0.6 AST 34 ALT 37 H Alkaline Phosphatase 74 Total Protein 7.0 Albumin 4.4 Lipase 119 Urine Color Yellow Urine Appearance Cloudy H Urine pH 7.0 Ur Specific [place] 1.035 Urine Protein Trace Urine Glucose (UA) Negative Urine Ketones 1+ H Ur Blood (Man) Negative Urine Nitrate Negative Urine Bilirubin Negative Urine Urobilinogen 0.2 Leukocyte Esterase Rfl Negative Urine RBC 0-2 Urine WBC 0-5 Ur Squamous Epith Cells None seen Urine Bacteria None seen Urine Casts 0-2 Discharge Plan Discharge Attending physician on discharge: Abel Tabares Consulting providers: Sanjay Sheets Discharging Clinician: Leydi Capps Anticipated Discharge Date/Time: 11/13/24 14:56 Patient Disposition: Home, Self-Care Activity: as tolerated Diet: as tolerated and heart healthy Discharge Instructions: Discharge disposition: Patient admitted to the hospital for a left kidney stone Underwent a cystoscopy, left retrograde pyelogram, left ureteral stent placement on 11/[address] Sheets Follow up Dr. Brown, office will call for follow up appointment. OTC Tylenol for pain if needed Eat well balanced meals and stay hydrated Keep active to remain strong During admission patient required oxygen supplementation for a short time period Likely related to pain medications Has since been weaned back to room air Chest xray and viral swab negative for acute infection Monitor blood pressures Take caution while standing, rising, or moving Change positions slowly taking a break between each position change If you standing feel dizzy sit back down and take a break Encouraged to continue with yearly vaccinations Return to the emergency department if he developed sudden shortness of breath, chest pain, nausea, vomiting, upset stomach or intractable diarrhea Return to the emergency department if you develop fever greater than 101.5 Follow-up with the primary care physician within 1-2 weeks Thank you for [facility] for your healthcare needs Patient Instructions: Kidney Stones (DC), Cystoscopy (DC), Ureteral Stent Placement (DC) Patient Language: Sami Stand Alone Forms: General Discharge Information Follow-up/Referrals: Sanjay Sheets MD [Physician] - Call for Appointment Todd Gasca MD [Primary Care Provider] - 1 Week Discharge Medications: Continued amlodipine 5 mg tablet 10 mg PO DAILY potassium chloride 10 mEq Capsule, Extended Release 10 meq PO DAILY multivitamin Tablet 1 tablet PO DAILY glucosamine-chondroitin 250-200 mg Tablet 1 tablet PO DAILY cholecalciferol (vitamin D3) [Vitamin D3] 25 mcg (1,000 unit) tablet 25 mcg PO DAILY Date of admission: 11/12/24 22:45 Primary Care Provider: Todd Gasca Admitting Provider: Taras Edwards Attending physician on admission: Leydi Capps Condition: Stable Hospitalist MIPS Heart Failure (Exclusion) Patient has history of Heart Transplant or Left Ventricular Assistive Device?: No IF YES, STOP HERE Heart Failure (Qualifier) Patient has current or prior documentation of LVEF less than or equal to 40%, or mod/servere depressed LVSF?: No IF NO, STOP HERE
--- NOTE | 2024-11-13 16:46 | PC.NURSE ---
Patient discharged home with SO via private vehicle. Patient taken to entrance by . Patient had all their belongings, all questions and concerns addressed. IV removed catheter intact. Linens stripped and trash collected.
== END 2024-11-13 16:20 | disposition home or self-care (01) ==
LOC: ANHED 22:48 → ANH3MEDSUR 11-13 07:02
PROVIDERS: Physician Assistant; Urology; Admitting Provider Internal Medicine; Emergency Provider Preventive Medicine Aerospace Medicine; PCP Emergency Medicine; Visit Provider Student in an Organized Health Care Education/Training Program
PROC: (CPT 52352; principal; 2024-11-13 08:30)
DX: N13.2 Hydronephrosis with renal and ureteral calculous obstruction (principal); R09.02 Hypoxemia; E87.6 Hypokalemia; E78.5 Hyperlipidemia, unspecified; Z85.3 Personal history of malignant neoplasm of breast; M81.0 Age-related osteoporosis without current pathological fracture; E11.9 Type 2 diabetes mellitus without complications; I10 Essential (primary) hypertension; Z90.710 Acquired absence of both cervix and uterus
CPT/HCPCS: 52332; 36415; 71045; 74177; 74420; 80053; 81001; 82948; 83036; 83605; 83690; 83735; 85025; 85610; 96361; 96374; 96375; 96376; 99285; A9270; C1758; C1769; C2617; G0378; J0330; J0690; J1100; J1596; J1815; J1885; J2003; J2270; J2405; J2704; J3010; J7030; J7120; Q9966; Q9967

== ENCOUNTER 2024-11-18 01:00 | Day surgery (SDC) | payer MEDICARE, SELFPAY ==
[2024-11-14 15:33] VITALS: BMI 30.4
--- NOTE | 2024-11-14 15:43 | PC.NURSE ---
Report to the Outpatient Waiting Room, entrance under the green pavilion located off [facility], at time __0630am on date ___11/18/24____. Planned Procedure Time: __0830am .? Time changes happen often and if your time is changed the preop area will call you the afternoon before. - You and your visitor will be asked to self-screen and do not enter if you have any COVID symptoms. Please call surgeon if you need to reschedule. - A mask is optional within the hospital at this time. Patients may have clear liquids (water, carbonated beverages, clear teas, apple juice) until 3 hours prior to surgery with a maximum of 20 ounces. - No food from midnight until time of surgery and no smoking, or chewing tobacco (or any form of nicotine). No chewing gum, candy or mints. (0530am) Take only the following medications with a SIP of water on the morning of surgery: _Amlodipine DO NOT STOP ANY OF YOUR OTHER PRESCRIPTION MEDICATIONS PRIOR TO SURGERY EXCEPT THE FOLLOWING Hold all vitamins and supplements for 3 days per anesthesiologist.Date to take last dose__11/14/24 Medications to discontinue per physician None Date to take last dose__None Please no make-up, nail bulgarian, hairspray, perfume, deodorant, or body powder the day of surgery.? No jewelry (including any body piercings) or valuables the day of surgery, leave them at home.? Please take a shower or bath the night before, or the morning of, surgery with an antibacterial soap.? Wear comfortable, loose fitting clothing.? - Jewelry must be removed prior to entering the operating room.? Rings and piercings that are not removed may be cut off. - The hospital will not accept responsibility for valuables.? - Please leave all valuables, including medications, at home the day of surgery. If you are going home after surgery, a licensed lifter driver must drive you home.? - NO public transportation without another adult if you receive anesthesia. - We recommend that an adult stay with you for 24 hours following discharge. - We also recommend that you do not drive, make important decision, drink alcoholic beverages, or take any drugs that were not prescribed by your health care provider for at least 24 hours after your discharge time. Follow any additional instructions given to you from your surgeon. Telephone instructions given to __Patient and asked if any additional questions and then verbalized understanding. Patient advised to call surgeon office or pre surgery nurse liaison [phone] if any additional questions.
[2024-11-18] VITALS (9 sets, daily range): BP systolic 126–145; BP diastolic 54–81; PULSE 56–77; RESP 12–20; TEMP 36.2–36.8; O2SAT 94–99
--- NOTE | ~2024-11-18 | XR_ITS ---
Supine and upright views of the abdomen Clinical history: Lithotripsy COMPARISON: 09/30/2023 Findings: Bowel gas pattern is nonspecific. No evidence for obstruction or free air. Left-sided urete ral stent in place. Probable 6 mm proximal left ureteral stone. Additional small left renal stones ar e present. No definite right renal stone seen, though there is overlying bowel contents. Osseous stru ctures are intact. Impression: Prostate is millimeters proximal left ureteral stone or left ureteral stent in place. Additional possible small left renal stones. Reviewed, dictated and finalized at location M. Impression: Prostate is millimeters proximal left ureteral stone or left ureteral stent in place. Additional possible small left renal stones.
--- OUTSIDE RECORDS SUMMARY | 2024-11-18 01:04 | XMS_ITS | CONTINUITY OF CARE DOCUMENT ---
Author Name andie chaves Address Unknown Organization [facility] Address [address] [place] [address] Phone [phone] Care Team Providers Care Fancy Stitcher Name Role Phone Sheela Childers MD Unavailable [phone] MARION SCHRADER MD Unavailable [phone] MARION SCHRADER MD Unavailable [phone] PROBLEMS Condition Status Date Provider Notes Hyperlipidemia active Sheela Childers MD HYPERTENSION active Sheela Childers MD Diabetes mellitus, Type II active Sheela Childers MD Cardiovascular screening active Sheela benitez MD ENCOUNTERS Date Type Provider Location Encounter Diag nosis - In-person encounter Office Visit Sheela Childers MD [facility] Cardiovascular screeningDiabetes mellitus, Type IIHYPERTENSIONHyperlipidemia VITAL SIGNS Date Observation Value Provider Body Mass Index (Ratio) 31.45 kg/m2 Bryan Childers MD blood pressure, diastolic 78 mm[Hg] Elizabeth nkLogky blood pressure, systolic 145 mm[Hg] Nadia kLogky blood pressure, cuff size regular Kr fernando Valdez blood pressure, diastolic 78 mm[Hg] Kr fernando Valdez blood pressure, systolic 145 mm[Hg] Emory [...] Galindoby Accu-Chek Fastclix Lancet Drum active Cara [place] Vitamin D3 25 mcg (1,000 unit) tablet active TAKE 1 TABLET BY MOUTH EVERY DAY Cara Galindoby OneTouch Ultra Test strip active TESTS TWICE A DAY Cara José Miguel simvastatin 10 mg tablet active TAKE 1 TABLET BY MOUTH EVERY DAY IN THE EVENING Caralondon Valdez metformin 500 mg tablet active K [facility] [place] SOCIAL HISTORY Date Observation Value Provider number of grandchildren Sheela Childers MD social history reviewed E&M revi ewed - no changes required Sheela Childers MD smoking status Never smoker Cara [place] INSURANCE PROVIDERS Payer name Policy type / Coverage type [employer] party ID [facility] [employer] [facility] [id number] TREATMENT PLAN Date Name Performer [id number],C, lipid panel showed triglycerides 238, LDL 136. On Simvastatin 10 mg PO once daily. Start on ezetimibe 10 mg once daily. Sheela Childers MD [id number],C, hemoglobin A1C was 6.8%. Continues on Metformin. Reduced intake of sugars and carbohydrates including sodas was advised. Sheela Childers MD [id number],C,B P is 145/78 today. Continues on HCTZ. [...]
--- OUTSIDE RECORDS SUMMARY | 2024-11-18 01:04 | XMS_ITS | Clinical Summary ---
Author Organization [facility] [employer] Address [address] [place] [address] Care Team Providers Care Bean Snapper Name Role Phone Todd Gasca MD Primary Care Provider [phone] Source Comments [facility],non-owned Affiliates and Associated Physician Practices is amultiple site organization consisting of ambulatory clinics and hospital sitesin [place], [place], [place] and [place]. This disclosure is being madepursuant to the Care Everywhere program and may not contain all information available regarding this patient. Last updated 18.[facility] [employer] Allergies No known active allergies Medications * [...] to complete this topic MENINGOCOCCAL (Group B) VACC INE SHARED DECISION-MAKING Aged Out No longer eligibl e based on patient's age to complete this topic MENINGOCOCCAL GROUPS A/C/Y/W VACCINE Aged Out No longer eligible b ased on patient's age to complete this topic Care Teams Bean Snapper Relationship Specialty Start Date End Date Todd Gasca MD [address] [place] [address] PCP - General Family Medicine 06/15/24
--- OUTSIDE RECORDS SUMMARY | 2024-11-18 01:04 | XMS_ITS | Patient Health Summary ---
Author Organization [facility] Address [address] [place] [address] Care Team Providers Care Building Appraiser Name Role Phone Todd Gasca MD Primary Care Provider [phone] Note from [facility],non-owned Affiliates and Associated Physician Practices is amultiple site organization consisting of ambulatory clinics and hospital sitesin [place], [place], [place] and [place]. This disclosure is being madepursuant to the Care Everywhere program and may not contain all information available regarding this patient. Last updated 18.[facility] Allergies No known active allergies Medications * [...] <3 <=14 ng/L 06/15/2024 11:47 PM CDT [facility] Delta Troponin I HS 06/15/2024 11:47 PM CDT [facility] Comment:Delta value intentio jennifer not calculated. Baseline to 1 hour specimen collection interval exceeded. Blood BLOOD SPECIMEN / Unknown Venipuncture / Unknown 06/15/2024 10:43 PM CDT 06/15/2024 11:15 PM CDT Vicky Antoine PA-C LAB - CHEMISTRY OR DERABLES Performing Organization Address City/State/[facility] Co de Phone Number [facility] [place] [address], [facility] [phone] * CT Head Wo Contrast (06/15/2024 2:05 [...] DATE/TIME OF EXAM: 06/15/2024 1:11 PM, LOCATION [facility] INDICATION: R51.9: Acute intractable headache, unspecified [...] DATE/TIME OF EXAM: 06/15/2024 1:11 PM, LOCATION [facility] INDICATION: R51.9: Acute intractable headache, unspecified [...] process. Report dictated by Arash Soto MD, (residential nurse). I, Starr Price MD have personally reviewed and interpreted this examination/study. > Interpreting Provider: Starr Price MD on 06/15/2024 11:09 AM Narrative 06/15/2024 11:09 AM CDT PROCEDURE: XR CHEST 2VW, DATE/TIME OF EXAM: 06/15/2024 10:25 AM, LOCATION [facility] INDICATION: R06.02: SOB (shortness of breath) [...] DATE/TIME OF EXAM: 06/15/2024 10:25 AM, LOCATION [facility] INDICATION: R06.02: SOB (shortness of breath) [...] process. Report dictated by Arash Soto MD, (residential nurse). I, Starr Price MD have personally reviewed and interpreted this examination/study. > Interpreting Provider: Starr Price MD on 06/15/2024 11:09 AM Vicky Antoine PA-C DIAGNOSTIC IMAGING ORDERABLES * TROPONIN-I HIGH SENSITIVE BASELINE + 1HR (06/15/2024 10:19 AM CDT) Troponin I High Sensitive <3 <=14 ng/L 06/15/2024 11:02 AM [facility] Blood BLOOD SPECIMEN / Unknown Venipuncture / Unknown 06/15/2024 10:19 AM CDT 06/15/2024 10:27 AM CDT Vicky Antoine PA-C LAB - CHEMISTRY OR DERABLES Performing Organization Address [facility] [place] Co de Phone Number [facility] [address] [place] [address], [facility] [phone] * (ABNORMAL) CBC W AUTO DIFFERENTIAL (06/15/2024 10:19 AM T) WBC 5.4 4.0 - 10.7 x10E9/L 06/15/2024 10:34 AM [facility] RBC Count 3.66(L) 3.90 - 5.20 x10E12/L 06/15/2024 10:34 AM [facility] Hemoglobin 10.5(L) 11.9 - 15.8 g/dL 06/15/2024 10:34 AM [facility] Hematocrit 30.9(L) 34.8 - 46.1 % 06/15/2024 10:34 AM [facility] MCV 84.4 80.0 - 98.0 fL 06/15/2024 10:34 AM [facility] MCH 28.7 26.7 - 33.6 pg 06/15/2024 10:34 AM [facility] MCHC 34.0 31.7 - 36.3 g/dL 06/15/2024 10:34 AM [facility] RDW-CV 13.4 11.3 - 14.8 % 06/15/2024 10:34 AM [facility] Platelet Count 256 150 - 420 x10E9/L 06/15/2024 10:34 AM [facility] MPV 10.5 7.8 - 11.4 fL 06/15/2024 10:34 AM [facility] Neutrophil % 66.3 41.0 - 74.0 % 06/15/2024 10:34 AM [facility] Lymphocyte % 22.0 17.0 - 47.0 % 06/15/2024 10:34 AM [facility] Monocyte % 9.3 3.0 - 11.0 % 06/15/2024 10:34 AM [facility] Eosinophil % 1.3 0.0 - 7.0 % 06/15/2024 10:34 AM [facility] Basophil % 0.4 0.0 - 1.6 % 06/15/2024 10:34 AM [facility] Immature Granulocytes % 0.7 0.0 - 1.0 % 06/15/2024 10:34 AM [facility] Neutrophil Absolute 3.58 1.60 - 7.50 x10E9/L 06/15/2024 10:34 AM [facility] Lymphocyte Absolute 1.19 1.00 - 4.40 x10E9/L 06/15/2024 10:34 AM [facility] Monocyte Absolute 0.50 0.15 - 1.00 x10E9/L 06/15/2024 10:34 AM [facility] Eosinophil Absolute 0.07 0.00 - 0.60 x10E9/L 06/15/2024 10:34 AM [facility] Basophil Absolute 0.02 0.00 - 0.13 x10E9/L 06/15/2024 10:34 AM [facility] Blood BLOOD SPECIMEN / Unknown Venipuncture / Unknown 06/15/2024 10:19 AM CDT 06/15/2024 10:26 AM T Vicky Antoine PA-C LAB - HEMATOLOGY O RDERABLES [facility] [address] [place] [address], [facility] [phone] * B-TYPE NATRIURETIC PEPTIDE (06/15/2024 10:19 AM CDT) BNP 12 <100 pg/mL 06/15/2024 11:01 AM [facility] Comment: A decision threshold of 100 [...] Antoine PA-C LAB - CHEMISTRY OR DERABLES [facility] [address] [place] [address], [facility] [phone] * (ABNORMAL) COMPREHENSIVE METABOLIC PANEL (06/15/2024 10:19 AM CDT) BUN 12 7 - 26 mg/dL 06/15/2024 11:02 AM [facility] Creatinine 0.59 0.56 - 0.96 mg/dL 06/15/2024 11:02 AM [facility] Sodium 140 136 - 145 mmol/L 06/15/2024 11:02 AM [facility] Potassium 3.3(L) 3.5 - 4.5 mmol/L 06/15/2024 11:02 AM [facility] Chloride 105 98 - 107 mmol/L 06/15/2024 11:02 AM [facility] CO2 26 22 - 29 mmol/L 06/15/2024 11:02 AM [facility] Glucose 184(H) 70 - 115 mg/dL 06/15/2024 11:02 AM [facility] Calcium 9.8 8.4 - 10.2 mg/dL 06/15/2024 11:02 AM [facility] Protein Total 7.1 6.0 - 8.3 g/dL 06/15/2024 11:02 AM [facility] Albumin 4.2 3.4 - 5.0 g/dL 06/15/2024 11:02 AM [facility] Bilirubin Total 0.5 0.2 - 1.2 mg/dL 06/15/2024 11:02 AM [facility] Alkaline Phosphatase 58 40 - 150 U/L 06/15/2024 11:02 AM [facility] ALT 58(H) 5 - 55 U/L 06/15/2024 11:02 AM [facility] AST 51(H) 5 - 34 U/L 06/15/2024 11:02 AM [facility] Anion Gap 9 6 - 16 06/15/2024 11:02 AM [facility] BUN/Creatinine Ratio 20 7 - 23 06/15/2024 11:02 AM [facility] Osmolality Calculated 295 275 - 295 mOsm/kg 06/15/2024 11:02 AM [facility] Albumin/Globulin Ratio 1.4 1.1 - 2.3 06/15/2024 11:02 AM [facility] eGFR by CKD-EPI >90 >=90 mL/min/1.7 3 m2 06/15/2024 11:02 AM [facility] Blood BLOOD SPECIMEN / Unknown Venipuncture / Unknown 06/15/2024 10:19 AM CDT 06/15/2024 10:27 AM [facility] Vicky Antoine PA-C LAB - CHEMISTRY OR DERABLES Performing Organization Address [facility] Co de Phone Number [facility] [address] [place] [address], [facility] [phone] * URINE MICROSCOPIC ONLY REFLEX TO CULTURE (06/15/2024 10:16 AM [facility]) Reflex Status Culture to follow 06/15/2024 10:33 AM [facility] WBC UA 0-5 None Seen, 0-5 /HPF 06/15/2024 10:33 AM [facility] Squamous Epithelial Cells UA 0-2 None Seen, 0-2, 3-5 /HPF 06/15/2024 10:33 AM [facility] Urine URINE SPECIMEN OBTAINED BY CLEAN CATCH PROCEDURE / Unknown Collection / Unknown 06/15/2024 10:16 AM CDT 06/15/2024 10:24 AM CDT Narrative [facility] - 06/15/2024 10:33 AM CDT Vicky Antoine PA-C LAB - URINALYSIS O RDERABLES [facility] [address] [place] [address], [facility] [phone] * (ABNORMAL) URINALYSIS REFLEX MICROSCOPIC REFLEX CULTURE (06/15/2024 10:16 AM CDT) Color UA Straw Straw, Yellow 06/15/2024 10:30 AM [facility] Clarity UA Clear Clear 06/15/2024 10:30 AM [facility] Specific [place] UA 1.003(L) 1.005 - 1.030 06/15/2024 10:30 AM [facility] pH UA 7.0 5.0 - 8.0 pH 06/15/2024 10:30 AM [facility] Protein UA Negative Negative 06/15/2024 10:30 AM [facility] Glucose UA Negative Negative 06/15/2024 10:30 AM [facility] Ketone UA Negative Negative 06/15/2024 10:30 AM [facility] Bilirubin UA Negative Negative 06/15/2024 10:30 AM [facility] Blood UA Negative Negative 06/15/2024 10:30 AM [facility] Nitrite UA Negative Negative 06/15/2024 10:30 AM [facility] Leukocyte Esterase Trace(A) Negative 06/15/2024 10:30 AM [facility] Urobilinogen UA Negative Negative mg/dL 06/15/2024 10:30 AM [facility] Urine URINE SPECIMEN OBTAINED BY CLEAN CATCH PROCEDURE / Unknown Collection / Unknown 06/15/2024 10:16 AM CDT 06/15/2024 10:24 AM T Narrative [facility] - 06/15/2024 10:30 AM CDT Vicky Antoine PA-C LAB - URINALYSIS O RDERABLES Performing Organization Address City/[facility]/ZIP Co de Phone Number [facility] [address] [place] [address], [facility] [phone] * CULTURE URINE (06/15/2024 10:16 AM CDT) Culture Urine <10,000 CFU/mL urogenital rhonda STONEY 06/16/2024 3:24 PM CDT [facility] Urine URINE SPECIMEN OBTAINED BY CLEAN CATCH PROCEDURE / Unknown Collection / Unknown 06/15/2024 10:16 AM CDT 06/15/2024 10:33 AM CDT Vicky Antoine PA-C LAB - MICROBIOLOGY ORDERABLES Performing Organization Address [facility] [place] Co de Phone Number [facility] [address] [place] [address], [facility] [phone] * EKG 12-LEAD (06/15/2024 9:50 AM CDT) Ventricular Rate 73 BPM SL MUSE Atrial Rate 73 BPM [facility] P-R Interval 236 ms [facility] QRS Duration ms 82 ms [facility] Q-T Interval ms 412 ms [facility] QTC Calculation (Bezet) 453 ms [facility] Calculated P [place] 27 degrees [facility] Calculated R [place] -19 degrees [facility] Calculated T [place] 104 degrees [facility] Interpretation EKG SINUS RHYTHM WITH 1ST DEGREE A-V BLOCK CANNOT RULE OUT ANTERIOR INFARCT , AGE UNDETERMINED ABNORMAL ECG NO PREVIOUS ECGS AVAILABLE Confirmed by FIONA GUERRA, CORKY ([id number]) on 06/15/2024 4:59:31 PM [facility] 06/15/2024 9:50 AM CDT 06/15/2024 4:59 PM CDT Vicky Antoine PA-C ECG ORDERABLES Performing Organization Address [facility] Co de Phone Number [facility] Care Teams Building Appraiser Relationship Specialty Start Date End Date Todd Gasca MD [address] [place] [address] PCP - General Family Medicine 06/15/24
--- OUTSIDE RECORDS SUMMARY | 2024-11-18 01:04 | XMS_ITS | Referral Summary ---
Author Organization [facility] Address [address] [place] [address] Care Team Providers Care Casino Operations Supervisor Name Role Phone Todd Gasca MD Primary Care Provider [phone] Source Comments [facility],non-owned Affiliates and Associated Physician Practices is amultiple site organization consisting of ambulatory clinics and hospital sitesin [place], [place], [place] and [place]. This disclosure is being madepursuant to the Care Everywhere program and may not contain all information available regarding this patient. Last updated 18.[facility] Allergies No known active allergies Medications * [...] of Treatment Not on file Care Teams Casino Operations Supervisor Relationship Specialty Start Date End Date Todd Gasca MD [address] [facility] [address] [place] [address] PCP - General Family Medicine 06/15/24
--- OUTSIDE RECORDS SUMMARY | 2024-11-18 01:05 | XMS_ITS | Clinical Summary ---
Author Organization [facility] Address [address] [place] [address] Care Team Providers Care Differential Specialist Name Role Phone Todd Gasca MD Primary Care Provider [phone] Allergies No known active allergies Medications lisinopriL [...] Type Department Care Team Description 11/06/2024 [address]ill [facility] Oncology and Hematology - [place] [address] [place] [address] [place] [phone] Ollie Clarke MD 10/26/2024 External Device [...] 09/15/2016 INFLUENZA VACCINE (#1) 2024 [place] ([place] Prev entative Visit/Annual Wellness Visit 09/07/2024 BREAST [...] Relevant to Health Maintenance Insurance Care Teams Differential Specialist Relationship Specialty Start Date End Date Todd Gasca MD [address] [place] [phone] PCP - General Emergency Medicine 05/30/21
--- OUTSIDE RECORDS SUMMARY | 2024-11-18 01:05 | XMS_ITS | Encounter Summary ---
Author Organization [facility] Address [address] [place] [address] Care Team Providers Care Slimer Name Role Phone Todd Gasca MD Primary Care Provider [phone] Gt Contreras MD Unavailable Unavailable Md Generic Conversion Primary Care Provider Unavailable Md Generic Conversion Primary Care Provider Unavailable Todd Gasca MD Primary Care Provider [phone] Encounter Details Date Type Department Care Team (Late st Contact Info) Description 11/18/2016 Abstract [facility] AT [address] [address] Siena Ronquillo MA Social History Tobacco Use Types Packs/Day Years Used Date Smoking Tobacco: Never Smokeless Tobacco: Never Alcohol Use Standard Drinks/Week Comments No 0 (1 standard drink = 0.6 oz pur e alcohol) Comments Unknown Sex and Gender Information Value Date Recorded Sex Assigned at Not on file Legal Sex Female 3:03 PM DISCOVERY MANAGER Gender Identity Not on file Sexual Orientation Not on file 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 End Date 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
--- OUTSIDE RECORDS SUMMARY | 2024-11-18 01:05 | XMS_ITS | Clinical Summary ---
Author Organization [facility] Address [address] [place] [address] Care Team Providers Care Electro Mechanical Solar Technician Name Role Phone Crow Contreras MD Unavailable Unavailable Todd Gasca MD Primary Care Provider [phone] Allergies No known active allergies Medications lisinopril 40 MG tablet Take 1 tablet daily 10/23/2016 Active metFORMIN 500 MG tablet Take 1 tablet daily 10/23/2016 Active Active Problems Problem Noted Date Diagnosed Date Abnormal ECG 11/25/2016 Essential hypertension Dyslipidemia Family History Medical History Relation Comments Coronary artery disease Father [place] Father *cause of at age 69 Other Maternal Grandmother at age 69 Diabetes Mother Hyperlipidemia Mother Hypertension Mother als Mother at age 71 [place] Other Paternal side Au nt, Uncle, and cousin in 40's-50's from [place] Stroke Paternal Grandmother in 1950 [place] Sister at age 40 Relation Status Comments [...] on file Legal Sex Female 3:03 PM CLINICAL DATA ASSOCIATE Gender Identity Not on file Sexual Orientation Not on file 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 End Date 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 file Not on file Not [...] GENERIC (SCAN ORDER) Routine 09/20/2013 11:09 AM CLINICAL DATA ASSOCIATE from Last 3 Months or Most Recently Relevant to Health Maintenance Results * MAMMOGRAM GENERIC (09/20/2013 11:09 AM CLINICAL DATA ASSOCIATE) Anatomical Region Laterality Modality Other 09/20/2013 11:0 9 AM CLINICAL DATA ASSOCIATE 09/20/2013 11:09 AM CLINICAL DATA ASSOCIATE Narrative 09/20/2013 11:58 AM CLINICAL DATA ASSOCIATE MELVA PALOMO ORDERING MD: CROW MAYEN MD ACCT: [id number] ADMIT/SERVICE DATE: 09/20/13 DISCHARGE DATE: : 1950 PT TYPE: REG SDC SEX: F ORD SITE: [facility] STUDY DATE REPORT # PROCEDURE CODE PROCEDURE 09/20/13 [id number] SPECIMEN MG BREAST SPECIMEN EXTORDERID [id number] ACCESSION NUMBER [id number] CHART DOCUMENT IMPRESSION: SURGICAL CLIP AND MASS [...] M.D. 09/20/2013 11:56 OMAR HADDAD M.D. A #[id number] A/FIGUEROA CC: Lidya YADAV M.D. Procedure Note Dariana Guerra MD - 06/30/2018 MELVA PALOMO ORDERING MD: CROW MAYEN MD ACCT: [id number] ADMIT/SERVICE DATE: 09/20/13 DISCHARGE DATE: : 1950 PT TYPE: REG SDC SEX: F ORD SITE: [facility] STUDY DATE REPORT # PROCEDURE CODE PROCEDURE 09/20/13 [id number] SPECIMEN MG BREAST SPECIMEN EXTORDERID [id number] ACCESSION NUMBER [id number] CHART DOCUMENT IMPRESSION: SURGICAL CLIP AND MASS [...] M.D. 09/20/2013 11:56 OMAR HADDAD M.D. A #[id number] A/MA CC: Lidya YADAV M.D. us Generic Conversion Md GUERRA SCANNING Final R esult from Last 3 Months or Most Recently Relevant to Health Maintenance Insurance [facility] Advance Directives Documents on File Type Date Recorded Patient Systems Accountant Expl anation Advance Directives and Livin g Will 09/20/2013 POWER OF SENIOR ASIC DESIGN ENGINEER Care Teams Electro Mechanical Solar Technician Relationship Specialty Start Date End Date Todd Gasca MD [address] [place] [address] PCP - General 04/21/17 Crow Contreras MD Anabel Paving Machine Operator CARDIOVASCULAR DISEASE 11/07/16
--- OUTSIDE RECORDS SUMMARY | 2024-11-18 01:05 | XMS_ITS | Data Portability ---
Author Organization [facility] [place] Address [address] [place] [address] [place] [address] Care Team Providers Care Tobacco Prevention Health Educator Name Role Phone MARION SCHRADER Primary Care Provider [phone] Assessment No assessment recorded. Plan of Treatment Reminders Order Date Submit Date Provider Last Modified By Organization Details Last Modified Time Details Appointments None recorded. Lab None recorded. Referral None recorded. Procedures None recorded. Surgeries None recorded. Imaging US, pelvis 2019 020 [email or web address] [place], [address], [address], [place], [address], 0 19:02:43 US, transvagina l 2019 020 JHONY [place], [address], [address], [place], [address], 0 05:01:43 Medication Orders None recorded. Patient [...] [address]pa [address], [place] [address] , Aaron Jauregui ra, DO, Labor atory Direc tor. Gardn erell a vagin avis, Tayla da speci es: Genom ic DNA is isola karyn from patie nt speci mens by stand moo labor atory techn iques and lney zed using custo m OpenA rray plate s, perfo rmed on the Quant Studi o 12K Flex Real Time PCR syste m. A posit mellisa resul t is provi ded for patho genic bacte adeola, virus and/o r funga l speci es based on detec tion of ampli ficat ion produ cts. Alondra l vagin al rhonda resul ts of Alondra l or Ellsworth karyn are deter mined by calcu latin [...] e qing cteri stics deter mined by [email or web address] d/b/a PathG rou. It has not been clear ed or appro andres by the U.S. Food and Drug Admin istra tion. The FDA has deter mined that such clear ance or appro elisa is not neces fifi. Perti nent refer ence inter vals are avail able from the labor atory on reque st. Test( s) perfo rmed by ybuy, Stitch.es, d/b/a PathFREEjit roup, [address], [place] [address] , Aaron Jauregui ra, , Labor atory Direc tor. Not Available [facility] ([facility]) [address], [place], [address], 02/16/2020 17:49:44 02/15/20 20 02/16/2020 bacte rial [...] ing error . Test perfo rmed by [email or web address], d/b/a PathFREEjit roup, [address], [place] [address] , Aaron Jauregui ra, , Labor atory Direc tor. Gardn erell a vagin avis, Tayla da speci es: Genom ic DNA is isola karyn from patie nt speci mens by stand moo labor atory techn iques and elny zed using custo m OpenA rray plate s, perfo rmed on the Quant Studi o 12K Flex Real Time PCR syste m. A posit mellisa resul t is provi ded for patho genic bacte adeola, virus and/o r funga l speci es based on detec tion of ampli ficat ion produ cts. Alondra l vagin al rhonda resul ts of Alondra l or Ellsworth karyn are deter mined by calcu latin [...] e qing cteri stics deter mined by ybuy, Stitch.es d/b/a PathRon franco. It has not been clear ed or appro andres by the U.S. Food and Drug Admin istra tion. The FDA has deter mined that such clear ance or appro elisa is not neces fifi. Perti nent refer ence inter vals are avail able from the labor atory on reque st. Test( s) perfo rmed by Sh[employer] Patho Webvanta, Stitch.es, d/b/a PathRon franco, [address], [facility] [place] [address] , Aaron Jauregui ra, DO, Labor atory Direc tor. Not Available [facility] ([facility]) [address], [place], [address], 02/16/2020 17:49:44 02/15/20 20 02/16/2020 bacte rial [...] rmed by Assoc iated Patho logis ts, [facility], d/b/a [facility], [facility] [address] [address], [place] [address] , Aaron Jauregui ra, DO, Labor atory [...] rhonda resul ts of Alondra l or Ellsworth karyn are deter mined by calcu latin [...] e qing cteri stics deter mined by [employer] Ext[employer] Patho logis ts, LLC d/b/a PathG roup. It has not been clear ed or appro andres by the U.S. Food and Drug Admin istra tion. The FDA has deter mined that such clear ance or appro elisa is not neces fifi. Perti nent refer ence inter vals are avail able from the labor atorlondon on reque st. Test( s) perfo rmed by AssDCWafers Patho logis ts, LLC, d/b/a PathG roup, [address], [place] [address] , Aaron Jauregui ra, DO, Labor atory Direc tor. Not Available [facility] ([facility]) [address], [place], [address], 02/16/2020 17:49:44 10/22/19 21 10/22/2020 , preston uriostegui md interpretati on Not Available Nicholas lauren [address], [place], [address], 03/05/2020 15:02:53 09/09/19 24 09/09/2023 VAGIN ITIS/ VAGIN OSIS, DNA PROBE susana sp. detection, direct probe Negati ve negati ve Not Available [facility] (Lab) [address], [place], [address], 09/15/2023 00:03:33 09/09/19 24 09/09/2023 VAGIN ITIS/ VAGIN OSIS, DNA PROBE gardnerella vag. detection, direct probe Negati ve negati ve Not Available [facility] (Lab) [address], [place], [address], 09/15/2023 00:03:33 09/09/19 24 09/09/2023 VAGIN ITIS/ VAGIN OSIS, DNA PROBE trichomonas vag. detection, direct probe Negati ve negati ve Not Available [facility] (Lab) [address], [place], [address], 09/15/2023 00:03:33 09/09/19 24 09/09/2023 HERPE S SUBTY PE(HS V1/HS V2) RT-PC R, ONESW AB herpes subtype (hsv-1, hsv-2) PCR Negati ve (HSV-1 ,HSV-2 ) Swab- 1 Vag Cerv HSV-1 :Nega tive HSV-2 :Nega tive. Not Available [facility] (Lab) [address], [place], [address], 09/15/2023 00:03:33 03/05/20 20 US, pelvi s No observ ation record ed. deann [address] [facility], [place], [address], 03/06/2020 15:06:01 Result Notes None recorded. Procedures Surgical History Date Name Laterality Status Provider Name and Address Organization Details Recorded Time 09/13/19 19 Date of Last Pap Smear completed Meron Joy [facility] 09/09/2023 13:38:07 lumpectomy of breast completed Camilla Guerra [facility] 02/15/2020 10:17:40 Total Hysterectomy completed Camilla [facility] 02/15/2020 10:17:45 Tonsillectomy completed [facility] 02/15/2020 10:17:59 lumpectomy of breast completed Meron Joy [facility] 09/09/2023 14:24:48 Imaging Results Imaging Date Name Status LastModified by Organiz ation Details LastModified Time 03/05/2020 US, pelvis completed layran Buffy [address], [place], [address], 03/06/2020 15:06:01 Procedure Notes None recorded. Medical [...] Not Available Not Available No t Available Easy TempoTouch Ultra Test strips TESTS TWICE A DAY 09/09 completed Not Available Not Available Not Available amlodipin e 10 mg tablet TAKE 1 TABLET (10 MG) BY MOUTH DAILY. active Not Available Not Available No t Available hydrochlo rothiazid e 12.5 mg capsule take 2 capsule by oral route every day 09/09 completed Prescrib ed Elsew e: Yes Loca tion: [facility] M odify By: alyse escalante DateTime : [...] Prescrib ed Elsewher e: Yes Loca tion: [facility] M odify By: alyse escalante DateTime : 09/13/19 19 02:45:00 PM Not Available Not Available Not Available OneTouch Ultra Blue Test Strip 02/14 completed Not Available Not Available Not Available Vitals Date Recorded Body height Body mass index (BMI) Body weight Systolic blood pressure Diastolic blood pressure Provider Name and Address Organization Details Last Updated DateTime 02/15/2020 1981.2 cm 0.2 kg/m2 96785.55 g 135 mm[Hg] 79 mm[Hg] Camilla [facility] 0 10:16:32 Date Recorded Body height Body mass index (BMI) Body weight Systolic blood pressure Diastolic blood pressure Provider Name and Address Organization Details Last Updated DateTime 03/05/2020 1981.2 cm 0.2 kg/m2 79015.96 g 148 mm[Hg] 87 mm[Hg] Camilla Guerra [facility] 0 15:03:32 Date Recorded Body weight Body mass index (BMI) Body height Systolic blood pressure Diastolic blood pressure Provider Name and Address Organization Details Last Updated DateTime 09/09/2023 20779.87 g 30.8 kg/m2 165.1 cm 133 mm[Hg] 81 mm[Hg] Meron Joy [facility] 4 14:19:19 Social History Question Answer Notes LastModified by Organizat ion Details LastModified Time Tobacco Smoking Status Never Smoker Meron Joy [facility] 09/09/2023 14:13:41 What Is Your Level [...] Or The Highest Degree You Have Received? [id number] Information not available 09/09/2023 Are There Any [...] Anxious, Or Unable To Sleep At Night)? [id number] Information not available 09/09/2023 Do You Use [...] Code Diagnosis Note [id number] Qi Morenojovanabill , [facility] [address],[place] [address] 02/15/2020 10:04:08 02/18/2020 11:16:02 Atrophic vaginitis [id number] N95.2 Exam wnl except very atrophic appearance . We agreed to r/o infection but we also discuss that she might need vaginal estrogen or similar therapy. Due to her history I advised she contact Dr. Mary Azar [facility]; contact informatio n given. She agreed. In addition, we also agreed to r/o other issues with TVUS for c/o pelvic pressure. Time spent in visit is a total of 15 mins with at least 50% of visit consisting of counseling and review of plan of care. 9872 Qi Taqueria , [facility] [address],[place] [address] 03/05/2020 14:13:59 03/05/2020 17:27:00 Pain in pelvis 48209704 R10.2 TVUS is wnl she is feeling [...] review of plan of care. [facility]873 [facility] [address],[place] [address] 03/05/2020 14:14:28 03/05/2020 17:32:20 Pain in pelvis 14618575 R10.2 [id number] Janet Ignacio [facility] [address],[place] [address] 09/09/2023 14:09:44 09/10/2023 14:42:30 Atrophic vaginitis 30380426 N95.2 Exam wnl except very atrophic appearance [...] option, as well as may need vulvar career technical education instructor referral. Time spent in visit is a [...] Doherty Member ID Guarantor Name 02/15/2020 1 [employer] (MEDICARE REPLACEMENT HMO) Melva Amezcua [id number] Melva Amezcua 03/05/2020 1 [employer] (MEDICARE REPLACEMENT HMO) Melva Amezcua [id number] Melva Amezcua 03/05/2020 1 [employer] (MEDICARE REPLACEMENT HMO) Melva Amezcua [id number] Melva Amezcua 09/09/2023 1 [facility] (MEDICARE REPLACEMENT/AD VANTAGE - HMO) [id number] Melva Amezcua [id number] Melva Amezcua Notes Date Note Type Note Provider Name and Address Organization Details Recorded Time 02/15/2020 text/html Vaginal/Vulvar ProblemReported bypatient.Notes:Here for evaluation of possible vaginal infection. Feels a burning in pelvic region inside. Neg urinary sx's Neg VB Neg vag d/c, itching, odor. Hx of hysterectomy 1990 Chemo/radiation Breast cancer with lumpectomy 5yrs ago. Qi M[facility] [address], [place], [address], [facility] 02/27/2020 12:00:00 03/05/2020 text/html Patient is here today for f/u TVUS for pelvic pressure that has since resolved. Qi Meng [facility] [address], [place], [address], [facility] 03/05/2020 15:24:14 09/09/2023 text/html 73yo with h/o of hystpresents for evaluation of vulvar burningsymptoms present for 8+ yearsopening of vagina and outer vulva irritated and often burnsdoes not use any soaps/wipes/scented productsneg discharge, odors, itchingneg pelvic painNot currently SAhx of breast cancer Janet Ignacio, CECELIA [address], [place], [address], [place] [facility] 09/10/2023 09:31:19 OBGyn Episode Ob Episode Information Episode Created Date Number of Fetuses Patient Bloodtype Patient rh Status Prepregnancy Weight lbs Domestic Partner Domestic Partner Phone Father Name Automotive Design Drafter Status 02/15/20 20 1 CLOSED Fetus Data First Name Last Name Admitted to NICU Weight (g) Sex Living Outcome Pediatric Complications Fetus ID Race Codes Race Delivery Type 2135 Benny Calculation Initial Benny Date Initial Exam [...] Domestic Partner Domestic Partner Phone Father Name Automotive Design Drafter Status 02/15/20 20 1 CLOSED Fetus Data [...] Domestic Partner Domestic Partner Phone Father Name Automotive Design Drafter Status 02/15/20 20 1 CLOSED Fetus Data [...]
--- NOTE | 2024-11-18 07:03 | P.PNAN_ITS ---
Anes - Initial Pre Proc Eval Procedure: Operation Date: 11/18/24 08:30 Proposed Procedures p Left Extracorporeal Shock Wave Lithotripsy, - Kaveh Stahl MD s Cystoscopy with Stent Removal - Kaveh Stahl MD Date/Time: 11/18/24 07:03 Surgeon: Kaveh Stahl MD Pre Op Diagnosis: left ureteral stone Patient Data Age: 74 Gender: F Height: 1.65 m Weight: 83 kg Allergies Allergy/AdvReac Type Severity Reaction Status Date / Time No Known Allergies Allergy Verified 11/14/24 15:30 Home Medications ?Medication ?Instructions ?Recorded ?Confirmed ?Type glucosamine-chondroitin 250 mg-200 1 tablet PO DAILY 10/30/21 11/14/24 History mg tablet multivitamin 1 tablet PO DAILY 10/30/21 11/14/24 History amlodipine 5 mg tablet 10 mg PO DAILY 09/05/23 11/14/24 History potassium chloride 10 mEq 10 meq PO DAILY 06/08/24 11/14/24 History capsule,extended release cholecalciferol (vitamin D3) 25 25 mcg PO DAILY 11/13/24 11/14/24 History mcg (1,000 unit) tablet (Vitamin D3) Patient hx anesthesia problems: none Family hx anesthesia problems: none Results Review: All pre-operative results and documents have been reviewed as part of the pre- operative evaluation. [facility] Past Medical History Medical History Bilateral breast cancer status post lumpectomy and chemoradiation Kidney stones Type 2 diabetes mellitus Hyperlipidemia Motion sickness Osteoporosis Thyroid condition Hypertension Surgical History Surgical History History of lumpectomy of both breasts History of hysterectomy History of tonsillectomy History of parathyroidectomy History of bladder surgery History of colon resection r/t diverticulitis Family History Family History Father Heart attack Mother ALS (amyotrophic lateral sclerosis) Other Cerebrovascular accident Hypertension Social History Social History Social History: Surrogate medical decision maker: Dary Barber, daughter. Code status: Full code. Smoking status: Never smoker Alcohol intake: never Alcohol use details: rare alcohol use in moderation Substance use: never Substance use type: does not use Do You Feel Safe in your Home?: Yes Lack of Transportation: No Lack of Food: Never True Current Housing: I Have Housing Concerned About Future Housing: No Difficulty Paying Gas/Electric Bills: No Difficulty Paying for Meds: No Currently Unemployed: No Education: High School Diploma/GED Difficulty w/ Childcare or Family Care: No Living arrangements: with family Additional living arrangements comments: Lives with significant other in [place]. Spiritual care concerns: No Anes - Eval Final PreProcedure Day of Procedure 11/18/24 07:03 Patient weight: obese Heart: regular rate and rhythm Lungs: clear to auscultation Airway: Mallampati scale class II Neurological: alert and oriented Last oral intake: >/= 8 hours ASA classification: III Emergent: no Anesthetic plan: proceed Anesthesia type and monitoring: general LMA and standard monitoring Results Review: All pre-operative results and documents have been reviewed as part of the pre- operative evaluation. Informed Consent: The patient's anesthetic plan and its attendant risks and benefits were discussed with the patient/family/POA. Questions were solicited and answers provided to the satisfaction of the patient/family/POA.
[2024-11-18] MEDS: LACTATED RINGERS 1,000 ML 30 ML IV CONT ×2 (07:10→09:46)
[2024-11-18] MEDS: fentaNYL CITRATE INJ (*CRX) 100 MCG/2 ML VIAL 25 MCG IV PUSH ×3 (07:10→10:04)
--- NOTE | 2024-11-18 07:27 | PM.IMHP ---
H&P: HPI History of Present Illness Date/Time: 11/18/24 07:27 Chief Complaint: 6-7 mm proximal left ureteral calculus Narrative: 74 yr old female s/p left stent placement presents for left ureteral eswl. Review of Systems Review of Systems: All systems reviewed & are unremarkable except as noted in HPI and below PMFSH Past Medical History Medical History Bilateral breast cancer status post lumpectomy and chemoradiation Kidney stones Type 2 diabetes mellitus Hyperlipidemia Motion sickness Osteoporosis Thyroid condition Hypertension Surgical History Surgical History History of lumpectomy of both breasts History of hysterectomy History of tonsillectomy History of parathyroidectomy History of bladder surgery History of colon resection r/t diverticulitis Family History Family History Father Heart attack Mother ALS (amyotrophic lateral sclerosis) Other Cerebrovascular accident Hypertension Social History Social History Social History: Surrogate medical decision maker: Dary Barber, daughter. Code status: Full code. Smoking status: Never smoker Alcohol intake: never Alcohol use details: rare alcohol use in moderation Substance use: never Substance use type: does not use Do You Feel Safe in your Home?: Yes Lack of Transportation: No Lack of Food: Never True Current Housing: I Have Housing Concerned About Future Housing: No Difficulty Paying Gas/Electric Bills: No Difficulty Paying for Meds: No Currently Unemployed: No Education: High School Diploma/GED Difficulty w/ Childcare or Family Care: No Living arrangements: with family Additional living arrangements comments: Lives with significant other in [place]. Spiritual care concerns: No Meds Home Medications and Allergies Home Medications ?Medication ?Instructions ?Recorded ?Confirmed ?Type glucosamine-chondroitin 250 mg-200 1 tablet PO DAILY 10/30/21 11/14/24 History mg tablet multivitamin 1 tablet PO DAILY 10/30/21 11/14/24 History amlodipine 5 mg tablet 10 mg PO DAILY 09/05/23 11/14/24 History potassium chloride 10 mEq 10 meq PO DAILY 06/08/24 11/14/24 History capsule,extended release cholecalciferol (vitamin D3) 25 25 mcg PO DAILY 11/13/24 11/14/24 History mcg (1,000 unit) tablet (Vitamin D3) Allergies Allergy/AdvReac Type Severity Reaction Status Date / Time No Known Allergies Allergy Verified 11/14/24 15:30 Exam Const: General: cooperative Resp: Effort & Inspection: normal respiratory effort Cardio: Rate: regular rate Rhythm: regular rhythm Assessment and Plan Assessment and plan (1) Calculus of left ureter: Code(s): N20.1 - Calculus of ureter Status: Acute Assessment and Plan: proceed with left ureteral eswl. Plan eswl of left ureteral calculus
--- NOTE | 2024-11-18 07:30 | WPDHPUPDATE1 ---
History and Physical Update Update Date/Time: 11/18/24 07:30 History and Physical has been reviewed, including an updated exam of the patient. There are NO changes in the patient's condition. Risks, benefits, and alternatives have been discussed and questions answered. Patient agrees to proceed with procedure.
[2024-11-18 07:49] LABS: Glucose Point of Care 170 mg/dl (65-105)
[2024-11-18 08:11] LABS: Partial Thromboplastin Time 25.6 Seconds (22.3-36.8)
[2024-11-18] MEDS: ceFAZolin 2 GM/D5W 50 ML 2 GM/50 ML BAG IVPB (08:24)
--- NOTE | 2024-11-18 09:06 | P.OP_ITS ---
Procedure Note - Detailed Date of Procedure 11/18/24 Pre-op Diagnosis left ureteral stone Post-op Diagnosis Same Procedure Performed Lithotripsy of left ureteral calculus Surgeon Kaveh Stahl MD Anesthesia General Description of Procedure Patient was taken to the operative suite correctly identified. Once anesthesia was obtained the stone was localized in both planes. Two thousand five hundred shocks were given the stone. Patient tolerated procedure well without any complications and was taken recovery stable condition. She will follow-up in 7- 10 days with KUB. This completes dictation. Please send a copy of op note to office Estimated Blood Loss 0 Drains Yes Packing No Pathology None sent Complications No immediate complications Condition Stable Disposition PACU
[2024-11-18] MEDS: ONDANSETRON INJ 4 MG/2 ML VIAL IV PUSH (09:30)
[2024-11-18] MEDS: FAMOTIDINE 20 MG/2 ML VIAL IV PUSH (09:42)
[2024-11-18] MEDS: diphenhydrAMINE HCl INJ 50 MG/ML VIAL 12.5 MG IV PUSH (09:48)
[2024-11-18] MEDS: oxyCODONE HCL (*CRX) 5 MG TAB IR PO (10:30)
== END 2024-11-18 11:10 | disposition home or self-care (01) ==
PROVIDERS: PCP Emergency Medicine; Visit Provider Urology
PROC: (CPT 50590; principal; 2024-11-18 08:30)
DX: N20.1 Calculus of ureter (principal); E78.5 Hyperlipidemia, unspecified; E11.9 Type 2 diabetes mellitus without complications; I10 Essential (primary) hypertension; M81.0 Age-related osteoporosis without current pathological fracture; E07.9 Disorder of thyroid, unspecified; E66.9 Obesity, unspecified; Z68.30 Body mass index [BMI] 30.0-30.9, adult; Z98.890 Other specified postprocedural states; Z90.49 Acquired absence of other specified parts of digestive tract; Z96.0 Presence of urogenital implants; Z92.3 Personal history of irradiation; Z92.21 Personal history of antineoplastic chemotherapy; Z85.3 Personal history of malignant neoplasm of breast; Z82.49 Family history of ischemic heart disease and other diseases of the circulatory system
CPT/HCPCS: 50590; 36415; 74018; 82948; 85730; A9270; J0690; J1200; J2405; J2704; J3010; J7120

== ENCOUNTER 2024-11-29 13:30 | Outpatient (CLI) | payer MEDICARE, SELFPAY ==
--- NOTE | ~2024-11-29 | XR_ITS ---
XR abdomen/kub 1V 11/29/2024 13:48 Indication: Ureteral stone Procedure: KUB Comparison: Comparison to multiple prior studies sequentially, with oldest reviewed study dated 01/2024. Findings: Bowel gas pattern nonobstructive. There is a left internal ureteral stent in expected posit ion. There is a stone at the expected location of the UPJ. There are pelvic phleboliths. Severe thora cic and lumbar spondylosis with scoliosis. Impression: 1: Left ureteral stone near the expected location of the UPJ. Reviewed, dictated and finalized at location A. Impression: 1: Left ureteral stone near the expected location of the UPJ.
--- OUTSIDE RECORDS SUMMARY | 2024-11-29 15:40 | XMS_ITS | CONTINUITY OF CARE DOCUMENT ---
Author Name andie chaves Address Unknown Organization [facility] Address [address] [place] [address] Phone [phone] Care Team Providers Care Data Integrity Analyst Name Role Phone Sheela Childers MD Unavailable [phone] MARION SCHRADER MD Unavailable [phone] MARION SCHRADER MD Unavailable [phone] PROBLEMS Condition Status Date Provider Notes Cardiovascular screening active Sheela benitez MD Diabetes mellitus, Type II active Sheela Childers MD HYPERTENSION active Sheela Childers MD Hyperlipidemia active Sheela Childers MD ENCOUNTERS Date Type Provider Location Encounter Diag nosis - In-person encounter Office Visit Sheela Childers MD [place] [facility] Cardiovascular screeningDiabetes mellitus, Type IIHYPERTENSIONHyperlipidemia VITAL SIGNS Date Observation Value Provider Body Mass Index (Ratio) 31.45 kg/m2 Bryan Childers MD blood pressure, diastolic 78 mm[Hg] Elizabeth nkLogky blood pressure, systolic 145 mm[Hg] aNdia kLogky blood pressure, cuff size regular Kr fernando [place] blood pressure, diastolic 78 mm[Hg] Kr issalas [...] Galindoby Accu-Chek Fastclix Lancet Drum active Cara [place] Vitamin D3 25 mcg (1,000 unit) tablet active TAKE 1 TABLET BY MOUTH EVERY DAY Cara Galindoby OneTouch Ultra Test strip active TESTS TWICE A DAY Cara José Miguel simvastatin 10 mg tablet active TAKE 1 TABLET BY MOUTH EVERY DAY IN THE EVENING Caralondon Valdez metformin 500 mg tablet active K [facility] [place] SOCIAL HISTORY Date Observation Value Provider number of grandchildren Sheela Childers MD social history reviewed E&M revi ewed - no changes required Sheela Childers MD smoking status Never smoker Cara [place] INSURANCE PROVIDERS Payer name Policy type / Coverage type [place] [employer] party ID [facility] Rover AppsBAN[facility]ICAL CENTERPodo Labs [facility] [id number] TREATMENT PLAN Date Name Performer [id number],C, lipid panel showed triglycerides 238, LDL 136. On Simvastatin 10 mg PO once daily. Start on ezetimibe 10 mg once daily. Sheela Childers MD [id number],C, hemoglobin A1C was 6.8%. Continues on Metformin. Reduced intake of sugars and carbohydrates including sodas was advised. Sheela Childers MD [id number],C,B P is 145/78 today. Continues on HCTZ. [...]
--- OUTSIDE RECORDS SUMMARY | 2024-11-29 15:40 | XMS_ITS | Clinical Summary ---
Author Organization [email or web address] Address [address] [place] [address] Care Team Providers Care Director Of Real Estate Name Role Phone Todd Gasca MD Primary Care Provider [phone] Source Comments [email or web address],non-owned Affiliates and Associated Physician Practices is amultiple site organization consisting of ambulatory clinics and hospital sitesin [place], [place], [place] and [place]. This disclosure is being madepursuant to the Care Everywhere program and may not contain all information available regarding this patient. Last updated 18.[email or web address] Allergies No known active allergies Medications * [...] age to complete this topic Care Teams Director Of Real Estate Relationship Specialty Start Date End Date Todd Gasca MD [address] [facility] [address] [place] [address] PCP - General Family Medicine 06/15/24
--- OUTSIDE RECORDS SUMMARY | 2024-11-29 15:40 | XMS_ITS | Encounter Summary ---
Author Organization [facility] DESTINI Myers [facility] Address [address] [place] [address] Care Team Providers Care Knocker Off Name Role Phone Todd Gasca MD Primary Care Provider [phone] Reason for Visit * Reason Comments Med Refill Encounter Details Date Type Department Care Team (Late st Contact Info) Description 11/24/2024 Refill [facility] Oncology and Hematology - [place] [address] [place] [address] [address] [place] [address] Ollie Clarke MD [address] [facility] [address] [place] [address] Social History Tobacco Use Types [...] on filedocumented in this encounter Care Teams Knocker Off Relationship Specialty Start Date End Date Todd Gasca MD [address] [facility] 3 [place] [address] PCP - General Emergency Medicine 9/23/21 documented as of this encounter
--- OUTSIDE RECORDS SUMMARY | 2024-11-29 15:41 | XMS_ITS | Clinical Summary ---
Author Organization Todd Davenport [facility] Address [address] [place] [address] Care Team Providers Care Reformatory Attendant Name Role Phone Todd Gasca MD Primary Care Provider [phone] Allergies No known active allergies Medications lisinopriL [...] Encounters Date Type Department Care Team Description 11/24/2024 [facility] Oncology and Hematology [facility] [address] [place] [address] Ollie Clarke MD 11/06/2024 [facility] Oncology and [facility] [address] [place] [address] Ollie Clarke MD 10/26/2024 External Device Data [...] 09/15/2016 INFLUENZA VACCINE (#1) 2024 Medicare Advantage (VA) Prev entative Visit/Annual Wellness Visit 09/07/2024 BREAST [...] CDT) Anatomical Region Laterality Modality Breast Bilateral Mammography Ollie Clarke MD MAMMO ORDERABLES Final Result from Last 3 Months or Most Recently Relevant to Health Maintenance Insurance [place] [id number] [place] [id number] Care Teams Reformatory Attendant Relationship Specialty Start Date End Date Todd Gasca MD [address] [place] [phone] PCP - General Emergency Medicine 05/30/21
--- OUTSIDE RECORDS SUMMARY | 2024-11-29 15:41 | XMS_ITS | Clinical Summary ---
Author Organization [facility] Address [address] [place] [address] Care Team Providers Care Medical Transcriber Name Role Phone Crow Contreras MD Unavailable Unavailable Todd Gasca MD Primary Care Provider [phone] Allergies No known active allergies Medications lisinopril 40 MG tablet Take 1 tablet daily 10/23/2016 Active metFORMIN 500 MG tablet Take 1 tablet daily 10/23/2016 Active Active Problems Problem Noted Date Diagnosed Date Abnormal ECG 11/25/2016 Essential hypertension Dyslipidemia Family History Medical History Relation Comments Coronary artery disease Father [place] Father *cause of at age 69 Other Maternal Grandmother at age 69 Diabetes Mother Hyperlipidemia Mother Hypertension Mother als Mother at age 71 [place] Other Paternal side Au nt, Uncle, and cousin in 40's-50's from [place] Stroke Paternal Grandmother in 1950 [place] Sister at age 40 Relation Status Comments [...] on file Legal Sex Female 3:03 PM PHOTOGRAMMETRIC SURVEYOR Gender Identity Not on file Sexual Orientation Not on file 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 STUDY DATE REPORT # PROCEDURE CODE PROCEDURE 09/20/13 1071-2258 SPECIMEN MG BREAST SPECIMEN EXTORDERID [id number] ACCESSION NUMBER [id number] CHART DOCUMENT IMPRESSION: SURGICAL CLIP AND MASS [...] M.D. 09/20/2013 11:56 OMAR HADDAD M.D. A #[id number] A/FIGUEROA CC: Lidya YADAV M.D. Procedure Note Dariana Guerra MD - 06/30/2018 MELVA PALOMO ORDERING MD: CROW MAYEN MD ACCT: [id number] ADMIT/SERVICE DATE: 09/20/13 DISCHARGE DATE: : 1950 PT TYPE: REG SDC SEX: F ORD SITE: [facility] STUDY DATE REPORT # PROCEDURE CODE PROCEDURE 09/20/13 2310-0501 SPECIMEN MG BREAST SPECIMEN EXTORDERID [id number] ACCESSION NUMBER [id number] CHART DOCUMENT IMPRESSION: SURGICAL CLIP AND MASS [...] M.D. 09/20/2013 11:56 OMAR HADDAD M.D. A #[id number] A/MA CC: Lidya YADAV M.D. us Generic Conversion Md GUERRA SCANNING Final R esult from Last 3 Months or Most Recently Relevant to Health Maintenance Insurance [facility] Advance Directives Documents on File Type Date Recorded Patient Clinical Scientist Expl anation Advance Directives and Livin g Will 09/20/2013 POWER OF JANITOR HELPER Care Teams Medical Transcriber Relationship Specialty Start Date End Date Todd Gasca MD [address] [place] [address] PCP - General 04/21/17 Crow Contreras MD [place] Sheet Metal Worker Maintenance CARDIOVASCULAR DISEASE 11/07/16
--- OUTSIDE RECORDS SUMMARY | 2024-11-29 15:41 | XMS_ITS | Encounter Summary ---
Author Organization [facility] Address [address] [place] [address] Care Team Providers Care Fringe Weaver Name Role Phone Tdod Gasca MD Primary Care Provider [phone] Gt Contreras MD Unavailable Unavailable Md Generic Conversion Primary Care Provider Unavailable Md Generic Conversion Primary Care Provider Unavailable Todd Gasca MD Primary Care Provider [phone] Encounter Details Date Type Department Care Team (Late st Contact Info) Description 11/18/2016 Abstract [facility] AT [address] [address] Siena Ronquillo MA Social History Tobacco Use Types Packs/Day Years Used Date Smoking Tobacco: Never Smokeless Tobacco: Never Alcohol Use Standard Drinks/Week Comments No 0 (1 standard drink = 0.6 oz pur e alcohol) Comments Unknown Sex and Gender Information Value Date Recorded Sex Assigned at Not on file Legal Sex Female 3:03 PM GENERAL MAINTENANCE MECHANIC Gender Identity Not on file Sexual Orientation Not on file 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
--- OUTSIDE RECORDS SUMMARY | 2024-11-29 15:41 | XMS_ITS | Data Portability ---
Author Organization [facility] [place] Address [address] [place] [address] [place] [address] Care Team Providers Care Sales Operations Director Name Role Phone MARION SCHRADER Primary Care Provider Assessment No assessment recorded. Plan of Treatment Reminders Order Date Submit Date Provider Last Modified By Organization Details Last Modified Time Details Appointments None recorded. Lab None recorded. Referral None recorded. Procedures None recorded. Surgeries None recorded. Imaging US, pelvis 2019 020 [email or web address] [place], [address], [address], [place], [address], 0 19:02:43 US, transvagina l 2019 020 JHONY [place], [address], [address], [place], [address], 0 05:01:43 Medication Orders None recorded. Patient [...] [address], [place] [address] , Aaron Jauregui ra, DO, Labor atory [...] rhonda resul ts of Alondra l or Fisk karyn are deter mined by calcu latin [...] e qing cteri stics deter mined by [employer] d/b/a PathG rou. It has not been clear ed or appro andres by the U.S. Food and Drug Admin istra tion. The FDA has deter mined that such clear ance or appro elisa is not neces fifi. Perti nent refer ence inter vals are avail able from the labor atory on reque st. Test( s) perfo rmed by [employer], [employer], d/b/a [employer]alios [employer] roup, [address], [place] [address] , Aaron Jauregui ra, , Labor atory Direc tor. Not Available [facility] ([facility]) [address], [place], [address], 02/16/2020 17:49:44 02/15/20 20 02/16/2020 bacte rial [...] ing error . Test perfo rmed by [employer], d/b/a [employer], [address], [place] [address] , Aaron Jauregui ra, , Labor atory [...] rhonda resul ts of Alondra l or Fisk karyn are deter mined by calcu latin [...] e qing cteri stics deter mined by [employer], [employer] d/b/a PathRon franco. It has not been clear ed or appro andres by the U.S. Food and Drug Admin istra tion. The FDA has deter mined that such clear ance or appro elisa is not neces fifi. Perti nent refer ence inter vals are avail able from the labor atory on reque st. Test( s) perfo rmed by [employer] [employer], [employer], d/b/a PathRon franco, [address] [facility] [place] [address] , Aaron Jauregui ra, DO, Labor atory Direc tor. Not Available [facility] ([facility]) [address], [place], [address], 02/16/2020 17:49:44 02/15/20 20 02/16/2020 bacte rial [...] rmed by Assoc [facility] logis ts, [facility], d/b/a [facility], [facility][note 3][address], [place] [address] , Aaron Jauregui ra, DO, Labor atory [...] rhonda resul ts of Alondra l or Fisk karyn are deter mined by calcu latin [...] e qing cteri stics deter mined by [employer] [facility] [employer] d/b/a PathG roup. It has not been clear ed or appro andres by the U.S. Food and Drug Admin istra tion. The FDA has deter mined that such clear ance or appro elisa is not neces fifi. Perti nent refer ence inter vals are avail able from the labor atorlondon on reque st. Test( s) perfo rmed by [employer] [facility] logis ts, [employer], d/b/a PathG roup, [address], [place] [address] , Aaron Jauregui ra, DO, Labor atory Direc tor. Not Available [facility] ([facility]) [address], [place], [address], 02/16/2020 17:49:44 10/22/19 21 10/22/2020 , preston uriostegui md interpretati on Not Available Nicholas lauren [address], [place], [address], 03/05/2020 15:02:53 09/09/19 24 09/09/2023 VAGIN ITIS/ VAGIN OSIS, DNA PROBE susana sp. detection, direct probe Negati ve negati ve Not Available [facility] (Lab) [address], [place], [address], 09/15/2023 00:03:33 09/09/19 24 09/09/2023 VAGIN ITIS/ VAGIN OSIS, DNA PROBE gardnerella vag. detection, direct probe Negati ve negati ve Not Available [facility] (Lab) [address], [place], [address], 09/15/2023 00:03:33 09/09/19 24 09/09/2023 VAGIN ITIS/ VAGIN OSIS, DNA PROBE trichomonas vag. detection, direct probe Negati ve negati ve Not Available [facility] (Lab) [address], [place], [address], 09/15/2023 00:03:33 09/09/19 24 09/09/2023 HERPE S SUBTY PE(HS V1/HS V2) RT-PC R, ONESW AB herpes subtype (hsv-1, hsv-2) PCR Negati ve (HSV-1 ,HSV-2 ) Swab- 1 Vag Cerv HSV-1 :Nega tive HSV-2 :Nega tive. Not Available [facility] (Lab) [address], [place], [address], 09/15/2023 00:03:33 03/05/20 20 US, pelvi s No observ ation record ed. deann Baer [address] [facility], [place], [address], 03/06/2020 15:06:01 Result Notes None recorded. Procedures Surgical History Date Name Laterality Status Provider Name and Address Organization Details Recorded Time 09/13/19 19 Date of Last Pap Smear completed Meron Joy [facility] 09/09/2023 13:38:07 lumpectomy of breast completed Camilla Guerra [facility] 02/15/2020 10:17:40 Total Hysterectomy completed Camilla [facility] 02/15/2020 10:17:45 Tonsillectomy completed [facility] 02/15/2020 10:17:59 lumpectomy of breast completed Meron Joy [facility] 09/09/2023 14:24:48 Imaging Results Imaging Date Name Status LastModified by Organiz ation Details LastModified Time 03/05/2020 US, pelvis completed layran Buffy [address], [place], [address], 03/06/2020 15:06:01 Procedure Notes None recorded. Medical [...] Not Available Not Available No t Available [employer].comTouch Ultra Test strips TESTS TWICE A DAY 09/09 completed Not Available Not Available Not Available amlodipin e 10 mg tablet TAKE 1 TABLET (10 MG) BY MOUTH DAILY. active Not Available Not Available No t Available hydrochlo rothiazid e 12.5 mg capsule take 2 capsule by oral route every day 09/09 completed Prescrib ed Elsew e: Yes Loca tion: [facility] M odify By: alyse escalante DateTime : [...] Prescrib ed Elsewher e: Yes Loca tion: [facility] M odify By: alyse escalante DateTime : 09/13/19 19 02:45:00 PM Not Available Not Available Not Available OneTouch Ultra Blue Test Strip 02/14 completed Not Available Not Available Not Available Vitals Date Recorded Body height Body mass index (BMI) Body weight Systolic blood pressure Diastolic blood pressure Provider Name and Address Organization Details Last Updated DateTime 02/15/2020 1981.2 cm 0.2 kg/m2 04434.55 g 135 mm[Hg] 79 mm[Hg] Camilla [facility] 0 10:16:32 Date Recorded Body height Body mass index (BMI) Body weight Systolic blood pressure Diastolic blood pressure Provider Name and Address Organization Details Last Updated DateTime 03/05/2020 1981.2 cm 0.2 kg/m2 17788.96 g 148 mm[Hg] 87 mm[Hg] Camilla Guerra [facility] 0 15:03:32 Date Recorded Body weight Body mass index (BMI) Body height Systolic blood pressure Diastolic blood pressure Provider Name and Address Organization Details Last Updated DateTime 09/09/2023 88382.87 g 30.8 kg/m2 165.1 cm 133 mm[Hg] 81 mm[Hg] Meron Joy [facility] 4 14:19:19 Social History Question Answer Notes LastModified by Organizat ion Details LastModified Time Tobacco Smoking Status Never Smoker Meron Joy [facility] 09/09/2023 14:13:41 What Is Your [...] Or The Highest Degree You Have Received? [id number] Information not available 09/09/2023 Are There Any [...] Anxious, Or Unable To Sleep At Night)? [id number] Information not available 09/09/2023 Do You Use [...] Diagnosis Note [id number] Qi Morenojovanabill , [facility] [address],[place] [address] 02/15/2020 10:04:08 02/18/2020 11:16:02 Atrophic vaginitis [id number] N95.2 Exam wnl except very atrophic appearance . We agreed to r/o infection but we also discuss that she might need vaginal estrogen or similar therapy. Due to her history I advised she contact Dr. Mary Azar [facility]; contact informatio n given. She agreed. In addition, we also agreed to r/o other issues with TVUS for c/o pelvic pressure. Time spent in visit is a total of 15 mins with at least 50% of visit consisting of counseling and review of plan of care. 9872 Qi Taqueria , [facility] [address],[place] [address] 03/05/2020 14:13:59 03/05/2020 17:27:00 Pain in pelvis [id number] R10.2 TVUS is wnl she is feeling [...] review of plan of care. [id number] [facility] [address],[place] [address] 03/05/2020 14:14:28 03/05/2020 17:32:20 Pain in pelvis [id number] R10.2 [id number] Janet Ignacio [facility] [address],[place] [address] 09/09/2023 14:09:44 09/10/2023 14:42:30 Atrophic vaginitis 57130961 N95.2 Exam wnl except very atrophic appearance [...] option, as well as may need vulvar patient care referral. Time spent in visit is [...] Doherty Member ID Guarantor Name 02/15/2020 1 [employer] (MEDICARE REPLACEMENT HMO) Melva Amezcua [id number] Melva Amezcua 03/05/2020 1 [employer] (MEDICARE REPLACEMENT HMO) Melva Amezcua [id number] Melva Amezcua 03/05/2020 1 [employer] (MEDICARE REPLACEMENT HMO) Melva Amezcua [id number] Melva Amezcua 09/09/2023 1 [facility] (MEDICARE REPLACEMENT/AD VANTAGE - HMO) [id number] Melva Amezcua [id number] Melva Amezcua Notes Date Note Type Note Provider Name and Address Organization Details Recorded Time 02/15/2020 text/html Vaginal/Vulvar ProblemReported bypatient.Notes:Here for evaluation of possible vaginal infection. Feels a burning in pelvic region inside. Neg urinary sx's Neg VB Neg vag d/c, itching, odor. Hx of hysterectomy 1990 Chemo/radiation Breast cancer with lumpectomy 5yrs ago. Qi Meng [facility] [address], [place], [address], [facility] 02/27/2020 12:00:00 03/05/2020 text/html Patient is here today for f/u TVUS for pelvic pressure that has since resolved. Qi Meng [facility] [address], [place], [address], [facility] 03/05/2020 15:24:14 09/09/2023 text/html 73yo with h/o of hystpresents for evaluation of vulvar burningsymptoms present for 8+ yearsopening of vagina and outer vulva irritated and often burnsdoes not use any soaps/wipes/scented productsneg discharge, odors, itchingneg pelvic painNot currently SAhx of breast cancer Janet Ignacio, CECELIA [address], [place], [address], [place] [facility] 09/10/2023 09:31:19 OBGyn Episode Ob Episode Information Episode Created Date Number of Fetuses Patient Bloodtype Patient rh Status Prepregnancy Weight lbs Domestic Partner Domestic Partner Phone Father Name Assignment Desk Assistant Status 02/15/20 20 1 CLOSED Fetus Data [...] Domestic Partner Domestic Partner Phone Father Name Assignment Desk Assistant Status 02/15/20 20 1 CLOSED Fetus Data [...] Domestic Partner Domestic Partner Phone Father Name Assignment Desk Assistant Status 02/15/20 20 1 CLOSED Fetus Data [...]
== END 2024-11-29 13:31 | disposition home or self-care (01) ==
PROVIDERS: PCP Emergency Medicine; Visit Provider Urology
DX: N20.1 Calculus of ureter (principal)
CPT/HCPCS: 74018

== ENCOUNTER 2024-12-01 01:29 | Day surgery (SDC) | payer MEDICARE, SELFPAY ==
[2024-11-30 12:23] VITALS: BMI 30.4
--- NOTE | 2024-11-30 12:55 | PC.NURSE ---
Addendum entered by Arleen Bustillo RN 11/30/24 13:11: PT INSTRUCTED THAT SHE MAY TAKE HYDROCODONE OR TRAMADOL NEEDED ON MORNING OF SURGERY. SHE RELAYS UNDERSTANDING. Original Note: Report to the Outpatient Waiting Room, entrance under the green pavilion located off [facility], at time __11:00AM on date ___12/01/24____. Planned Procedure Time: __1:00PM .? Time changes happen often and if your time is changed the preop area will call you the afternoon before. - You and your visitor will be asked to self-screen and do not enter if you have any COVID symptoms. Please call surgeon if you need to reschedule. - A mask is optional within the hospital at this time. Patients may have clear liquids (water, carbonated beverages, clear teas, apple juice) until 3 hours prior to surgery (10:00am) with a maximum of 20 ounces. - No food from midnight until time of surgery and no smoking, or chewing tobacco (or any form of nicotine). No chewing gum, candy or mints. Take only the following medications with a SIP of water on the morning of surgery: AMLODIPINE DO NOT STOP ANY OF YOUR OTHER PRESCRIPTION MEDICATIONS PRIOR TO SURGERY EXCEPT THE FOLLOWING Hold all vitamins and supplements for 3 days per anesthesiologist.- STARTING NOW 11/30/24 Medications to discontinue per physician Date to take last dose Please no make-up, nail irish, hairspray, perfume, deodorant, or body powder the day of surgery.? No jewelry (including any body piercings) or valuables the day of surgery, leave them at home.? Please take a shower or bath the night before, or the morning of, surgery with an antibacterial soap.? Wear comfortable, loose fitting clothing.? - Jewelry must be removed prior to entering the operating room.? Rings and piercings that are not removed may be cut off. - The hospital will not accept responsibility for valuables.? - Please leave all valuables, including medications, at home the day of surgery. If you are going home after surgery, a licensed racing car driver must drive you home.? - NO public transportation without another adult if you receive anesthesia. - We recommend that an adult stay with you for 24 hours following discharge. - We also recommend that you do not drive, make important decision, drink alcoholic beverages, or take any drugs that were not prescribed by your health care provider for at least 24 hours after your discharge time. Follow any additional instructions given to you from your surgeon. Telephone instructions given to ___PATIENT and asked if any additional questions and then verbalized understanding. Patient advised to call surgeon office or pre surgery nurse liaison [phone] if any additional questions.
[2024-12-01] VITALS (9 sets, daily range): BP systolic 121–149; BP diastolic 62–81; PULSE 65–85; RESP 12–16; TEMP 36.7; O2SAT 97–100
--- NOTE | ~2024-12-01 | XR_ITS ---
EXAMINATION: XR retrograde pyelo w/stent LT DATE: 12/01/2024 12:31 INDICATION: Left internal ureteral stent placement TECHNIQUE: Fluoroscopic images from a left internal ureteral stent placement are submitted for review . 44 seconds of fluoroscopy time. 28 fluoroscopic images FINDINGS: There is a left double-J internal ureteral stent projecting in expected position, with proximal Wilmer loop at the level of the renal pelvis and distal loop in the pelvis within the bladder lumen. IMPRESSION: 1. Left internal ureteral stent placement. Please refer to real-time procedural findings for detail s. Reviewed, dictated and finalized at location A. IMPRESSION: 1. Left internal ureteral stent placement. Please refer to real-time procedur al findings for details.
--- OUTSIDE RECORDS SUMMARY | 2024-12-01 01:32 | XMS_ITS | Encounter Summary ---
Author Organization [facility] DESTINI Myers [facility] Address [address] [place] [address] Care Team Providers Care Peoplesoft Hr Developer Name Role Phone Todd Gasca MD Primary Care Provider [phone] Reason for Visit * Reason Comments Med Refill Encounter Details Date Type Department Care Team (Late st Contact Info) Description 11/24/2024 Refill [facility] Oncology and Hematology - [place] [address] [place] [address] [address] [place] [address] Ollie Clarke MD [address] [facility] [address] [place] [address] Social History Tobacco Use Types [...] on filedocumented in this encounter Care Teams Peoplesoft Hr Developer Relationship Specialty Start Date End Date Todd Gasca MD [address] [facility] [address] [place] [address] PCP - General Emergency Medicine 9/23/21 documented as of this encounter
--- OUTSIDE RECORDS SUMMARY | 2024-12-01 01:32 | XMS_ITS | Clinical Summary ---
Author Organization Todd Davenport [facility] Address [address] [place] [address] Care Team Providers Care Police Stenographer Name Role Phone Todd Gasca MD Primary Care Provider [phone] Allergies No known active allergies Medications lisinopriL [...] Date Type Department Care Team Description 11/24/2024 [facility]ematology [facility] [address] [place] [address] Ollie Clarke MD 11/06/2024 [facility] Oncology and [facility] [address] [place] [address] Ollie Clarke MD 10/26/2024 External Device Data [...] 09/15/2016 INFLUENZA VACCINE (#1) 2024 Medicare [place] Prev entative Visit/Annual Wellness Visit 09/07/2024 BREAST [...] Most Recently Relevant to Health Maintenance Insurance [place] [id number] [place] [id number] Care Teams Police Stenographer Relationship Specialty Start Date End Date Todd Gasca MD [address] [place] [phone] PCP - General Emergency Medicine 05/30/21
--- OUTSIDE RECORDS SUMMARY | 2024-12-01 01:32 | XMS_ITS | Encounter Summary ---
Author Organization [facility] Address [address] [place] [address] Care Team Providers Care Career Services Representative Name Role Phone Todd Gasca MD Primary Care Provider [phone] Gt Contreras MD Unavailable Unavailable Md Generic Conversion Primary Care Provider Unavailable Md Generic Conversion Primary Care Provider Unavailable Todd Gasca MD Primary Care Provider [phone] Encounter Details Date Type Department Care Team (Late st Contact Info) Description 11/18/2016 Abstract [facility] AT [address] [address] Siena Ronquillo MA Social History Tobacco Use Types Packs/Day Years Used Date Smoking Tobacco: Never Smokeless Tobacco: Never Alcohol Use Standard Drinks/Week Comments No 0 (1 standard drink = 0.6 oz pur e alcohol) Comments Unknown Sex and Gender Information Value Date Recorded Sex Assigned at Not on file Legal Sex Female 3:03 PM PATIENT TRANSITION SPECIALIST Gender Identity Not on file Sexual Orientation Not on file 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
--- OUTSIDE RECORDS SUMMARY | 2024-12-01 01:32 | XMS_ITS | CONTINUITY OF CARE DOCUMENT ---
Author Name andie chaves Address Unknown Organization [facility] Address [address] [address] [place] [address] Phone [phone] Care Team Providers Care Extrusion Die Template Maker Name Role Phone Sheela Childers MD Unavailable MARION SCHRADER MD Unavailable [phone] MARION SCHRADER MD Unavailable [phone] PROBLEMS Condition Status Date Provider Notes Cardiovascular screening active Sheela benitez MD Diabetes mellitus, Type II active Sheela Childers MD HYPERTENSION active Sheela Childers MD Hyperlipidemia active Sheela Childers MD ENCOUNTERS Date Type Provider Location Encounter Diag nosis - In-person encounter Office Visit Sheela Childers MD [facility] Cardiovascular screeningDiabetes mellitus, Type IIHYPERTENSIONHyperlipidemia VITAL SIGNS Date Observation Value Provider Body Mass Index (Ratio) 31.45 kg/m2 Bryan Childers MD blood pressure, diastolic 78 mm[Hg] Elizabeth nkLogky blood pressure, systolic 145 mm[Hg] Nadia kLogky blood pressure, cuff size regular Kr fernando Coker blood pressure, diastolic 78 mm[Hg] Kr issalas [...] Galindoby Accu-Chek Fastclix Lancet Drum active Cara Coker Vitamin D3 25 mcg (1,000 unit) tablet active TAKE 1 TABLET BY MOUTH EVERY DAY Cara Galindoby OneTouch Ultra Test strip active TESTS TWICE A DAY Cara José Miguel simvastatin 10 mg tablet active TAKE 1 TABLET BY MOUTH EVERY DAY IN THE EVENING Caralondon Valdez metformin 500 mg tablet active K [facility] Coker SOCIAL HISTORY Date Observation Value Provider number of grandchildren Sheela Childers MD social history reviewed E&M revi ewed - no changes required Sheela Childers MD smoking status Never smoker Cara Coker INSURANCE PROVIDERS Payer name Policy type / Coverage type [place] [employer] party ID [facility] Intelligent [facility] [id number] TREATMENT PLAN Date Name Performer [id number],C, lipid panel showed triglycerides 238, LDL 136. On Simvastatin 10 mg PO once daily. Start on ezetimibe 10 mg once daily. Sheela Childers MD [id number],C, hemoglobin A1C was 6.8%. Continues on Metformin. Reduced intake of sugars and carbohydrates including sodas was advised. Sheela Childers MD [id number],C,B P is 145/78 today. Continues on HCTZ. [...]
--- OUTSIDE RECORDS SUMMARY | 2024-12-01 01:32 | XMS_ITS | Clinical Summary ---
Author Organization [facility] Address [address] [place] [address] Care Team Providers Care Data Processing Supervisor Name Role Phone Todd Gasca MD Primary Care Provider [phone] Source Comments [facility],non-owned Affiliates and Associated Physician Practices is amultiple site organization consisting of ambulatory clinics and hospital sitesin [place], [place], [place] and [place]. This disclosure is being madepursuant to the Care Everywhere program and may not contain all information available regarding this patient. Last updated 18.[facility] Allergies No known active allergies Medications * [...] age to complete this topic Care Teams Data Processing Supervisor Relationship Specialty Start Date End Date Todd Gasca MD [address] [facility] [address] [place] [address] PCP - General Family Medicine 06/15/24
--- OUTSIDE RECORDS SUMMARY | 2024-12-01 01:32 | XMS_ITS | Data Portability ---
Author Organization [facility] [place] Address [address] [place] [address] [address] Care Team Providers Care Piping Engineer Name Role Phone MARION SCHRADER Primary Care Provider [phone] Assessment No assessment recorded. Plan of Treatment Reminders Order Date Submit Date Provider Last Modified By Organization Details Last Modified Time Details Appointments None recorded. Lab None recorded. Referral None recorded. Procedures None recorded. Surgeries None recorded. Imaging US, pelvis 2019 020 [email or web address] [place], [address], [address], [place], [address], 0 19:02:43 US, transvagina l 2019 020 JHONY [place], [address], [address], [place], [address], 0 05:01:43 Medication Orders None recorded. Patient [...] [address], [place] [address] , Aaron Jauregui ra, DO, Labor atory [...] rhonda resul ts of Alondra l or Hammond karyn are deter mined by calcu latin [...] e qing cteri stics deter mined by [facility] d/b/a PathG rou. It has not been clear ed or appro andres by the U.S. Food and Drug Admin istra tion. The FDA has deter mined that such clear ance or appro elisa is not neces fifi. Perti nent refer ence inter vals are avail able from the labor atory on reque st. Test( s) perfo rmed by IDbyME, [facility], d/b/a PathBPeSA roup, [address], [place] [address] , Aaron Jauregui ra, , Labor atory Direc tor. Not Available [facility]) [address], [place], [address], 02/16/2020 17:49:44 02/15/20 20 02/16/2020 bacte rial [...] ing error . Test perfo rmed by [facility], d/b/a PathBPeSA roup, [address], [place] [address] , Aaron Jauregui ra, , Labor atory [...] rhonda resul ts of Alondra l or [place] karyn are deter mined by calcu latin [...] e qing cteri stics deter mined by IDbyME, [facility] d/b/a PathRon franco. It has not been clear ed or appro andres by the U.S. Food and Drug Admin istra tion. The FDA has deter mined that such clear ance or appro elisa is not neces fifi. Perti nent refer ence inter vals are avail able from the labor atory on reque st. Test( s) perfo rmed by [facility], [facility], d/b/a PathRon franco, [address], [facility] [place] [address] , Aaron Jauregui ra, DO, Labor atory Direc tor. Not Available [facility] ([facility]) [address], [place], [address], 02/16/2020 17:49:44 02/15/20 20 02/16/2020 bacte rial [...] rmed by Assoc iated Patho logis ts, [facility], d/b/a [facility], [facility] [address], [place] [address] , Aaron Jauregui ra, DO, Labor atory [...] rhonda resul ts of Alondra l or [place] karyn are deter mined by calcu latin [...] e qing cteri stics deter mined by [facility] d/b/a PathG roup. It has not been clear ed or appro andres by the U.S. Food and Drug Admin istra tion. The FDA has deter mined that such clear ance or appro elisa is not neces fifi. Perti nent refer ence inter vals are avail able from the labor atorlondon on reque st. Test( s) perfo rmed by [facility] logis [facility], d/b/a PathG roup, [address], [place] [address] , Aaron Jauregui ra, DO, Labor atory Direc tor. Not Available [facility] ([facility]) [address], [place], [address], 02/16/2020 17:49:44 10/22/19 21 10/22/2020 , preston uriostegui md interpretati on Not Available Nicholas lauren [address], [place], [address], 03/05/2020 15:02:53 09/09/19 24 09/09/2023 VAGIN ITIS/ VAGIN OSIS, DNA PROBE susana sp. detection, direct probe Negati ve negati ve Not Available [facility] (Lab) [address], [place], [address], 09/15/2023 00:03:33 09/09/19 24 09/09/2023 VAGIN ITIS/ VAGIN OSIS, DNA PROBE gardnerella vag. detection, direct probe Negati ve negati ve Not Available [facility] (Lab) [address], [place], [address], 09/15/2023 00:03:33 09/09/19 24 09/09/2023 VAGIN ITIS/ VAGIN OSIS, DNA PROBE trichomonas vag. detection, direct probe Negati ve negati ve Not Available [facility] (Lab) [address], [place], [address], 09/15/2023 00:03:33 09/09/19 24 09/09/2023 HERPE S SUBTY PE(HS V1/HS V2) RT-PC R, ONESW AB herpes subtype (hsv-1, hsv-2) PCR Negati ve (HSV-1 ,HSV-2 ) Swab- 1 Vag Cerv HSV-1 :Nega tive HSV-2 :Nega tive. Not Available [facility] (Lab) [address], [place], [address], 09/15/2023 00:03:33 03/05/20 20 US, pelvi s No observ ation record ed. deann Baer [address] [facility], [place], [address], 03/06/2020 15:06:01 Result Notes None recorded. Procedures Surgical History Date Name Laterality Status Provider Name and Address Organization Details Recorded Time 09/13/19 19 Date of Last Pap Smear completed Meron Joy [facility] 09/09/2023 13:38:07 lumpectomy of breast completed Camilla Geurra [facility] 02/15/2020 10:17:40 Total Hysterectomy completed Camilla [facility] 02/15/2020 10:17:45 Tonsillectomy completed , [facility] 02/15/2020 10:17:59 lumpectomy of breast completed Meron Joy [facility] 09/09/2023 14:24:48 Imaging Results Imaging Date Name Status LastModified by Organiz ation Details LastModified Time 03/05/2020 US, pelvis completed layran Buffy [address], [place], [address], 03/06/2020 15:06:01 Procedure Notes None recorded. Medical [...] Not Available Not Available No t Available PharmatrophiXTouch Ultra Test strips TESTS TWICE A DAY 09/09 completed Not Available Not Available Not Available amlodipin e 10 mg tablet TAKE 1 TABLET (10 MG) BY MOUTH DAILY. active Not Available Not Available No t Available hydrochlo rothiazid e 12.5 mg capsule take 2 capsule by oral route every day 09/09 completed Prescrib ed Elsew e: Yes Loca tion: [facility] M odify By: alyse escalante DateTime [...] Prescrib ed Elsewher e: Yes Loca tion: [facility] M odify By: alyse escalante DateTime : 09/13/19 19 02:45:00 PM Not Available Not Available Not Available OneTouch Ultra Blue Test Strip 02/14 completed Not Available Not Available Not Available Vitals Date Recorded Body height Body mass index (BMI) Body weight Systolic blood pressure Diastolic blood pressure Provider Name and Address Organization Details Last Updated DateTime 02/15/2020 1981.2 cm 0.2 kg/m2 23586.55 g 135 mm[Hg] 79 mm[Hg] Camilla DEL [facility] 0 10:16:32 Date Recorded Body height Body mass index (BMI) Body weight Systolic blood pressure Diastolic blood pressure Provider Name and Address Organization Details Last Updated DateTime 03/05/2020 1981.2 cm 0.2 kg/m2 63705.96 g 148 mm[Hg] 87 mm[Hg] Camilla Guerra [facility] 0 15:03:32 Date Recorded Body weight Body mass index (BMI) Body height Systolic blood pressure Diastolic blood pressure Provider Name and Address Organization Details Last Updated DateTime 09/09/2023 42752.87 g 30.8 kg/m2 165.1 cm 133 mm[Hg] 81 mm[Hg] Meron Joy [facility] 4 14:19:19 Social History Question Answer Notes LastModified by Organizat ion Details LastModified Time Tobacco Smoking Status Never Smoker Meron Joy [facility] 09/09/2023 14:13:41 What Is Your [...] Or The Highest Degree You Have Received? [id number] Information not available 09/09/2023 Are There Any [...] Anxious, Or Unable To Sleep At Night)? [id number] Information not available 09/09/2023 Do You Use [...] Code Diagnosis Note [id number] Qi Morenojovanabill , [facility] [address],[place] [address] 02/15/2020 10:04:08 02/18/2020 11:16:02 Atrophic vaginitis 40745733 N95.2 Exam wnl except very atrophic appearance . We agreed to r/o infection but we also discuss that she might need vaginal estrogen or similar therapy. Due to her history I advised she contact Dr. Mary Azar [facility]; contact informatio n given. She agreed. In addition, we also agreed to r/o other issues with TVUS for c/o pelvic pressure. Time spent in visit is a total of 15 mins with at least 50% of visit consisting of counseling and review of plan of care. 9872 Qi Taqueria , [facility] [address],[place] [address] 03/05/2020 14:13:59 03/05/2020 17:27:00 Pain in pelvis 08468060 R10.2 TVUS is wnl she is feeling [...] review of plan of care. [id number] [facility] [address],[place] [address] 03/05/2020 14:14:28 03/05/2020 17:32:20 Pain in pelvis 31098334 R10.2 [id number] Janet Ignacio [facility] [address],[place] [address] 09/09/2023 14:09:44 09/10/2023 14:42:30 Atrophic vaginitis 13671879 N95.2 Exam wnl except very atrophic appearance [...] option, as well as may need vulvar rn complex care referral. Time spent in visit is [...] Doherty Member ID Guarantor Name 02/15/2020 1 [employer] (MEDICARE REPLACEMENT HMO) Melva Amezcua [id number] Melva Amezcua 03/05/2020 1 [employer] (MEDICARE REPLACEMENT HMO) Melva Amezcua [id number] Melva Amezcua 03/05/2020 1 [employer] (MEDICARE REPLACEMENT HMO) Melva Amezcua [id number] Melva Amezcua 09/09/[address] [facility] (MEDICARE REPLACEMENT/AD VANTAGE - HMO) [id number] Melva Amezcua [id number] Melva Amezcua Notes Date Note Type Note Provider Name and Address Organization Details Recorded Time 02/15/2020 text/html Vaginal/Vulvar ProblemReported bypatient.Notes:Here for evaluation of possible vaginal infection. Feels a burning in pelvic region inside. Neg urinary sx's Neg VB Neg vag d/c, itching, odor. Hx of hysterectomy 1990 Chemo/radiation Breast cancer with lumpectomy 5yrs ago. Qi Meng [facility] [address], [place], [address], [facility] 02/27/2020 12:00:00 03/05/2020 text/html Patient is here today for f/u TVUS for pelvic pressure that has since resolved. Qi Meng [facility] [address], [place], [address], [facility] 03/05/2020 15:24:14 09/09/2023 text/html 73yo with h/o of hystpresents for evaluation of vulvar burningsymptoms present for 8+ yearsopening of vagina and outer vulva irritated and often burnsdoes not use any soaps/wipes/scented productsneg discharge, odors, itchingneg pelvic painNot currently SAhx of breast cancer Janet Ignacio, CECELIA [address], [place], [address], [facility] 09/10/2023 09:31:19 OBGyn Episode Ob Episode Information Episode Created Date Number of Fetuses Patient Bloodtype Patient rh Status Prepregnancy Weight lbs Domestic Partner Domestic Partner Phone Father Name Non Destructive Testing Technician Status 02/15/20 20 1 CLOSED Fetus Data [...] Domestic Partner Domestic Partner Phone Father Name Non Destructive Testing Technician Status 02/15/20 20 1 CLOSED Fetus Data [...] Domestic Partner Domestic Partner Phone Father Name Non Destructive Testing Technician Status 02/15/20 20 1 CLOSED Fetus Data [...]
--- OUTSIDE RECORDS SUMMARY | 2024-12-01 01:32 | XMS_ITS | Clinical Summary ---
Author Organization [facility] Address [address] [place] [address] Care Team Providers Care Environmental Attorney Name Role Phone Crow Contreras MD Unavailable Unavailable Todd Gasca MD Primary Care Provider [phone] Allergies No known active allergies Medications lisinopril 40 MG tablet Take 1 tablet daily 10/23/2016 Active metFORMIN 500 MG tablet Take 1 tablet daily 10/23/2016 Active Active Problems Problem Noted Date Diagnosed Date Abnormal ECG 11/25/2016 Essential hypertension Dyslipidemia Family History Medical History Relation Comments Coronary artery disease Father [place] Father *cause of at age 69 Other Maternal Grandmother at age 69 Diabetes Mother Hyperlipidemia Mother Hypertension Mother als Mother at age 71 [place] Other Paternal side Au nt, Uncle, and cousin in 40's-50's from [place] Stroke Paternal Grandmother in 1951 [place] Sister at age 40 Relation Status Comments [...] on file Legal Sex Female 3:03 PM TYPIST Gender Identity Not on file Sexual Orientation Not on file 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 [employer] Not on file [...] GENERIC (SCAN ORDER) Routine 09/20/2013 11:09 AM TYPIST from Last 3 Months or Most Recently Relevant to Health Maintenance Results * MAMMOGRAM GENERIC (09/20/2013 11:09 AM TYPIST) Anatomical Region Laterality Modality Other 09/20/2013 11:0 9 AM TYPIST 09/20/2013 11:09 AM TYPIST Narrative 09/20/2013 11:58 AM TYPIST [facility] ORDERING MD: CROW MAYEN MD ACCT: [id number] ADMIT/SERVICE DATE: 09/20/13 DISCHARGE DATE: : 1950 PT TYPE: REG SDC SEX: F ORD SITE: [facility] STUDY DATE REPORT # PROCEDURE CODE PROCEDURE 09/20/13 [id number] SPECIMEN MG BREAST SPECIMEN EXTORDERID [id number] ACCESSION NUMBER [id number] CHART DOCUMENT IMPRESSION: SURGICAL CLIP AND MASS [...] M.D. 09/20/2013 11:56 OMAR HADDAD M.D. A #[id number] A/FIGUEROA CC: Lidya YADAV M.D. Procedure Note Dariana Guerra MD - 06/30/2018 [facility]O ORDERING MD: CROW MAYEN MD ACCT: [id number] ADMIT/SERVICE DATE: 09/20/13 DISCHARGE DATE: : 1950 PT TYPE: REG SDC SEX: F ORD SITE: [facility] STUDY DATE REPORT # PROCEDURE CODE PROCEDURE 09/20/13 [id number] SPECIMEN MG BREAST SPECIMEN EXTORDERID [id number] ACCESSION NUMBER [id number] CHART DOCUMENT IMPRESSION: SURGICAL CLIP AND MASS [...] M.D. 09/20/2013 11:56 OMAR HADDAD M.D. A #[id number] A/MA CC: Lidya YADAV M.D. us Generic Conversion Md GUERRA SCANNING Final R esult from Last 3 Months or Most Recently Relevant to Health Maintenance Insurance [facility] Advance Directives Documents on File Type Date Recorded Patient Program Medical Director Expl anation Advance Directives and Livin g Will 09/20/2013 POWER OF ROUTE DELIVERY MANAGER Care Teams Environmental Attorney Relationship Specialty Start Date End Date Todd Gasca MD [address] [place] [address] PCP - General 04/21/17 Crow Contreras MD [place] Client Evaluator CARDIOVASCULAR DISEASE 11/07/16
--- NOTE | 2024-12-01 06:18 | WPDHPUPDATE1 ---
History and Physical Update Update Date/Time: 12/01/24 06:18 History and Physical has been reviewed, including an updated exam of the patient. There are NO changes in the patient's condition. Risks, benefits, and alternatives have been discussed and questions answered. Patient agrees to proceed with procedure.
[2024-12-01] MEDS: LACTATED RINGERS 1,000 ML 30 ML IV CONT (10:45)
--- NOTE | 2024-12-01 11:11 | P.PNAN_ITS ---
Anes - Initial Pre Proc Eval Procedure: Operation Date: 12/01/24 13:00 Proposed Procedures p Cystoscopy, Left Ureteroscopy, Possible Left Retrograde Pyelogram, Possible Left Stone Extraction, Left Stent Removal/Replacement, Possible Holmium Laser - Fady Brown MD Date/Time: 12/01/24 11:11 Surgeon: Fady Brown MD Pre Op Diagnosis: left ureteral stone Patient Data Age: 74 Gender: F Height: 1.65 m Weight: 83.65 kg Last Vital Signs Temp 98.0 F 12/01/24 10:15 Pulse 70 12/01/24 10:15 Resp 14 12/01/24 10:15 BP 147/81 H 12/01/24 10:15 Pulse Ox 99 12/01/24 10:15 O2 Del Method Room Air 12/01/24 10:15 Allergies Allergy/AdvReac Type Severity Reaction Status Date / Time No Known Allergies Allergy Verified 12/01/24 10:12 Home Medications ?Medication ?Instructions ?Recorded ?Confirmed ?Type glucosamine-chondroitin 250 mg-200 1 tablet PO DAILY 10/30/21 12/01/24 History mg tablet multivitamin 1 tablet PO DAILY 10/30/21 12/01/24 History potassium chloride 10 mEq 10 meq PO DAILY 06/08/24 12/01/24 History capsule,extended release cholecalciferol (vitamin D3) 25 25 mcg PO DAILY 11/13/24 11/30/24 History mcg (1,000 unit) tablet (Vitamin D3) oxybutynin chloride 5 mg tablet 5 mg PO BID PRN bladder spasms #30 11/18/24 11/30/24 Rx tabs tramadol 50 mg tablet 50 mg PO Q6H PRN pain #20 tabs 11/18/24 11/30/24 Rx amlodipine 10 mg tablet 10 mg PO QAM 11/30/24 12/01/24 History hydrocodone 5 mg-acetaminophen 325 1 tablet PO Q6-8H PRN pain 11/30/24 12/01/24 History mg tablet tamsulosin 0.4 mg capsule 0.4 mg PO HS PRN URINATION 11/30/24 11/30/24 History DIFFFICULTY Patient hx anesthesia problems: none Family hx anesthesia problems: none Results Review: All pre-operative results and documents have been reviewed as part of the pre- operative evaluation. [facility] Past Medical History Medical History Bilateral breast cancer status post lumpectomy and chemoradiation Kidney stones Type 2 diabetes mellitus Hyperlipidemia Motion sickness Osteoporosis Thyroid condition Hypertension Surgical History Surgical History History of lumpectomy of both breasts History of hysterectomy History of tonsillectomy History of parathyroidectomy History of bladder surgery History of colon resection r/t diverticulitis Family History Family History Father Heart attack Mother ALS (amyotrophic lateral sclerosis) Other Cerebrovascular accident Hypertension Social History Social History Social History: Surrogate medical decision maker: Dary Barber, daughter. Code status: Full code. Smoking status: Never smoker Alcohol intake: never Alcohol use details: rare alcohol use in moderation Substance use: never Substance use type: does not use Do You Feel Safe in your Home?: Yes Lack of Transportation: No Lack of Food: Never True Current Housing: I Have Housing Concerned About Future Housing: No Difficulty Paying Gas/Electric Bills: No Difficulty Paying for Meds: No Currently Unemployed: No Education: High School Diploma/GED Difficulty w/ Childcare or Family Care: No Living arrangements: alone Additional living arrangements comments: KELI Spiritual care concerns: No Anes - Eval Final PreProcedure Day of Procedure 12/01/24 11:11 Patient weight: obese Lungs: normal air movement Airway: Mallampati scale class II and special considerations (Missing several in the post aspect. ) Neurological: alert and oriented Last oral intake: >/= 8 hours ASA classification: III Emergent: no Anesthetic plan: proceed Anesthesia type and monitoring: general LMA and standard monitoring Results Review: All pre-operative results and documents have been reviewed as part of the pre- operative evaluation. HTN, DM fsbs 170. Informed Consent: The patient's anesthetic plan and its attendant risks and benefits were discussed with the patient/family/POA. Questions were solicited and answers provided to the satisfaction of the patient/family/POA.
[2024-12-01] MEDS: ceFAZolin 2 GM/D5W 50 ML 2 GM/50 ML BAG IVPB (11:59)
--- NOTE | 2024-12-01 12:35 | W.PM.PROC2 ---
Procedure Note - Detailed Date of Procedure 12/01/24 Pre-op Diagnosis Left ureteral stone Post-op Diagnosis Same Procedure Performed Cystoscopy, left ureteroscopy with stone extraction, left retrograde pyelogram, left ureteral stent replacement Surgeon Fady Brown MD Anesthesia General Description of Procedure Patient is brought to the operative suite where she is prepped and draped in routine sterile fashion while in dorsal lithotomy position after the uneventful induction of a general LMA anesthetic. Cystoscopy was undertaken with a 19 F rigid cystoscope. The tip of the indwelling stent is grasped and brought to the external urethral meatus. A 0.035 in glidewire was advanced through the stent into the left renal pelvis. Ureteroscopy was undertaken with a short tapered semi-rigid ureteral scope. I can reach her left mid ureteral stone. It is immediately apparent that the stone is fractured into multiple small pieces from her recent lithotripsy. All pieces were extracted with a 1.9 F disposable stone basket without need for additional lithotripsy. Did a retrograde pyelogram then performed flexible ureteroscopy inspecting the entire collecting system for any residual stone fragments. I opted to replace a 4.8 F variable length stent which was positioned with the proximal coil in renal pelvis and distal coil in the bladder. Scopes were was removed she was taken recovery in good condition Drains No Packing No Pathology Yes Complications No immediate complications
[2024-12-01 12:56] LABS: Glucose Point of Care 118 mg/dl (65-105)
[2024-12-01] MEDS: oxyCODONE HCL (*CRX) 5 MG TAB IR PO (13:39)
[2024-12-01] MEDS: oxyBUTYnin CHLORIDE 5 MG TABLET PO (14:21)
[2024-12-01] MEDS: KETOROLAC 30 MG/ML VIAL (*BKC) IV PUSH (14:30)
== END 2024-12-01 14:55 | disposition home or self-care (01) ==
PROVIDERS: PCP Emergency Medicine; Visit Provider Urology
PROC: (CPT 52352; principal; 2024-12-01 13:00)
DX: N20.1 Calculus of ureter (principal); E11.9 Type 2 diabetes mellitus without complications; E78.5 Hyperlipidemia, unspecified; M81.0 Age-related osteoporosis without current pathological fracture; I10 Essential (primary) hypertension; E66.9 Obesity, unspecified; Z68.30 Body mass index [BMI] 30.0-30.9, adult; Z79.891 Long term (current) use of opiate analgesic; Z98.890 Other specified postprocedural states; Z90.49 Acquired absence of other specified parts of digestive tract; Z85.3 Personal history of malignant neoplasm of breast; Z82.49 Family history of ischemic heart disease and other diseases of the circulatory system
CPT/HCPCS: 52352; 52332; 74420; 82365; 82948; 88300; A9270; C1758; C1769; C2617; J0690; J1100; J1596; J1885; J2003; J2371; J2405; J2704; J3010; J7120; Q9966

== ENCOUNTER 2025-04-28 09:10 | Emergency (ER) | payer MEDICARE, SELFPAY ==
--- OUTSIDE RECORDS SUMMARY | 2025-04-28 09:14 | XMS_ITS | Clinical Summary ---
Author Organization [facility] Address [address] [place] [address] Care Team Providers Care Federal Mediation Commissioner Name Role Phone Todd Gasca MD Primary Care Provider [phone] [facility],non-owned Affiliates and Associated Physician Practices is amultiple site organization consisting of ambulatory clinics and hospital sitesin [place], [place], [place] and [place]. This disclosure is being madepursuant to the Care Everywhere program and may not contain all information available regarding this patient. Last updated 18.[facility] Allergies No known active allergies Medications * Be aware that medications may not be up to date on this document. Alwaysverify current medications with the patient. ondansetron, disintegrating, (Zofran ODT) 4 MG tablet Take 1 (one) tablet by mouth every 6 hours as needed for Nausea/Vomiti ng Allow tablet to dissolve on the tongue 12 tablet 06/16/2024 Active ibuprofen (Motrin) 600 MG tablet Take 1 (one) tablet by mouth every 6 hours as needed for Pain 30 tablet 06/16/2024 Active Social History Tobacco Use Types Packs/Day Years Used Date Smoking Tobacco: Never Assessed Comments Unknown Sex and Gender Information Value Date Recorded Sex Assigned at Not on file Legal Sex Female 3:22 PM CDT Gender Identity Not on file [...] 9:52 AM CDT Height 165.1 cm (5' 5) 06/15/2024 9:52 AM CDT Body Mass Index [...] - Risk 60-74 years 1-dose series) 2011 COVID-19 VACCINE ( - 2023-2 5 season) 2024 DEPRESSION SCREENING 09/07/2024 MEDICARE AWV CALENDAR YEAR 2024 INFLUENZA VACCINE (#1) 2025 09/16/2012 MAMMOGRAM 03/14/2026 03/14/2024, 09/20/2013 HEPATITIS B VACCINE Aged Out No longe r eligible based on patient's age to complete this topic HIB VACCINE Aged Out No longer eligi ble based on patient's age to complete this topic HPV VACCINE Aged Out No longer eligi ble based on patient's age to complete this topic MENINGOCOCCAL (Group B) VACCINE SHARED DECISION-MAKING Aged Out No longer eligible based on patient's age to complete this topic MENINGOCOCCAL GROUPS A/C/Y/W VACCINE Aged Out No longer eligible b ased on patient's age to complete this topic Insurance [facility] MANAGED MEDICARE ADV [facility] MANAGED MEDICARE ADV [place] [id number] [facility] MANAGED MEDICARE ADV SELF PAY NO INSURANCE Member Subscriber Plan / Payer (Ef fective for All Dates) Name:Melva Palomo Member ID:Not on file Relation to Subscriber:Not on file Name:MELVA PALOMO Subscriber ID:Not on file (Home) Address: [address] [place] [id number] Payer ID:Not on file Group ID:Not on file Type:Self Pay Address: [place], [place] Care Teams Federal Mediation Commissioner Relationship Specialty Start Date End Date Todd Gasca MD [address] [place] [phone] PCP - General Family Medicine 06/15/24
--- OUTSIDE RECORDS SUMMARY | 2025-04-28 09:14 | XMS_ITS | Clinical Summary ---
Author Organization [facility]port [facility] Address [address] [place] [address] Care Team Providers Care Butt Welder Name Role Phone Todd Gasca MD Primary Care Provider [phone] Allergies No known active allergies Medications lisinopriL [...] Encounters Date Type Department Care Team Description 02/07/2025 External Device Data ST[facility] ABSTRACTION Provider, Abstract [...] 2:13 PM CDT Height 165.1 cm (5' 5) 05/14/2022 2:42 PM CDT Body Mass Index [...] DIABETES HBA1C Q 6 MONTHS 03/15/2017 09/15/2016 BREAST CANCER SCREENING 03/14/2025 03/14/2024 INFLUENZA VACCINE (#1) 2025 RSV VACCINE (60+ or ) (1 - [...] Most Recently Relevant to Health Maintenance Insurance [facility] [id number] [facility] [id number] Care Teams Butt Welder Relationship Specialty Start Date End Date Todd Gasca MD [address] [place] [phone] PCP - General Emergency Medicine 05/30/21
[2025-04-28 09:24] VITALS: BP 159/86; PULSE 83; RESP 12; TEMP 36.6; O2SAT 95
--- NOTE | 2025-04-28 09:46 | ED.SKABFB ---
HPI - Skin/Abscess/Foreign Bdy General Chief complaint: Skin/Abscess/Foreign Body Stated complaint: I think I have shingles again or something Time Seen by Provider: 04/28/25 09:18 History of Present Illness HPI narrative: Patient is a 74-year-old female who presents ER with concerns for rash. She took a shower 2 days ago and medially started having burning in her hands and face bilaterally. She has dryness in her eyes. She and has noticed some bumps along the jawline and cheek. She had shingles in December of this year and this is increased her concern. The shingles were in a different distribution and affecting her right back and going down her right arm. She denies any new perfumes or soaps/detergents. Denies new body lotion. No new medications. Does not believe she has been outside working in the yd to have contact irritant. Related Data Home Medications ?Medication ?Instructions ?Recorded ?Confirmed ?Last Taken ?Type glucosamine-chondroitin 250 mg-200 1 tablet PO DAILY 10/30/21 12/01/24 11/30/24 History mg tablet multivitamin 1 tablet PO DAILY 10/30/21 12/01/24 11/30/24 History potassium chloride 10 mEq 10 meq PO DAILY 06/08/24 12/01/24 11/30/24 History capsule,extended release cholecalciferol (vitamin D3) 25 25 mcg PO DAILY 11/13/24 11/30/24 11/14/24 History mcg (1,000 unit) tablet (Vitamin D3) amlodipine 10 mg tablet 10 mg PO QAM 11/30/24 12/01/24 12/01/24 08:30 History hydrocodone 5 mg-acetaminophen 325 1 tablet PO Q6-8H PRN pain 11/30/24 12/01/24 12/01/24 08:30 History mg tablet tamsulosin 0.4 mg capsule 0.4 mg PO HS PRN URINATION 11/30/24 11/30/24 Unknown History DIFFFICULTY Allergies Allergy/AdvReac Type Severity Reaction Status Date / Time No Known Allergies Allergy Verified 04/28/25 09:23 Review of Systems Constitutional: Constitutional: Reports no additional constitutional complaints Eyes: Eyes: Reports no additional eye complaints ENT: Reports system reviewed and no additional complaints, except as documented Integumentary/Breasts: Skin/Breast: Reports system reviewed and no additional complaints, except as docu PMFSH Past Medical History Medical History Bilateral breast cancer status post lumpectomy and chemoradiation Kidney stones Type 2 diabetes mellitus Hyperlipidemia Motion sickness Osteoporosis Thyroid condition Hypertension Surgical History Surgical History History of lumpectomy of both breasts History of hysterectomy History of tonsillectomy History of parathyroidectomy History of bladder surgery History of colon resection r/t diverticulitis Family History Family History Father Heart attack Mother ALS (amyotrophic lateral sclerosis) Other Cerebrovascular accident Hypertension Social History Social History Social History: Surrogate medical decision maker: Dary Barber, daughter. Code status: Full code. Smoking status: Never smoker Alcohol intake: never Alcohol use details: rare alcohol use in moderation Substance use: never Substance use type: does not use Do You Feel Safe in your Home?: Yes Lack of Transportation: No Lack of Food: Never True Current Housing: I Have Housing Concerned About Future Housing: No Difficulty Paying Gas/Electric Bills: No Difficulty Paying for Meds: No Currently Unemployed: No Education: High School Diploma/GED Difficulty w/ Childcare or Family Care: No Living arrangements: alone Additional living arrangements comments: KELI Spiritual care concerns: No Exam Narrative: GENERAL: Well-appearing, well-nourished, and in no acute distress. HEAD: Normocephalic, atraumatic. EYES: PERRL and EOMI. Dry skin lateral aspect of the eyelids bilaterally. ENT: Mucous membranes moist. NECK: Supple. Enlarged lymph node at the right mandibular angle that patient reports is chronic. Nontender. CHEST: Clear to auscultation. No respiratory distress. HEART: Regular rate and rhythm. Normal peripheral pulses. EXTREMITIES: Normal range of motion. No edema. SKIN: Warm, dry. Very faint films to the left she can dry skin to the underside of the right chin. NEURO: Alert and oriented x3. PSYCH: Normal mood and affect. Course Course Emergency Course: Labs unremarkable. No indicators of polycythemia vera. Suspect contact dermatitis. I certainly do not believe she has cellulitis or shingles. Recommend artificial tears for dry eyes and Zyrtec. Vital Signs Vital signs: Vital Signs Temperature 97.9 F 04/28/25 09:24 Pulse Rate 83 04/28/25 09:24 Respiratory Rate 12 04/28/25 09:24 Blood Pressure 159/86 H 04/28/25 09:24 Pulse Oximetry 95 04/28/25 09:24 Oxygen Delivery Room Air 04/28/25 09:24 Temperature 97.9 F 04/28/25 09:24 Pulse Rate 77 04/28/25 10:29 Respiratory Rate 16 04/28/25 10:29 Blood Pressure 159/80 H 04/28/25 10:29 Pulse Oximetry 97 04/28/25 10:29 Oxygen Delivery Room Air 04/28/25 09:24 MDM - Skin/Abscess/Foreign Bdy Lab Data 04/28/25 09:43 04/28/25 09:43 Labs: Lab Results 04/28/25 Range/Units 09:43 WBC 4.8 (4.5-10.0) K/mm3 RBC 4.58 (4.2-5.4) M/mm3 Hgb 12.6 (12.0-15.0) g/dL Hct 38.7 (37.0-47.0) % MCV 84.5 (80-100) fl MCH 27.5 (26-34) pg MCHC 32.6 (32-36) g/dl RDW 13.0 (11.5-14.5) % Plt Count 233 (150-375) k/mm3 MPV 9.4 (7.4-10.4) fl Immature Gran % (Auto) 0.4 (0-0.5) % Neut % (Auto) 54.3 (45.5-73.1) % Lymph % (Auto) 26.3 (18.3-44.2) % [place] % (Auto) 12.5 H (2.6-8.5) % Eos % (Auto) 5.2 H (0-4.4) % Baso % (Auto) 1.3 H (0.2-1.2) % Lymph # (Auto) 1.26 (0.9-3.2) K/mm3 [place] # (Auto) 0.6 (0.1-0.6) K/mm3 Eos # (Auto) 0.3 (0-0.3) K/mm3 Baso # (Auto) 0.1 (0.0-0.1) K/mm3 Abs Immat Gran (auto) 0.02 (0.00-0.031) K/mm3 Absolute Neuts (auto) 2.6 (1.3-6.7) K/mm3 Absolute Nucleated RBC 0.000 (0.0-0.012) K/mm3 Nucleated RBC % 0.0 (0.0-0.2) % Sodium 139 (137-145) mmol/L Potassium 3.4 (3.4-5.0) mmol/L Chloride 104 (98-107) mmol/L Carbon Dioxide 26 (22-30) mmol/L Anion Gap 9 (4-12) mmol/L BUN 13 (7-17) mg/dL Creatinine 0.59 L (0.7-1.0) mg/dL Estim Creat Clear Calc 77 ml/min Estimated GFR > 60 (59 - ) Glucose 161 H (65-110) mg/dL Calcium 9.7 (8.4-10.2) mg/dL Total Bilirubin 0.5 (0.2-1.3) mg/dL AST 46 H (14-36) U/L ALT 44 H (6-35) U/L Alkaline Phosphatase 92 (38-126) U/L Total Protein 7.4 (6.3-8.2) g/dL Albumin 4.3 (3.5-5.1) g/dL Discharge Plan Discharge Clinical Impression: Contact dermatitis, Dry eye Patient Disposition: Home Condition: Stable Instructions: Eye Lubricant (Into the eye), Contact Dermatitis (ED) Additional Instructions: Return ER if you have worsening rash, have fever 100.4? F, or you have additional concerns. Follow-up with primary care doctor for further treatment evaluation. Patient Language: Thai Prescriptions: New Artificial Tears (cmc) 1 % drops 1 drp EACH EYE QID Qty: 15 0RF cetirizine [Zyrtec] 10 mg tablet 10 mg PO DAILY Qty: 14 0RF No Action potassium chloride 10 mEq Capsule, Extended Release 10 meq PO DAILY amlodipine 10 mg tablet 10 mg PO QAM tamsulosin 0.4 mg capsule 0.4 mg PO HS PRN (Reason: URINATION DIFFFICULTY) hydrocodone-acetaminophen 5-325 mg tablet 1 tablet PO Q6-8H PRN (Reason: pain) hydrocodone-acetaminophen 5-325 mg tablet 1 - 2 tablet PO Q6H PRN (Reason: pain) Qty: 20 0RF cephalexin 500 mg capsule 500 mg PO Q8H Qty: 9 0RF multivitamin Tablet 1 tablet PO DAILY glucosamine-chondroitin 250-200 mg Tablet 1 tablet PO DAILY cholecalciferol (vitamin D3) [Vitamin D3] 25 mcg (1,000 unit) tablet 25 mcg PO DAILY Patient Comments: haven't taken since August or so tramadol 50 mg tablet 50 mg PO Q6H PRN (Reason: pain) Qty: 20 0RF oxybutynin chloride 5 mg tablet 5 mg PO BID PRN (Reason: bladder spasms) Qty: 30 0RF Rx Instructions: Take as needed for bladder spasms Follow-up/Referrals: Todd Gasca MD [Primary Care Provider, Family Practice] - 1 Week
--- OUTSIDE RECORDS SUMMARY | 2025-04-28 09:48 | XMS_ITS | Clinical Summary ---
Author Organization [facility] Address [address] [place] [address] Care Team Providers Care Survey Questionnaire Designer Name Role Phone Todd Gasca MD Primary Care Provider [phone] Source Comments [facility],non-owned Affiliates and Associated Physician Practices is amultiple site organization consisting of ambulatory clinics and hospital sitesin [place], [place], [place] and [place]. This disclosure is being madepursuant to the Care Everywhere program and may not contain all information available regarding this patient. Last updated 18.[facility] Allergies No known active allergies Medications * [...] patient's age to complete this topic Insurance [facility] MANAGED MEDICARE ADV [facility] MANAGED MEDICARE ADV [place] [id number] [facility] MANAGED MEDICARE ADV SELF PAY NO INSURANCE Member Subscriber Plan / Payer (Ef fective for All Dates) Name:Melva Palomo Member ID:Not on file Relation to Subscriber:Not on file Name:MELVA PALOMO Subscriber ID:Not on file (Home) Address: [address] [place] [phone] Payer ID:Not on file Group ID:Not on file Type:Self Pay Address: [place], [place] Care Teams Survey Questionnaire Designer Relationship Specialty Start Date End Date Todd Gasca MD [address] [place] [phone] PCP - General Family Medicine 06/15/24
--- OUTSIDE RECORDS SUMMARY | 2025-04-28 09:48 | XMS_ITS | Clinical Summary ---
Author Organization [facility]enport [facility] Address [address] [place] [address] Care Team Providers Care Horseradish Maker Name Role Phone Todd Gasca MD Primary Care Provider [phone] Allergies No known active allergies Medications lisinopriL [...] Most Recently Relevant to Health Maintenance Insurance [facility] [id number] [facility] [id number] Care Teams Horseradish Maker Relationship Specialty Start Date End Date Todd Gasca MD [address] [place] [phone] PCP - General Emergency Medicine 05/30/21
[2025-04-28 09:49] LABS: Hematocrit 38.7 % (37.0-47.0); Hemoglobin 12.6 g/dL (12.0-15.0); Immature Granulocyte Percent A 0.4 % (0-0.5); Lymphocytes Absolute Auto 1.26 K/mm3 (0.9-3.2); Mean Corpuscular HGB Conc 32.6 g/dl (32-36); Mean Corpuscular Hemoglobin 27.5 pg (26-34); Mean Corpuscular Volume 84.5 fl (80-100); Nucleated Red Blood Cells Absolute Auto 0.000 K/mm3 (0.0-0.012); Nucleated Red Blood Cells Perc 0.0 % (0.0-0.2); Platelet Count Result 233 k/mm3 (150-375); Red Blood Count 4.58 M/mm3 (4.2-5.4); White Blood Count 4.8 K/mm3 (4.5-10.0)
[2025-04-28 10:08] LABS: Alanine Aminotransferase 44 U/L (6-35); Albumin Level 4.3 g/dL (3.5-5.1); Alkaline Phosphatase 92 U/L (38-126); Anion Gap 9 mmol/L (4-12); Aspartate Amino Transferase 46 U/L (14-36); Bilirubin,Total 0.5 mg/dL (0.2-1.3); Blood Urea Nitrogen 13 mg/dL (7-17); Calcium 9.7 mg/dL (8.4-10.2); Carbon Dioxide 26 mmol/L (22-30); Chloride 104 mmol/L (98-107); Estimated CRCL calculation 77 ml/min; Estimated Glomerular Filt Rate > 60; Glucose 161 mg/dL (65-110); Potassium 3.4 mmol/L (3.4-5.0); Sodium 139 mmol/L (137-145); Total Protein 7.4 g/dL (6.3-8.2)
[2025-04-28 10:29] VITALS: BP 159/80; PULSE 77; RESP 16; O2SAT 97
== END 2025-04-28 11:03 | disposition home or self-care (01) ==
PROVIDERS: Emergency Provider Emergency Medicine; PCP Emergency Medicine
DX: L25.9 Unspecified contact dermatitis, unspecified cause (principal); H04.123 Dry eye syndrome of bilateral lacrimal glands; I10 Essential (primary) hypertension; E11.9 Type 2 diabetes mellitus without complications; E78.5 Hyperlipidemia, unspecified; M81.0 Age-related osteoporosis without current pathological fracture; Z87.442 Personal history of urinary calculi; Z85.3 Personal history of malignant neoplasm of breast; Z90.710 Acquired absence of both cervix and uterus; Z90.89 Acquired absence of other organs; Z90.49 Acquired absence of other specified parts of digestive tract; Z79.899 Other long term (current) drug therapy
CPT/HCPCS: 36415; 80053; 85025; 99283

== ENCOUNTER 2025-05-12 15:24 | Outpatient (CLI) | payer MEDICARE, SELFPAY ==
--- NOTE | ~2025-05-12 | XR_ITS ---
EXAMINATION:XR_[id number]_CR DATE: 05/12/2025 15:41 INDICATION: Severe spondylosis TECHNIQUE: AP, lateral and odontoid views of the cervical spine are provided. COMPARISON: None FINDINGS: 2 mm anterolisthesis C7 on T1. Alignment is otherwise normal. Odontoid is intact. Mild atlantoaxial osteoarthritis. Vertebral body heights are normal. Severe disc height loss at C4-C5 and C6-C7 and moderate disc height loss at C2- C3, C3-C4 and C5-C6. There are prominent anterior and smaller posterior endplate osteophytes from C3-C4 through C6-C7. There is multilevel moderate to severe cervical facet and uncovertebral osteoarthritis. Prevertebral soft tissues are normal. IMPRESSION: 1. Severe cervical spondylosis. Reviewed, dictated and finalized at location A.
--- OUTSIDE RECORDS SUMMARY | 2025-05-12 15:28 | XMS_ITS | Clinical Summary ---
Author Organization [facility] Address [address] [place] [address] Care Team Providers Care Reception Interviewer Name Role Phone Crow Contreras MD Unavailable Unavailable Todd Gasca MD Primary Care Provider [phone] Allergies No known active allergies Medications lisinopril 40 MG tablet Take 1 tablet daily 10/23/2016 Active metFORMIN 500 MG tablet Take 1 tablet daily 10/23/2016 Active Active Problems Problem Noted Date Diagnosed Date Abnormal ECG 11/25/2016 Essential hypertension Dyslipidemia Family History Medical History Relation Comments Coronary artery disease Father [place] Father *cause of at age 69 Other Maternal Grandmother at age 69 Diabetes Mother Hyperlipidemia Mother Hypertension Mother als Mother at age 71 [place] Other Paternal side Au nt, Uncle, and cousin in 40's-50's from [place] Stroke Paternal Grandmother in 1950 [place] Sister at age 40 Relation Status Comments [...] on file Legal Sex Female 3:03 PM ASSISTANT BOYS TRACK COACH Gender Identity Not on file Sexual Orientation Not on file 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 End Date 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 [employer] Not on file Not on file [...] 12:46 PM CDT Height 165.1 cm (5' 5) 12/11/2016 12:46 PM CDT Body Mass Index 29.95 12/11/2016 12:46 PM CDT Plan of Treatment Health Maintenance Due Date Last Done Comments Colorectal Cancer Screening Colonoscopy (10 Years) 1950 Hepatitis C 1969 DTaP, Tdap and Td Vaccines ( 1 - Tdap) 1970 Pneumococcal Vaccine: 50+ Ye ars (1 of 1 - PCV) 2001 Zoster Vaccines (1 of 2) 2001 Mammogram Screening 09/20/2015 09/20/2013 Annual Medicare Wellness Visit 2016 Dexa Scan (General) 2016 COVID-19 Vaccine ( - 2023-2 5 season) 2025 RSV Immunization or 60+ Years (1 - [...] GENERIC (SCAN ORDER) Routine 09/20/2013 11:09 AM ASSISTANT BOYS TRACK COACH from Last 3 Months or Most Recently Relevant to Health Maintenance Results * MAMMOGRAM GENERIC (09/20/2013 11:09 AM ASSISTANT BOYS TRACK COACH) Anatomical Region Laterality Modality Other 09/20/2013 11:0 9 AM ASSISTANT BOYS TRACK COACH 09/20/2013 11:09 AM ASSISTANT BOYS TRACK COACH Narrative 09/20/2013 11:58 AM ASSISTANT BOYS TRACK COACH MELVA PALOMO ORDERING MD: CROW MAYEN MD ACCT: [id number] ADMIT/SERVICE DATE: 09/20/13 DISCHARGE DATE: : 1950 PT TYPE: REG SDC SEX: F ORD SITE: [facility] STUDY DATE REPORT # PROCEDURE CODE PROCEDURE 09/20/13 6914-3182 SPECIMEN MG BREAST SPECIMEN EXTORDERID [id number] ACCESSION NUMBER [id number] CHART DOCUMENT IMPRESSION: SURGICAL CLIP AND MASS [...] M.D. 09/20/2013 11:56 OMAR HADDAD M.D. A #[id number] A/MA CC: Lidya YADAV M.D. Procedure Note Dariana Guerra MD - 06/30/2018 EMLVA PALOMO ORDERING MD: CROW MAYEN MD ACCT: [id number] ADMIT/SERVICE DATE: 09/20/13 DISCHARGE DATE: : 1950 PT TYPE: REG SDC SEX: F ORD SITE: [facility] STUDY DATE REPORT # PROCEDURE CODE PROCEDURE 09/20/13 [id number] SPECIMEN MG BREAST SPECIMEN EXTORDERID [id number] ACCESSION NUMBER [id number] CHART DOCUMENT IMPRESSION: SURGICAL CLIP AND MASS [...] M.D. 09/20/2013 11:56 OMAR HADDAD M.D. A #[id number] A/FIGUEROA CC: Lidya YADAV M.D. us Generic Conversion Md GUERRA SCANNING Final R esult from Last 3 Months or Most Recently Relevant to Health Maintenance Insurance [employer] Advance Directives Documents on File Type Date Recorded Patient Records Assistant Expl anation Advance Directives and Livin g Will 09/20/2013 POWER OF ELASTIC ASSEMBLER Care Teams Reception Interviewer Relationship Specialty Start Date End Date Todd Gasca MD [address] [place] [phone] PCP - General 04/21/17 Crow Contreras MD Rudolph Tooling Specialist CARDIOVASCULAR DISEASE 11/07/16
--- OUTSIDE RECORDS SUMMARY | 2025-05-12 15:28 | XMS_ITS | Clinical Summary ---
Author Organization [facility] Address [address] [place] [address] Care Team Providers Care Kennel Keeper Name Role Phone Todd Gasca MD Primary Care Provider [phone] Source Comments [facility],non-owned Affiliates and Associated Physician Practices is amultiple site organization consisting of ambulatory clinics and hospital sitesin [place], [place], [place] and [place]. This disclosure is being madepursuant to the Care Everywhere program and may not contain all information available regarding this patient. Last updated 18.[facility] Allergies No known active allergies Medications * [...] patient's age to complete this topic Insurance [facility] MANAGED MEDICARE ADV [facility] MANA[facility]ED MEDICARE ADV [place] [id number] [facility] MANAGED MEDICARE ADV SELF PAY NO INSURANCE Member Subscriber Plan / Payer (Ef fective for All Dates) Name:Melva Palomo Member ID:Not on file Relation to Subscriber:Not on file Name:MELVA PALOMO Subscriber ID:Not on file (Home) Address: [address] [place] [phone] Payer ID:Not on file Group ID:Not on file Type:Self Pay Address: [place], [place] Care Teams Kennel Keeper Relationship Specialty Start Date End Date Todd Gasca MD [address] [place] [id number] PCP - General Family Medicine 06/15/24
--- OUTSIDE RECORDS SUMMARY | 2025-05-12 15:29 | XMS_ITS | Encounter Summary ---
Author Organization [facility] Address [address] [place] [address] Care Team Providers Care Business Services Tech Name Role Phone Todd Gasca MD Primary Care Provider [phone] Gt Contreras MD Unavailable Unavailable Md Generic Conversion Primary Care Provider Unavailable Md Generic Conversion Primary Care Provider Unavailable Todd Gasca MD Primary Care Provider [phone] Encounter Details Date Type Department Care Team (Late st Contact Info) Description 11/18/2016 Abstract [facility] AT [address] [address] Siena Ronquillo MA Social History Tobacco Use Types Packs/Day Years Used Date Smoking Tobacco: Never Smokeless Tobacco: Never Alcohol Use Standard Drinks/Week Comments No 0 (1 standard drink = 0.6 oz pur e alcohol) Comments Unknown Sex and Gender Information Value Date Recorded Sex Assigned at Not on file Legal Sex Female 3:03 PM 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 Gender Identity Not on file Sexual Orientation Not on file 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
--- OUTSIDE RECORDS SUMMARY | 2025-05-12 15:29 | XMS_ITS | Clinical Summary ---
Author Organization Todd Davenport [facility] Address [address] [place] [address] Care Team Providers Care Certified Scrum Master Name Role Phone Todd Gasca MD Primary Care Provider [phone] Allergies No known active allergies Medications lisinopriL [...] situ (DCIS) of left breast 0 05/08/2021 Family History Medical History Relation Name Comments [...] Most Recently Relevant to Health Maintenance Insurance [facility] [id number] [facility] [id number] Care Teams Certified Scrum Master Relationship Specialty Start Date End Date Todd Gasca MD [address] [place] [phone] PCP - General Emergency Medicine 05/30/21
== END 2025-05-12 15:25 | disposition home or self-care (01) ==
PROVIDERS: PCP Emergency Medicine; Visit Provider Emergency Medicine
DX: M47.892 Other spondylosis, cervical region (principal)
CPT/HCPCS: 72040

== ENCOUNTER 2025-05-20 21:08 | Emergency (ER) | payer MEDICARE, SELFPAY ==
--- NOTE | ~2025-05-20 | XR_ITS ---
EXAMINATION: XR chest 2V, 05/20/2025 21:39 CDT HISTORY: CHEST PAIN COMPARISON: No comparisons available. Technique: 2 views obtained. Findings: The lungs are clear, no effusion. No pneumothorax. Heart is normal size. Mediastinal and hilar contours are within normal limits. Bony thorax no acute abnormality. Impression: No acute cardiopulmonary abnormality. Reviewed, dictated and finalized at location A. Impression: No acute cardiopulmonary abnormality.
--- OUTSIDE RECORDS SUMMARY | 2025-05-20 21:10 | XMS_ITS | Clinical Summary ---
Author Organization Todd Davenport [facility] Address [address] [place] [address] Care Team Providers Care 411 Directory Assistance Operator Name Role Phone Todd Gasca MD Primary Care Provider [phone] Allergies No known active allergies Medications lisinopriL [...] Most Recently Relevant to Health Maintenance Insurance [facility] [id number] [facility] [id number] Care Teams 411 Directory Assistance Operator Relationship Specialty Start Date End Date Todd Gasca MD [address] [place] [phone] PCP - General Emergency Medicine 05/30/21
--- OUTSIDE RECORDS SUMMARY | 2025-05-20 21:10 | XMS_ITS | Encounter Summary ---
Author Organization [facility] Address [address] [place] [address] Care Team Providers Care Advertising Sales Assistant Name Role Phone Todd Gasca MD Primary Care Provider [phone] Gt Contreras MD Unavailable Unavailable Md Generic Conversion Primary Care Provider Unavailable Md Generic Conversion Primary Care Provider Unavailable Todd Gasca MD Primary Care Provider [phone] Encounter Details Date Type Department Care Team (Late st Contact Info) Description 11/18/2016 Abstract [facility] AT [address] [address] Siena Ronquillo MA Social History Tobacco Use Types Packs/Day Years Used Date Smoking Tobacco: Never Smokeless Tobacco: Never Alcohol Use Standard Drinks/Week Comments No 0 (1 standard drink = 0.6 oz pur e alcohol) Comments Unknown Sex and Gender Information Value Date Recorded Sex Assigned at Not on file Legal Sex Female 3:03 PM DATA MANAGEMENT Gender Identity Not on file Sexual Orientation Not on file 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 Date 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
--- OUTSIDE RECORDS SUMMARY | 2025-05-20 21:10 | XMS_ITS | Clinical Summary ---
Author Organization [facility] Address [address] [place] [address] Care Team Providers Care Talent Acquisition Manager Name Role Phone Crow Cotnreras MD Unavailable Unavailable Todd Gasca MD Primary Care Provider [phone] Allergies No known active allergies Medications lisinopril 40 MG tablet Take 1 tablet daily 10/23/2016 Active metFORMIN 500 MG tablet Take 1 tablet daily 10/23/2016 Active Active Problems Problem Noted Date Diagnosed Date Abnormal ECG 11/25/2016 Essential hypertension Dyslipidemia Family History Medical History Relation Comments Coronary artery disease Father [place] Father *cause of at age 69 Other Maternal Grandmother at age 69 Diabetes Mother Hyperlipidemia Mother Hypertension Mother als Mother at age 71 [place] Other Paternal side Au nt, Uncle, and cousin in 40's-50's from [place] Stroke Paternal Grandmother in 1951 [place] Sister at age 40 Relation Status Comments [...] on file Legal Sex Female 3:03 PM ATHLETICS DIRECTOR Gender Identity Not on file Sexual Orientation Not on file 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 End 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 [employer] Not on file Not on file Not [...] GENERIC (SCAN ORDER) Routine 09/20/2013 11:09 AM ATHLETICS DIRECTOR from Last 3 Months or Most Recently Relevant to Health Maintenance Results * MAMMOGRAM GENERIC (09/20/2013 11:09 AM ATHLETICS DIRECTOR) Anatomical Region Laterality Modality Other 09/20/2013 11:0 9 AM ATHLETICS DIRECTOR 09/20/2013 11:09 AM ATHLETICS DIRECTOR Narrative 09/20/2013 11:58 AM ATHLETICS DIRECTOR MELVA PALOMO ORDERING MD: CROW MAYEN MD ACCT: [id number] ADMIT/SERVICE DATE: 09/20/13 DISCHARGE DATE: : 1950 PT TYPE: REG SDC SEX: F ORD SITE: [facility] STUDY DATE REPORT # PROCEDURE CODE PROCEDURE 09/20/13 [id number] SPECIMEN MG BREAST SPECIMEN EXTORDERID [id number] ACCESSION NUMBER [id number] CHART DOCUMENT IMPRESSION: SURGICAL CLIP AND MASS [...] M.D. 09/20/2013 11:56 OMAR HADDAD M.D. A #[id number] A/MA CC: Lidya YADAV M.D. Procedure Note Dariana Guerra MD - 06/30/2018 MELVA PALOMO ORDERING MD: CROW MAYEN MD ACCT: [id number] ADMIT/SERVICE DATE: 09/20/13 DISCHARGE DATE: : 1950 PT TYPE: REG SDC SEX: F ORD SITE: [facility] STUDY DATE REPORT # PROCEDURE CODE PROCEDURE 09/20/13 [id number] SPECIMEN MG BREAST SPECIMEN EXTORDERID [id number] ACCESSION NUMBER [id number] CHART DOCUMENT IMPRESSION: SURGICAL CLIP AND MASS [...] M.D. 09/20/2013 11:56 OMAR HADDAD M.D. A #[id number] A/FIGUEROA CC: Lidya YADAV M.D. us Generic Conversion Md GUERRA SCANNING Final R esult from Last 3 Months or Most Recently Relevant to Health Maintenance Insurance [employer] Advance Directives Documents on File Type Date Recorded Patient Thread Machine Operator Expl anation Advance Directives and Livin g Will 09/20/2013 POWER OF CIRCLE EDGER Care Teams Talent Acquisition Manager Relationship Specialty Start Date End Date Todd Gasca MD [address] [place] [address] PCP - General 04/21/17 Crow Contreras MD [place] [employer] Terminal Operator CARDIOVASCULAR DISEASE 11/07/16
--- NOTE | 2025-05-20 21:11 | ECG_ITS ---
Test Date: 2025-05-20 21:28:06 Measurements Intervals [place] Rate: 84 P: 6 DE: 233 QRS: -32 QRSD: 92 T: 69 QT: 378 QTc: 448 Interpretive Statements SINUS RHYTHM WITH FIRST DEGREE AV BLOCK INFERIOR MYOCARDIAL INFARCTION , PROBABLY OLD [40+ ms Q WAVE AND/OR ST/T ABNORMALITY IN II/aVF] ABNORMAL ECG Compared to ECG 06/08/2024 13:32:59 No significant changes Electronically Signed On 05-21-2025 09:41:14 CDT by Eric Bailey M.D.
[2025-05-20 21:15] VITALS: BP 155/68; PULSE 87; RESP 20; TEMP 36.2; O2SAT 98
[2025-05-20 22:00] LABS: Hematocrit 38.6 % (37.0-47.0); Hemoglobin 13.0 g/dL (12.0-15.0); Immature Granulocyte Percent A 0.4 % (0-0.5); Lymphocytes Absolute Auto 1.95 K/mm3 (0.9-3.2); Mean Corpuscular HGB Conc 33.7 g/dl (32-36); Mean Corpuscular Hemoglobin 28.3 pg (26-34); Mean Corpuscular Volume 83.9 fl (80-100); Nucleated Red Blood Cells Absolute Auto 0.000 K/mm3 (0.0-0.012); Nucleated Red Blood Cells Perc 0.0 % (0.0-0.2); Platelet Count Result 259 k/mm3 (150-375); Red Blood Count 4.60 M/mm3 (4.2-5.4); White Blood Count 6.8 K/mm3 (4.5-10.0)
[2025-05-20 22:11] LABS: Alanine Aminotransferase 38 U/L (6-35); Albumin Level 4.5 g/dL (3.5-5.1); Alkaline Phosphatase 87 U/L (38-126); Anion Gap 10 mmol/L (4-12); Aspartate Amino Transferase 37 U/L (14-36); Bilirubin,Total 0.5 mg/dL (0.2-1.3); Blood Urea Nitrogen 17 mg/dL (7-17); Calcium 9.7 mg/dL (8.4-10.2); Carbon Dioxide 25 mmol/L (22-30); Chloride 104 mmol/L (98-107); Estimated CRCL calculation 67 ml/min; Estimated Glomerular Filt Rate > 60; Glucose 185 mg/dL (65-110); Lipase 123 U/L (23-300); Potassium 3.4 mmol/L (3.4-5.0); Sodium 139 mmol/L (137-145); Total Protein 7.8 g/dL (6.3-8.2)
[2025-05-20 22:15] LABS: INR 1.0; Prothrombin Time 13.8 Seconds (11.1-14.7)
[2025-05-20 22:16] LABS: Partial Thromboplastin Time 26.1 Seconds (22.3-36.8)
[2025-05-20 22:22] LABS: Troponin I < 0.012 ng/mL (0.000-0.034)
--- NOTE | 2025-05-21 00:43 | ECG_ITS ---
Test Date: 2025-05-21 00:51:27 Measurements Intervals [place] Rate: 67 P: 17 CO: 248 QRS: -24 QRSD: 83 T: 79 QT: 419 QTc: 444 Interpretive Statements SINUS RHYTHM WITH FIRST DEGREE AV BLOCK INFERIOR MYOCARDIAL INFARCTION , PROBABLY OLD [40+ ms Q WAVE AND/OR ST/T ABNORMALITY IN II/aVF] ABNORMAL ECG Compared to ECG 05/20/2025 21:28:06 No significant changes Electronically Signed On 05-21-2025 09:46:19 CDT by Eric Bailey M.D.
[2025-05-21 00:47] VITALS: BP 125/78; PULSE 69; RESP 16; O2SAT 97
[2025-05-21 01:13] LABS: Troponin I < 0.012 ng/mL (0.000-0.034)
--- NOTE | 2025-05-21 01:40 | ED_ITS ---
HPI - Chest Pain General Chief Complaint: Chest Pain Stated Complaint: chest pain/neck pain Time Seen by Provider: 05/21/25 01:08 History of Present Illness HPI narrative: Patient is a 74-year-old female who presents emergency department this evening complaining of left-sided chest pain. Patient states that she has had a lot of issues going on with chronic neck pain, anxiety, nausea and yesterday she noticed that she was starting to have some chest pain. Patient states that today the chest pain moved to her left arm which was concerning for her and she decided to come in for further evaluation. Denies any history of heart attacks. Denies any recent illness, fevers or chills. No additional symptoms or concerns at this time. Related Data Home Medications ?Medication ?Instructions ?Recorded ?Confirmed ?Last Taken ?Type glucosamine-chondroitin 250 mg-200 1 tablet PO DAILY 0 10/30/21 12/01/24 11/30/24 History mg tablet multivitamin 1 tablet PO DAILY 10/30/21 0 12/01/24 11/30/24 History potassium chloride 10 mEq 10 meq PO DAILY 06/08/2411/30/24 History capsule,extended release cholecalciferol (vitamin D3) 25 25 mcg PO DAILY 11/30/24 11/14/24 History mcg (1,000 unit) tablet (Vitamin D3) amlodipine 10 mg tablet 10 mg PO QAM 11/30/2412/01/24 08:30 History hydrocodone 5 mg-acetaminophen 325 1 tablet PO Q6-8H P RN pain 11/30/24 12/01/24 12/01/24 08:30 History mg tablet tamsulosin 0.4 mg capsule 0.4 mg PO HS PRN URINATION 0 11/30/24 11/30/24 Unknown History DIFFFICULTY Allergies Allergy/AdvReac Type Severity Reaction Status Date / Time No Known Allergies Allergy Verified 05/20/25 21:19 Review of Systems 2 Review of Systems: All systems are reviewed and are negative unless stated otherwise in the HPI. [facility] Past Medical History Medical History Bilateral breast cancer status post lumpectomy and chemoradiation Kidney stones Type 2 diabetes mellitus Hyperlipidemia Motion sickness Osteoporosis Thyroid condition Hypertension Surgical History Surgical History History of lumpectomy of both breasts History of hysterectomy History of tonsillectomy History of parathyroidectomy History of bladder surgery History of colon resection r/t diverticulitis Family History Family History Father Heart attack Mother ALS (amyotrophic lateral sclerosis) Other Cerebrovascular accident Hypertension Social History Social History Social History: Surrogate medical decision maker: Dary Barber, daughter. Code status: Full code. Smoking status: Never smoker Alcohol intake: never Alcohol use details: rare alcohol use in moderation Substance use: never Substance use type: does not use Do You Feel Safe in your Home?: Yes Lack of Transportation: No Lack of Food: Never True Current Housing: I Have Housing Concerned About Future Housing: No Difficulty Paying Gas/Electric Bills: No Difficulty Paying for Meds: No Currently Unemployed: No Education: High School Diploma/GED Difficulty w/ Childcare or Family Care: No Living arrangements: alone Additional living arrangements comments: [facility] Spiritual care concerns: No Exam 2 Narrative: General: Alert, awake, afebrile, in no acute distress. HEENT: PERRL, no rhinorrhea, no post nasal drip, oropharynx clear. Neck: Trachea midline, no JVD, no lymphadenopathy. Cardiovascular: Regular rate and rhythm, no murmurs, rubs or gallops, no peripheral edema. Respiratory: Clear to auscultation bilaterally, no tachypnea, no wheezing, no rhonchi, no rubs, no respiratory distress. Abdomen: Soft, nontender, nondistended, no rebound, no guarding, no peritoneal signs. Musculoskeletal: No joint swelling or deformity, normal muscle tone. Skin: No rashes or petechia, no signs of infection. Psychiatric: Alert and oriented, normal behavior and judgment for situation. Neurological: Alert and oriented to person, place, and time. Follows all commands. No focal deficits, speech is clear and fluent. Course Vital Signs Vital signs: Vital Signs Temperature 97.2 F L 05/20/25 21:15 Pulse Rate 87 05/20/25 21:15 Respiratory Rate 20 05/20/25 21:15 Blood Pressure 155/68 H 05/20/25 21:15 Pulse Oximetry 98 05/20/25 21:15 Oxygen Delivery Room Air 05/20/25 21:15 Temperature 97.2 F L 05/20/25 21:15 Pulse Rate 69 05/21/25 00:47 Respiratory Rate 16 05/21/25 00:47 Blood Pressure 125/78 05/21/25 00:47 Pulse Oximetry 97 05/21/25 00:47 Oxygen Delivery Room Air 05/21/25 00:39 MDM - Chest Pain MDM Narrative Medical decision making narrative: The patient was evaluated by myself in the emergency department. History is obtained from patient who is an independent historian and physical exam was performed. External medical records were reviewed at this time. IV was established and pertinent tests were ordered. EKG was obtained which revealed sinus rhythm rate of 84 beats per minute, no evidence of acute ischemia. EKG was independently interpreted by me and is currently pending official cardiology read. Laboratory results obtained revealing no acute process. Two sets of troponins were obtained and both noted to be negative. Imaging studies obtained included CXR which was independently interpreted by me revealing no acute cardiopulmonary process, which is pending final radiology interpretation. Differential diagnosis considerations include acute stress reaction, anxiety, acute coronary syndrome, infectious process such as pneumonia, costochondritis, acute viral syndrome. Comorbidities impacting this visit include none. I have evaluated and discussed social determinants of health with the patient that could potentially impact subsequent diagnosis and treatment plans. On repeat assessment of the patient, reevaluation revealed that the patient is doing well and is in no acute distress. Patient symptoms have remained stable since she arrived to our emergency department. Repeat vital signs were all reviewed and noted to be stable. Differential diagnosis and treatment plan were discussed with the patient at bedside. Patient agrees with discussion and after shared medical decision making agrees with discharge. All questions were answered to the patient's satisfaction. Patient will follow up with her PCP in 3-5 days. Patient was provided with strict return precautions and instructed to return to the emergency department if any new or worsening symptoms develop. The patient was discharged in stable condition. Lab Data 05/20/25 21:36 05/20/25 21:36 Labs: Lab Results 05/20/25 05/21/25 Range/Units 21:36 00:46 WBC 6.8 (4.5-10.0) K/mm3 RBC 4.60 (4.2-5.4) M/mm3 Hgb 13.0 (12.0-15.0) g/dL Hct 38.6 (37.0-47.0) % MCV 83.9 (80-100) fl MCH 28.3 (26-34) pg MCHC 33.7 (32-36) g/dl RDW 13.3 (11.5-14.5) % Plt Count 259 (150-375) k/mm3 MPV 9.9 (7.4-10.4) fl Immature Gran % (Auto) 0.4 (0-0.5) % Neut % (Auto) 57.9 (45.5-73.1) % Lymph % (Auto) 28.9 (18.3-44.2) % [place] % (Auto) 9.8 H (2.6-8.5) % Eos % (Auto) 2.4 (0-4.4) % Baso % (Auto) 0.6 (0.2-1.2) % Lymph # (Auto) 1.95 (0.9-3.2) K/mm3 [place] # (Auto) 0.7 H (0.1-0.6) K/mm3 Eos # (Auto) 0.2 (0-0.3) K/mm3 Baso # (Auto) 0.0 (0.0-0.1) K/mm3 Abs Immat Gran (auto) 0.03 (0.00-0.031) K/mm3 Absolute Neuts (auto) 3.9 (1.3-6.7) K/mm3 Absolute Nucleated RBC 0.000 (0.0-0.012) K/mm3 Nucleated RBC % 0.0 (0.0-0.2) % PT 13.8 (11.1-14.7) Seconds INR 1.0 APTT 26.1 (22.3-36.8) Seconds Sodium 139 (137-145) mmol/L Potassium 3.4 (3.4-5.0) mmol/L Chloride 104 (98-107) mmol/L Carbon Dioxide 25 (22-30) mmol/L Anion Gap 10 (4-12) mmol/L BUN 17 (7-17) mg/dL Creatinine 0.69 L (0.7-1.0) mg/dL Estim Creat Clear Calc 67 ml/min Estimated GFR > 60 (59 - ) Glucose 185 H (65-110) mg/dL Calcium 9.7 (8.4-10.2) mg/dL Total Bilirubin 0.5 (0.2-1.3) mg/dL AST 37 H (14-36) U/L ALT 38 H (6-35) U/L Alkaline Phosphatase 87 (38-126) U/L Troponin I < 0.012 < 0.012 (0.000-0.034) ng/mL Total Protein 7.8 (6.3-8.2) g/dL Albumin 4.5 (3.5-5.1) g/dL Lipase 123 (23-300) U/L Discharge Plan Discharge Clinical Impression: Nonspecific chest pain Patient Disposition: Home Condition: Improved Instructions: Antibiotic Form, Chest Pain (ED) Additional Instructions: Please follow-up with your family doctor within the next 3-5 days. Return to the ED if any new or worsening symptoms develop. Patient Language: Armenian Prescriptions: No Action potassium chloride 10 mEq Capsule, Extended Release 10 meq PO DAILY amlodipine 10 mg tablet 10 mg PO QAM tamsulosin 0.4 mg capsule 0.4 mg PO HS PRN (Reason: URINATION DIFFFICULTY) hydrocodone-acetaminophen 5-325 mg tablet 1 tablet PO Q6-8H PRN (Reason: pain) hydrocodone-acetaminophen 5-325 mg tablet 1 - 2 tablet PO Q6H PRN (Reason: pain) Qty: 20 0RF cephalexin 500 mg capsule 500 mg PO Q8H Qty: 9 0RF Artificial Tears (cmc) 1 % drops 1 drp EACH EYE QID Qty: 15 0RF cetirizine [Zyrtec] 10 mg tablet 10 mg PO DAILY Qty: 14 0RF multivitamin Tablet 1 tablet PO DAILY glucosamine-chondroitin 250-200 mg Tablet 1 tablet PO DAILY cholecalciferol (vitamin D3) [Vitamin D3] 25 mcg (1,000 unit) tablet 25 mcg PO DAILY Patient Comments: haven't taken since August or so tramadol 50 mg tablet 50 mg PO Q6H PRN (Reason: pain) Qty: 20 0RF oxybutynin chloride 5 mg tablet 5 mg PO BID PRN (Reason: bladder spasms) Qty: 30 0RF Rx Instructions: Take as needed for bladder spasms Follow-up/Referrals: Todd Gasca MD [Primary Care Provider, Family Practice] - 3 Days Time of Disposition: 01:47
[2025-05-21 02:05] VITALS: BP 140/100; PULSE 88; RESP 20; TEMP 36.6; O2SAT 99
== END 2025-05-21 02:08 | disposition home or self-care (01) ==
PROVIDERS: Emergency Provider Emergency Medicine; PCP Emergency Medicine
DX: R07.89 Other chest pain (principal); E11.9 Type 2 diabetes mellitus without complications; E78.5 Hyperlipidemia, unspecified; I10 Essential (primary) hypertension; Z85.3 Personal history of malignant neoplasm of breast
CPT/HCPCS: 36415; 71046; 80053; 83690; 84484; 85025; 85610; 85730; 93005; 99284

== ENCOUNTER 2025-05-23 14:51 | Outpatient (CLI) | payer MEDICARE, SELFPAY ==
--- NOTE | ~2025-05-23 | XR_ITS ---
EXAM/PROCEDURE: XR chest 2V - 05/23/2025 15:00 CDT HISTORY: 74 years old Female with mid zone nodule TECHNIQUE: Two view(s) of the chest. COMPARISON: 05/20/2025 FINDINGS: LUNGS/ PLEURA: No focal consolidation. No appreciable pneumothorax or large pleural effusion. HEART/ MEDIASTINUM: Heart appears normal in size. Atherosclerotic calcifications are seen in the aorta. BONES: Degenerative changes. OTHER: Visualized upper abdomen is unremarkable. IMPRESSION: No acute process. Reviewed, dictated and finalized at location N. IMPRESSION: No acute process.
--- OUTSIDE RECORDS SUMMARY | 2025-05-23 16:22 | XMS_ITS | Clinical Summary ---
Author Organization [facility] Address [address] [place] [address] Care Team Providers Care Cooking Appliance Repair Technician Name Role Phone Todd Gasca MD Primary Care Provider [phone] Source Comments [facility],non-owned Affiliates and Associated Physician Practices is amultiple site organization consisting of ambulatory clinics and hospital sitesin [place], [place], [place] and [place]. This disclosure is being madepursuant to the Care Everywhere program and may not contain all information available regarding this patient. Last updated 18.[facility] Allergies No known active allergies Medications * [...] - Risk 60-74 years 1-dose series) 2011 DEPRESSION SCREENING 09/07/2024 MEDICARE AWV CALENDAR YEAR 2024 COVID-19 VACCINE (1 - 2023-2 5 season) 2025 INFLUENZA VACCINE (#1) 2025 09/16/2012 MAMMOGRAM 03/14/2026 [...] patient's age to complete this topic Insurance [facility] MANAGED MEDICARE ADV [facility] MANAGED MEDICARE ADV [place] [id number] [facility] MANAGED MEDICARE ADV SELF PAY NO INSURANCE Member Subscriber Plan / Payer (Ef fective for All Dates) Name:Melva Palomo Member ID:Not on file Relation to Subscriber:Not on file Name:MELVA PALOMO Subscriber ID:Not on file (Home) Address: [address] [place] [phone] Payer ID:Not on file Group ID:Not on file Type:Self Pay Address: [place], [place] Care Teams Cooking Appliance Repair Technician Relationship Specialty Start Date End Date Todd Gasca MD [address] [place] [id number] PCP - General Family Medicine 06/15/24
--- OUTSIDE RECORDS SUMMARY | 2025-05-23 16:22 | XMS_ITS | Clinical Summary ---
Author Organization [facility] Address [address] [place] [address] Care Team Providers Care Sap Plant Maintenance Consultant Name Role Phone Todd Gasca MD Primary Care Provider [phone] Allergies No known active allergies Medications lisinopriL [...] Most Recently Relevant to Health Maintenance Insurance [facility] [id number] [facility] [id number] Care Teams Sap Plant Maintenance Consultant Relationship Specialty Start Date End Date Todd Gasca MD [address] [place] [phone] PCP - General Emergency Medicine 05/30/21
== END 2025-05-23 14:52 | disposition home or self-care (01) ==
PROVIDERS: PCP Emergency Medicine; Visit Provider Emergency Medicine
DX: R91.8 Other nonspecific abnormal finding of lung field (principal)
CPT/HCPCS: 71046